=== PATIENT | female | born 1955 | race Caucasian/White ===

== ENCOUNTER 2021-02-10 14:37 | Outpatient (REF) | payer MEDICARE, MEDICAID, SELFPAY ==
[2021-02-10 16:04] LABS: MANUAL DIFF FLAG NO
[2021-02-10 16:07] LABS: Appearance Urine CLEAR; Color Urine YELLOW; Glucose Urine UA NEG (NEG); Leukocyte Esterase Urine TRACE (NEG); Nitrite Urine NEG (NEG); PH 5.5 (5.0-8.0); Urine Blood 1+ (NEG); Urine Ketones NEG (NEG); Urine Protein NEG (NEG-TRACE)
[2021-02-10 16:08] LABS: Basophils Absolute Auto 0.1 X10*3/uL (0.0-0.2); Basophils Percent Auto 1.1 % (0-2); Eosinophils Absolute Auto 0.2 X10*3/uL (0.0-0.4); Eosinophils Percent Auto 2.7 % (0-4); Hematocrit 32.1 % (37-47); Hemoglobin 10.7 g/dl (12.0-16.0); Imm Gran Abs Auto 0.02 X10*3/uL (0.00-0.03); Imm Gran Pct Auto 0.3 % (0.0-0.4); Lymphocytes Absolute Auto 2.9 X10*3/uL (1.2-4.9); Lymphocytes Percent Auto 40.9 % (20-40); Mean Corpuscular HGB Conc 33.3 g/dl (31.0-35.0); Mean Corpuscular Hemoglobin 32.4 pg (27.0-33.0); Mean Corpuscular Volume 97.3 fL (80-98); Mean Platelet Volume 9.2 fL (9.4-12.3); Monocytes Absolute Auto 0.6 X10*3/uL (0.1-1.2); Monocytes Percent Auto 8.7 % (2-11); Neutrophils Absolute Auto 3.3 X10*3/uL (2.0-8.3); Neutrophils Percent Auto 46.3 % (45-73); Platelet Count 270 X10*3/uL (160-400); Red Cell Distribution Width 12.4 % (11.0-16.0)
[2021-02-10 16:16] LABS: Bacteria Urine 1+ /LPF; RBC Urine 0-2 /HPF (0); Squamous Epithelial Cell Urine 1+ /LPF; WBC Urine 0-2 /HPF (0-4)
[2021-02-10 16:29] LABS: Alanine Aminotransferase 22 U/L (0-31); Albumin Level 4.4 g/dL (3.5-5.0); Alkaline Phosphatase 62 U/L (39-117); Anion Gap 16 (12-20); Aspartate Amino Transferase 24 U/L (5-31); Bilirubin Total 0.4 mg/dL (0.0-1.0); Blood Urea Nitrogen 39 mg/dL (9-16); C Reactive Protein 0.34 mg/dL (< or = 0.50); Calcium 9.6 mg/dL (8.4-10.2); Carbon Dioxide 21 mmol/L (22-29); Chloride 102 mmol/L (96-108); Estimated Glomerular Filt Rate 48; Glucose Random 93 mg/dL (60-115); Potassium 4.4 mmol/L (3.3-5.1); Sodium 135 mmol/L (135-145); Total Protein 7.5 g/dL (6.5-8.0)
[2021-02-10 16:54] LABS: Erythrocyte Sedimentation Rate 26 MM/HR (0-20)
[2021-02-11 11:27] LABS: Complement C3 97 mg/dL (83-193)
[2021-02-12 11:07] LABS: Anti Nuclear Antibody Pattern Nuclear, Homogeneous; Anti Nuclear Antibody Screen POSITIVE (NEGATIVE)
[2021-02-13 14:01] LABS: Anti DNA DS Antibody <1 IU/mL; SM/Ribonucleoprotein Ab <1.0 NEG AI (<1.0 NEG); Smith Protein <1.0 NEG AI (<1.0 NEG)
== END 2021-02-10 14:38 | disposition home or self-care (01) ==
LOC: HO.LAB 14:37
PROVIDERS: PCP Family Medicine; Referring Provider Family Medicine; Visit Provider Student in an Organized Health Care Education/Training Program
DX: L93.0 Discoid lupus erythematosus (principal); Z79.899 Other long term (current) drug therapy; Z87.891 Personal history of nicotine dependence
CPT/HCPCS: 36415; 80053; 81001; 85025; 85652; 86038; 86039; 86140; 86160; 86225; 86235; 99212

== ENCOUNTER 2021-05-10 15:37 | Outpatient (REF) | payer MEDICARE, MEDICAID, SELFPAY ==
--- NOTE | ~2021-05-10 | XR_ITS ---
EXAMINATION: BILATERAL HIP X-RAY CLINICAL INFORMATION: Pain COMPARISON: Left hip x-ray October [address] of the abdomen and pelvis #2017 TECHNIQUE: 2 views of each hip FINDINGS: Right: Bone alignment is normal. No fracture or dislocation is seen. The joint space is normal. Soft tissues are normal. Left: Bone alignment is normal. There is arthritis at the left hip joint with joint space narrowing and osteophyte formation. Soft tissues are unremarkable. There are degenerative changes of the visualized lower lumbar spine. XR/XR hip LT min 2V IMPRESSION: Left hip arthritis. Normal right hip.
--- NOTE | ~2021-05-10 | XR_ITS ---
EXAMINATION: BILATERAL HIP X-RAY CLINICAL INFORMATION: Pain COMPARISON: Left hip x-ray October [address] of the abdomen and pelvis #2017 TECHNIQUE: 2 views of each hip FINDINGS: Right: Bone alignment is normal. No fracture or dislocation is seen. The joint space is normal. Soft tissues are normal. Left: Bone alignment is normal. There is arthritis at the left hip joint with joint space narrowing and osteophyte formation. Soft tissues are unremarkable. There are degenerative changes of the visualized lower lumbar spine. XR/XR hip RT min 2V IMPRESSION: Left hip arthritis. Normal right hip.
== END 2021-05-10 15:38 | disposition home or self-care (01) ==
LOC: HO.XRAY 15:37
PROVIDERS: PCP Family Medicine; Visit Provider Family Medicine
DX: M25.551 Pain in right hip (principal); M25.552 Pain in left hip
CPT/HCPCS: 73502

== ENCOUNTER → 2021-05-11 11:06 | Outpatient (BNVA) | payer MEDICARE, MEDICAID, SELFPAY | PROVIDERS: Visit Provider Orthopaedic Surgery | DX: M70.61 Trochanteric bursitis, right hip (principal) | CPT/HCPCS: 99202 ==

== ENCOUNTER 2021-08-04 14:00 | Outpatient (RCR) | payer MEDICARE, MEDICAID, SELFPAY ==
--- NOTE | 2021-05-20 10:37 | MHC.PT.EP ---
[facility] [place] Office [place] Office [place] Office [address] [place] Bloom [address] [phone] F: [phone] F: [phone] F: [phone] F: [phone] Physical Therapy Plan of Care Date of Evaluation: Date of Surgery: Diagnosis: Trochanteric bursitis, R hip Sciatica, L side Assessment: Pt is a 66yo F who presents to PT with bilateral hip pain, L>R, with R mostly resolved at this time. She presents with current impairments in pain, ROM, strength, soft tissue restrictions, endurance, balance, and proper body mechanics. She is limited functionally by prolonged sitting, standing, walking, stairs, squatting, and externally rotating her L leg. Her signs and symptoms may be consistent with L sciatica and R hip bursitis. She is an excellent candidate for skilled PT services to address current impairments and facilitate return to PLOF. Frequency and Duration: The patient will be seen 2x/week for 4 weeks Short Term Goals: -Pt will be I with HEP to promote self management of symptoms. -Pt will improve L hip ER ROM by at least 5 degrees. Usp Goals: -Pt will demonstrate full, pain-free ROM throughout bilateral hips -Pt will tolerate ambulation >30 min with pain < 2/10. -Pt will demonstrate improvements in functional mobility as evidenced by statistically significant improvement in LEFI. Treatment Plan: Modalities to reduce pain, spasms and effusion. Manual therapy to restore motion and function. Therapeutic exercise to improve strength and flexibility. Neuromuscular re-education for posture and balance. Therapeutic activities to return to functional activities of daily living. Electronically signed by: Marlen Hawk PT, DPT Please sign and return to therapist. Thank you for your referral.
--- NOTE | 2021-08-04 15:39 | MHC.PT.DC ---
[facility] [place] Office [place] Office [place] Office [address] [place] Bloom [address] [phone] F: [phone] F: [phone] F: [phone] F: [phone] Physical Therapy Discharge Report Diagnosis: Trochanteric bursitis, R hip Sciatica, L side Date of Surgery: Date of Evaluation: 05/19/21 Date of Discharge: 08/04/21 Treatments to Date: 13 Cancellations to Date: 3 No Shows to Date: Discharge Status: Achieved Goals Improved Function Independent with HEP Discharge Summary: Pt has made fair-good progress overall since SOC. She has improved LEFI outcome measure from 30/80 on initial PT evaluation to 45/80 today. She is extremely motivated when at PT however she has had fluctuations in her pain and has not been completely compliant with HEP or coming consistently 2x/week to PT. She has had a decrease in radiating symptoms into LE's but continues to occasional have pain in her hips, L>R. At this time it is recommended pt be D/C to HEP as she has reached functional plateau with skilled PT services. It is recommended if pt continues to have pain despite performing HEP consistently that she follows up her Doctor, pt verbalized understanding. Provided pt with printed, updated copy of HEP. Pt reports no further questions or concerns for PT at this time. Electronically signed by: Marlen Hawk, PT, DPT Please sign and return to therapist. Thank you for your referral.
== END 2021-08-04 15:39 | disposition home or self-care (01) ==
LOC: HO.PT 14:00
PROVIDERS: Visit Provider Orthopaedic Surgery
DX: M70.61 Trochanteric bursitis, right hip (principal)
CPT/HCPCS: 97110; 97150; 97161; 97530

== ENCOUNTER 2021-09-21 11:55 | Outpatient (REF) | payer MEDICARE, MEDICAID, SELFPAY ==
--- NOTE | ~2021-09-21 | MM_ITS ---
EXAMINATION: MM SCREENING DIGITAL BREAST TOMOSYNTHESIS, BILATERAL CLINICAL INFORMATION: Screening. Asymptomatic. The lifetime risk of breast cancer based on the Tyrer-Cuzick Model is 10.8%. COMPARISON: Mammography: March 06, 2018 and studies dating back to March 18, 2010 TECHNIQUE: Digital breast tomosynthesis is performed in both the craniocaudal and mediolateral oblique views along with computer-aided detection (CAD). Synthesized 2D images are generated from the tomosynthesis. FINDINGS: There are scattered areas of fibroglandular density (ACR BI-RADS breast composition Category b). There are no significant masses, abnormal calcifications, or other abnormalities. MM/MM tomosynthesis screening BI IMPRESSION: There are no significant changes from prior study. ASSESSMENT: BI-RADS 1: Negative RECOMMENDATION: Routine annual mammography screening. This patient's information was entered into a reminder system with a target due date for their next mammogram.
[2021-09-21 14:29] LABS: Alanine Aminotransferase 17 U/L (0-31); Albumin Level 4.2 g/dL (3.5-5.0); Alkaline Phosphatase 62 U/L (39-117); Anion Gap 13 (12-20); Aspartate Amino Transferase 19 U/L (5-31); Bilirubin Total 0.7 mg/dL (0.0-1.0); Blood Urea Nitrogen 21 mg/dL (9-16); Calcium 9.7 mg/dL (8.4-10.2); Carbon Dioxide 23 mmol/L (22-29); Chloride 107 mmol/L (96-108); Estimated Glomerular Filt Rate > 60; Glucose Random 105 mg/dL (60-115); Potassium 4.8 mmol/L (3.3-5.1); Sodium 138 mmol/L (135-145); Total Protein 7.5 g/dL (6.5-8.0)
[2021-09-21 14:52] LABS: Thyroid Stimulating Hormone 0.62 uIU/mL (0.32-4.0)
[2021-09-21 15:07] LABS: Appearance Urine CLEAR; Color Urine YELLOW; Glucose Urine UA NEG (NEG); Leukocyte Esterase Urine NEG (NEG); Nitrite Urine NEG (NEG); Specific Gravity - Urine 1.025 (1.005-1.025); Urine Blood 1+ (NEG); Urine Ketones NEG (NEG); Urine Protein NEG (NEG-TRACE)
[2021-09-21 15:19] LABS: Creatinine Urine 81.44 mg/dL; Protein/Creatinine Ratio, Ur 0.15 (<0.2); Total Protein Urine Random 12 mg/dL (<12)
[2021-09-21 15:22] LABS: Bacteria Urine TRACE /LPF; RBC Urine 0-2 /HPF (0); Squamous Epithelial Cell Urine TRACE /LPF; WBC Urine 0-2 /HPF (0-4)
[2021-09-21 15:53] LABS: Osmolality Urine 695 mosm/kg (373-1093)
[2021-09-22 11:20] LABS: Complement C3 88 mg/dL (83-193)
[2021-09-24 10:42] LABS: Anti Nuclear Antibody Screen NEGATIVE (NEGATIVE)
== END 2021-09-21 11:56 | disposition home or self-care (01) ==
LOC: HO.MAMMO 11:55
PROVIDERS: Absent Provider Internal Medicine Hypertension Specialist; PCP Family Medicine; Visit Provider Family Medicine
DX: Z12.31 Encounter for screening mammogram for malignant neoplasm of breast (principal); N18.31 Chronic kidney disease, stage 3a
CPT/HCPCS: 36415; 77063; 77067; 80053; 81001; 81003; 83935; 84156; 84300; 84443; 86038; 86039; 86160

== ENCOUNTER 2022-04-08 12:58 | Outpatient (REF) | payer MEDICARE, MEDICAID, SELFPAY ==
[2022-04-08 13:22] LABS: MANUAL DIFF FLAG NO
[2022-04-08 13:33] LABS: Basophils Absolute Auto 0.1 X10*3/uL (0.0-0.2); Basophils Percent Auto 0.8 % (0-2); Eosinophils Absolute Auto 0.1 X10*3/uL (0.0-0.4); Eosinophils Percent Auto 1.2 % (0-4); Hematocrit 37.3 % (37.0-47.0); Hemoglobin 12.3 g/dl (12.0-16.0); Imm Gran Abs Auto 0.01 X10*3/uL (0.00-0.03); Imm Gran Pct Auto 0.1 % (0.0-0.4); Lymphocytes Absolute Auto 3.4 X10*3/uL (1.2-4.9); Lymphocytes Percent Auto 40.3 % (20-40); Mean Corpuscular Hemoglobin 33.8 pg (27.0-33.0); Mean Corpuscular Volume 102.5 fL (80.0-98.0); Mean Platelet Volume 9.1 fL (9.4-12.3); Monocytes Absolute Auto 0.6 X10*3/uL (0.1-1.2); Monocytes Percent Auto 7.5 % (2-11); Neutrophils Absolute Auto 4.2 x10*3/uL (2.0-8.3); Neutrophils Percent Auto 50.1 % (45-73); Platelet Count 264 X10*3/uL (160-400); Red Blood Count 3.64 X10*6/uL (4.20-5.50); Red Cell Distribution Width 13.5 % (11.0-16.0); White Blood Count 8.4 X10*3/uL (4.8-10.8)
[2022-04-08 13:53] LABS: Anion Gap 14 (12-20); Blood Urea Nitrogen 17 mg/dL (9-16); Calcium 10.4 mg/dL (8.4-10.2); Carbon Dioxide 25 mmol/L (22-29); Chloride 102 mmol/L (96-108); Estimated Glomerular Filt Rate > 60; Glucose Random 99 mg/dL (60-115); Potassium 5.1 mmol/L (3.3-5.1); Sodium 136 mmol/L (135-145)
== END 2022-04-08 12:59 | disposition home or self-care (01) ==
LOC: HO.LAB 12:58
PROVIDERS: PCP Family Medicine; Visit Provider Internal Medicine Hypertension Specialist
DX: I10 Essential (primary) hypertension (principal)
CPT/HCPCS: 36415; 80048; 85025

== ENCOUNTER 2022-06-08 13:37 | Outpatient (REF) | payer MEDICARE, MEDICAID, SELFPAY ==
--- NOTE | ~2022-06-08 | XR_ITS ---
EXAMINATION: XR BILATERAL HIPS WITH AP PELVIS CLINICAL INFORMATION: Left greater than right hip pain and stiffness. COMPARISON: None TECHNIQUE: AP view of the pelvis and AP and frog lateral views of each hip were obtained. FINDINGS: There is mild bony demineralization. The right acetabular joint space is well-maintained. The right femoral head appears smooth. The left acetabular joint space shows moderately severe superior narrowing. There is subchondral sclerosis, subchondral cyst formation and a small peripheral osteophyte of the left acetabular roof. No fracture or dislocation is seen. The left femoral head appears smooth. There are pelvic phleboliths. No foreign body is seen. XR/XR hips KATHI min 3V IMPRESSION: 1. There is moderate osteoarthritic change of the left hip. 2. No unusual degenerative change is seen of the right hip. 3. There is no fracture or dislocation.
== END 2022-06-08 13:38 | disposition home or self-care (01) ==
LOC: HO.XRAY 13:37
PROVIDERS: PCP Family Medicine; Visit Provider Internal Medicine Rheumatology
DX: M15.9 Polyosteoarthritis, unspecified (principal)
CPT/HCPCS: 73522

== ENCOUNTER 2023-01-10 13:10 | Outpatient (REF) | payer MEDICARE, MEDICAID, SELFPAY ==
[2023-01-10 15:31] LABS: Anion Gap 14 (12-20); Blood Urea Nitrogen 15 mg/dL (9-16); Calcium 9.6 mg/dL (8.4-10.2); Carbon Dioxide 25 mmol/L (22-29); Chloride 102 mmol/L (96-108); Estimated Glomerular Filt Rate 58; Potassium 4.9 mmol/L (3.3-5.1); Sodium 136 mmol/L (135-145)
== END 2023-01-10 13:11 | disposition home or self-care (01) ==
LOC: HO.LAB 13:10
PROVIDERS: PCP Family Medicine; Visit Provider Internal Medicine Hypertension Specialist
DX: I12.9 Hypertensive chronic kidney disease with stage 1 through stage 4 chronic kidney disease, or unspecified chronic kidney disease (principal); N18.9 Chronic kidney disease, unspecified
CPT/HCPCS: 36415; 80051; 82310; 82565; 84520

== ENCOUNTER 2023-05-11 11:13 | Outpatient (REF) | payer MEDICARE, MEDICAID, SELFPAY ==
[2023-05-11 13:34] LABS: MANUAL DIFF FLAG NO
[2023-05-11 13:53] LABS: Basophils Absolute Auto 0.1 X10*3/uL (0.0-0.2); Basophils Percent Auto 1.1 % (0-2); Eosinophils Absolute Auto 0.1 X10*3/uL (0.0-0.4); Eosinophils Percent Auto 1.9 % (0-4); Hematocrit 38.8 % (37.0-47.0); Hemoglobin 12.9 g/dl (12.0-16.0); Imm Gran Abs Auto 0.06 X10*3/uL (0.00-0.03); Imm Gran Pct Auto 0.9 % (0.0-0.4); Lymphocytes Absolute Auto 2.3 X10*3/uL (1.2-4.9); Lymphocytes Percent Auto 36.4 % (20-40); Mean Corpuscular HGB Conc 33.2 g/dl (31.0-35.0); Mean Corpuscular Hemoglobin 33.5 pg (27.0-33.0); Mean Corpuscular Volume 100.8 fL (80.0-98.0); Mean Platelet Volume 9.5 fL (9.4-12.3); Monocytes Absolute Auto 0.6 X10*3/uL (0.1-1.2); Neutrophils Absolute Auto 3.3 x10*3/uL (2.0-8.3); Neutrophils Percent Auto 50.7 % (45-73); Platelet Count 278 X10*3/uL (160-400); Red Blood Count 3.85 X10*6/uL (4.20-5.50); Red Cell Distribution Width 12.7 % (11.0-16.0); White Blood Count 6.4 X10*3/uL (4.8-10.8)
[2023-05-11 14:03] LABS: Cholesterol 242 mg/dL; HDL Cholesterol 109 mg/dL; LDL Cholesterol Calculated 120 mg/dl; Triglycerides 66 mg/dL
[2023-05-11 14:18] LABS: Estimated Average Glucose 97 mg/dL
[2023-05-11 14:19] LABS: Iron 107 mcg/dL (30-160); Percent Iron Saturation 40 % (15-50); Reflex LDLD? No; Total Iron Binding Capacity 266 mcg/dL (228-428); Unsaturated Iron Binding 159 ug/dL
[2023-05-11 14:24] LABS: Ferritin 179 ng/mL (10-250); TSH reflex Free T4 1.11 uIU/mL (0.32-4.0)
== END 2023-05-11 11:14 | disposition home or self-care (01) ==
LOC: HO.HHCL 11:13
PROVIDERS: Visit Provider Family Medicine
DX: E78.5 Hyperlipidemia, unspecified (principal); I12.9 Hypertensive chronic kidney disease with stage 1 through stage 4 chronic kidney disease, or unspecified chronic kidney disease; N18.32 Chronic kidney disease, stage 3b; E83.19 Other disorders of iron metabolism; L93.0 Discoid lupus erythematosus; D64.9 Anemia, unspecified
CPT/HCPCS: 36415; 80061; 82728; 83036; 83540; 84443; 85025

== ENCOUNTER 2023-06-14 10:41 | Outpatient (REF) | payer MEDICARE, MEDICAID, SELFPAY ==
--- NOTE | ~2023-06-14 | MM_ITS ---
EXAMINATION: BONE DENSITOMETRY CLINICAL INDICATION: Other specified disorders of bone density and structure. COMPARISON: Previous BD dated 03/16/2012 and baseline BD dated 03/12/2010. TECHNIQUE: Using a [employer] DXA System (software version: 13.1) manufactured by [employer], dual-energy x-ray absorptiometry was performed of the lumbar spine and left hip. The images are of good technical quality. Summary results are attached. FINDINGS: LEFT FEMUR, NECK: Current: BMD 0.911 g/cm2, Z-score 0.7, T-score -0.9, normal. Prior: BMD 0.919 g/cm2. Baseline: BMD 0.853 g/cm2. LEFT FEMUR, TOTAL: Current: BMD 0.903 g/cm2, Z-score 0.5, T-score -0.8, normal, 3.6% decrease from previous, 1.1% decrease from baseline (<5% change is not significant). Prior: BMD 0.937 g/cm2. Baseline: BMD 0.913 g/cm2. AP SPINE L1-L4: Current: BMD 1.042 g/cm2, Z-score 0.3, T-score -1.2, osteopenia, 5.5% increase from previous, 3.6% increase from baseline (<5% change is not significant). Prior: BMD 0.988 g/cm2. Baseline: BMD 1.006 g/cm2. IDENTIFIED RISK FACTORS: Menopause, history of fracture (adult), renal, anticonvulsant, alcohol 3 or more units per day, history of fracture (adult). HISTORY OF FRACTURE: Other. MEDICATIONS: Calcium supplements or multivitamin, vitamin D. MM/XR DEXA axial skeleton IMPRESSION: 1. DIAGNOSIS: Osteopenia based on the lowest T-score value of -1.2 in the lumbar spine applying World Health Organization criteria. 2. 10-YEAR FRACTURE RISK PREDICTION, FRAX: Major osteoporotic fracture (clinical spine, forearm, hip or shoulder) 16.3%. Hip fracture 2.0%. 3. Treatment Recommendations: NOF guidelines recommend consideration for treatment in postmenopausal women and men age 50 and older presenting with the following: -A hip or vertebral (clinical or morphometric) fracture. -T-score less than or equal to -2.5 at the femoral neck or spine after appropriate evaluation to exclude secondary causes. -Low bone mass at the hip or spine and a 10-year fracture probability by FRAX of greater than or equal to 3% for hip fracture or greater than or equal to 20% for major osteoporotic fracture based on the [place] adapted WHO algorithm. 4. Other Recommendations: All treatment decisions require clinical judgment and consideration of individual patient factors, including patient preferences, comorbidities, previous drug use, risk factors not captured in the FRAX model (e.g. frailty, falls, vitamin D deficiency, increased bone turnover, interval significant decline in bone density) and possible under or overestimation of fracture risk by FRAX. Additional medical evaluation for secondary cause of low bone mineral density may be appropriate. FUTURE SCAN RECOMMENDATION: People with diagnosed cases of osteoporosis or at high risk for fracture should have regular bone mineral density tests. For patients eligible for Medicare, routine testing is allowed once every 2 years. The testing frequency can be increased to one year for patients who have rapidly progressing disease, those who are receiving or discontinuing medical therapy to restore bone mass, or have additional risk factors.
== END 2023-06-14 10:42 | disposition home or self-care (01) ==
LOC: HO.MAMMO 10:41
PROVIDERS: PCP Family Medicine; Visit Provider Family Medicine
DX: Z12.31 Encounter for screening mammogram for malignant neoplasm of breast (principal); Z13.820 Encounter for screening for osteoporosis; M85.89 Other specified disorders of bone density and structure, multiple sites; Z78.0 Asymptomatic menopausal state
CPT/HCPCS: 77063; 77067; 77080

== ENCOUNTER → 2023-06-14 11:00 | Outpatient (BNV) | payer MEDICARE, MEDICAID, SELFPAY | PROVIDERS: PCP Family Medicine; Visit Provider Radiology Diagnostic Radiology | DX: Z12.31 Encounter for screening mammogram for malignant neoplasm of breast (principal) | CPT/HCPCS: 77063; 77067; 77080 ==

== ENCOUNTER 2023-07-05 12:19 | Outpatient (REF) | payer MEDICARE, MEDICAID, SELFPAY ==
[2023-07-05 14:05] LABS: Anion Gap 14 (12-20); Blood Urea Nitrogen 13 mg/dL (9-16); Calcium 9.8 mg/dL (8.4-10.2); Carbon Dioxide 21 mmol/L (22-29); Chloride 106 mmol/L (96-108); Estimated Glomerular Filt Rate > 60; Glucose Random 126 mg/dL (60-115); Potassium 4.2 mmol/L (3.3-5.1); Sodium 137 mmol/L (135-145)
== END 2023-07-05 12:20 | disposition home or self-care (01) ==
LOC: HO.LAB 12:19
PROVIDERS: PCP Family Medicine; Visit Provider Internal Medicine Hypertension Specialist
DX: I10 Essential (primary) hypertension (principal)
CPT/HCPCS: 36415; 80048

== ENCOUNTER 2023-11-24 14:06 | Outpatient (REF) | payer MEDICARE, MEDICAID, SELFPAY ==
[2023-11-24 16:11] LABS: MANUAL DIFF FLAG NO
[2023-11-24 16:15] LABS: Basophils Absolute Auto 0.1 X10*3/uL (0.0-0.2); Basophils Percent Auto 0.8 % (0-2); Eosinophils Absolute Auto 0.1 X10*3/uL (0.0-0.4); Eosinophils Percent Auto 1.4 % (0-4); Hemoglobin 12.8 g/dl (12.0-16.0); Imm Gran Abs Auto 0.02 X10*3/uL (0.00-0.03); Imm Gran Pct Auto 0.3 % (0.0-0.4); Lymphocytes Absolute Auto 2.5 X10*3/uL (1.2-4.9); Lymphocytes Percent Auto 34.3 % (20-40); Mean Corpuscular HGB Conc 33.7 g/dl (31.0-35.0); Mean Corpuscular Hemoglobin 33.3 pg (27.0-33.0); Mean Platelet Volume 9.5 fL (9.4-12.3); Monocytes Absolute Auto 0.7 X10*3/uL (0.1-1.2); Monocytes Percent Auto 9.1 % (2-11); Neutrophils Absolute Auto 3.9 x10*3/uL (2.0-8.3); Neutrophils Percent Auto 54.1 % (45-73); Platelet Count 289 X10*3/uL (160-400); Red Blood Count 3.84 X10*6/uL (4.20-5.50); Red Cell Distribution Width 13.1 % (11.0-16.0); White Blood Count 7.2 X10*3/uL (4.8-10.8)
[2023-11-24 17:03] LABS: Folate 9.9 ng/mL (> or = 4.0); Vitamin B12 1746 pg/mL (200-900)
== END 2023-11-24 14:07 | disposition home or self-care (01) ==
LOC: HO.HHCL 14:06
PROVIDERS: Visit Provider Family Medicine
DX: D64.9 Anemia, unspecified (principal)
CPT/HCPCS: 36415; 82607; 82746; 85025

== ENCOUNTER 2024-01-05 12:54 | Outpatient (REF) | payer MEDICARE, MEDICAID, SELFPAY ==
[2024-01-05 16:31] LABS: Anion Gap 15 (12-20); Blood Urea Nitrogen 13 mg/dL (9-16); Carbon Dioxide 21 mmol/L (22-29); Chloride 104 mmol/L (96-108); Estimated Glomerular Filt Rate > 60; Glucose Random 93 mg/dL (60-115); Potassium 4.5 mmol/L (3.3-5.1); Sodium 135 mmol/L (135-145)
== END 2024-01-05 12:55 | disposition home or self-care (01) ==
LOC: HO.HHCL 12:54
PROVIDERS: Visit Provider Family Medicine
DX: I10 Essential (primary) hypertension (principal)
CPT/HCPCS: 36415; 80048

== ENCOUNTER 2024-06-19 10:27 | Emergency (ER) | payer MEDICARE, MEDICAID, SELFPAY ==
[2024-06-19 10:34] VITALS: BP 198/118; PULSE 104; O2SAT 97
[2024-06-19 10:43] VITALS: BP 170/77; PULSE 95; RESP 18; TEMP 37.1; O2SAT 95; BMI 34.9
[2024-06-19] MEDS: Oxymetazoline HCl 0.05 % Nasal 15 ML SPRAY 2 SPRAY NOSTRIL-B (11:02)
--- NOTE | 2024-06-19 11:03 | ED.GENADULT ---
HPI - General Adult General Chief complaint: General Medical Stated complaint: NOSEBLEED,DIZZY,STOPPED PER EMS Time Seen by Provider: 06/19/24 10:33 Source: patient and EMS Mode of arrival: EMS Limitations: no limitations History of Present Illness ED Provider: Dayday RON HPI narrative: This is a 69-year-old female history of discoid lupus, trochanteric bursitis presenting to the emergency department with nosebleed since 09:00, patient reports typically before she brushes her teeth she blows her nose today, when she blew her nose she started having a nosebleed. It has not been controlled since 09:00 despite intermittent pressure. She is on aspirin however no blood thinners. Denies trauma to the area. Denies chest pain, shortness of breath, nausea, vomiting, abdominal pain, headache, vision changes, dizziness or weakness. Related Data Home Medications ?Medication ?Instructions ?Recorded ?Confirmed aspirin 81 mg tablet,delayed 81 mg PO DAILY 02/10/21 02/10/21 release (Adult Aspirin Regimen) atorvastatin 20 mg tablet 20 mg PO DAILY 02/10/21 02/10/21 calcium carbonate 600 mg-vitamin 1 tab PO BID 02/10/21 02/10/21 D3 5 mcg (200 unit) tablet (Calcium 600 + D(3)) gabapentin 300 mg capsule 300 mg PO DAILY 02/10/21 02/10/21 naproxen sodium 220 mg tablet 220 mg PO BID PRN 02/10/21 02/10/21 (Aleve) omega-3 fatty acids 1,000 mg 1,000 mg PO DAILY 02/10/21 02/10/21 capsule (Fish Oil Concentrate) zinc acetate 50 mg (zinc) capsule 50 mg PO DAILY 02/10/21 02/10/21 (Galzin) Previous Rx's ?Medication ?Instructions ?Recorded hydroxychloroquine 200 mg tablet 200 mg PO DAILY #30 tabs 02/10/21 amoxicillin 875 mg-potassium 1 tab PO BID 7 days #14 tabs 06/19/24 clavulanate 125 mg tablet Allergies Allergy/AdvReac Type Severity Reaction Status Date / Time ANDRADE Inhibitors Allergy Unknown Unknown Verified 06/19/24 10:46 diltiazem Allergy Unknown Unknown Verified 06/19/24 10:46 hydralazine Allergy Unknown Unknown Verified 06/19/24 10:46 Review of Systems Review of Systems: Yes all other systems are reviewed and are negative [facility], [facility] Past Medical History Attestation statement: The following information was validated with the patient. Source: old records reviewed and nursing notes reviewed Medical History Discoid lupus erythematosus Social History Social History Alcohol intake: current Alcohol type: wine Advance Directives: No Do you have a plan to hurt others: No Plan 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: rt handed/[employer] Physical Exam ED Vital Signs: Vital Signs - 24 hr 06/19/24 10:43 06/19/24 11:54 Temperature 98.8 F Pulse Rate 95 82 Respiratory Rate 18 16 Blood Pressure 170/77 H 159/80 H Pulse Oximetry 95 98 Oxygen Delivery Method Room Air Room Air BMI result Body Mass Index 34.9 VSS Appearance: Alert.? Oriented X3.? No acute distress.? Head: Normocephalic, atraumatic, no step-offs or deformities Eyes: Pupils equal, round and reactive to light.? Neck: Normal inspection.? Neck supple.? CVS: Normal heart rate and rhythm.? Pulses normal.? Respiratory: No respiratory distress.? Breath sounds normal.? Abdomen: Soft and nontender.? Skin: Skin warm and dry.? Normal skin color.? Normal skin turgor.? Extremities: No lower extremity edema.? No calf ttp. 5/5 strength to bilateral upper and lower extremities Neuro: Oriented X 3.? No motor deficit.? No sensory deficit. CN 2-12 intact Course Reevaluation(s) Reevaluation #1: patients nose still bleeding --> rhino rocket placed 7.5 to right nares w/ TXA. Patient tollerated procedure well. Time: 12:11 Reevaluation #2: Repeat CBC stable. No longer having bleeding from the right nares. Patient feeling better. No dripping around Rhino Rocket. Patient to be discharged to o'clock will watch for an hour to ensure no further bleeding, ifno bleeding patient to be discharged. Educated patient on diagnosis and treatment plan, answered all question, patient verbalizes understanding. At this time patient will be discharged home, advised to return with new or worsening symptoms. Educated on worrisome signs and symptoms and when to return. At this time I feel comfortable discharge home. Time: 12:51 Medications Administered Discontinued Medications Generic Name Dose Route Start Last Admin Trade Name Sourav PRN Reason Stop Dose Admin Oxymetazoline HCl 2 spray 06/19/24 10:36 06/19/24 11:02 Oxymetazoline Hcl 0.05 % Nasal 15 Ml [place] NOSTRIL-B 06/19/24 10:37 2 spray ONCE ONE Administration Tranexamic Acid 500 mg 06/19/24 12:01 06/19/24 12:14 Tranexamic Acid 1,000 Mg/10 Ml Vial INTRANASAL 06/19/24 12:02 500 mg ONCE ONE Administration Medical Decision Making Medical Decision Making [facility] Narrative: 1105 69-year-old female presents with nosebleed that started at 09:00. Physical exam- R sided nose bleed unable to identify site History and physical exam concerning for anterior nosebleed likely Kiesselbach's plexus could be from mechanical trauma such as nose picking or blowing nose. No signs of acute trauma to nose. Will rule out acute blood loss anemia although unlikely as patient appears hemodynamically stable. Plan labs, will give Afrin and put on nasal clamp. Differential Diagnosis Differential Diagnoses: The differential diagnosis associated with the presentation includes History and physical exam concerning for anterior nosebleed likely Kiesselbach's plexus could be from mechanical trauma such as nose picking or blowing nose. No signs of acute trauma to nose. Will rule out acute blood loss anemia although unlikely as patient appears hemodynamically stable. Admission/Observation Consideration of admission/observation: Escalation of care including admission/observation considered Possible Lab Data [facility] Lab Attestation statement: I reviewed the patient's lab results. 06/19/24 11:58 06/19/24 11:13 Labs: Lab Results 06/19/24 06/19/24 Range/Units 11:13 11:58 WBC 8.4 9.5 (4.8-10.8) X10*3/uL RBC 3.64 L 3.56 L (4.20-5.50) X10*6/uL Hgb 12.4 12.4 (12.0-16.0) g/dl Hct 36.2 L 35.7 L (37.0-47.0) % MCV 99.5 H 100.3 H (80.0-98.0) fL MCH 34.1 H 34.8 H (27.0-33.0) pg MCHC 34.3 34.7 (31.0-35.0) g/dl RDW 12.9 13.0 (11.0-16.0) % Plt Count 230 227 (160-400) X10*3/uL MPV 9.3 L 9.3 L (9.4-12.3) fL Immature Gran % (Auto) 0.4 0.3 (0.0-0.4) % Neut % (Auto) 71.7 76.1 H (45-73) % Lymph % (Auto) 18.2 L 14.0 L (20-40) % Tripp % (Auto) 8.0 8.9 (2-11) % Eos % (Auto) 1.1 0.3 (0-4) % Baso % (Auto) 0.6 0.4 (0-2) % Lymph # (Auto) 1.5 1.3 (1.2-4.9) X10*3/uL Tripp # (Auto) 0.7 0.9 (0.1-1.2) X10*3/uL Eos # (Auto) 0.1 0.0 (0.0-0.4) X10*3/uL Baso # (Auto) 0.1 0.0 (0.0-0.2) X10*3/uL Abs Immat Gran (auto) 0.03 0.03 (0.00-0.03) X10*3/uL Absolute Neuts (auto) 6.0 7.2 (2.0-8.3) x10*3/uL Absolute Nucleated RBC 0.000 0.000 (0.0-0.012) X10*3/uL Nucleated RBC % (auto) 0.0 0.0 (0.0-0.2) /100WBC PT 10.5 L (11.1-13.3) SEC INR 0.9 (0.9-1.1) Sodium 137 (135-145) mmol/L Potassium 4.3 (3.3-5.1) mmol/L Chloride 106 (96-108) mmol/L Carbon Dioxide 19 L (22-29) mmol/L Anion Gap 16 (12-20) BUN 16 (9-16) mg/dL Creatinine 0.84 (0.5-1.4) mg/dL Estim Creat Clear Calc 67.6 Estimated GFR > 60 Random Glucose 117 H (60-115) mg/dL Calcium 10.2 (8.4-10.2) mg/dL Total Bilirubin 0.4 (0.0-1.0) mg/dL AST 29 (5-31) U/L ALT 18 (0-31) U/L Alkaline Phosphatase 56 (39-117) U/L Total Protein 7.4 (6.5-8.0) g/dL Albumin 3.9 (3.5-5.0) g/dL External Record Review External record reviewed: Outpatient record Chronic Conditions Patient?s care impacted by: Other (Lupus ) Critical Care Time Critical Care Time Critical Care Time: Yes Total Critical Care Time: 35 Attestation: I attest to this time spent taking care of the patient, obtaining history, physical, reviewing labs, imaging, treatment of patients condition +/- specialist/hospitalist consult Discharge Plan Discharge Clinical Impression: Bleeding nose Patient Disposition: Home, Self-Care Instructions: Nosebleed (ED) Additional Instructions: Take your medications as prescribed. If you were prescribed antibiotics today, it is important that you take your medication to their entirety, do not skip any doses, do not finish them early. Follow-up with your primary care provider this week. Return to the emergency department with new or worsening symptoms. Such as fevers, chills, chest pain, shortness of breath, nausea, vomiting, dizziness, headache, vision changes, lethargy In case of emergency call 911 Come back in 3 days for removal or packing. Prescriptions: New amoxicillin-pot clavulanate 875-125 mg tablet 1 tab PO BID 7 Days Qty: 14 0RF No Action gabapentin 300 mg capsule 300 mg PO DAILY atorvastatin 20 mg tablet 20 mg PO DAILY Galzin 50 mg (zinc) capsule 50 mg PO DAILY aspirin [Adult Aspirin Regimen] 81 mg tablet,delayed release (DR/EC) 81 mg PO DAILY calcium carbonate-vitamin D3 [Calcium 600 + D(3)] 600 mg(1,500mg) -200 unit tablet 1 tab PO BID naproxen sodium [Aleve] 220 mg tablet 220 mg PO BID PRN omega-3 fatty acids [Fish Oil Concentrate] 1,000 mg capsule 1,000 mg PO DAILY hydroxychloroquine 200 mg tablet 200 mg PO DAILY Qty: 30 5RF Referrals: Jose L Friend [Physician] - 2 days Patsy Patel MD [Primary Care Provider] - 2 days Print Language: Greenlandic
[2024-06-19 11:18] LABS: MANUAL DIFF FLAG NO
--- OUTSIDE RECORDS SUMMARY | 2024-06-19 11:19 | XMS_ITS | Continuity of Care Document ---
Author Organization [facility] ion Address [address] [place] [id number]- Care Team Providers Care Extermination Supervisor Name Role Phone Amanda ANTONIO, Patsy Primary Care Physician Encounter [facility] [place] Date(s): 06/21/23 - 07/21/[address] [address]- Attending Physician: Barbie Drew Admitting Physician: AdmtrBarbie Referring Physician: Admtr, Ar8 Allergies, Adverse Reactions, Alerts Substance Reaction Severity Status NSAIDs Active ANDRADE inhibitors Active DilTIAZem Hydrochloride Acti ve Medications amLODIPine 5 mg oral tablet 0 Refills, Maintenance, 01/17/23 15:26:00 EDT, Partial fill upon patient request if the prescription is for a schedule II opioid drug. Start Date: 01/17/23 Status: Ordered atorvastatin 20 mg oral tablet 0 Refills, Maintenance, 01/17/23 15:26:00 EDT, Partial fill upon patient request if the prescription is for a schedule II opioid drug. Start Date: 01/17/23 Status: Ordered baclofen 5 mg oral tablet 1 tablet = 5 mg, By Mouth, 3 times a day, take for postoperative back muscle spasm, # 42 tablet, 0 Refills, Maintenance, 02/22/23 14:43:00 EDT, [facility], Partial fill upon patient request if the prescription is for a schedule II... Start Date: 02/22/23 Stop Date: 03/08/23 Status: Ordered calcium (as carbonate) 500 mg oral tablet, chewable 1 tablet = 500 mg, Daily, 0 Refills, Maintenance, 01/17/23 15:28:00 EDT, Partial fill upon patient request if the prescription is for a schedule II opioid drug. Start Date: 01/17/23 Status: Ordered famotidine 20 mg oral tablet 20 mg, 1, tablet, By Mouth, Once, # 14 tablet, Refills 0, Tot. Refills 0, Soft Stop, 02/22/23 14:00:00 EDT, Route to Pharmacy Electronically, [facility], Partial fill upon patientrequest if the prescription is for a schedule II op... Start Date: 02/22/23 Status: Ordered hydroxychloroquine 200 mg oral tablet Refills 0, Maintenance, 01/17/23 15:26:00 EDT, Partial fill upon patient request if the prescription is for a schedule II opioid drug. Start Date: 01/17/23 Status: Ordered losartan 100 mg oral tablet 0 Refills, Maintenance, 01/17/23 15:27:00 EDT, Partial fill upon patient request if the prescription is for a schedule II opioid drug. Start Date: 01/17/23 Status: Ordered magnesium aspartate = 1,230 mg, By Mouth, 2 times a day, 0 Refills, Maintenance, 01/17/23 15:28:00 EDT, Partial fill upon patient request if the prescription is for a schedule II opioid drug. Start Date: 01/17/23 Status: Ordered Metoprolol Succinate ER 50 mg oral tablet, extended release 0 Refills, Maintenance, 01/17/23 15:26:00 EDT, Partial fill upon patient request if the prescription is for a schedule II opioid drug. Start Date: 01/17/23 Status: Ordered oxyCODONE 5 mg oral tablet 5 mg, 1, tablet, By Mouth, Every 4 hours, PRN, # 42 tablet, Refills 0, Tot. Refills 0, Maintenance,as needed for pain, 02/22/23 13:55:00 EDT, Route to Pharmacy Electronically, [facility], Partial fill upon patient request if the p... Start Date: 02/22/23 Status: Ordered Vitamin B-12 500 mcg oral tablet 0 Refills, Maintenance, 01/17/23 15:26:00 EDT, Partial fill upon patient request if the prescription is for a schedule II opioid drug. Start Date: 01/17/23 Status: Ordered zinc (as gluconate) 10 mg oral lozenge = 50 mg, Daily, 0 Refills, Maintenance, 01/17/23 15:29:00 EDT, Partial fill upon patient request ifthe prescription is for a schedule II opioid drug. Start Date: 01/17/23 Status: Ordered Problem List Condition Confirmation Course Effective Dates Status H ealth Status Informant Chronic kidney disease stage 3 Confirmed 10/25/22 Active Degenerative joint disease involving multiple joints Confirmed 02/23/22 Active Discoid lupus erythematosus Confirmed 08/27/12 Active Dyslipidemia Confirmed 08/27/12 Active Essential hypertension Confirmed 07/21/15 Active Lumbar radiculopathy Confirmed 01/19/23 Active Obese class I Confirmed Active Social History Social History Type Response Tobacco Other: Former smoker . Sex Patient Care team information Care Team Personnel Name: Patsy Patel MD Position: [facility] Outreach Member Role: PCP Address: Address: [address] [place] [id number]- Care Team Related Persons Name: JERRY SOUSA Address: home [address] [place] [id number]
--- OUTSIDE RECORDS SUMMARY | 2024-06-19 11:19 | XMS_ITS | Continuity of Care Document ---
Author Organization [facility] Address [address] [place] [address] [address], [address] [place] [address]- Care Team Providers Care Concrete Fence Builder Name Role Phone Amanda ANTONIO, Patsy Primary Care Physician Encounter [facility] Date(s): 02/10/23 - 03/12/23 [facility] [address] [place] [address] Drive, [address] [place] [address]- Allergies, Adverse Reactions, Alerts Substance Reaction Severity [...] tablet, 0 Refills, Maintenance, 02/22/23 14:43:00 EDT, [facility], Partial fill upon patient request [...] 02/22/23 14:00:00 EDT, Route to Pharmacy Electronically, [facility], Partial fill upon patientrequest if [...] 02/22/23 13:55:00 EDT, Route to Pharmacy Electronically, [facility], Partial fill upon patient request [...] 07/21/15 Active Lumbar radiculopathy Confirmed 01/19/23 Active Social History Social History Type Response Tobacco Other: Former smoker . Sex Patient Care team information Care Team Personnel Name: Patsy Patel MD Position: [facility] Outreach Member Role: PCP Address: Address: [address] [place] [address]- Care Team Related Persons Name: JERRY SOUSA Address: home [address] [place] [id number]
--- OUTSIDE RECORDS SUMMARY | 2024-06-19 11:19 | XMS_ITS | Continuity of Care Document ---
Author Organization [facility] Address [address] [place] [address], [address] [place] [address]- Care Team Providers Care Ball Shagger Name Role Phone Not on Staff, PCP Primary Care Physician Unavail able Encounter [facility] Date(s): 11/23/22 - 12/23/22 [facility] [address] [place] [address] Drive, [address] [place] [address]- Patient Care team information Care Team Personnel Name: Not on Staff, PCP Position: [facility] Physician (General Medicine) Member Role: PCP
--- OUTSIDE RECORDS SUMMARY | 2024-06-19 11:19 | XMS_ITS ---
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
--- OUTSIDE RECORDS SUMMARY | 2024-06-19 11:19 | XMS_ITS | Continuity of Care Document ---
Author Organization [facility] ion Address [address] [place] [address]- Care Team Providers Care Legal File Clerk Name Role Phone Amanda NATONIO, Patsy Primary Care Physician [phone] Encounter [facility] Date(s): 04/03/23 - 06/23/[address] [address]- Encounter Diagnosis Weakness(Final) - Discharge Disposition: A-D/C Home Attending Physician: David Robert MD Admitting Physician: David Robert MD Referring Physician: David Robert MD Allergies, Adverse Reactions, Alerts Substance Reaction Severity Status NSAIDs Active DilTIAZem Hydrochloride Acti ve ANDRADE inhibitors Active Medications amLODIPine 5 mg oral tablet 0 [...] tablet, 0 Refills, Maintenance, 02/22/23 14:43:00 EDT, [facility], Partial fill upon patient request [...] 02/22/23 14:00:00 EDT, Route to Pharmacy Electronically, [facility], Partial fill upon patientrequest if [...] 02/22/23 13:55:00 EDT, Route to Pharmacy Electronically, [facility], Partial fill upon patient request [...] Care team information Care Team Personnel Name: Amanda ANTONIO , Patsy Position: [facility] Outreach Member Role: PCP Address: Address: [address] [place] [address]- Care Team Related Persons Name: MERRY JERRY Address: [address] [address]
--- OUTSIDE RECORDS SUMMARY | 2024-06-19 11:19 | XMS_ITS ---
Author Organization [facility] Address [address] [place] [address] Care Team Providers Care Supervising Nurse Name Role Phone Patsy Patel Primary Care Provider Rekha Busch Unavailable [phone] Encounters Encounter Location Date Provider Diagnosis [facility] [address] [place] [address] 05/10/2023 Rekha Pool PLAN OF TREATMENT No Information
--- OUTSIDE RECORDS SUMMARY | 2024-06-19 11:19 | XMS_ITS | Continuity of Care Document ---
Author Organization [facility] ter Address [address] [place] [address]- Care Team Providers Care Cd Mixer Helper Name Role Phone Amanda ANTONIO, Patsy Primary Care Physician [phone] Encounter [place] Date(s): 02/22/23 - 02/22/[address] [address]- Discharge Disposition: A-D/C Home Attending Physician: David [...] tablet, 0 Refills, Maintenance, 02/22/23 14:43:00 EDT, [facility], Partial fill upon patient request if [...] 02/22/23 14:00:00 EDT, Route to Pharmacy Electronically, [facility], Partial fill upon patientrequest if the prescription is for a schedule II op... Start Date: 02/22/23 Status: Ordered Fentanyl Inj (PACU ONLY) 25 mcg, Injection, IV Push Slowly, Every 5 minutes for 8 doses/times, in PACU ONLY, PRN for Pain , Moderate, Routine, 02/22/23 12:42:00 EDT, Stop date Limited # of times Start Date: 02/22/23 Stop Date: 02/23/23 Status: Discontinued hydroxychloroquine 200 mg oral tablet Refills 0, [...] 02/22/23 13:55:00 EDT, Route to Pharmacy Electronically, [facility], Partial fill upon patient request if [...] 07/21/15 Active Lumbar radiculopathy Confirmed 01/19/23 Active Results Radiology Reports * Exam Date Time Procedure Performing Provider Status 02/22/23 2:18 PM C-Arm < 1 Hour Rosa Hurt; Auth (Verified) Notes: (C-Arm < 1 Hour) Reason For Exam: lumbar metrix RESULT: C-Arm < 1 Hour Study: Spine Single View, C-Arm < 1 Hour History: Reason: lumbar metrix; Special Instructions: ft; 3.3s tt; 10 min. Comparison: None available. FINDINGS: Fluoroscopy support was provided. There was no radiologist in attendance. 2 fluoroscopic images were submitted. Technologist time: 10 min. Fluoroscopy time: 3.3 sec. Cumulative reference air kerma: 2.94 mGy. IMPRESSION: Fluoroscopy support was provided. Please refer to the surgical/procedural notes for details. WSN: [id number] Ordering Physician: David Robert Dictated By: Florencia Smith MD Dictated Date/Time: 02/22/23 2:37 pm Reviewed By: Florencia Smith MD Signed By: Florencia Smith MD Signed Date/Time: 02/22/23 2:37 pm Transcribed By: YARED Transcribed Date/Time: 02/22/23 2:36 pm * Exam Date Time Procedure Performing Provider Status 02/22/23 2:18 PM Spine Single View Jose Alfredo Hurt [facility] (Verified) Notes: (Spine Single View) Reason For Exam: lumbar metrix RESULT: Spine Single View Study: Spine Single View, C-Arm < 1 Hour History: Reason: lumbar metrix; Special Instructions: ft; 3.3s tt; 10 min. Comparison: None available. FINDINGS: Fluoroscopy support was provided. There was no radiologist in attendance. 2 fluoroscopic images were submitted. Technologist time: 10 min. Fluoroscopy time: 3.3 sec. Cumulative reference air kerma: 2.94 mGy. IMPRESSION: Fluoroscopy support was provided. Please refer to the surgical/procedural notes for details. WSN: [id number] Ordering Physician: David Robert Dictated By: Florencia Smith MD Dictated Date/Time: 02/22/23 2:37 pm Reviewed By: Florencia Smith MD Signed By: Florencia Smith MD Signed Date/Time: 02/22/23 2:37 pm Transcribed By: YARED Transcribed Date/Time: 02/22/23 2:36 pm Vital Signs Most recent to oldest [Reference Range]: 1 2 3 Height 163 cm (02/22/23 9:55 AM) 163 cm (02/17/23 10:02 AM) Weight 71.5 kg (02/22/23 9:55 AM) 71.5 kg (02/17/23 10:02 AM) Oxygen Saturation [94-100 %] 95 % (02/22/23 2:00 PM) 97 % (02/22/23 1:45 PM) 97 % (02/22/23 1:30 PM) Pulse Rate [55-90 bpm] 72 bpm (02/22/23 9:55 AM) Body Mass Index [18.5-24.99 kg/m2] 26.91 kg/m2 *H* (02/22/23 9:55 AM) 26.91 kg/m2 *H* (02/17/23 10:02 AM) Blood Pressure [90-138/55-84 mm Hg] 134/70mm Hg (02/22/23 2:45 PM) 137/70mm Hg (02/22/23 2:00 PM) 139/79mm Hg *H* (02/22/23 1:45 PM) Respiratory Rate [16-30 br/min] 17 br/min (02/22/23 1:30 PM) 15 br/min *L* (02/22/23 1:29 PM) 20 br/min (02/22/23 1:15 PM) Temperature [96.8-100.4 DegF] 98.4 DegF (02/22/23 12:45 PM) 98.1 DegF (02/22/23 9:55 AM) Liters per Minute 6 L/min (02/22/23 12:45 PM) Mode of Delivery (Oxygen) Room air (02/22/23 1:15 PM) Room air (02/22/23 1:00 PM) Simple face mask (02/22/23 12:45 PM) Blood pressure sites Arm, right (02/22/23 12:45 PM) Arm, right (02/22/23 9:55 AM) Temperature Route Temporal (02/22/23 12:45 PM) Temporal (02/22/23 9:55 AM) Dry Weight 82.8 kg (02/22/23 9:55 AM) 71.5 kg (02/17/23 10:02 AM) Dry Weight Obtained Via Standing scale (02/22/23 9:55 AM) Patient/family stated (02/17/23 10:02 AM) Social History Social History Type Response Tobacco Other: Former smoker . Sex Note * Kathy Scott RN: PERFORM Event Display: Discharge/Transfer Note Hospital Authored Date: [id number] Nursing Discharge Note Entered On: 02/22/2023 17:56 EDT Performed On: 02/22/2023 17:55 EDT by Kathy Scott RN Nursing Discharge Note 2 Discharge Time : 02/22/2023 15:26 EDT Discharge Level of Care at Discharge : Home/[facility] Film Writer Utilized : No AMA Form Signed : No Patient Left Unit Via : Wheelchair Patient Accompanied Off Unit with : Responsible adult DC Instructions Provided & Signed by Pt : Yes Patient Understands D/C Instructions : Yes Verbalized Understanding of D/C Plan By : Family, Patient Patient Instructions Discharge Signed : Yes Did Pt have Specialty Bed or Wound Vac : No Kathy Scott RN - 02/22/2023 17:55 EDT * Coretta Stacy: MODIFY, PERFORM, MODIFY, SIGN, VERIFY, MODIFY Coretta Stacy: MODIFY, SIGN Coretta Stacy: SIGN, SIGN Coretta Stacy: SIGN, MODIFY Coretta Stacy: MODIFY Delmy Hernandez: David Jiménez MD: SIGN Event Display: Discharge/Transfer Note Hospital Authored Date: [id number] Patient: SARIAH PENA Age: 67 years Sex: Female : 1955 Associated Diagnoses: None Author: Coretta Stacy Discharge Information Admission: Date: 02/22/2023 Preoperative diagnosis: L3 radiculopathy, left Discharge: Date: 02/22/2023 Postoperative diagnosis: Same Operation: Left L2-3 decompression Surgeon: David Robert M.D. Hospital Course Sariah is a 67-year-old female who presented outpatient for evaluation of severe pain across the left buttock around her groin and into the medial left thigh. On exam, she had no focal motor deficitsand had numbness in the left anterior medial thigh. MRI of the lumbar spine showed severe stenosis of the left lateral recess at L2-3 due to ligamentous hypertrophy as well as a herniated disc. She tried conservative measures without any significant relief and elected to proceed with surgical intervention. Surgery was tolerated well, without complication. Postoperatively, she reported improvementin preoperative left buttock and left lower extremity pain, only reporting postoperative back pain, which has been well controlled with PO medication. She denied new radicular pain, paresthesias, numbness, or weakness. She denied chest pain, dyspnea, or calf tenderness. She is ambulatory, tolerating p.o., and voiding freely. She will be discharged home with oxycodone, tizanidine, and Pepcid (per patient's request to avoid stomach irritation from pain medication). Discussed postoperative expectations as well as pain management. She expressed good understanding, all questions answered. Neurosurgery postoperative instructions provided upon discharge. Vitals: Temperature 98.4 (13:17) Systolic Blood Pressure 139 (13:48) Diastolic Blood Pressure 79 (13:48) Pulse 76 (13:50) SpO2 97 (13:48) Respiratory Rate 17 (13:39) Physical Exam: Alert and oriented x 3 No acute cardio respiratory distress Surgical dressing C/D/I. Speech is clear, fluent and appropriate Lower extremities: hip flexion 5/5 bilaterally, knee extension 5/5 bilaterally, dorsiflexion 5/5 bilaterally, plantar flexion 5/5 bilaterally, EHL 5/5 bilaterally Sensation intact throughout upper and lower extremities No calf tenderness to palpation. Discharge Plan Diet/Activity/Patient Education/Follow Up Follow Up with: Patsy Patel MD; David Robert 03/23/2023 1:30 PM. Discharge Disposition Discharge: home. MEDICATION LIST (Selected) Prescriptions Prescribed baclofen 5 mg oral tablet: 1 tablet = 5 mg, By Mouth, 3 times a day, take for postoperative back muscle spasm, # 42 tablet, 0 Refills, Maintenance, 02/22/23 14:43:00 EDT, [facility], Partial fill upon patient request if the prescription is for a schedule II... famotidine 20 mg oral tablet: 20 mg, 1, tablet, By Mouth, Once, # 14 tablet, Refills 0, Tot. Refills 0, Soft Stop, 02/22/23 14:00:00 EDT, Route to Pharmacy Electronically, [facility], Partial fill upon patient request if the prescription is for a schedule II op... oxyCODONE 5 mg oral tablet: 5 mg, 1, tablet, By Mouth, Every 4 hours, PRN, # 42 tablet, Refills 0, Tot. Refills 0, Maintenance, as needed for pain, 02/22/23 13:55:00 EDT, Route to Pharmacy Electronically, [facility], Partial fill upon patient request if the p... Documented Medications Documented Metoprolol Succinate ER 50 mg oral tablet, extended release: 0 Refills, Maintenance, 01/17/23 15:26:00 EDT, Partial fill upon patient request if the prescription is for a schedule II opioid drug. Vitamin B-12 500 mcg oral tablet: 0 Refills, Maintenance, 01/17/23 15:26:00 EDT, Partial fill upon patient request if the prescription is for a schedule II opioid drug. amLODIPine 5 mg oral tablet: 0 Refills, Maintenance, 01/17/23 15:26:00 EDT, Partial fill upon patient request if the prescription is for a schedule II opioid drug. atorvastatin 20 mg oral tablet: 0 Refills, Maintenance, 01/17/23 15:26:00 EDT, Partial fill upon patient request if the prescription is for a schedule II opioid drug. calcium (as carbonate) 500 mg oral tablet, chewable: 1 tablet = 500 mg, Daily, 0 Refills, Maintenance, 01/17/23 15:28:00 EDT, Partial fill upon patient request if the prescription is for a schedule II opioid drug. hydroxychloroquine 200 mg oral tablet: Refills 0, Maintenance, 01/17/23 15:26:00 EDT, Partial fill upon patient request if the prescription is for a schedule II opioid drug. losartan 100 mg oral tablet: 0 Refills, Maintenance, 01/17/23 15:27:00 EDT, Partial fill upon patient request if the prescription is for a schedule II opioid drug. magnesium aspartate: = 1,230 mg, By Mouth, 2 times a day, 0 Refills, Maintenance, 01/17/23 15:28:00EDT, Partial fill upon patient request if the prescription is for a schedule II opioid drug. zinc (as gluconate) 10 mg oral lozenge: = 50 mg, Daily, 0 Refills, Maintenance, 01/17/23 15:29:00 EDT, Partial fill upon patient request if the prescription is for a schedule II opioid drug. Report sent to all consultants: Amanda ANTONIO , Patsy. * Coretta Stacy: PERFORM Event Display: Discharge/Transfer Note Hospital Authored Date: [id number] Prescription for tizanidine was originally sent but not approved/covered by insurance. Baclofen rx was sent for muscle spasm- 5mg TID. * Kathy Scott RN: PERFORM Event Display: Patient Education/Instruction Authored Date: [id number] Surgery [place] [address] Name: SARIAH PENA : 1955?? Visit: 02/22/2023 09:30?? Current Date: 02/22/2023 14:58 ?? Account: [id number]?? Surgery Discharge Instructions We would like to thank you for allowing us to assist you with your healthcare needs. The following includes patient education materials and information regarding your injury/illness. Our entire staffstrives to provide an excellent experience for our patients and their families. PLEASE ENSURE YOU FOLLOW-UP PER THE INSTRUCTIONS BELOW! ?? YOUR OPINION IS IMPORTANT TO US! Please complete the survey you may receive by mail or email. Your feedback will be used to make improvements to the healthcare experiences of our patients and their families. Surveys are administered by [employer] ?? If further treatment with your primary care physician or another doctor is recommended, it is important for you to keep the appointment. Call your primary care physician or return to the Emergency Department immediately if your condition worsens, fails to improve, or new symptoms develop. If you need to find a doctor, you can call [facility] [employer] for a referral at [phone] or toll free at [phone] ([phone]) or log in to [email or web address] ?? You can view and manage your care through the patient portal or by using a health care leny of your choosing. [employer] is a website that allows you to securely view your medical information including your hospital discharge summary, office visit summaries, medications and follow-up visits. You can also request appointments, renew medications, and request access to your medical information using a health care leny of your choosing, or just ask a question. You are entitled to know the individuals who participated in your treatment. This information is available within your medical record and will be provided upon your request. You can enroll at [email or web address] or register d uring your next office visit. You have been discharged from [facility], Patient Care Unit: PANU??. If you have any questions regarding these instructions after you leave, please call us and we will be happy to assist you. [facility] Your Care Team Attending Physician David Robert MD?? Consulting Providers Glory ANTONIO, Darrion Giron?? Discharging Providers Coretta Stacy Reason for Admission L2 L3 STENOSIS LAMINOTOMYDISC EXC METRX DST [facility] IP Primary Care Provider Amanda ANTONIO , Patsy? Advance Directive Health Care Proxy on File No What to do next Instructions From Your Doctor ?? Orders? 02/22/23 14:45:00 EDT?? Prescriptions??, ??02/22/23 14:45:00 EDT?? Scheduled Follow-Up Appointments 2022 1:30 PM EDT ?? With: Jakob ANTONIO, David Brunner Where: [address] [place] [address]- You Need to Schedule the Following Appointments Follow Up with??aDvid Robert When??03/23/2023 01:30 PM EDT Where: [address] [place] [address] [address], [address] [place] [address]- Business (1) Follow Up with??Patsy Patel MD When??In 0 days Where: [address] [place] [address]- Business (1) Discharge Medications SARIAH PENA :1955 Visit Date:02/22/2023 Medications: Please continue your medications until treatment is completed or stopped by your provider. You may resume your daily prescription medications. Discuss any questions related to medications with your provider. What How Much When Instructions Next Dose New Baclofen (baclofen 5 mg oral tablet) 1 tab(s) Oral 3 times a day Duration: 14 Days take for postoperative back muscle spasm ?? Pickup at [facility] today 10 pm New Famotidine (famotidine 20 mg oral tablet) 1 tab(s) Oral Once Pickup at [facility] tonight New Oxycodone (oxyCODONE 5 mg oral tablet) 1 tab(s) Oral Every 4 hours as needed for as needed for pain Pickup at [facility] as early as needed for pain Unchanged Amlodipine (amLODIPine 5 mg oral tablet) as scheduled Unchanged Calcium Carbonate (calcium (as carbonate) 500 mg oral tablet, chewable) 1 tab(s) Daily as scheduled Unchanged Cyanocobalamin (Vitamin B-12 500 mcg oral tablet) as scheduled Unchanged Hydroxychloroquine (hydroxychloroquine 200 mg oral tablet) as scheduled Unchanged Losartan (losartan 100 mg oral tablet) as scheduled Unchanged magnesium aspartate 1,230 Milligram Oral Twice a day as scheduled Unchanged Metoprolol (Metoprolol Succinate ER 50 mg oral tablet, extended release) as scheduled Unchanged Zinc Gluconate (zinc (as gluconate) 10 mg oral lozenge) 50 Milligram Daily as scheduled Pharmacy Information [facility]: [address] [place], [place] [id number] [phone] ?? What How Much When Comments Stop Taking Aspirin (aspirin 81 mg oral capsule) 1 capsule Oral Every 4 hours Stop Taking Roxton-3 Polyunsaturated Fatty Acids (Fish Oil) Oral Allergies (NKA means No Known Allergies) ANDRADE inhibitors DilTIAZem Hydrochloride NSAIDs Education Materials Below is the list of Educational Leaflet Providered with your Discharge Instructions. Surgery Medical Daystay Surgical Overnight Discharge Instructions?? Neurosurgery-Lumbar Discharge Instructions?? Neurosurgery-Lumbar Discharge Instructions?? Neurosurgery-Microdiscectomy Post-Op?? Valuables and Belongings I fully understand and agree that [facility] accepts no responsibility for all my personal property including clothing, toilet articles, radios, jewelry, dentures, hearing aids, rings, money, or any other property that is in my possession or is brought to me after admission. I understand certain valuables may be placed in a hospital safe for a short period of time. I understand that the hospital is not liable for loss or damage due to accident, fire, or other natural occurrence while said property is in the safe. I accept full responsibility for any personal property that I keep with me, and will not hold the hospital responsible in case of loss or disappearance. I acknowledge that i have been encouraged to send valuables and belongings home. ?? Review of Valuable and Belonging List: With patient Disposition of Belongings: Valuables Locked Possessions released to: to PACU Date for Pt to Sign Valuables/Belongings: 02/22/23 10:29:00 ?? Valuables & Belongings ?? Clothes Electronic devices Jewelry Monetary Items Personal devices Miscellaneous Medications (Valuables) Valuables at Bedside Pants, Shirt, Shoes, Undergarments Cell phone ?? Purse Cane ? Valuables Sent Home ? Valuables Sent to Security ? Other Discharge Information ? Pulmonary Rehab Status?? Pulmonary Rehab Discharge Status?? Respiratory Rate: 17 br/min ? Common Emergency Awareness Tips IS IT A STROKE? Act FAST and Check for these signs: FACE Does the face look uneven? ARM Does one arm drift down? SPEECH Does their speech sound strange? TIME Call at any sign of stroke ?? Heart Attack Signs Chest discomfort: Most heart attacks involve discomfort in the center of the chest and lasts more than a few minutes, or goes away and comes back. It can feel like uncomfortable pressure, squeezing, fullness or pain. Discomfort in upper body: Symptoms can include pain or discomfort in one or both arms, back, neck, jaw or stomach. Shortness of breath: With or without discomfort. Other signs: Breaking out in a cold sweat, nausea, or lightheaded. Remember, MINUTES DO MATTER. If you experience any of these heart attack warning signs, call to get immediate medical attention! ?? Smoking can increase your chances of developing chronic health problems and can cause harmful effects to other family members in your house. If you smoke, you are strongly encouraged to quit. Please call [facility] [employer] at [phone] or [phone]) or log in to [email or web address] for referrals to smoking cessation programs. ?? 989 Suicide & Crisis Lifeline is available 08/05 if you or someone you know needs to find a reason to keep living. By calling 326 you'll be connected to a skilled, trained counselor at a crisis center in your area. SURGERY DISCHARGE INSTRUCTIONS SIGNATURE MARGI PASTRANASARIAH TOBIN Location:[facility] Registration Date and Time:02/22/2023 09:30 EDT Primary Care Physician: Amanda ANTONIO , Patsy, I SARIAH PENA, have received the above patient education materials/instructions and have verbalized understanding. If ambulance or transport services are being used I further acknowledge being given a choice of service. ?? If you need to contact me, please call me at this number: . 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 295 Medical Daystay/Surgical Overnight Discharge Instructions ? Since your coordination and judgment may be altered by medication and/or anesthesia, a responsible adult must drive you home from the hospital. ? If you have received medication for pain or sedation while under our care, you should not drive, operate machinery, drink alcohol, or sign any legal documents for 24 hours.?? You should have someone with you at home tonight. ? Remain at home the day of discharge.?? You may be up and about unless otherwise instructed by your physician. ? You may resume your daily prescription medication schedule.?? Any depressant medication should be avoided for 24 hours unless otherwise instructed by your surgeon or anesthesiologist. ? Call your physician for a follow-up appointment.? If you experience unusual or severe pain not relied by your pain medication, excessive bleedingor drainage, persistent nausea and vomiting, excessive swelling or redness, foul odor from incisionsite or fever over 100.6F, you need to call your physician. ? A follow-up phone call by a nurse will be made the day after your procedure.?? If you have stayed with us over night, you will not be receiving a follow-up phone call. ? Nausea and vomiting are a common side effect of prescription pain medication.?? We recommend that pills are not taken on an empty stomach.?? While taking any prescription pain medication you should not drive or drink alcohol. ? * Coretta Stacy: PERFORM Event Display: Patient Education Leaflets Authored Date: [id number] Neurosurgery-Lumbar Discharge Instructions ?? 205 ?? Lumbar Decompression Surgery Discharge Instructions ? What can I expect post operatively? Please remember that it takes time for your muscles and nerves to heal. You may have complete relief of your pain immediately after your surgery, but that is not normal. Back is common post operatively and may persist for several weeks. Narcotics and muscle relaxers help to control this pain but it is not always possible to achieve 0/10 pain in postoperative period. Bruising after surgery below or around the surgical site is expected. Localized swelling or bumps are common at the surgical site and will subside over time. Call the office if they are getting worse. It is common to experience temporary relapse or flare of preoperative symptoms. However, if it doesnot subside or if it worsens you should call the office. Physical therapy may be suggested at your follow up appointment. You may go home with a walker or cane to be used until you feel steady on your feet. Constipation is common while taking narcotics; you may want to start on a bowel regimen to prevent this. You can use over the counter medications. ? Which Activities should I avoid? Do not bend or twist your back repeatedly. Do not lift more than 10 pounds (about the weight of a gallon of milk). If you go to pick something up and it causes strain to the back muscles, do not lift it. When bending to lift an object off the floor, bend at the knees and NOT at the waist Hold on to back of chair when bending down Remember to keep things close to your body if you do lift or carry anything, and use your knees if you bend instead of your back. Do not drive if you are taking prescription pain medications or a muscle relaxer. These medications can cause you to be drowsy. Once you are able to drive, make sure that you can safely look over your shoulders without causing any pain. You are able to sit in a car. If for prolonged periods of time, take frequent breaks to stretch andwalk. Do not do any running/jogging, vacuuming, weight lifting, sweeping/mopping, laundry, shoveling/raking, riding a medical office coordinator or anything that might irritate your back until you have completely healed from your surgery. You may have sexual activity when you are comfortable with it. Follow these activity limitations until your follow up appointment in 4 weeks. ? Medications: You will get prescription pain medications (oxycodone) when discharged from the hospital. Narcotic medications are tightly controlled, any new scripts you need to corn picker in person. If you live far away this may be able to be arranged through your primary care provider. You will get muscle relaxers (baclofen- tizanidine was originally sent but your insurance does not cover this medication) to take in addition to pain medications. This helps prevent muscles from getting tight and sore, which will make mobility difficult. Do not take muscle relaxants the same the narcotic pain medication at the same time; space the two medications out from each other by 1-2 hours to avoid excess light-headedness or drowsiness. You may take Tylenol for pain; be mindful that some medications also contain Tylenol (acetaminophen), and do not exceed the daily recommended amount. You may restart your home aspirin 81mg on postoperative day #3 (02/25/2023). ? How can I take care of myself at home? Please remember that it takes time for your muscles and nerves to heal. You may have complete relief of your pain immediately after your surgery, but that is not normal Walk around your house at least every 1??-2 hours while you are awake, to stay as active as possible, keep the back muscles strong, and to help prevent blood clots in your legs. You may do stairs as tolerated. Once you are comfortable with walking, you can gradually increase the amount or length of time thatyou do walk. Do not push yourself to do too much too soon. Increasing your pain may actually delay your recovery. Change your positions often. Avoid lying down, standing or sitting for long periods during the day. If you do any activity that increases your pain, you should stop it immediately. You may sleep how you are most comfortable, with the exception of stomach sleeping. ? Ice: You may ice the area to help with pain. Place a towel over the surgical site to protect your skin, and then use an ice pack for 30 minutes,usually about 4 times per day. Do not leave the pack on longer than 30 minutes since it may actually increase your pain. ? Washing/wound care: Your surgical dressing will remain in place for 3 days postoperatively. You may remove it on day 3 after surgery (02/25/2023) and shower normally after removing it. It is important that you wash your surgical wounds at least once per day with soap and water, and pat it dry afterwards. Do not be afraid of hurting the wound because of the soap and water. You should take showers, but not baths. Do not submerge the incision in water (i.e. bath, pool, Jacuzzi, ocean) for at least four weeks after surgery. Steri-strips are commonly placed over the incision; these will fall off on their own. ? When should I call my doctor? Contact our office at the appropriate number listed below if you have any of the following signs and symptoms: New numbness or tingling or weakness in your feet or legs Increasing redness or swelling around your incision with or without any soreness The edges of your incision start coming apart. Drainage from your incision, especially if yellow/green and/or bad smelling. Fever over 101 F. Increasing pain that you cannot control. ? [facility] [address] [place] [address] , [address], [place], [place] Neurosurgery Office: [phone] This information has been modified by your health care provider with permission from the publisher. ?? * Coretta Stacy: PERFORM Event Display: Patient Education Leaflets Authored Date: [id number] Neurosurgery-Lumbar Discharge Instructions ?? 205 ?? Lumbar Decompression Surgery Discharge Instructions ? What can I expect post operatively? Please remember that it takes time for your muscles and nerves to heal. You may have complete relief of your pain immediately after your surgery, but that is not normal. Back is common post operatively and may persist for several weeks. Narcotics and muscle relaxers help to control this pain but it is not always possible to achieve 0/10 pain in postoperative period. Bruising after surgery below or around the surgical site is expected. Localized swelling or bumps are common at the surgical site and will subside over time. Call the office if they are getting worse. It is common to experience temporary relapse or flare of preoperative symptoms. However, if it doesnot subside or if it worsens you should call the office. Physical therapy may be suggested at your follow up appointment. You may go home with a walker or cane to be used until you feel steady on your feet. Constipation is common while taking narcotics; you may want to start on a bowel regimen to prevent this. You can use over the counter medications. ? Which Activities should I avoid? Do not bend or twist your back repeatedly. Do not lift more than 10 pounds (about the weight of a gallon of milk). If you go to pick something up and it causes strain to the back muscles, do not lift it. When bending to lift an object off the floor, bend at the knees and NOT at the waist Hold on to back of chair when bending down Remember to keep things close to your body if you do lift or carry anything, and use your knees if you bend instead of your back. Do not drive if you are taking prescription pain medications or a muscle relaxer. These medications can cause you to be drowsy. Once you are able to drive, make sure that you can safely look over your shoulders without causing any pain. You are able to sit in a car. If for prolonged periods of time, take frequent breaks to stretch andwalk. Do not do any running/jogging, vacuuming, weight lifting, sweeping/mopping, laundry, shoveling/raking, riding a medical office coordinator or anything that might irritate your back until you have completely healed from your surgery. You may have sexual activity when you are comfortable with it. Follow these activity limitations until your follow up appointment in 4 weeks. ? Medications: You will get prescription pain medications (oxycodone) when discharged from the hospital. Narcotic medications are tightly controlled, any new scripts you need to corn picker in person. If you live far away this may be able to be arranged through your primary care provider. You will get muscle relaxers (tizanidine) to take in addition to pain medications. This helps prevent muscles from getting tight and sore, which will make mobility difficult. Do not take muscle relaxants the same the narcotic pain medication at the same time; space the two medications out from each other by 1-2 hours to avoid excess light-headedness or drowsiness. You may take Tylenol for pain; be mindful that some medications also contain Tylenol (acetaminophen), and do not exceed the daily recommended amount. You may restart your home aspirin 81mg on postoperative day #3 (02/25/2023). ? How can I take care of myself at home? Please remember that it takes time for your muscles and nerves to heal. You may have complete relief of your pain immediately after your surgery, but that is not normal Walk around your house at least every 1??-2 hours while you are awake, to stay as active as possible, keep the back muscles strong, and to help prevent blood clots in your legs. You may do stairs as tolerated. Once you are comfortable with walking, you can gradually increase the amount or length of time thatyou do walk. Do not push yourself to do too much too soon. Increasing your pain may actually delay your recovery. Change your positions often. Avoid lying down, standing or sitting for long periods during the day. If you do any activity that increases your pain, you should stop it immediately. You may sleep how you are most comfortable, with the exception of stomach sleeping. ? Ice: You may ice the area to help with pain. Place a towel over the surgical site to protect your skin, and then use an ice pack for 30 minutes,usually about 4 times per day. Do not leave the pack on longer than 30 minutes since it may actually increase your pain. ? Washing/wound care: Your surgical dressing will remain in place for 3 days postoperatively. You may remove it on day 3 after surgery (02/25/2023) and shower normally after removing it. It is important that you wash your surgical wounds at least once per day with soap and water, and pat it dry afterwards. Do not be afraid of hurting the wound because of the soap and water. You should take showers, but not baths. Do not submerge the incision in water (i.e. bath, pool, Jacuzzi, ocean) for at least four weeks after surgery. Steri-strips are commonly placed over the incision; these will fall off on their own. ? When should I call my doctor? Contact our office at the appropriate number listed below if you have any of the following signs and symptoms: New numbness or tingling or weakness in your feet or legs Increasing redness or swelling around your incision with or without any soreness The edges of your incision start coming apart. Drainage from your incision, especially if yellow/green and/or bad smelling. Fever over 101 F. Increasing pain that you cannot control. ? [facility] [address] [place] [address] , [address], [place], [place] Neurosurgery Office: [phone] This information has been modified by your health care provider with permission from the publisher. ?? Radiology * BHSPowerscriramu , CIS S: TRANSCRIRAMU Smith MD, Devrim: VERIFY Event Display: Result: Authored Date: Study: Spine Single View, C-Arm < 1 Hour History: Reason: lumbar metrix; Special Instructions: ft; 3.3s tt; 10 min. Comparison: None available. FINDINGS: Fluoroscopy support was provided. There was no radiologist in attendance. 2 fluoroscopic images were submitted. Technologist time: 10 min. Fluoroscopy time: 3.3 sec. Cumulative reference air kerma: 2.94 mGy. IMPRESSION: Fluoroscopy support was provided. Please refer to the surgical/procedural notes for details. WSN: [id number] Ordering Physician: David Robert Dictated By: Florencia Smith MD Dictated Date/Time: 02/22/23 2:37 pm Reviewed By: Florencia Smith MD Signed By: Florencia Smith MD Signed Date/Time: 02/22/23 2:37 pm Transcribed By: YARED Transcribed Date/Time: 02/22/23 2:36 pm XR Spine Single view * BHSPowerscribe , CIS S: TRANSCRIBE Florencia Smith MD: VERIFY Event Display: Result: Authored Date: [id number] Study: Spine Single View, C-Arm < 1 Hour History: Reason: lumbar metrix; Special Instructions: ft; 3.3s tt; 10 min. Comparison: None available. FINDINGS: Fluoroscopy support was provided. There was no radiologist in attendance. 2 fluoroscopic images were submitted. Technologist time: 10 min. Fluoroscopy time: 3.3 sec. Cumulative reference air kerma: 2.94 mGy. IMPRESSION: Fluoroscopy support was provided. Please refer to the surgical/procedural notes for details. WSN: [id number] Ordering Physician: David Robert Dictated By: Florencia Smith MD Dictated Date/Time: 02/22/23 2:37 pm Reviewed By: Florencia Smith MD Signed By: Florencia Smith MD Signed Date/Time: 02/22/23 2:37 pm Transcribed By: YARED Transcribed Date/Time: 02/22/23 2:36 pm Patient Care team information Care Team Personnel Name: Patsy Patel MD Position: S Outreach Member Role: PCP Address: Address: [address] [place] [address]- Care Team Related Persons Name: MERRY, JERRY Address: home [address] [facility] [place] [address]
--- OUTSIDE RECORDS SUMMARY | 2024-06-19 11:19 | XMS_ITS | Continuity of Care Document ---
Author Organization [facility] Address [address] [place] [address] [address], [address] [place] [address]- Care Team Providers Care Chief Nuclear Medicine Technologist Name Role Phone Amanda ANTONIO, Patsy Primary Care Physician [phone] Encounter [facility] [place] Date(s): 01/20/23 - 02/19/23 [facility] [address] [place] [address], [address] [place] [address]- Allergies, Adverse Reactions, Alerts Substance Reaction Severity Status NSAIDs Active ANDRADE inhibitors Active DilTIAZem Hydrochloride Acti ve Medications amLODIPine 5 mg oral tablet 0 Refills, Maintenance, 01/17/23 15:26:00 EDT, Partial fill upon patient request if the prescription is for a schedule II opioid drug. Start Date: 01/17/23 Status: Ordered aspirin 81 mg oral capsule 1 capsule = 81 mg, By Mouth, Every 4 hours, 0 Refills, Maintenance, 01/17/23 15:28:00 EDT, Partial fill upon patient request if the prescription is for a schedule II opioid drug. Start Date: 01/17/23 Status: Ordered atorvastatin 20 mg oral tablet 0 Refills, Maintenance, 01/17/23 15:26:00 EDT, Partial fill upon patient request if the prescription is for a schedule II opioid drug. Start Date: 01/17/23 Status: Ordered calcium (as carbonate) 500 mg oral tablet, chewable 1 tablet = 500 mg, Daily, 0 Refills, Maintenance, 01/17/23 15:28:00 EDT, Partial fill upon patient request if the prescription is for a schedule II opioid drug. Start Date: 01/17/23 Status: Ordered Fish Oil By Mouth, 0 Refills, Maintenance, 01/17/23 15:28:00 EDT, Partial fill upon patient request if the prescription is for a schedule II opioid drug. Start Date: 01/17/23 Status: Ordered hydroxychloroquine 200 mg oral tablet [...] opioid drug. Start Date: 01/17/23 Status: Ordered Vitamin B-12 500 mcg oral [...] S Outreach Member Role: PCP Address: Address: [address] [place] [address]- Care Team Related Persons Name: JERRY SOUSA Address: home [address] [place] [address]
--- OUTSIDE RECORDS SUMMARY | 2024-06-19 11:19 | XMS_ITS | Patient Health Record ---
Author Organization [facility] Address [address] [place] [address] Care Team Providers Care Distribution Lead Name Role Phone Patsy Patel Primary Care Provider Rekha Busch Unavailable [phone] REASON FOR REFERRAL No Information PLAN OF TREATMENT No Information Insurance Providers Payer Name Payer Address Payer Phone Subscriber Number Group Number Insured Name Patient Relationship to Insured Coverage Start Date Coverage End Date Medicare National [employer] [address] [place] [address] [id number] Sariah Fleming Self - patient is the insured
--- OUTSIDE RECORDS SUMMARY | 2024-06-19 11:19 | XMS_ITS | Continuity of Care Document ---
Author Organization [facility] Address [address] [place] [address] [facility] [address] [place] [address]- Care Team Providers Care Tape Calender Name Role Phone Amanda ANTONIO, Patsy Primary Care Physician [phone] [place] [facility] [place]23 - 03/30/23 [facility] [address] [place] [address], [address] [place] [address]- Attending Physician: David Robert MD Referring Physician: Ash Robert MD Allergies, Adverse Reactions, Alerts Substance [...] tablet, 0 Refills, Maintenance, 02/22/23 14:43:00 EDT, [facility], Partial fill upon patient request if [...] 02/22/23 14:00:00 EDT, Route to Pharmacy Electronically, [facility], Partial fill upon patientrequest if the [...] 02/22/23 13:55:00 EDT, Route to Pharmacy Electronically, [facility], Partial fill upon patient request if [...] 01/19/23 Active Obese class I Confirmed Active Vital Signs Most recent to oldest [Reference Range]: 1 Height 163 cm (03/23/23 1:16 PM) Weight 80.0 kg (03/23/23 1:16 PM) Body Mass Index [18.5-24.99 kg/m2] 30.11 kg/m2 *>HHI* (03/23/23 1:16 PM) Social History Social History Type Response Tobacco Other: Former smoker . Sex Patient Care team information Care Team Personnel Name: Amanda ANTONIO , Patsy Position: [facility] Outreach Member Role: PCP Address: Address: [address] [place] [address]- Care Team Related Persons Name: JERRY SOUSA Address: home [address] [place] [address]
--- OUTSIDE RECORDS SUMMARY | 2024-06-19 11:19 | XMS_ITS | Continuity of Care Document ---
Author Organization [facility] Address [address] [place] [address] [address], [address] [place] [address]- Care Team Providers Care Sustainable Communities Designer Name Role Phone Amanda ANTONIO, Patsy Primary Care Physician [place] [facility] [place]23 [facility] [address] [place] [address] Drive, [address] [place] [address]- Attending Physician: David Robert MD Referring Physician: Barbara Schwartz Allergies, Adverse Reactions, Alerts No Known Allergies Medications amLODIPine 5 mg oral tablet 0 [...] zinc (as gluconate) 10 mg oral lozenge 0 Refills, Maintenance, 01/17/23 15:29:00 EDT, Partial fill upon patient request if the prescription is for a schedule II opioid drug. Start Date: 01/17/23 Status: Ordered Vital Signs Most recent to oldest [Reference Range]: 1 Height 162.56 cm (01/17/23 3:24 PM) Weight 71.0 kg (01/17/23 3:24 PM) Body Mass Index [18.5-24.99 kg/m2] 26.87 kg/m2 *H* (01/17/23 3:24 PM) Patient Care team information Care Team Personnel Name: Patsy Patel MD Position: S Outreach Member Role: PCP Address: Address: [address] [place] [address]- [place] Care Team Related Persons Name: JERRY SOUSA
--- OUTSIDE RECORDS SUMMARY | 2024-06-19 11:19 | XMS_ITS | Continuity of Care Document ---
Author Organization [facility] Address [address] [place] [address] [address], [address] [place] [address]- Care Team Providers Care Data Examination Clerk Name Role Phone Amanda ANTONIO, Patsy Primary Care Physician Encounter [facility] [place] Date(s): 03/23/23 - 04/22/23 [facility] [address] [place] [address] Drive, [address] [place] [address]- Attending Physician: Barbie Drew Admitting Physician: AdmBarbie covington Referring Physician: AdmtrBarbie Allergies, Adverse Reactions, Alerts Substance Reaction Severity [...] tablet, 0 Refills, Maintenance, 02/22/23 14:43:00 EDT, [facility], Partial fill upon patient request [...] 02/22/23 14:00:00 EDT, Route to Pharmacy Electronically, [facility], Partial fill upon patientrequest if [...] 02/22/23 13:55:00 EDT, Route to Pharmacy Electronically, [facility], Partial fill upon patient request [...] Team Personnel Name: Patsy Patel MD Position: [facility] Outreach Member Role: PCP Address: Address: [address] [place] [address]- Care Team Related Persons Name: MERRY JERRY Address: home [address] [place] [address]
--- OUTSIDE RECORDS SUMMARY | 2024-06-19 11:19 | XMS_ITS | Continuity of Care Document ---
Author Organization [facility] Address [address] [place] [address]- Care Team Providers Care Utilization Review Specialist Name Role Phone Amanda ANTONIO, Patsy Primary Care Physician Encounter [facility] [place] Date(s): 02/10/23 - 03/12/23 [facility] [address] [place] [address]- Attending Physician: Barbie Drew Admitting Physician: AdmtrBarbie [...] tablet, 0 Refills, Maintenance, 02/22/23 14:43:00 EDT, [facility], Partial fill upon patient request [...] 02/22/23 14:00:00 EDT, Route to Pharmacy Electronically, [facility], Partial fill upon patientrequest if [...] 02/22/23 13:55:00 EDT, Route to Pharmacy Electronically, [facility], Partial fill upon patient request [...] Amanda ANTONIO , Patsy Position: [facility] Outreach Member Role: PCP Address: Address: [address] [place] [address]- Care Team Related Persons Name: JERRY SOUSA Address: home [address] [place] [address]
[2024-06-19 11:21] LABS: Basophils Absolute Auto 0.1 X10*3/uL (0.0-0.2); Basophils Percent Auto 0.6 % (0-2); Eosinophils Absolute Auto 0.1 X10*3/uL (0.0-0.4); Eosinophils Percent Auto 1.1 % (0-4); Hematocrit 36.2 % (37.0-47.0); Hemoglobin 12.4 g/dl (12.0-16.0); Imm Gran Abs Auto 0.03 X10*3/uL (0.00-0.03); Imm Gran Pct Auto 0.4 % (0.0-0.4); Lymphocytes Absolute Auto 1.5 X10*3/uL (1.2-4.9); Lymphocytes Percent Auto 18.2 % (20-40); Mean Corpuscular HGB Conc 34.3 g/dl (31.0-35.0); Mean Corpuscular Hemoglobin 34.1 pg (27.0-33.0); Mean Corpuscular Volume 99.5 fL (80.0-98.0); Mean Platelet Volume 9.3 fL (9.4-12.3); Monocytes Absolute Auto 0.7 X10*3/uL (0.1-1.2); Neutrophils Percent Auto 71.7 % (45-73); Platelet Count 230 X10*3/uL (160-400); Red Blood Count 3.64 X10*6/uL (4.20-5.50); Red Cell Distribution Width 12.9 % (11.0-16.0); White Blood Count 8.4 X10*3/uL (4.8-10.8)
[2024-06-19 11:30] LABS: INTERNATIONAL NORM RATIO 0.9 (0.9-1.1); Prothrombin Time 10.5 SEC (11.1-13.3)
[2024-06-19 11:35] LABS: Alanine Aminotransferase 18 U/L (0-31); Albumin Level 3.9 g/dL (3.5-5.0); Alkaline Phosphatase 56 U/L (39-117); Anion Gap 16 (12-20); Aspartate Amino Transferase 29 U/L (5-31); Bilirubin Total 0.4 mg/dL (0.0-1.0); Blood Urea Nitrogen 16 mg/dL (9-16); Calcium 10.2 mg/dL (8.4-10.2); Carbon Dioxide 19 mmol/L (22-29); Chloride 106 mmol/L (96-108); Creatinine Clr Calc Pharmacy 67.6; Estimated Glomerular Filt Rate > 60; Glucose Random 117 mg/dL (60-115); Potassium 4.3 mmol/L (3.3-5.1); Sodium 137 mmol/L (135-145); Total Protein 7.4 g/dL (6.5-8.0)
--- NOTE | 2024-06-19 11:44 | PC.NURSE ---
patient presents from home via EMS, per patient she went to blow her nose this morning and got a nose bleed, patient states it went on for about 25 minutes before she called the ambulance due to feeling lightheaded and dizzy. patient denies any blood thinners however does take a baby asa every night. initially upon arrival bleeding was controlled, but started again shortly after arriving. patient still endorsing some lightheadedness, nasal cap applied by provider, patient resting comfortably on stretcher at this time
[2024-06-19 11:54] VITALS: BP 159/80; PULSE 82; RESP 16; O2SAT 98
[2024-06-19 12:03] LABS: MANUAL DIFF FLAG NO
[2024-06-19 12:06] LABS: Basophils Percent Auto 0.4 % (0-2); Eosinophils Percent Auto 0.3 % (0-4); Hematocrit 35.7 % (37.0-47.0); Hemoglobin 12.4 g/dl (12.0-16.0); Imm Gran Abs Auto 0.03 X10*3/uL (0.00-0.03); Imm Gran Pct Auto 0.3 % (0.0-0.4); Lymphocytes Absolute Auto 1.3 X10*3/uL (1.2-4.9); Mean Corpuscular HGB Conc 34.7 g/dl (31.0-35.0); Mean Corpuscular Hemoglobin 34.8 pg (27.0-33.0); Mean Corpuscular Volume 100.3 fL (80.0-98.0); Mean Platelet Volume 9.3 fL (9.4-12.3); Monocytes Absolute Auto 0.9 X10*3/uL (0.1-1.2); Monocytes Percent Auto 8.9 % (2-11); Neutrophils Absolute Auto 7.2 x10*3/uL (2.0-8.3); Neutrophils Percent Auto 76.1 % (45-73); Platelet Count 227 X10*3/uL (160-400); Red Blood Count 3.56 X10*6/uL (4.20-5.50); White Blood Count 9.5 X10*3/uL (4.8-10.8)
[2024-06-19] MEDS: Tranexamic Acid 1,000 MG/10 ML VIAL 500 MG INTRANASAL (12:14)
--- NOTE | 2024-06-19 12:29 | PC.NURSE ---
1mL added to balloon per provider
[2024-06-19 14:11] VITALS: BP 161/74; PULSE 98; RESP 16; TEMP 36.6; O2SAT 95
--- NOTE | 2024-06-19 14:18 | PC.NURSE ---
discharge instructions reviewed with patient, patient educated per instructions to come back in 3 days, patient states she has a doctors appointment tomorrow at her primary, encouraged by this rn to go to appointment. patient provided with wheelchair to be discharged, no PIV in place, all safety maintained for discharge
== END 2024-06-19 14:19 | disposition home or self-care (01) ==
PROVIDERS: Physician Assistant; Emergency Provider Emergency Medicine; PCP Family Medicine
DX: R04.0 Epistaxis (principal); L93.0 Discoid lupus erythematosus
CPT/HCPCS: 36415; 80053; 85025; 85610; 99282; 99283

== ENCOUNTER 2024-06-21 12:30 | Emergency (ER) | payer MEDICARE, MEDICAID, SELFPAY ==
[2024-06-21 12:37] VITALS: BP 152/85; PULSE 83; RESP 18; TEMP 36.9; O2SAT 96; BMI 28.3
--- NOTE | 2024-06-21 12:38 | ED_ITS ---
HPI - General Adult General Chief complaint: General Medical Stated complaint: Removal of Bubble Time Seen by Provider: 06/21/24 12:40 Source: patient Mode of arrival: ambulatory Limitations: no limitations History of Present Illness ED Provider: Kelsi Nunes PA-C HPI narrative: Patient is a 69 year old assigned female at with a history of discoid lupus presenting to the emergency department today for nasal packing removal. Patient states that 3 days ago she had a nose bleed that had to be packed here. Patient denies any dizziness, lightheadedness, abdominal pain, nausea, vomiting, fever, chills, blurry vision, double vision, loss of vision, chest pain, difficulty breathing, shortness of breath, back pain, night sweats, pain with urination, increased urinary frequency, increased urinary urgency, blood in her urine or stool, syncope or a near syncopal episode, recent trauma or falls, bowel incontinence, bladder incontinence, or any other complaints at this time. Related Data Home Medications ?Medication ?Instructions ?Recorded ?Confirmed aspirin 81 mg tablet,delayed 81 mg PO DAILY 02/10/21 02/10/21 release (Adult Aspirin Regimen) atorvastatin 20 mg tablet 20 mg PO DAILY 02/10/21 02/10/21 calcium carbonate 600 mg-vitamin 1 tab PO BID 02/10/21 02/10/21 D3 5 mcg (200 unit) tablet (Calcium 600 + D(3)) gabapentin 300 mg capsule 300 mg PO DAILY 02/10/21 02/10/21 naproxen sodium 220 mg tablet 220 mg PO BID PRN 02/10/21 02/10/21 (Aleve) omega-3 fatty acids 1,000 mg 1,000 mg PO DAILY 02/10/21 02/10/21 capsule (Fish Oil Concentrate) zinc acetate 50 mg (zinc) capsule 50 mg PO DAILY 02/10/21 02/10/21 (Galzin) Previous Rx's ?Medication ?Instructions ?Recorded hydroxychloroquine 200 mg tablet 200 mg PO DAILY #30 tabs 02/10/21 amoxicillin 875 mg-potassium 1 tab PO BID 7 days #14 tabs 06/19/24 clavulanate 125 mg tablet Allergies Allergy/AdvReac Type Severity Reaction Status Date / Time ANDRADE Inhibitors Allergy Unknown Unknown Verified 06/21/24 12:41 diltiazem Allergy Unknown Unknown Verified 06/21/24 12:41 hydralazine Allergy Unknown Unknown Verified 06/21/24 12:41 Review of Systems Constitutional: Constitutional: Reports no additional constitutional complaints, Denies chills, Denies fever(s) and Denies night sweats Eyes: Eyes: Reports no additional eye complaints, Denies blurry vision, Denies change in vision, Denies diplopia, Denies eye discharge, Denies loss of vision and Denies eye pain ENT: Denies dizziness Comments: right nare packing Cardiovascular: Cardiovascular: Reports no additional cardiovascular complaints, Denies chest pain, Denies lightheadedness, Denies Loss of Consciousness and Denies dyspnea Respiratory: Respiratory: Reports no additional respiratory complaints and Denies dyspnea Gastrointestinal: Gastrointestinal: Reports no additional gastrointestinal complaints, Denies abdominal pain, Denies melena, Denies hematochezia, Denies change in bowel habits and Denies change in stool character Genitourinary: Genitourinary: Denies hematuria, Denies urinary frequency, Denies dysuria, Denies urinary incontinence, Denies urinary hesitancy and Denies urinary urgency Musculoskeletal: Musculoskeletal: Reports no additional musculoskeletal complaints, Denies numbness and Denies tingling Neurologic: Denies dizziness, Denies loss of vision, Denies numbness and Denies tingling Psychiatric: Psychiatric: Reports no additional psychiatric complaints Endocrine: Endocrine: Reports no additional endocrine complaints Hematologic/Lymphatic: Hematologic/Lymphatic: Reports no additional hematologic/lymphatic complaints Allergic/Immunologic: Allergic/Immunologic: Reports no additional allergic/immunologic complaints [facility] Past Medical History Attestation statement: The following information was validated with the patient. Source: old records reviewed and nursing notes reviewed Medical History Discoid lupus erythematosus Social History Social History Alcohol intake: current Alcohol type: wine Advance Directives: No Advance Directives Information Provided: Yes Do you have a plan to hurt others: No Plan 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: rt handed/[employer] Physical Exam ED Vital Signs: Vital Signs - 24 hr 06/21/24 12:37 06/21/24 13:49 Temperature 98.4 F 98.4 F Pulse Rate 83 83 Respiratory Rate 18 18 Blood Pressure 152/85 H 152/85 H Pulse Oximetry 96 96 Oxygen Delivery Method Room Air Room Air BMI result Body Mass Index 28.3 Const General: cooperative, no acute distress, alert and awake Nutritional Appearance: well nourished Orientation/consciousness: patient oriented x3 Limitations: no limitations HENMT Head: Yes normal to inspection and Yes atraumatic Ears: hearing grossly normal bilaterally and external ears normal General nose exam: no nasal discharge noted, no epistaxis and Other nasal findings present (packing in place in right nare) Face and sinus: Yes normal facial exam, No abrasion and No laceration Mouth: Normal oral and palatal mucosa present, no drooling and no muffled voice Eyes General: appearance normal, both eyes and all related structures Periorbital: periorbital findings normal Eyelids: Yes eyelids normal Conjunctivae: conjunctivae normal Pupils: Equal, round and reactive pupils present EOM: EOMs intact bilaterally Neck Neck: Yes normal visual inspection, Yes full ROM and Yes no lymphadenopathy Chest Chest palpation & inspection: normal inspection of the chest Resp Effort & Inspection: normal respiratory effort and able to speak in complete sentences GI Inspection: Yes normal to inspection Neuro General: patient oriented x3 and moves all extremities Cranial nerves: Yes Equal, round and reactive pupils present Cognition (Neuro): normal cognition Extrem General: Yes normal to inspection, Yes full ROM and Yes capillary refill normal Psych Appearance: grossly normal Mental Status: mental status grossly normal Affect: normal affect Attitude: cooperative Thought process: Normal thought process present Thought content: Normal thought content present Insight: Good insight present (Psych) Course Course Course Narrative: RME performed by Kelsi Posadas PA-C. Patient is a 69 year old assigned female at presenting to the emergency department requesting nasal packing removal. Patient states she had a nose bleed and it was packed here 3 days ago. Detailed physical exam and review of systems are deferred to the pest control service technician. Patient placed back in the waiting room pending room availability. Procedures Procedure Narrative Procedure Narrative: Nasal packing balloon deflated and nasal packing removed from right nare, without incident. Medical Decision Making Medical Decision Making MDM Narrative: Patient is a 69 year old assigned female at with a history of discoid lupus presenting to the emergency department today for nasal packing removal. Patient's physical exam was as noted in the physical exam portion of this note. I explained my physical exam findings to the patient. I answered all questions asked by the patient. Packing was removed from the right nare, without incident. Patient was monitored for 1 hour after packing removal with no recurrence of bleeding. I stressed the importance of the patient taking her medication as directed (either prescribed or as the over the counter packaging recommends). I stressed the importance of the patient following up with her primary care provider. I stressed the importance of the patient returning to the emergency department immediately if her symptoms were to worsen or if she were to develop any dizziness, shortness of breath, difficulty breathing, chest pain, blurry vision, loss of vision, nausea, vomiting, abdominal pain, fever, chills, back pain, or any other complaints. Patient verbalized agreement and understanding with this treatment plan and discharge. Differential Diagnosis Differential Diagnoses: The differential diagnosis associated with the presentation includes Nasal packing removal Admission/Observation Consideration of admission/observation: Escalation of care including admission/observation considered Patient would have been admitted to the hospital had her work up had any findings where hospital admission was appropriate and her clinical presentation warranted hospital admission. Discharge Plan Discharge Clinical Impression: Encounter for removal of nasal packing Patient Disposition: Home, Self-Care Additional Instructions: Please continue to practice caution when blowing your nose and sneezing. Consider obtaining a humidifier for your space, especially your sleeping space. Follow up with your primary care provider. Return to the emergency department immediately if you develop any nose bleeding that won't stop after 1 hour, dizziness, shortness of breath, difficulty breathing, chest pain, blurry vision, loss of vision, nausea, vomiting, abdominal pain, fever, chills, back pain, or any other complaints. Prescriptions: No Action amoxicillin-pot clavulanate 875-125 mg tablet 1 tab PO BID 7 Days Qty: 14 0RF gabapentin 300 mg capsule 300 mg PO DAILY atorvastatin 20 mg tablet 20 mg PO DAILY Galzin 50 mg (zinc) capsule 50 mg PO DAILY aspirin [Adult Aspirin Regimen] 81 mg tablet,delayed release (DR/EC) 81 mg PO DAILY calcium carbonate-vitamin D3 [Calcium 600 + D(3)] 600 mg(1,500mg) -200 unit tablet 1 tab PO BID naproxen sodium [Aleve] 220 mg tablet 220 mg PO BID PRN omega-3 fatty acids [Fish Oil Concentrate] 1,000 mg capsule 1,000 mg PO DAILY hydroxychloroquine 200 mg tablet 200 mg PO DAILY Qty: 30 5RF Referrals: Sakurai,Patsy, MD [Primary Care Provider] - Interventions: ED Discharge Assessment Last Done: 06/21/24 13:49 Discharge Date/Time: 06/21/24 13:49 Print Language: Ukrainian
--- OUTSIDE RECORDS SUMMARY | 2024-06-21 12:53 | XMS_ITS ---
Author Organization [facility] Address [address] [place] [address] Care Team Providers Care Gas Pump Attendant Name Role Phone Patsy Patel Primary Care Provider Rekha Busch Unavailable [phone] Encounters Encounter Location Date Provider Diagnosis [facility] [address] [place] [address] 05/10/2023 Rekha Pool PLAN OF TREATMENT No Information
--- OUTSIDE RECORDS SUMMARY | 2024-06-21 12:53 | XMS_ITS | Patient Health Record ---
Author Organization [facility] Address [address] [place] [address] Care Team Providers Care Flow Trader Name Role Phone Patsy Patel Primary Care Provider Rekha Busch Unavailable [phone] REASON FOR REFERRAL No Information PLAN OF TREATMENT No Information Insurance Providers Payer Name Payer Address Payer Phone Subscriber Number Group Number Insured Name Patient Relationship to Insured Coverage Start Date Coverage End Date Medicare National [employer] [address] [place] [address] [phone] [id number] Sariah Fleming Self - patient is the insured
--- OUTSIDE RECORDS SUMMARY | 2024-06-21 12:53 | XMS_ITS ---
Author Organization [facility] Address [address] [place] [address] Care Team Providers Care Fibre Technologist Name Role Phone Patsy Patel Primary Care Provider Rekha Busch Unavailable [phone] REASON FOR VISIT cx GUIDANCE SECRETARY 05/10 Encounters Encounter Location Date Provider Diagnosis [facility] [address] [place] [address] 05/02/2023 Rekha Pool PLAN OF TREATMENT No Information
[2024-06-21 13:49] VITALS: BP 152/85; PULSE 83; RESP 18; TEMP 36.9; O2SAT 96
== END 2024-06-21 13:49 | disposition home or self-care (01) ==
PROVIDERS: Emergency Provider Emergency Medicine Emergency Medical Services; PCP Family Medicine
DX: Z48.01 Encounter for change or removal of surgical wound dressing (principal); R04.0 Epistaxis
CPT/HCPCS: 99282

== ENCOUNTER 2024-06-25 14:07 | Outpatient (REF) | payer MEDICARE, MEDICAID, SELFPAY ==
[2024-06-25 16:09] LABS: MANUAL DIFF FLAG NO
[2024-06-25 16:18] LABS: Immature Retic Fraction 12.7 % (3.0-15.9); Retic HGB Equivalent 37.2 pg (30.0-35.0); Reticulocyte Percent 2.3 % (0.5-1.8); Reticulocytes Absolute 0.083 X10*6/uL (0.026-0.095)
[2024-06-25 16:19] LABS: Basophils Absolute Auto 0.1 X10*3/uL (0.0-0.2); Basophils Percent Auto 1.1 % (0-2); Eosinophils Absolute Auto 0.1 X10*3/uL (0.0-0.4); Eosinophils Percent Auto 1.4 % (0-4); Hematocrit 37.6 % (37.0-47.0); Hemoglobin 12.6 g/dl (12.0-16.0); Imm Gran Abs Auto 0.06 X10*3/uL (0.00-0.03); Imm Gran Pct Auto 0.9 % (0.0-0.4); Lymphocytes Absolute Auto 2.1 X10*3/uL (1.2-4.9); Mean Corpuscular HGB Conc 33.5 g/dl (31.0-35.0); Mean Corpuscular Hemoglobin 34.1 pg (27.0-33.0); Mean Corpuscular Volume 101.9 fL (80.0-98.0); Mean Platelet Volume 10.1 fL (9.4-12.3); Monocytes Absolute Auto 0.6 X10*3/uL (0.1-1.2); Monocytes Percent Auto 9.4 % (2-11); Neutrophils Absolute Auto 3.5 x10*3/uL (2.0-8.3); Neutrophils Percent Auto 54.2 % (45-73); Platelet Count 311 X10*3/uL (160-400); Red Blood Count 3.69 X10*6/uL (4.20-5.50); Red Cell Distribution Width 12.8 % (11.0-16.0); White Blood Count 6.5 X10*3/uL (4.8-10.8)
[2024-06-25 16:58] LABS: Anion Gap 13 (12-20); Blood Urea Nitrogen 20 mg/dL (9-16); Calcium 9.7 mg/dL (8.4-10.2); Carbon Dioxide 23 mmol/L (22-29); Chloride 108 mmol/L (96-108); Estimated Glomerular Filt Rate > 60; Glucose Random 113 mg/dL (60-115); Iron 100 mcg/dL (30-160); Percent Iron Saturation 42 % (15-50); Potassium 4.5 mmol/L (3.3-5.1); Sodium 139 mmol/L (135-145); Total Iron Binding Capacity 237 mcg/dL (228-428); Unsaturated Iron Binding 137 ug/dL
[2024-06-25 17:06] LABS: Estimated Average Glucose 105 mg/dL; Hemoglobin A1c % 5.3 % (<6.0)
[2024-06-25 17:15] LABS: Cholesterol 212 mg/dL (<200); HDL Cholesterol 90 mg/dL (>40); LDL Cholesterol Calculated 106 mg/dL (<100); Triglycerides 81 mg/dL (<150)
[2024-06-25 17:22] LABS: Ferritin 203 ng/mL (10-250)
[2024-06-25 17:24] LABS: Reflex LDLD? No
[2024-06-25 20:15] LABS: Folate 7.1 ng/mL (> or = 4.0); Vitamin B12 1229 pg/mL (200-900)
== END 2024-06-25 14:08 | disposition home or self-care (01) ==
LOC: HO.HHCL 14:07
PROVIDERS: Referring Provider Internal Medicine Hypertension Specialist; Visit Provider Family Medicine
DX: N18.30 Chronic kidney disease, stage 3 unspecified (principal); L93.0 Discoid lupus erythematosus; D64.9 Anemia, unspecified; E66.3 Overweight; Z13.1 Encounter for screening for diabetes mellitus; E78.5 Hyperlipidemia, unspecified
CPT/HCPCS: 36415; 80048; 80061; 82607; 82728; 82746; 83036; 83540; 85025; 85045

== ENCOUNTER 2024-07-01 13:29 | Outpatient (AMB) | payer MEDICARE, MEDICAID, SELFPAY ==
[2024-07-01 13:30] VITALS: BP 148/72; PULSE 85; O2SAT 97
--- NOTE | 2024-07-01 13:30 | HO.NEPHOV ---
Vital Signs 07/01/24 13:30 Height 5 ft 4 in BP 148/72 H Blood Pressure Location Rt brachial Position Sitting Pulse 85 Pulse Source Pulse Oximeter Pulse Oximetry (%) 97 Oxygen Delivery Method Room Air Intake Visit Reasons: CKD/ Conf Cyber Intel Planner Required: No Accompanied by: Self / Same As Patient Allergies ANDRADE Inhibitors Allergy (Unknown, Verified 07/01/24 13:32) Unknown diltiazem Allergy (Unknown, Verified 07/01/24 13:32) Unknown hydralazine Allergy (Unknown, Verified 07/01/24 13:32) Unknown Medication List - Last Reconciled 07/01/24 by Farhat Monique MD aspirin (Adult Aspirin Regimen) 81 mg PO DAILY atorvastatin 20 mg PO DAILY calcium carbonate-vitamin D3 600 mg-5 mcg (200 unit) (Calcium 600 + D(3)) 1 tab PO BID hydroxychloroquine 200 mg PO DAILY omega-3 fatty acids (Fish Oil Concentrate) 1,000 mg PO DAILY telmisartan 40 mg PO DAILY HPI Comments Details: Sariah is a pleasant 69-year-old woman with a history of discoid lupus. She had history of hypertension and she was referred for evaluation of hypertension and hyponatremia. Discoid lupus was treated several years ago she is on Plaquenil. In 02/03/2020 serum creatinine 0.92. Serum complements C3-C4 were normal no significant proteinuria she did have microscopic hematuria but did not undergo any workup at the time. She was started on losartan hydrochlorothiazide and subsequently developed a bump in serum creatinine hyponatremia. She was also on NSAIDs at the time it was discontinued. Losartan hydrochlorothiazide was discontinued and she was referred for further evaluation. She is here for follow-up regarding hypertension and alkali abnormalities. [facility] Medical History (Updated 07/01/24 @ 13:47 by Farhat Monique MD) Tubular adenoma of colon Tobacco use Seborrheic keratosis Osteopenia Essential hypertension Dyslipidemia 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 Cyst of kidney, acquired Arthropathy of left hip Anemia Discoid lupus erythematosus Social History Alcohol intake: current Alcohol type: wine 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: rt handed/[employer] Physical Exam Vital Signs: Last Vital Signs Pulse 85 09/16/24 13:30 BP 148/72 H 07/01/24 13:30 Pulse Ox 97 07/01/24 13:30 Oxygen Delivery Method Room Air 07/01/24 13:30 Results Reviewed Nephrology Results: Hgb 12.6 g/dl (12.0-16.0) 06/25/24 WBC 6.5 X10*3/uL (4.8-10.8) 06/25/24 Plt Count 311 X10*3/uL (160-400) 06/25/24 Sodium 139 mmol/L (135-145) 06/25/24 Potassium 4.5 mmol/L (3.3-5.1) 06/25/24 Chloride 108 mmol/L (96-108) 06/25/24 Carbon Dioxide 23 mmol/L (22-29) 06/25/24 BUN 20 mg/dL (9-16) H 06/25/24 Creatinine 0.79 mg/dL (0.5-1.4) 06/25/24 Calcium 9.7 mg/dL (8.4-10.2) 06/25/24 Assessment & Plan Assessment & Plan (1) Discoid lupus erythematosus: Code(s): L93.0 - Discoid lupus erythematosus Category: Medical Plan: Stable On PLaquenil (2) HTN (hypertension): Code(s): I10 - Essential (primary) hypertension Category: Medical Plan: Keep Telmisartan (3) Hyponatremia: Code(s): E87.1 - Hypo-osmolality and hyponatremia Category: Medical Plan: Resolved Avoid HCTZ Orders: Orders Basic Metabolic Panel 1 Year 3.0 - Discoid lupus erythematosus UA and rflx microscopic 1 Year L93.0 - Discoid lupus erythematosus Total Protein Urine Random 1 Year 3.0 - Discoid lupus erythematosus Creatinine Urine 1 Year L93.0 - Discoid lupus erythematosus Coding Level of Care Code Est Pt Level 4 (49648) Diagnoses Discoid lupus erythematosus L93.0 HTN (hypertension) I10 Hyponatremia E87.1
== END 2024-07-01 14:24 | disposition home or self-care (01) ==
PROVIDERS: PCP Family Medicine; Visit Provider Internal Medicine Hypertension Specialist
DX: L93.0 Discoid lupus erythematosus (principal); I10 Essential (primary) hypertension; E87.1 Hypo-osmolality and hyponatremia
CPT/HCPCS: 99214

== ENCOUNTER → 2024-07-01 13:29 | Outpatient (BNVA) | payer MEDICARE, MEDICAID, SELFPAY | PROVIDERS: PCP Family Medicine; Visit Provider Internal Medicine Hypertension Specialist | DX: I10 Essential (primary) hypertension (principal); L93.0 Discoid lupus erythematosus; E87.1 Hypo-osmolality and hyponatremia | CPT/HCPCS: 99212 ==

== ENCOUNTER 2025-01-17 15:01 | Outpatient (REF) | payer MEDICARE, MEDICAID, SELFPAY ==
--- OUTSIDE RECORDS SUMMARY | 2025-01-17 16:25 | XMS_ITS | Encounter Summary ---
Author Organization [employer] Address [address] [place] [address] [address] [place] [address] Care Team Providers Care Equipment Operator/Laborer Name Role Phone Patsy Patel MD Primary Care Provider [phone] Tre Goodrich PharmD Unavailable [phone] John Mcclain OD Unavailable Reason for Referral * Consultation (Urgent) - Closed Specialty Diagnoses / Procedures Referred By Jorge A kunz Referred To Contact Orthopaedic Surgery Diagnoses Ankle mass, left Patsy Patel MD [address] [place] [address] Phone: tel: fax: [facility] [address] [place] [address] [place] [address] Phone: tel: fax: Referral ID Status Reason Start Date Expiration Date V isits Requested Visits Authorized [id number] Closed Specialty Services Required 01/01/2024 12/31/2024 1 1 Scheduling Instructions Insulator Helper recommends [facility]. Encounter Details Date Type Department Care Team (Late st Contact Info) Description 01/01/2024 Orders Only [facility] [address] [place], [place] [id number] Patsy Patel MD [address] [place], [place] [phone] Ankle mass, left (Primary Dx) Social History Tobacco Use Types Packs/Day Years Used Date Smoking Tobacco: Former Cigarettes 0.5 20 Passive Smoke Exposure: Past Smokeless Tobacco: Never Comments:Smoked 1/2 PPD on a nd off throughout life. Spent about 20 years as active smoker. Quit 12 years ago. Alcohol Use Standard Drinks/Week Comments Yes 7 (1 standard drink = 0.6 oz pur e alcohol) 1-2 glasses of wine daily Depression Answer Date Recorded Patient Health Questionnaire-9 Score 10 10/25/2022 Housing Stability Answer Date Recorded What is your housing situation today? I have lisa bennett 08/07/[address] you li ve. Do you have problems with any of the following? None of the above 08/07/2023 Food Insecurity Answer Date Recorded Within the past 12 months, y ou worried that your food would run out before you got money to buy more: Never True 08/07/2023 Within the past 12 months,th e food you bought just didn't last and you didn't have enough money to get more: Never True Transportation Answer Date Recorded In the past 12 months, has l ack of transportation kept you from medical appts, meetings, work or from getting things needed for daily living? No 08/07/2023 Utilities Answer Date Recorded In the past 12 months, has t he electric, gas, oil or water company threatened to shut off services in your home? No 08/07/2023 Depression Answer Date Recorded Patient Health Questionnaire-2 Score 4 10/25/2022 Comments Unknown Sex and Gender Information Value Date Recorded Sex Assigned at Female 08/15/2022 10:19 AM EDT Legal Sex Female 10:19 AM EDT Gender Identity Female 08/15/2022 10:19 AM EDT Sexual Orientation Straight 08/15/2022 10 :19 AM EDT documented as of this encounter Plan of Treatment Scheduled Referrals Name Type Priority Associated Diagnoses Order Schedule Referral to Orthopaedic Surgery Outpatient Referral Urgent Ankle mass, left Expected: 01/01/2024 (Approximate), Expires: 12/31/2024 documented as of this encounter Goals Goal Patient Goal Type Associated Problems Recent Progress Patient-Stated? Author Blood Pressure < 140/90 Blood Pressure 150/86( 025 3:05 PM EDT) No Tre Goodrich, PharmD documented as of this encounter Visit Diagnoses Diagnosis Ankle mass, left- Primary documented in this encounter Additional Health Concerns Assessment Noted Time PHQ-9 Depression Total Score: 10 023 1:33 PM EST documented as of this encounter Care Teams Equipment Operator/Laborer Relationship Specialty Start Date End Date Patsy Patel MD [address] [place] [address] PCP - General Family Medicine 10/16/18 Tre Goodrich, MaudeD [address] [place] [address] Pharmacist Internal Medicine 12/25/23 John Mcclain OD [facility] [address] [place] [address] Optometry 11/14/24 documented as of this encounter
--- OUTSIDE RECORDS SUMMARY | 2025-01-17 16:25 | XMS_ITS | Encounter Summary ---
Author Organization [employer] Address [address] [place] [address] [address] [place] [address] Care Team Providers Care Audiology Director Name Role Phone Patsy Patel MD Primary Care Provider [phone] Tre Goodrich PharmD Unavailable [phone] John Mcclain OD Unavailable Reason for Visit * Reason Comments Med Refill Encounter Details Date Type Department Care Team (Late st Contact Info) Description 07/19/2023 Refill [facility] [address] [place] [address] Patsy Patel MD [address] [place] [address] Social History Tobacco Use Types Packs/Day Years Used Date Smoking Tobacco: Never Passive Smoke Exposure: Never Smokeless Tobacco: Never Alcohol Use Standard Drinks/Week Comments Never 0 (1 standard drink = 0.6 oz pur e alcohol) Depression Answer Date Recorded Patient Health Questionnaire-9 Score 10 10/25/2022 Depression Answer Date Recorded Patient Health Questionnaire-2 Score 4 10/25/2022 Comments Unknown Sex and Gender Information Value Date Recorded Sex Assigned at Female 08/15/2022 10:19 AM EDT Legal Sex Female 10:19 AM EDT Gender Identity Female 08/15/2022 10:19 AM EDT Sexual Orientation Straight 08/15/2022 10 :19 AM EDT documented as of this encounter Plan of Treatment Not on file documented as of this encounter Visit Diagnoses Not on filedocumented in this encounter Additional Health Concerns Assessment Noted Time PHQ-9 Depression Total Score: 10 023 1:33 PM EST documented as of this encounter Care Teams Audiology Director Relationship Specialty Start Date End Date Patsy Patel MD [address] [place] [address] PCP - General Family Medicine 10/16/18 Tre Goodrich, MaudeD [address] [place] [address] Pharmacist Internal Medicine 12/25/23 John Mcclain OD [facility] [address] [place] [address] Optometry 11/14/24 documented as of this encounter
--- OUTSIDE RECORDS SUMMARY | 2025-01-17 16:25 | XMS_ITS | Encounter Summary ---
Author Organization [employer] Address [address] [facility] [address] [place] [address] Care Team Providers Care Rotary Engine Assembler Name Role Phone Patsy Patel MD Primary Care Provider [phone] Tre Goodrich PharmD Unavailable [phone] John Mcclain OD Unavailable Encounter Details Date Type Department Care Team (Latest Contact Info) Description 01/17/2025 Travel Social History Tobacco Use Types Packs/Day Years [...] Answer Date Recorded Patient Health Questionnaire-9 Score 2 01/07/2025 Patient Health Questionnaire-9 Score 2 01/07/2025 Last PHQ-9: Questionnaire Data Not on file 0 01/07/2025 Housing Stability Answer Date Recorded What is your housing situation today? I have lisamaeve bennett 10/22/[address] you li ve. Do you have problems with any of the following? Water leaks 10/22/2024 Food Insecurity Answer Date Recorded Within the past 12 months, y ou worried that your food would run out before you got money to buy more: Never True 10/22/2024 Within the past 12 months,th e food you bought just didn't last and you didn't have enough money to get more: Never True 04/2025 Transportation Answer Date Recorded In the past 12 months, has l ack of transportation kept you from medical appts, meetings, work or from getting things needed for daily living? No 10/22/2024 Utilities Answer Date Recorded In the past 12 months, has t he electric, gas, oil or water company threatened to shut off services in your home? No 10/22/2024 Depression Answer Date Recorded Patient Health Questionnaire-2 Score 2 01/07/2025 Internet Access Answer Date Recorded Internet Access Q1 Yes 10/22/2024 Internet Access Q2 Not on file 10/22/2024 Comments No Sex and Gender Information Value Date Recorded Sex Assigned at Female 08/15/2022 10:19 AM EDT Legal Sex Female 10:19 AM EDT Gender Identity Female 08/15/2022 10:19 AM EDT Sexual Orientation Straight 08/15/2022 10 :19 AM EDT documented as of this encounter Plan of Treatment Not on file documented as of this encounter Goals Goal Patient Goal Type Associated Problems Recent Progress Patient-Stated? Author Blood Pressure < 140/90 Blood Pressure 150/86( 025 3:05 PM EDT) No Tre Goodrich, PharmD documented as of this encounter Visit Diagnoses Not on filedocumented in this encounter Additional Health Concerns Assessment Noted Time PHQ-9 Depression Total Score: 2 01/08/20 25 3:33 PM EDT documented as of this encounter Care Teams Rotary Engine Assembler Relationship Specialty Start Date End Date Patsy Patel MD [address] [place] [address] PCP - General Family Medicine 10/16/18 Tre Goodrich, PharmD [address] [place] [address] Pharmacist Internal Medicine 12/25/23 John Mcclain OD [facility] [address] [place] [address] Optometry 11/14/24 documented as of this encounter
--- OUTSIDE RECORDS SUMMARY | 2025-01-17 16:25 | XMS_ITS | Encounter Summary ---
Author Organization [employer] Address [address] [facility] 7t [place] [address] Care Team Providers Care Upper Doubler Name Role Phone Patsy Patel MD Primary Care Provider [phone] Tre Goodrich PharmD Unavailable [phone] John Mcclain OD Unavailable Reason for Visit * Reason Comments Med Refill Encounter Details Date Type Department Care Team (Late st Contact Info) Description 09/17/2024 Refill [facility] MED[facility] [address] [place] [address] Tre Goodrich, PharmD [address] [place], [place] [phone] Primary hypertension Social History Tobacco Use Types Packs/Day Years [...] as of this encounter Visit Diagnoses Diagnosis Primary hypertension Unspecified essential hypertension documented in this encounter Additional Health Concerns Assessment Noted Time PHQ-9 Depression Total Score: 10 023 1:33 PM EST documented as of this encounter Care Teams Upper Doubler Relationship Specialty Start Date End Date Patsy Patel MD [address] [place] [address] PCP - General Family Medicine 10/16/18 Tre Goodrich, PharmD [address] [place] [address] Pharmacist Internal Medicine 12/25/23 John Mcclain OD [facility] [address] [place] [address] Optometry 11/14/24 documented as of this encounter
--- OUTSIDE RECORDS SUMMARY | 2025-01-17 16:25 | XMS_ITS | Encounter Summary ---
Author Organization [employer] Address 75 [facility] 7t [place] [address] Care Team Providers Care Dealership General Manager Name Role Phone Patsy Patel MD Primary Care Provider [phone] Tre Goodrich PharmD Unavailable [phone] John Mcclain OD Unavailable Encounter Details Date Type Department Care Team (Late st Contact Info) Description 01/17/2025 2:15 PM EDT Immunization [facility] MEDICINE [address] [place] [address] Blank Benavides LPN Encounter for immunization (Primary Dx) Social History Tobacco Use Types [...] your housing situation today? I have lisa donald 10/22/[address] you li [...] AM EDT documented as of this encounter Progress Notes * Blank Benavides LPN - 01/17/2025 2:15 PM EDT Subjective Patient ID: Sariah Fleming is a 69 y.o. female who presents here to receive Fluarix Trivalent, Preservative-Free, [id number] seasonal Influenza vaccine. Pt's Influenza Intake form, and guardian reporting, indicated no contraindication to vaccination. Pt educated as to potential side effects of vaccine including fever, muscle aches & headache. Pt tolerated injection well and monitored for 15 minutes post injection. documented in this encounter Plan of Treatment Not on file documented as of this encounter Goals Goal Patient Goal Type Associated Problems Recent Progress Patient-Stated? Author Blood Pressure < 140/90 Blood Pressure 150/86( 025 3:05 PM EDT) No Tre Goodrich, PharmD documented as of this encounter Visit Diagnoses Diagnosis Encounter for immunization- Primary documented in this encounter Additional Health Concerns Assessment Noted Time PHQ-9 Depression Total Score: 2 01/08/20 3:33 PM EDT documented as of this encounter Care Teams Dealership General Manager Relationship Specialty Start Date End Date Patsy Patel MD [address] [place] [address] PCP - General Family Medicine 10/16/18 Tre Goodrich, MaudeD [address] [place] [address] Pharmacist Internal Medicine 12/25/23 John Mcclain OD [facility] [address] [place] [address] Optometry 11/14/24 documented as of this encounter
--- OUTSIDE RECORDS SUMMARY | 2025-01-17 16:25 | XMS_ITS | Clinical Summary ---
Author Organization [facility] Address [address] [place] [address] [place] [address] Phone Care Team Providers Care Natural Developer Name Role Phone Patsy Patel MD Primary Care Provider [phone] Allergies Active Allergy Reactions Criticality Noted Date Comments Isaiah Inhibitors 12/08/2021 Diltiazem 12/08/2021 Hydralazine 07/19/2021 Medications aspirin EC 81 MG EC tablet Take 81 mg by mouth 1 (one) time each day Active Calcium Carb-Cholecalci ferol (CALCIUM 500+D3 PO) Take by mouth Activ e zinc gluconate 50 MG tablet Take by mouth 1 (one) time each day Active [place]-3 Fatty Acids (Fish Oil) 1000 MG capsule delayed-release Take by mouth Active hydroxychloroqu ine (PLAQUENIL) 200 MG tablet Take by mouth 1 (one) time each day Active atorvastatin (LIPITOR) 20 MG tablet Take 20 mg by mouth 1 (one) time each day Active terbinafine (LamISIL) 1 % cream Apply topically 2 (two) times a day Active cyanocobalamin (VITAMIN B-12) 100 MCG tablet Take 100 mcg by mouth 1 (one) time each day 2 Active losartan (COZAAR) 100 MG tablet Take 100 mg by mouth 1 (one) time each day 2 Active Magnesium 250 MG tablet Take by mouth Active amLODIPine (NORVASC) 5 MG tablet Take 1 tablet (5 mg total) by mouth 1 (one) time each day 30 tablet 3 3 Active Additional Information Patient taking differently: 2.5 mgOral Daily, Reported on 07/13/2023 Taurine 500 MG capsule Take by mouth Active Biotin 5000 MCG capsule Take by mouth Active metoprolol succinate XL (TOPROL XL) 50 MG 24 hr tablet Take 1 tablet (50 mg total) by mouth 1 (one) time each day Do not crush or chew. 30 tablet 1 3 Active Active Problems Problem Noted Date Diagnosed Date Chronic low back pain 10/26/2022 07/13/2023 Overview (07/13/2023): Last Assessment & Plan: -She was evaluated by orthopedist for hip, and received steroid injection for trochanteric bursitis -Pain has become more constant and debilitating -She has tried > 2 months of physical therapy -Analgesic option is limited due to CKD. She has tried APAP, NSAIDs, HUNT-2, gabapentin, tramadol, and topical medications. NSAIDs and HUNT-2 were somewhat effective, but she is unable to take due to CKD and HTN. -Agreed to order MRI and refer to financial services specialist. -Continue PT. Hematuria 10/25/2022 07/13/2023 Overview (07/13/2023): Last Assessment & Plan: -microscopic, evaluated by urologist Stage 3 chronic kidney disease 10/25/2022 0 07/13/2023 Overview (07/13/2023): Last Assessment & Plan: -Followed by manager life sciences -Optimize BP control -Avoid nephrotoxic drugs -Periodic lab to monitor renal function Patient encounter status 02/24/2022 023 Overview (07/13/2023): Last Assessment & Plan: Take the lowest dose, with least frequency, for shortest time. Remember to take it always with food. Favor topical over oral preparations. senior care current use of aspirin 02/23/2022 07/13/2023 Overview (07/13/2023): Last Assessment & Plan: Avoid falls, injuries and cuts. Monitor for excessive bruising and bleeding. Drug therapy finding 02/23/2022 07/13/2023 Overview (07/13/2023): Last Assessment & Plan: Monitor for muscle tenderness, swelling and weakness Last Assessment & Plan: Take daily as prescribed. Use daily sun protection all year round, particularly during spring and summer months. See bioinformatics scientist as scheduled every 6 months. 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 Gentle, regular exercise routine. Avoid falls, injuries, overuse. Keep body weight in ideal range for her height. She may benefit from topical cream such as Arnica, Biofreeze, Aspercreme versus medicated patches such as salonpas, icy hot patch 2-3 times daily and if necessary at bedtime x 3 weeks. Last Assessment & Plan: Joint protection, energy conservation. Gentle, regular exercise routine. Avoid falls, injuries, overuse. Keep body weight in ideal range for her height. She may benefit from topical cream such as Arnica, Biofreeze, Aspercreme versus medicated patches such as salonpas, icy hot patch 2-3 times daily and if necessary at bedtime x 3 weeks. Senile hyperkeratosis 03/09/2018 07/13/2023 Primary hypertension 07/21/2015 07/13/2023 Overview (07/13/2023): Last Assessment & Plan: Encouraged to continue antihypertensive medications exactly as prescribed and monitorBP preferably at the same time of the day, after 30 minutes rest, on the same arm, by the same equipment. Seek help if readings remain above 120/80 Last Assessment & Plan: -Goal BP <140/90 per JNC-8, and < 130/80 per ACC/AHA guideline -BP not at goal, pt does not want to adjust medication at this time. -Co-managed with manager life sciences - EKG 12/24/19 - NSR, no acute ischemic ST-T changes - continue working on lifestyle modifications -Continue losartan 100 mg daily -Continue metoprolol succinate 50 mg daily - Treatment Hx: She has been hesitant to add another medication as she had allergy / intolerance / JANICE with many medications in the past. She was unable to tolerate lisinopril, valsartan, hydralazine, and diltiazem. She is tolerating losartan. -previously on Olmesartan-hctz 40-25 mg daily, Brand Benicar-hctz was more effective than the generic, per pt. Metoprolol was increased from 25 mg to 50 mg daily by manager life sciences. -Benicar-HCTZ PA was denied. -She does not want to adjust any medication at this time. --Follow- up in 3 months. Disorder of hip joint 07/21/2015 07/13/2023 Overview (07/13/2023): Last Assessment & Plan: -seen by [facility] orthopedist -PT with iontophoresis for trochanteric bursitis -Tried tramadol, dosage was ineffective -discouraged use of NSAIDs and HUNT-2 inhibitor due to CKD -Tried gabapentin to 300 mg tid, patient weaned herself off. -Tried lidocaine topical; first cream then patch if cream not effective Chronic anemia 07/21/2015 07/13/2023 Simple renal cyst 08/15/2013 07/13/2023 Osteopenia 08/27/2012 07/13/2023 Overview (07/13/2023): Last Assessment & Plan: -Last DEXA March 2012 -Pt has been postponing DEXA -Fall precaution -Continue weight-bearing exercise Dyslipidemia 08/27/2012 07/13/2023 Overview (07/13/2023): Last Assessment & Plan: Last lipid profile: 07/05/22 TC 233; TG 74; HDL 122; LDL 95 Current medication: atorvastatin 20 mg at bedtime Continue current treatment plan, recommended high-intensity statin therapy. Currently on moderate-intensity statin therapy due to her joint problem Continue working on lifestyle modifications Discoid lupus erythematosus 08/27/201206/17 Overview (07/13/2023): Last Assessment & Plan: Well-controlled with 200 mg Plaquenil daily without side effects. On 200 mg daily since 2015 after initially 200 mg twice daily beginning from June 2009. She reports recent eye exam by Dr. Mcclain in [place] within 2 weeks- next scheduled for 6 months. Encouraged to continue carefully Plaquenil with daily sun protection particularly during summer and spring months. In the past labs from November 2019 reassuring-new set requested today. Last Assessment & Plan: Well-controlled with 200 mg Plaquenil daily without side effects. On 200 mg daily since 2015 after initially 200 mg twice daily beginning from June 2009. She reports recent eye exam by Dr. Mcclain in [place] within 2 weeks- next scheduled for 6 months. Encouraged to continue carefully Plaquenil with daily sun protection particularly during summer and spring months. In the past labs from November 2019 reassuring-new set requested today. Last Assessment & Plan: -Current Equipment Technician Dr. Martin last note on May 2022 -Current medication: Hydroxychloroquine 200 mg daily -Continue current treatment plan per her current c.o.d. clerk. -Needs eye exam for long-term use of Plaquenil, last eye exam in 09/2020 per pt's report Tubular adenoma of colon 08/27/2012 023 Overview (07/13/2023): Last Assessment & Plan: -Last colonoscopy on 01/19/2009 tubular adenoma -Pt was referred to GI for colonoscopy and is aware that she is overdue for repeat colonoscopy. -Pt would like to improve her back pain before colonoscopy Family History Medical History Relation Comments Cancer Father Cancer Mother Relation Status Comments Father Alive Mother Social History Tobacco Use Types Packs/Day Years Used Date Smoking Tobacco: Former Smokeless Tobacco: Current Alcohol Use Standard Drinks/Week Comments Yes 0 (1 standard drink = 0.6 oz pur e alcohol) social drinker Comments Unknown Sex and Gender Information Value Date Recorded Sex Assigned at Not on file Legal Sex Female 11:17 AM EDT Gender Identity Not on file Sexual Orientation Not on file Last Filed Vital Signs Vital Sign Reading Time Taken Comments Blood Pressure 159/65 07/13/2023 3:14 PM EDT Pulse 76 07/13/2023 3:14 PM EDT Temperature - - Respiratory Rate - - Oxygen Saturation 97% 07/13/2023 3:14 PM EDT Inhaled Oxygen Concentration - - Weight 74.8 kg (165 lb) 04/11/2022 2:02 PM EDT Height - - Body Mass Index - - Plan of Treatment Health Maintenance Due Date Last Done Comments Breast Cancer Screening 1955 Colorectal Cancer Screening: Annual FOBT 2002 Colorectal Cancer Screening: Colonoscopy 2002 Colorectal Cancer Screening: Sigmoidoscopy 2002 Influenza Vaccine (#1) 2024 3, 08/27/2012 Pneumococcal Vaccine: 65+ Years Completed 12/28/2021, 10/21/2019, 04/14/2010 Hepatitis B Vaccine Aged Out No longe r eligible based on patient's age to complete this topic Insurance [place]ICARE [place]ID [place] Care Teams Natural Developer Relationship Specialty Start Date End Date Patsy Patel MD PCP - General Family Medicine 07/08/21
--- OUTSIDE RECORDS SUMMARY | 2025-01-17 16:25 | XMS_ITS | Encounter Summary ---
Author Organization [employer] Address [address] [facility] 7t [place] [address] Care Team Providers Care Staffing Director Name Role Phone Patsy Patel MD Primary Care Provider [phone] Tre Goodrich PharmD Unavailable [phone] John Mcclain OD Unavailable Reason for Visit * Reason Onset Date Comments Appointment Request 12/12/2024 Encounter Details Date Type Department Care Team ([facility] st Contact Info) Description 12/12/2024 Telephone [facility] MEDICINE [address] [place], [place] [phone] Patsy Patel MD [address] [place], [place] [phone] Appointment Request Social History Tobacco Use Types Packs/Day Years [...] housing situation today? I have lisa bennett 10/22/[address] you [...] Recorded Patient Health Questionnaire-2 Score 4 10/25/2022 Internet Access Answer Date Recorded Internet Access Q1 Yes 10/22/2024 Internet Access Q2 Not on file 10/22/2024 Comments Unknown Sex and Gender Information Value Date Recorded Sex Assigned at Female 08/15/2022 10:19 AM EDT Legal Sex Female 10:19 AM EDT Gender Identity Female 08/15/2022 10:19 AM EDT Sexual Orientation Straight 08/15/2022 10 :19 AM EDT documented as of this encounter Miscellaneous Notes * Telephone Encounter - La Miranda - 12/12/2024 1:54 PM EST Tc from pt requesting r/s 12/13 (CDTM HTN TV Amanda) appt with Tre Goodrich. documented in this encounter Plan of Treatment [...] documented as of this encounter Care Teams Staffing Director Relationship Specialty Start Date End Date Patsy Patel MD [address] [place] [address] PCP - General Family Medicine 10/16/18 Tre Goodrich, MaudeD [address] [facility] [place] [address] Pharmacist Internal Medicine 12/25/23 John Mcclain OD [facility] [address] [place] [address] Optometry 11/14/24 documented as of this encounter
--- OUTSIDE RECORDS SUMMARY | 2025-01-17 16:25 | XMS_ITS | Encounter Summary ---
Author Organization [employer] Address [address] [place] [address] 7t [place] [address] Care Team Providers Care Car Installations Supervisor Name Role Phone Patsy Patel MD Primary Care Provider [phone] Tre Goodrich PharmD Unavailable [phone] John Mcclain OD Unavailable Reason for Referral * Consultation (Routine) - Authorized Specialty Diagnoses / Procedures Referred By Jorge A kunz Referred To Contact Pharmacy Diagnoses Primary hypertension Patsy Patel MD [address] [place] [address] Phone: tel: fax: Referral ID Status Reason Start Date Expiration Date Visits Requested Visits Authorized [id number] Authorized Consult and Treat 08/27/2024 08/27/2025 6 6 Encounter Details Date Type Department Care Team (Late st Contact Info) Description 08/27/2024 Orders Only [facility] [address] [place] [address] [phone] Patsy Patel MD [address] [place], [place] [phone] Primary hypertension (Primary Dx) Social History Tobacco Use Types [...] Scheduled Referrals Name Type Priority Associated Diagnoses Orde r Schedule Referral to Pharmacy CDTM Outpatient Referral Routine Primary hypertension Ordered: 08/27/2024 documented as of this encounter Goals Goal Patient Goal Type Associated Problems Recent Progress Patient-Stated? Author Blood Pressure < 140/90 Blood Pressure 150/86( 025 3:05 PM EDT) No Tre Goodrich, Evelina documented as of this encounter Visit Diagnoses Diagnosis Primary hypertension- Primary Unspecified essential hypertension documented in this encounter Additional Health Concerns Assessment Noted Time PHQ-9 Depression Total Score: 10 023 1:33 PM EST documented as of this encounter Care Teams Car Installations Supervisor Relationship Specialty Start Date End Date Patsy Patel MD [address] [place] [address] PCP - General Family Medicine 10/16/18 Tre Goodrich, MaudeD [address] [place] [address] Pharmacist Internal Medicine 12/25/23 John Mcclain OD [facility] [address] [place] [address] [place] [address] Optometry 11/14/24 documented as of this encounter
--- OUTSIDE RECORDS SUMMARY | 2025-01-17 16:25 | XMS_ITS | Encounter Summary ---
Author Organization [employer] Address [address] [facility] 7t [place] [address] Care Team Providers Care Senior Engineering Technician Name Role Phone Patsy Patel MD Primary Care Provider [phone] Tre Goodrich PharmD Unavailable [phone] John Mcclain OD Unavailable Reason for Visit * Reason Onset Date Comments Referral 12/29/2023 Encounter Details Date Type Department Care Team ([facility] st Contact Info) Description 12/29/2023 Telephone [facility] MEDICINE [address] [place], [place] [phone] Patsy Patel MD [address] [place], [place] [phone] Referral Social History Tobacco Use Types Packs/Day Years [...] encounter Miscellaneous Notes * Telephone Encounter - Nelida Swan RN - 01/19/2024 3:41 PM EDT Pt repeatedly walking into green team lobby requesting status on referral to orthopaedic surgery that was placed 12/31. [facility] was told they need derm's note and that she brought it in and gave to medical records a while ago. [facility] medical records told her they would give it to referrals so her referral can be processed but hasn't heard anything. Derm note scanned in under media. * Telephone Encounter - Kimberlee Figueredo RN - 12/29/2023 3:48 PM EDT TC placed to pt in regards to a very small lump located on the left ankle. According to the pt thishas been around for the past few years. Denies any pain, swelling or discharge. Saw a surgeon at [facility] who states the pt needs to see a sustainability specialist. Scheduled for an ultrasound at [facility] on Monday. Advised I would notify Dr. Patel to see if an appt will be necessary.Pt stated understanding. * Telephone Encounter - Ana Lilia Del Rio - 12/29/2023 3:27 PM EDT Tc from pt requesting a referral for orthopedics surgeons to treat a lump on left ankle. [facility] on [place] documented in this encounter Plan of Treatment [...] documented as of this encounter Care Teams Senior Engineering Technician Relationship Specialty Start Date End Date Patsy Patel MD [address] [place] [address] PCP - General Family Medicine 10/16/18 Tre Goodrich, PharmD [address] [place] [address] Pharmacist Internal Medicine 12/25/23 John Mcclain OD [facility] [address] [place] [address] Optometry 11/14/24 documented as of this encounter
--- OUTSIDE RECORDS SUMMARY | 2025-01-17 16:26 | XMS_ITS | Encounter Summary ---
Author Organization [employer] Address [address] [facility] 7t [place] [address] Care Team Providers Care Principal System Software Engineer Name Role Phone Patsy Patel MD Primary Care Provider [phone] Tre Goodrich PharmD Unavailable [phone] John Mcclain OD Unavailable Encounter Details Date Type Department Care Team (Late st Contact Info) Description 06/27/2024 Orders Only [facility] MEDICINE [address] [place] [address] Patsy Patel MD [address] [place] [address] Social History Tobacco Use Types Packs/Day Years [...] documented as of this encounter Care Teams Principal System Software Engineer Relationship Specialty Start Date End Date Patsy Patel MD [address] [place] [address] PCP - General Family Medicine 10/16/18 Tre Goodrich, PharmD [address] [place] [address] Pharmacist Internal Medicine 12/25/23 John Mcclain OD [facility] [address] [place] [address] Optometry 11/14/24 documented as of this encounter
--- OUTSIDE RECORDS SUMMARY | 2025-01-17 16:26 | XMS_ITS | Clinical Summary ---
Author Organization [employer] Address [address] [place] [address] [address] [place] [address] Care Team Providers Care Appraiser [employer] Name Role Phone Patsy Patel MD Primary Care Provider [phone] Tre Goodrich PharmD Unavailable [phone] John Mcclain OD Unavailable Allergies Active Allergy Reactions Criticality Noted Date Comments Isaiah Inhibitors 01/02/2020 Diltiazem 01/02/2020 Hydralazine 07/19/2021 Nsaids 03/25/2023 Medications hydroxychloroquin e (Plaquenil) 200 MG tablet Take 1 tablet by mouth in the morning. 2 Active aspirin 81 MG EC tablet Take 81 mg by mouth in the morning. Active Calcium Carb-Cholecalcife rol (CALCIUM 600 + D PO) Take 1 tablet by mouth in the morning. Active magnesium 250 MG tablet Take 1 tablet by mouth in the morning. Active Backus-3 Fatty Acids (Fish Oil) 1000 MG capsule delayed-release Take 1 capsule by mouth 3 (three) times a week. Purchases OTC Active zinc 50 MG tablet Take 1 tablet by mouth Once per day. Only takes on Monday and Monday (Purchases OTC) Active biotin 5 MG tablet Take 1 tablet by mouth 1 (one) time per week. Active Taurine 500 MG capsule Take 1 capsule by mouth in the morning. Active amLODIPine (Norvasc) 2.5 MG tablet TAKE 1 TABLET BY MOUTH EVERY MORNING 90 tablet 3 4 Active ciclopirox (Penlac) 8 % solution Apply topically at bedtime. 6 mL 1 4 Active Saline [place] 0.65 % solution Use to moisten your nose, especially before blowing nose, and as needed for dryness 50 mL 4 Active telmisartan (Micardis) 40 MG tabletIndications :Primary hypertension Take 1 tablet (40 mg) by mouth Once per day. 30 tablet 5 4 Active metoprolol succinate XL (Toprol XL) 50 MG 24 hr tabletIndications :Primary hypertension Take 1 and 1/2 tablets by mouth once daily 45 tablet 5 4 Active atorvastatin (Lipitor) 20 MG tablet TAKE 1 TABLET BY MOUTH EVERY DAY AT BEDTIME 90 tablet 1 4 Active Active Problems Problem Noted Date Diagnosed Date Overweight 06/20/2024 Onychomycosis 06/20/2024 Assessment & Plan (06/20/2024 11:03 AM EDT): - continue ciclopirox Severe dental caries 02/16/2024 Non-restorable tooth 02/16/2024 Generalized gingival recession 01/23/2024 Missing teeth, acquired 01/23/2024 Class 1 obesity 12/25/2023 Long-term use of hydroxychloroquine 10/22/2023 Assessment & Plan (01/07/2025 9:58 AM EDT): - periodic eye exam - last eye exam in Jun 2023, no retionpathy Assessment & Plan (10/22/2023 11:19 AM EST): - periodic eye exam - last eye exam in Jun 2023, no retionpathy Vitamin B12 deficiency 05/13/2023 Assessment & Plan (06/20/2024 11:00 AM EDT): -check vitamin B12 level since patient has been taking a different medication / naturopathic medication Assessment & Plan (10/22/2023 11:16 AM EST): -check vitamin B12 level since patient has been taking a different medication / naturopathic medication Assessment & Plan (05/13/2023 6:27 AM EDT): - increase vitamin B12 from 500 mcg to 1000 mcg daily Spinal stenosis of lumbar re gion with neurogenic claudication 05/13/2023 Assessment & Plan (01/11/2025 6:44 AM EDT): - s/p left L2-3 decompression surgery on 02/22/[address] Robert - continue current treatment plan - refer back to PT, ATI per patient's request - evaluate with MRI and refer to methods specialist engineer at [facility] Assessment & Plan (10/22/2023 11:13 AM EST): - s/p left L2-3 decompression surgery on 02/22/[address] Robert - continue current treatment plan - she is motivated to try non-pharmacological pain management Assessment & Plan (05/13/2023 6:23 AM EDT): - s/p left L2-3 decompression surgery on 02/22/[address] Robert - slowly recovering - continue current treatment plan - she is motivated to try non-pharmacological pain management Lumbar radiculopathy 01/19/2023 Overview (03/25/2023): Last Assessment & Plan: Seen by a neurosurgeon on 01/17/2023 and getting ready for surgical release of impinged nerve roots in the nearest future with expected recovery over 2-3 weeks per her report. Assessment & Plan (01/11/2025 6:38 AM EDT): - s/p left L2-3 decompression surgery on 02/22/[address] Robert - continue current treatment plan - she is motivated to try non-pharmacological pain management Aspirin long-term use 01/19/2023 Overview (03/25/2023): Last Assessment & Plan: Avoid falls, injuries and cuts. Monitor for excessive bruising and bleeding. Chronic left-sided low back pain 10/26/2022 Assessment & Plan (01/11/2025 6:47 AM EDT): -She was evaluated by orthopedist for hip, [...] -Agreed to order MRI and refer to methods specialist engineer. -Continue PT. Assessment & Plan (10/26/2022 4:41 PM EST): -She was evaluated by orthopedist for hip, [...] -Agreed to order MRI and refer to methods specialist engineer. -Continue PT. Stage 3 chronic kidney disease 10/25/2022 Assessment & Plan (01/11/2025 6:44 AM EDT): -Followed by java flex developer, last seen in Jun 2024 -Optimize BP control -Avoid nephrotoxic drugs -Periodic lab to monitor renal function Assessment & Plan (10/22/2023 11:13 AM EST): -Followed by java flex developer, last seen in Jun 2023 -Optimize BP control -Avoid nephrotoxic drugs -Periodic lab to monitor renal function Assessment & Plan (05/13/2023 6:27 AM EDT): -Followed by java flex developer -Optimize BP control -Avoid nephrotoxic drugs -Periodic lab to monitor renal function Assessment & Plan (10/25/2022 5:59 AM EST): -Followed by java flex developer -Optimize BP control -Avoid nephrotoxic drugs -Periodic lab to monitor renal function Hematuria 10/25/2022 Assessment & Plan (10/25/2022 6:10 AM EST): -microscopic, evaluated by urologist Primary osteoarthritis involving multiple joints 02/23/2022 Overview (10/25/2022): Last Assessment & Plan: Joint protection, energy conservation. Gentle, regular exercise routine. Avoid falls, injuries, overuse. Keep body weight in ideal range for her height. She may benefit from topical cream such as Arnica, Biofreeze, Aspercreme versus medicated patches such as salonpas, icy hot patch 2-3 times daily and if necessary at bedtime x 3 weeks. Assessment & Plan (01/11/2025 6:45 AM EDT): - continue current treatment plan Senile hyperkeratosis 03/09/2018 Disorder of hip joint 07/21/2015 Assessment & Plan (01/11/2025 6:46 AM EDT): -seen by [facility] orthopedist -PT with iontophoresis for trochanteric bursitis -Tried tramadol, dosage was ineffective -discouraged use of NSAIDs and HUNT-2 inhibitor due to CKD -Tried gabapentin to 300 mg tid, patient weaned herself off. -Tried lidocaine topical; first cream then patch if cream not effective Assessment & Plan (10/25/2022 6:06 AM EST): -seen by [facility] orthopedist -PT with iontophoresis for trochanteric bursitis -Tried tramadol, dosage was ineffective -discouraged use of NSAIDs and HUNT-2 inhibitor due to CKD -Tried gabapentin to 300 mg tid, patient weaned herself off. -Tried lidocaine topical; first cream then patch if cream not effective Chronic anemia 07/21/2015 Assessment & Plan (06/20/2024 10:27 AM EDT): - both iron and B12 deficiency - iron deficiency has resolved - continue B12 supplementation Assessment & Plan (10/22/2023 11:16 AM EST): - both iron and B12 deficiency - iron deficiency has resolved - continue B12 supplementation Assessment & Plan (05/13/2023 6:28 AM EDT): - both iron and B12 deficiency - iron deficiency has resolved - continue B12 supplementation Primary hypertension 07/21/2015 Assessment & Plan (01/11/2025 6:43 AM EDT): -Goal BP <140/90 per JNC-8, and < 130/80 per ACC/AHA guideline -BP not at goal, questionable medication adherence -Co-managed with java flex developer and pharmacist - EKG 12/24/19 - NSR, no acute ischemic ST-T changes - continue working on lifestyle modifications -Continue telmesartan 40 mg daily -Continue metoprolol succinate 50 mg daily -Continue amlodipine to 2.5 mg daily -Try to reduce pill-burden; we may need to start before we attain her goal BP to improve adherence - Treatment Hx: She has been hesitant to add another medication as she had allergy / intolerance / JANICE with many medications in the past. - Previously tried and failed medications: - intolerance to lisinopril, valsartan, hydralazine, and diltiazem. - Amlodipine was increased to 5 mg by java flex developer, but pt self- discontinued due to ankle swelling. Restarted at low dose and kept at current dose -previously on Olmesartan-hctz 40-25 mg daily, Brand Benicar-hctz was more effective than the generic, per pt. -Benicar-HCTZ PA was denied. - Metoprolol was increased from 25 mg to 50 mg daily by java flex developer. -Losartan was changed to telmesartan in December 2023 since it is longer-acting. -Follow- up in 3 months. - Ordered labs on 01/07/25 Assessment & Plan (06/21/2024 11:24 AM EDT): -Goal BP <140/90 per JNC-8, and < 130/80 per ACC/AHA guideline -BP not at goal, questionable medication adherence -Co-managed with java flex developer and pharmacist - EKG 12/24/19 - NSR, no acute ischemic ST-T changes - continue working on lifestyle modifications -Continue telmesartan 40 mg daily -Continue metoprolol succinate 50 mg daily -Continue amlodipine to 2.5 mg daily - Treatment Hx: She has been hesitant to add another medication as she had allergy / intolerance / JANICE with many medications in the past. She was unable to tolerate lisinopril, valsartan, hydralazine, and diltiazem. She is tolerating losartan. Amlodipine was increased to 5 mg by java flex developer, but pt self- discontinued due to ankle swelling. -previously on Olmesartan-hctz 40-25 mg daily, Brand Benicar-hctz was more effective than the generic, per pt. Metoprolol was increased from 25 mg to 50 mg daily by java flex developer. -Benicar-HCTZ PA was denied. -Losartan was changed to telmesartan in December 2023 since it is longer-acting. -Follow- up in 3 months. Assessment & Plan (10/22/2023 11:09 AM EST): -Goal BP <140/90 per JNC-8, and < 130/80 per ACC/AHA guideline -BP not at goal, questionable medication adherence -Co-managed with java flex developer - EKG 12/24/19 - NSR, no acute ischemic ST-T changes - continue working on lifestyle modifications -Continue losartan 100 mg daily -Continue metoprolol succinate 50 mg daily -Continue amlodipine to 2.5 mg daily - Treatment Hx: She has been hesitant to add another medication as she had allergy / intolerance / JANICE with many medications in the past. She was unable to tolerate lisinopril, valsartan, hydralazine, and diltiazem. She is tolerating losartan. Amlodipine was increased to 5 mg by java flex developer, but pt self- discontinued due to ankle swelling. -previously on Olmesartan-hctz 40-25 mg daily, Brand Benicar-hctz was more effective than the generic, per pt. Metoprolol was increased from 25 mg to 50 mg daily by java flex developer. -Benicar-HCTZ PA was denied. We will check if we can try to decrease pill-burden again. -Follow- up in 3 months. Assessment & Plan (05/13/2023 6:26 AM EDT): -Goal BP <140/90 per JNC-8, and < 130/80 per ACC/AHA guideline -BP not at goal, questionable medication adherence -Co-managed with java flex developer - EKG 12/24/19 - NSR, no acute ischemic ST-T changes - continue working on lifestyle modifications -Continue losartan 100 mg daily -Continue metoprolol succinate 50 mg daily -Decrease amlodipine to 2.5 mg daily - Treatment Hx: She has been hesitant to add another medication as she had allergy / intolerance / JANICE with many medications in the past. She was unable to tolerate lisinopril, valsartan, hydralazine, and diltiazem. She is tolerating losartan. Amlodipine was increased to 5 mg by java flex developer, but pt self- discontinued due to ankle swelling. -previously on Olmesartan-hctz 40-25 mg daily, Brand Benicar-hctz was more effective than the generic, per pt. Metoprolol was increased from 25 mg to 50 mg daily by java flex developer. -Benicar-HCTZ PA was denied. We will check if we can try to decrease pill-burden again. -Follow- up in 3 months. Assessment & Plan (10/26/2022 4:43 PM EST): -Goal BP <140/90 per JNC-8, and < 130/80 per ACC/AHA guideline -BP not at goal, pt does not want to adjust medication at this time. -Co-managed with java flex developer - EKG 12/24/19 - NSR, no acute [...] 25 mg to 50 mg daily by java flex developer. -Benicar-HCTZ PA was denied. -She does not want to adjust any medication at this time. --Follow- up in 3 months. Simple renal cyst 08/15/2013 Discoid lupus 08/27/2012 Overview (10/25/2022): Last Assessment & Plan: Well-controlled with 200 mg Plaquenil daily without side effects. On 200 mg daily since 2015 after initially 200 mg twice daily beginning from June 2009. She reports recent eye exam by Dr. Mcclain in [place] within 2 weeks- next scheduled for 6 months. Encouraged to continue carefully Plaquenil with daily sun protection particularly during summer and spring months. In the past labs from November 2019 reassuring-new set requested today. Assessment & Plan (01/07/2025 9:58 AM EDT): -Current [facility] Dr. Martin last visit on 03/21/24 -Current medication: Hydroxychloroquine 200 mg daily -Continue current treatment plan per her current die tester. -Needs eye exam for long-term use of Plaquenil, last eye exam in Jun 2023 Assessment & Plan (06/20/2024 10:26 AM EDT): -Current [facility] Dr. Martin last visit on 03/21/24 -Current medication: Hydroxychloroquine 200 mg daily -Continue current treatment plan per her current die tester. -Needs eye exam for long-term use of Plaquenil, last eye exam in Jun 2023 Assessment & Plan (10/22/2023 11:18 AM EST): -Current [facility] Dr. Martin last visit on 10/04/23 -Current medication: Hydroxychloroquine 200 mg daily -Continue current treatment plan per her current die tester. -Needs eye exam for long-term use of Plaquenil, last eye exam in Jun 2023 Assessment & Plan (05/13/2023 6:30 AM EDT): -Current [facility] Dr. Martin last visit in January 2023 -Current medication: Hydroxychloroquine 200 mg daily -Continue current treatment plan per her current die tester. -Needs eye exam for long-term use of Plaquenil, last eye exam within last 1 year per pt's report Assessment & Plan (10/25/2022 6:02 AM EST): -Current [facility] Dr. Martin last note on May 2022 -Current medication: Hydroxychloroquine 200 mg daily -Continue current treatment plan per her current die tester. -Needs eye exam for long-term use of Plaquenil, last eye exam in 09/2020 per pt's report Dyslipidemia 08/27/2012 Assessment & Plan (01/11/2025 6:47 AM EDT): Last lipid profile: Jun 2024 Current medication: atorvastatin 20 mg at bedtime Continue current treatment plan, recommended high-intensity statin therapy. Currently on moderate-intensity statin therapy due to her joint problem Continue working on lifestyle modifications - Ordered Lipid Panel with Reflex to Direct LDL 01/07/25 Assessment & Plan (06/20/2024 10:27 AM EDT): Last lipid profile: 05/11/23 total cholesterol 242; triglyceride 66; LDL 120; HDL 109 Current medication: atorvastatin 20 mg at bedtime Continue current treatment plan, recommended high-intensity statin therapy. Currently on moderate-intensity statin therapy due to her joint problem Continue working on lifestyle modifications Assessment & Plan (10/22/2023 11:17 AM EST): Last lipid profile: 05/11/23 total cholesterol 242; triglyceride 66; LDL 120; HDL 109 Current medication: atorvastatin 20 mg at bedtime Continue current treatment plan, recommended high-intensity statin therapy. Currently on moderate-intensity statin therapy due to her joint problem Continue working on lifestyle modifications Assessment & Plan (05/13/2023 6:28 AM EDT): Last lipid profile: 07/05/22 TC 233; TG 74; HDL 122; LDL 95 Current medication: atorvastatin 20 mg at bedtime Continue current treatment plan, recommended high-intensity statin therapy. Currently on moderate-intensity statin therapy due to her joint problem Continue working on lifestyle modifications Assessment & Plan (10/25/2022 6:04 AM EST): Last lipid profile: 07/05/22 TC 233; TG 74; HDL 122; LDL 95 Current medication: atorvastatin 20 mg at bedtime Continue current treatment plan, recommended high-intensity statin therapy. Currently on moderate-intensity statin therapy due to her joint problem Continue working on lifestyle modifications Osteopenia 08/27/2012 Assessment & Plan (01/11/2025 6:46 AM EDT): -Last DEXA in May 2023, The lowest T-score - 1.2 in lumbar spine -Continue adequate calcium and vitamin D intake -Fall precaution -Continue weight-bearing exercise Assessment & Plan (10/22/2023 11:15 AM EST): -Last DEXA in May 2023, The lowest T-score - 1.2 in lumbar spine -Continue adequate calcium and vitamin D intake -Fall precaution -Continue weight-bearing exercise Assessment & Plan (10/26/2022 4:53 PM EST): -Last DEXA March 2012 -Pt has been postponing DEXA -Fall precaution -Continue weight-bearing exercise Tubular adenoma of colon 08/27/2012 Assessment & Plan (01/07/2025 9:57 AM EDT): -Last colonoscopy on 01/19/2009 tubular adenoma -Pt was referred to GI for colonoscopy and is aware that she is overdue for repeat colonoscopy. -Pt would like to improve her back pain before colonoscopy Assessment & Plan (10/22/2023 11:11 AM EST): -Last colonoscopy on 01/19/2009 tubular adenoma -Pt was referred to GI for colonoscopy and is aware that she is overdue for repeat colonoscopy. -Pt would like to improve her back pain before colonoscopy Assessment & Plan (05/13/2023 6:31 AM EDT): -Last colonoscopy on 01/19/2009 tubular adenoma -Pt was referred to GI for colonoscopy and is aware that she is overdue for repeat colonoscopy. -Pt would like to improve her back pain before colonoscopy Assessment & Plan (10/26/2022 4:47 PM EST): -Last colonoscopy on 01/19/2009 tubular adenoma -Pt was referred to GI for colonoscopy and is aware that she is overdue for repeat colonoscopy. -Pt would like to improve her back pain before colonoscopy Resolved Problems Problem Noted Date Diagnosed Date Resolved Date Bleeding from the nose 06/20/202401/11 Assessment & Plan (06/20/2024 11:02 AM EDT): - seen in ED 06/19/24 - aspirin and fish oil are on hold currently - follow-up with ENT as recommended, patient will schedule appointment Encounters Date Type Department Care Team Description 01/17/2025 2:15 PM EDT Immunization [address] [id number] Blank Benavides LPN Encounter for immunization (Primary Dx) 01/17/2025 Travel 01/07/2025 2:30 PM EDT Office Visit [address] [address] Patsy Patel MD Primary hypertension (Primary Dx); Stage 3a chronic kidney disease (CMS/HCC); Tubular adenoma of colon; Discoid lupus; Dyslipidemia; Long-term use of hydroxychloroquine; Spinal stenosis of lumbar region with neurogenic claudication; Primary osteoarthritis involving multiple joints; Lumbar radiculopathy; Osteopenia, unspecified location; Disorder of hip joint; Chronic left-sided low back pain with left-sided sciatica 01/07/2025 Travel 01/03/[address] [address] Patsy Patel MD chart prep 12/27/2024 Population Health Risk Score [facility] [address] [place] [phone] Provider, Population Health Generic 12/17/2024 2:00 PM EST Telemedicine [address] [address] Tre Goodrich, PharmD Primary hypertension (Primary Dx) 12/12/[address] [address] Patsy Patel MD Appointment Request 12/06/2024 Travel 11/18/[address] [address] Patsy Patel MD Appointment Request 11/08/2024 Patient Outreach [facility] [address] [place] [address] Patsy Patel MD Care Coordination (W outreach for SDOH housing search-referral completed ) 10/22/2024 Patient Outreach [facility] [address] [place], [place] [phone] Patsy Patel MD Care Coordination (CHW outreach for SDOH water leak+ LVM ) 10/22/2024 Patient Outreach [facility] [address] [place] [address] Patsy Patel MD annual wellness visit (Annual wellness visit scheduled) from Last 3 Months Immunizations Name Administration Dates Next Due Influenza High-dose Quadriva lent Preservative Free 07/07/2022,08/10/2021,08/12/2020 Influenza injectable quadriv alent preservative free 10/18/2023 Influenza, IIV3, injectable 07/28/2010 Influenza, Split (incl. arleth fied surface antigen) 08/15/2013,08/27/2012 Influenza, seasonal, injecta ble, preservative free 01/17/2025 Pfizer Covid-19 Vaccine 12+ 01/07/2025, Pfizer Covid-19 Vaccine 12+ madelaine-sucrose ([place] Cap) 01/21/2022 Pneumococcal Conjugate PCV 13 10/21/2019 Pneumococcal Polysaccharide PPSV23 12/28/2021, RSV Bivalent 01/15/2024 TD (adult), 2 Lf tetanus tox oid, preservative free, adsorbed 02/04/2009 Tdap 12/28/2021,01/19/2011 Zoster, Recombinant 05/15/2020,12/24/2019 Social History Tobacco Use Types Packs/Day Years Used Date Smoking Tobacco: Former Cigarettes 0.5 20 Passive Smoke Exposure: Past Smokeless Tobacco: Never Tobacco Cessation:Counseling Given: Not Answered Comments:Smoked 1/2 PPD on and off throughout life. Spent about 20 years [...] Orientation Straight 08/15/2022 10 :19 AM EDT Last Filed Vital Signs Vital Sign Reading Time Taken Comments Blood Pressure 150/86 01/07/2025 3:05 PM EDT Pulse 83 01/07/2025 2:37 PM EDT Temperature 36.2 ??C (97.1 ??F) 01/07/2025 2:37 PM ED T Respiratory Rate 20 01/07/2025 2:37 PM EDT Oxygen Saturation 98% 06/20/2024 10:23 AM EDT Inhaled Oxygen Concentration - - Weight - - Height 162.6 cm (5' 4 ) 04/26/2021 12:07 AM EDT Body Mass Index - - Plan of Treatment Health Maintenance Due Date Last Done Comments CT Colonography 1955 Colonoscopy 1953 Colorectal Cancer Screening 1955 FIT DNA/Cologuard 1955 FIT 1953 FOBT 1955 Sigmoidoscopy 1955 Dental Oral Exam 02/14/2024 08/14/2023, 09/2017, 01/04/2017, Additional history exists Dental Prophylaxis 07/25/2024 01/23/2024, 1 , 01/16/2018, Additional history exists Dental X-Ray: Bitewings 08/15/2024 08/14/20 23, 11/06/2018, 01/04/2017, Additional history exists Mammogram 06/14/2025 06/14/2023, 05/18, 09/21/2021, Additional history exists SDOH Screening 10/22/2025 10/22/2024 Alcohol/Substance Use Screening 01/07/2026 01/07/2025 Depression Screening 01/07/2026 01/07/2025, 01/08/20 Tobacco Screening 01/11/2026 01/11/2025 Dental X-Ray: Full Mouth 08/15/2026 023, 01/04/2017, 07/17/2014 Lipid Panel 06/25/2029 06/25/2024, 0704/2023, 07/05/2022, Additional history exists DTaP/Tdap/Td Vaccines (3 - Td or Tdap) 12/29/2031 12/28/2021, 01/19/2011, 02/04/2009 Hepatitis C Screening Completed 12/10/2019 Zoster Vaccines Completed 05/15/2020, 12/24/2019 Pneumococcal Vaccine: 50+ Years Completed 12/28/2021, 10/21/2019, 04/14/2010 RSV Patients and Patients Aged 60 years or older Completed 01/15/2024 COVID-19 Vaccine Completed 01/07/2025, 12/2023, 08/22/2022, Additional history exists Influenza Vaccine Completed 01/17/2025, , 07/07/2022, Additional history exists HIB Vaccines Aged Out No longer eligi ble based on patient's age to complete this topic HPV Vaccines Aged Out No longer eligi ble based on patient's age to complete this topic Hepatitis A Vaccines Aged Out No long er eligible based on patient's age to complete this topic Hepatitis B Vaccines Aged Out No long er eligible based on patient's age to complete this topic IPV Vaccines Aged Out No longer eligi ble based on patient's age to complete this topic Meningococcal Vaccine Aged Out No shahida damon eligible based on patient's age to complete this topic RSV under 20 months Aged Out No longe r eligible based on patient's age to complete this topic Rotavirus Vaccines Aged Out No longer eligible based on patient's age to complete this topic Goals Goal Patient Goal Type Associated Problems Recent Progress Patient-Stated? Author Blood Pressure < 140/90 Blood Pressure 150/86( 025 3:05 PM EDT) No Tre Goodrich, Evelina Procedures Procedure Name Priority Date/Time Associated Diagnosis Comments LIPID PANEL WITH REFLEX TO DIRECT LDL Routine 06/25/2024 2:15 PM EDT Dyslipidemia PROPHYLAXIS - ADULT Routine 01/23/2024 1 0:00 AM EDT Generalized gingival recession Missing teeth, acquired PERIODIC ORAL EVALUATION - ESTABLISHED PATIENT Routine 08/14/2023 10:30 AM EDT BI MAMMOGRAM SCREENING TOMOSYNTHESIS BILATERAL Routine 06/14/2023 11:10 AM EDT ZZZ HISTORICAL HEPATITIS C ANTIBODY RFLX Routine 12/10/2019 9:10 AM EST BITEWING - SINGLE RADIOGRAPHIC IMAGE Routine 11/06/2018 12:00 AM EST INTRAORAL - COMPLETE SERIES OF RADIOGRAPHIC IMAGES Routine 01/04/2017 12:00 AM EDT from Last 3 Months or Most Recently Relevant to Health Maintenance Results * (ABNORMAL) Lipid Panel with Reflex to Direct LDL (06/25/2024 2:15 PM EDT) Triglycerides 81 <150 mg/dL [facility] Comment:Desirable Triglyceri de: less than 150 mg/dLBorderline High Triglyceride 150-199 mg/dLHigh Triglyceride: 200-499 mg/dLVery High Triglyceride: greater than or equal to 5OO mg/dL Cholesterol 212(H) <200 mg/dL [facility] Comment:Desirable Cholestero l: less than 200 mg/dLBorderline High Cholesterol: 200-239 mg/dLHigh Cholesterol: greater than 239 mg/dL LDL Cholesterol Calculated 106(H) <100 mg/dL [facility] Comment:Desirable LDL: less than 100 mg/dLNear Optimal/Above Optimal LDL: 110- 129 mg/dLBorderline High LDL: 130-159 mg/dLHigh LDL: 160-189 mg/dLVery High LDL: greater than or equal to 190 mg/dL HDL Cholesterol 90 >40 mg/dL [facility] Comment:Desirable HDL: great er than 40 mg/dL Note: This HDL assay may give artificially low results in patients with liver disease. Blood 06/25/2024 2:15 PM EDT 06/25/2024 4:01 PM EDT us Patsy Patel MD LAB BLOOD ORDERABLES Final Resul t [facility] [address] [place] [address] [phone] * BI Mammogram Screening Tomosynthesis Bilateral (06/14/2023 11:10 AM EDT) Anatomical Region Laterality Modality Breast Bilateral Mammography 06/14/2023 11:1 0 AM EDT Narrative 06/28/2023 8:16 AM EDT ? [facility] ? [address] ?[place] [address] ? Mammography Report ? Signed ? Patient: Grayson,Sariah ?MR#: [id number] ?? 09 ? : 1955 ?Acct:[id number] ? Age/Sex: 68 / F ?ADM Date: 08/30/23 ? Loc: HO.MAMMO ? Attending Dr: Patsy Patel MD ? Ordering Physician: Patsy Patel MD ?Results: 1Negative ? Date of Service: 06/14/23 ?Follow Up: 1 Year From Orig ?? inal Mammogram ? Procedure(s): MM tomosynthesis screening BI ?? Accession Number(s): [id number] ? cc: Patsy Patel MD ? EXAMINATION: ?? MM SCREENING DIGITAL BREAST TOMOSYNTHESIS, BILATERAL ? CLINICAL INFORMATION: ? Screening. Asymptomatic. ? COMPARISON: ?? Mammography: This study is compared with prior exams dating back to ?? 2016. ? TECHNIQUE: ?? Digital breast tomosynthesis is performed in both the craniocaudal and ?? mediolateral oblique views along with computer-aided detection (CAD). ?? Synthesized 2D images are generated from the tomosynthesis. ? FINDINGS: ?? There are scattered areas of fibroglandular density (ACR BI-RADS breast ?? composition Category b). ? There are no significant masses, abnormal calcifications, or other ?? abnormalities. ? MM/MM tomosynthesis screening BI ?? IMPRESSION: ?? No mammographic evidence of malignancy. ? ASSESSMENT: ? BI-RADS BI-RADS 1 - Negative ? RECOMMENDATION: ?? Routine annual mammography screening. ? 1 year F/U ? This examination should not preclude the clinical evaluation of a ?? suspicious palpable abnormality. ? This patient's information was entered into a reminder system with a ?? target due date for their next mammogram. ? Dictated By: ?Yudith Cuadra MD ? Signed By: ?<Electronically signed by Yudith Cuadra MD in OV> ? 06/28/23 0812 ? DD/ 1110 ? TD/TT: ? Inside Sales Advertising Executive: ? Procedure Note Donotuseinterpreter, Image - 06/29/2023 [facility] [address] [place] [address] Mammography Report Signed Patient: Sariah FlemingMR#: [id number] 09 : 3Acct:[id number] Age/Sex: 68 / FADM Date: 06/14/23 Loc: HO.MAMMO Attending Dr: Patsy Patel MD Ordering Physician: Patsy Patelesults: 1Negative Date of Service: 06/14/23Follow Up: 1 Year From Orig inal Mammogram Procedure(s): MM tomosynthesis screening BI Accession Number(s): [id number] cc: Patsy Patel MD EXAMINATION: MM SCREENING DIGITAL BREAST TOMOSYNTHESIS, BILATERAL CLINICAL INFORMATION: Screening. Asymptomatic. COMPARISON: Mammography: This study is compared with prior exams dating back to 2017. TECHNIQUE: Digital breast tomosynthesis is performed in both the craniocaudal and mediolateral oblique views along with computer-aided detection (CAD). Synthesized 2D images are generated from the tomosynthesis. FINDINGS: There are scattered areas of fibroglandular density (ACR BI-RADS breast composition Category b). There are no significant masses, abnormal calcifications, or other abnormalities. MM/MM tomosynthesis screening BI IMPRESSION: No mammographic evidence of malignancy. ASSESSMENT: BI-RADS BI-RADS 1 - Negative RECOMMENDATION: Routine annual mammography screening. 1 year F/U This examination should not preclude the clinical evaluation of a suspicious palpable abnormality. This patient's information was entered into a reminder system with a target due date for their next mammogram. Dictated By: Yudith Cuadra MD Signed By: <Electronically signed by Yudith Cuadra MD in OV> 06/28/23 0812 DD/ 1110 TD/TT: Inside Sales Advertising Executive: Patsy Patel MD [facility] PROCEDURES Edited Result - Final * HEPATITIS C ANTIBODY RFLX (12/10/2019 9:10 AM EST) HEPATITIS C ANTIBODY NONREACTIVE NONREACTIVE [facility] Comment: Antibodies to HCV not detected; does not exclude early acute HCV infection. 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
[2025-01-17 16:43] LABS: Alanine Aminotransferase 24 U/L (0-31); Albumin Level 4.3 g/dL (3.5-5.0); Alkaline Phosphatase 54 U/L (39-117); Anion Gap 14 (12-20); Aspartate Amino Transferase 33 U/L (5-31); Bilirubin Direct 0.2 mg/dL (0.0-0.5); Bilirubin Total 0.5 mg/dL (0.0-1.0); Blood Urea Nitrogen 18 mg/dL (9-16); Calcium 9.8 mg/dL (8.4-10.2); Carbon Dioxide 21 mmol/L (22-29); Chloride 104 mmol/L (96-108); Cholesterol 225 mg/dL (<200); Estimated Glomerular Filt Rate > 60; Glucose Random 103 mg/dL (60-115); HDL Cholesterol 101 mg/dL (>40); LDL Cholesterol Calculated 105 mg/dL (<100); Potassium 4.4 mmol/L (3.3-5.1); Sodium 135 mmol/L (135-145); Total Protein 7.7 g/dL (6.5-8.0); Triglycerides 96 mg/dL (<150)
[2025-01-17 16:49] LABS: Reflex LDLD? No
[2025-01-17 17:00] LABS: TSH reflex Free T4 0.92 uIU/mL (0.32-4.0)
== END 2025-01-17 15:02 | disposition home or self-care (01) ==
LOC: HO.HHCL 15:01
PROVIDERS: Visit Provider Family Medicine
DX: I10 Essential (primary) hypertension (principal); E78.5 Hyperlipidemia, unspecified
CPT/HCPCS: 36415; 80053; 80061; 82248; 84443

== ENCOUNTER 2025-02-13 10:50 | Outpatient (AMB) | payer MEDICARE, MEDICAID, SELFPAY ==
--- NOTE | 2025-02-13 10:53 | HO.SPINEOV ---
Vital Signs 02/13/25 11:01 Height 5 ft 4 in Weight 173 lb BMI 29.7 Intake Visit Reasons: LBP Intake Note: Mrs. Fleming is here today c/o Left sided Low back pain that radiates down to the Left leg. Coding Tech Required: No Allergies ibuprofen Allergy (Severe, Verified 02/27/25 14:37) Affects the Kidneys ANDRADE Inhibitors Allergy (Unknown, Verified 02/27/25 14:37) Unknown diltiazem Allergy (Unknown, Verified 02/27/25 14:37) Unknown hydralazine Allergy (Unknown, Verified 02/27/25 14:37) Unknown Physical Exam Vital Signs: BMI result Body Mass Index 29.7 Assessment & Plan Assessment & Plan (1) Lumbar radiculopathy: Code(s): M54.16 - Radiculopathy, lumbar region Category: Medical Plan Dear Dr. Patel, Thank you for referring Sariah to our office today. She is a pleasant 69 year old female who comes in with a chief complaint of primarily left leg pain and numbness. She reports this began about 4 years ago without any known inciting incident. When describing the radiation of the pain down her left leg she runs her hand down her posterior left buttocks over the left lateral hip, down the anterior thigh over the anterior knee & anterior tibialis and states the pain travels across the top of her foot terminating in her left great toe. She reports that she has very little low back pain and that her primary concern is her left leg pain. In addition to this she reports her left leg is ?completely numb. ? She did attempt to have this exact pain treated in the past at [facility], and had a left L2-[address] completed by Dr[address] Robert in 2022. She reports no meaningful relief of her pain after surgery. She did go back to see Dr. Robert for a follow-up recently who informed her that no subsequent surgery is warranted. She reports that positional changes cause her the most pain, specifically rising from a seated position. She states that resting and sitting helps to alleviate her pain. She has no significant increase in her pain with ambulation. She is able to sleep at night, and does not wake up in pain. Given this, the pain that she is experiencing and the numbness in her left leg is causing her a great deal of distress, and limiting her activities of daily living significantly. She has tried taking mlno-myl-evmdnyr medications including Tylenol, and ibuprofen in the past (cannot take any longer due to TERESSA from Ibuprofen), and has attempted prescribed gabapentin however she did not like this medication as it made her tired. She has been to physical therapy, which he completed without any resolution of symptoms. She has also attempted acupuncture in effort to help mitigate her pain. PMH: Hypertension, discoid lupus erythematous, hyperlipidemia. Osteopenia based on most recent DEXA scan. Social hx: The patient does not smoke, reports no substance use. Medications: See [facility] list. The patient is on aspirin. Allergies: ANDRADE inhibitors, diltiazem, hydralazine. Physical exam: Sariah has 5/5 strength in her upper and lower extremities. She ambulates slowly and favors her right side. She rises from a seated position with the assistance of a cane. She is able to make it up onto the examination table with the assistance. She reports diffuse hypoesthesia to light touch over her left lower extremity. The rest of her sensation is grossly intact. (-) bilateral straight leg raise, (-) Field's. (-) clonus. Imaging review: MRI of the lumbar spine completed in January of 2025 at [facility] shows severe central canal and bilateral foraminal stenosis at L2-3, worse on the left. There is moderate central canal and severe bilateral foraminal stenosis at L3-4. There is moderate central canal and severe bilateral foraminal stenosis at L4-5. And there is mild left-sided, and moderate right-sided foraminal stenosis at L5-S1. There are Modic endplate changes noted at L2, 3, 4, and 5. Left-sided laminotomy defect noted at L2-3. Impression: Sariah is a pleasant 69-year-old female who comes in today with a chief complaint of left leg pain and numbness. This has been ongoing for the past 4 years without any known inciting incident. She attempted to have this treated at [facility] via a L2-3 left-sided lumbar decompression. Unfortunately despite this attempted intervention she continued to have severe left leg pain and numbness. She is now to the point where she is in fairly severe pain throughout the day, is limping when she walks, and is ambulating with a cane. She has significant increase in leg pain with positional changes, but has little to no low back pain. She does not have any significant pain with ambulation, and states the pain is the same regardless of whether or not she is walking. I believe this patient is most likely suffering from a left-sided lumbar radiculopathy stemming from the left-sided foraminal stenosis seen at L4 and L5. The L4 and L5 dermatomal distribution on the left best matches her disclosed radiation of pain as described above. Sariah has not as of yet attempted cortisone injections to address her pain. I believe at this time they could be of good utility for her. She continues to have severe central canal and left-sided stenosis at L2-3 despite a notable surgical defect there. Although this is the 'worst compression I can see in her lumbar spine, I do not believe it is responsible for her pain. In order to discern whether her pain is actually coming from the L2-3 space worse coming from lower down where the dermatomal distribution matches, I would like to send her for a series of cortisone injections with our colleagues in pain management. Specifically, I recommend full therapeutic dose left-sided L4 and L5 transforaminal epidural steroid injections. She may follow up with us after injections to discuss pain relief, or subsequent surgery. Thank you for allowing us to care for your patient. The total time spent with this visit with this patient was 45 minutes reviewing history, physical exam, ,MRI imaging review, and implementation of treatment plan or further diagnostic testing Simon Shine MD,PhD [facility] Orders: Orders XR lumbar spine 4V min 02/13/25 M54.16 - Radiculopathy, lumbar region Referrals Pain Management Referral M54.16 - Radiculopathy, lumbar region Coding Level of Care Code New Pt Level 4 (45931) Diagnoses Lumbar radiculopathy M54.16
[2025-02-13 11:01] VITALS: BMI 29.7
--- OUTSIDE RECORDS SUMMARY | 2025-02-13 12:28 | XMS_ITS | Clinical Summary ---
Author Organization [employer] Address [address] [place] [address] 7t [place] [address] Care Team Providers Care Schedule Announcer Name Role Phone Patsy Patel MD Primary Care Provider [phone] Tre Goodrich PharmD Unavailable [phone] John Mcclain OD Unavailable Allergies Active Allergy [...] tablet by mouth in the morning. Active [place]-3 Fatty Acids (Fish Oil) 1000 MG capsule [...] bedtime. 6 mL 1 4 Active Saline [place] 0.65 % solution Use to moisten your [...] - evaluate with MRI and refer to accounting support specialist at [facility] Assessment & Plan (10/22/2023 11:13 AM EST): [...] -Agreed to order MRI and refer to accounting support specialist. -Continue PT. Assessment & Plan (10/26/2022 4:41 [...] -Agreed to order MRI and refer to accounting support specialist. -Continue PT. Stage 3 chronic kidney disease 10/25/2022 Assessment & Plan (01/11/2025 6:44 AM EDT): -Followed by glue mounter operator, last seen in Jun 2024 -Optimize BP control -Avoid nephrotoxic drugs -Periodic lab to monitor renal function Assessment & Plan (10/22/2023 11:13 AM EST): -Followed by glue mounter operator, last seen in Jun 2023 -Optimize BP control -Avoid nephrotoxic drugs -Periodic lab to monitor renal function Assessment & Plan (05/13/2023 6:27 AM EDT): -Followed by glue mounter operator -Optimize BP control -Avoid nephrotoxic drugs -Periodic lab to monitor renal function Assessment & Plan (10/25/2022 5:59 AM EST): -Followed by glue mounter operator -Optimize BP control -Avoid nephrotoxic drugs -Periodic [...] Plan (01/11/2025 6:46 AM EDT): -seen by [facility] orthopedist -PT with iontophoresis for trochanteric bursitis -Tried tramadol, dosage was ineffective -discouraged use of NSAIDs and HUNT-2 inhibitor due to CKD -Tried gabapentin to 300 mg tid, patient weaned herself off. -Tried lidocaine topical; first cream then patch if cream not effective Assessment & Plan (10/25/2022 6:06 AM EST): -seen by [facility] orthopedist -PT with iontophoresis for trochanteric bursitis [...] at goal, questionable medication adherence -Co-managed with glue mounter operator and pharmacist - EKG 12/24/19 - NSR, [...] Amlodipine was increased to 5 mg by glue mounter operator, but pt self- discontinued due to ankle swelling. Restarted at low dose and kept at current dose -previously on Olmesartan-hctz 40-25 mg daily, Brand Benicar-hctz was more effective than the generic, per pt. -Benicar-HCTZ PA was denied. - Metoprolol was increased from 25 mg to 50 mg daily by glue mounter operator. -Losartan was changed to telmesartan in December 2023 since it is longer-acting. -Follow- up in 3 months. - Ordered labs on 01/07/25 Assessment & Plan (06/21/2024 11:24 AM EDT): -Goal BP <140/90 per JNC-8, and < 130/80 per ACC/AHA guideline -BP not at goal, questionable medication adherence -Co-managed with glue mounter operator and pharmacist - EKG 12/24/19 - NSR, [...] Amlodipine was increased to 5 mg by glue mounter operator, but pt self- discontinued due to ankle swelling. -previously on Olmesartan-hctz 40-25 mg daily, Brand Benicar-hctz was more effective than the generic, per pt. Metoprolol was increased from 25 mg to 50 mg daily by glue mounter operator. -Benicar-HCTZ PA was denied. -Losartan was changed to telmesartan in December 2023 since it is longer-acting. -Follow- up in 3 months. Assessment & Plan (10/22/2023 11:09 AM EST): -Goal BP <140/90 per JNC-8, and < 130/80 per ACC/AHA guideline -BP not at goal, questionable medication adherence -Co-managed with glue mounter operator - EKG 12/24/19 - NSR, no acute [...] Amlodipine was increased to 5 mg by glue mounter operator, but pt self- discontinued due to ankle swelling. -previously on Olmesartan-hctz 40-25 mg daily, Brand Benicar-hctz was more effective than the generic, per pt. Metoprolol was increased from 25 mg to 50 mg daily by glue mounter operator. -Benicar-HCTZ PA was denied. We will check if we can try to decrease pill-burden again. -Follow- up in 3 months. Assessment & Plan (05/13/2023 6:26 AM EDT): -Goal BP <140/90 per JNC-8, and < 130/80 per ACC/AHA guideline -BP not at goal, questionable medication adherence -Co-managed with glue mounter operator - EKG 12/24/19 - NSR, no acute [...] Amlodipine was increased to 5 mg by glue mounter operator, but pt self- discontinued due to ankle swelling. -previously on Olmesartan-hctz 40-25 mg daily, Brand Benicar-hctz was more effective than the generic, per pt. Metoprolol was increased from 25 mg to 50 mg daily by glue mounter operator. -Benicar-HCTZ PA was denied. We will check if we can try to decrease pill-burden again. -Follow- up in 3 months. Assessment & Plan (10/26/2022 4:43 PM EST): -Goal BP <140/90 per JNC-8, and < 130/80 per ACC/AHA guideline -BP not at goal, pt does not want to adjust medication at this time. -Co-managed with glue mounter operator - EKG 12/24/19 - NSR, no acute [...] 25 mg to 50 mg daily by glue mounter operator. -Benicar-HCTZ PA was denied. -She does not [...] recent eye exam by Dr. Mcclain in [place] within 2 weeks- next scheduled for 6 months. Encouraged to continue carefully Plaquenil with daily sun protection particularly during summer and spring months. In the past labs from November 2019 reassuring-new set requested today. Assessment & Plan (01/07/2025 9:58 AM EDT): -Current Elevator Worker Dr. Martin last visit on 03/21/24 -Current medication: Hydroxychloroquine 200 mg daily -Continue current treatment plan per her current network support technician. -Needs eye exam for long-term use of Plaquenil, last eye exam in Jun 2023 Assessment & Plan (06/20/2024 10:26 AM EDT): -Current Elevator Worker Dr. Martin last visit on 03/21/24 -Current medication: Hydroxychloroquine 200 mg daily -Continue current treatment plan per her current network support technician. -Needs eye exam for long-term use of Plaquenil, last eye exam in Jun 2023 Assessment & Plan (10/22/2023 11:18 AM EST): -Current Elevator Worker Dr. Martin last visit on 10/04/23 -Current medication: Hydroxychloroquine 200 mg daily -Continue current treatment plan per her current network support technician. -Needs eye exam for long-term use of Plaquenil, last eye exam in Jun 2023 Assessment & Plan (05/13/2023 6:30 AM EDT): -Current Elevator Worker Dr. Martin last visit in January 2023 -Current medication: Hydroxychloroquine 200 mg daily -Continue current treatment plan per her current network support technician. -Needs eye exam for long-term use of Plaquenil, last eye exam within last 1 year per pt's report Assessment & Plan (10/25/2022 6:02 AM EST): -Current Elevator Worker Dr. Martin last note on May 2022 -Current medication: Hydroxychloroquine 200 mg daily -Continue current treatment plan per her current network support technician. -Needs eye exam for long-term use of [...] Encounters Date Type Department Care Team Description 01/27/2025 Telephone [facility] [place] [address] Patsy Patel MD Referral 01/17/2025 2:15 PM EDT Immunization [facility] [place] [address] Blank Benavides LPN Encounter for immunization (Primary Dx) 01/17/2025 Orders Only [facility] [place] [address] Patsy Patel MD 01/17/2025 Travel 01/07/2025 2:30 PM EDT Office Visit [facility] [place] [address] Patsy Patel MD Primary hypertension (Primary Dx); Stage 3a chronic kidney disease (CMS/HCC); Tubular adenoma of colon; Discoid lupus; Dyslipidemia; Long-term use of hydroxychloroquine; Spinal stenosis of lumbar region with neurogenic claudication; Primary osteoarthritis involving multiple joints; Lumbar radiculopathy; Osteopenia, unspecified location; Disorder of hip joint; Chronic left-sided low back pain with left-sided sciatica 01/07/2025 Travel 01/03/2025 Telephone [facility] [place] [address] Patsy Patel MD chart prep 12/27/2024 Population Health Risk Score [facility] Department [address] [place] [address] [phone] Provider, Population Health Generic 12/17/2024 2:00 PM EST Telemedicine [facility] [place] [address] Tre Goodrich, PharmD Primary hypertension (Primary Dx) 12/12/2024 Telephone [facility] [address] [place] [address] Patsy Patel MD Appointment Request 12/06/2024 Travel 11/18/2024 Telephone [facility] [address] [place] [address] Patsy Patel MD Appointment Request from Last 3 Months Immunizations Name Administration [...] Mass Index - - Plan of Treatment Upcoming Encounters Date Type Department Care Team (Late st Contact Info) Description 04/15/2025 11:15 AM EDT Office Visit [facility] [address] [place] [address] Patsy Patel MD [address] [place] [address] Health Maintenance Due Date Last Done Comments CT Colonography 1955 Colonoscopy 1955 Colorectal Cancer Screening 1955 FIT DNA/Cologuard 1955 FIT 1955 FOBT 1955 Sigmoidoscopy 1955 Dental Oral Exam 02/14/2024 08/14/2023, 09/2017, 01/04/2017, Additional history exists Dental Prophylaxis 07/25/2024 01/23/2024, 1 , 01/16/2018, Additional history exists Dental X-Ray: Bitewings 08/15/2024 08/14/20 23, 11/06/2018, 01/04/2017, Additional history exists Mammogram 06/14/2025 06/14/2023, 08, 09/21/2021, Additional history exists SDOH Screening 10/22/2025 10/22/2024 Alcohol/Substance Use Screening 01/07/2026 01/07/2025 Depression Screening 01/07/2026 01/07/2025, 01/08/20 Tobacco Screening 01/11/2026 01/11/2025 Dental X-Ray: Full Mouth 08/15/2026 023, 01/04/2017, 07/17/2014 Lipid Panel 01/17/2030 01/17/2025, 06/16, 05/11/2023, Additional history exists DTaP/Tdap/Td Vaccines (3 - [...] Procedure Name Priority Date/Time Associated Diagnosis Comments MR LUMBAR SPINE WO CONTRAST Routine 01/27/2025 Spinal stenosis of lumbar region with neurogenic claudication Lumbar radiculopathy HEPATIC FUNCTION PANEL Routine 01/17/2025 3:05 PM EDT LIPID PANEL WITH REFLEX TO DIRECT LDL Routine 01/17/2025 3:05 PM EDT Dyslipidemia COMPREHENSIVE METABOLIC PANEL Routine 01/17/2025 3:05 PM EDT Primary hypertension TSH W/REFLEX TO FT4 Routine 01/17/2025 3 :05 PM EDT Primary hypertension PROPHYLAXIS - ADULT Routine 01/23/2024 1 0:00 [...] Recently Relevant to Health Maintenance Results * MR Lumbar Spine w/o Contrast (01/27/2025) Anatomical Region Laterality Modality Spine, L-spine Magnetic Resonan ce Patsy Patel MD IMG MRI PROCEDURES Final Result * TSH with Reflex to Free T4 (01/17/2025 3:05 PM EDT) TSH reflex Free T4 0.92 0.32 - 4.0 uIU/mL [facility] Blood 01/17/2025 3:05 PM EDT 01/17/2025 4:14 PM EDT Patsy Patel MD LAB BLOOD ORDERABLES Final Resul t [facility] [address] [place] [phone] * (ABNORMAL) Lipid Panel with Reflex to Direct LDL (01/17/2025 3:05 PM EDT) Triglycerides 96 <150 mg/dL [facility] Comment:Desirable Triglyceri de: less than 150 mg/dLBorderline High Triglyceride 150-199 mg/dLHigh Triglyceride: 200-499 mg/dLVery High Triglyceride: greater than or equal to 5OO mg/dL Cholesterol 225(H) <200 mg/dL [facility] Comment:Desirable Cholestero l: less than 200 mg/dLBorderline High Cholesterol: 200-239 mg/dLHigh Cholesterol: greater than 239 mg/dL LDL Cholesterol Calculated 105(H) <100 mg/dL [facility] Comment:Desirable LDL: less than 100 mg/dLNear Optimal/Above Optimal LDL: 110- 129 mg/dLBorderline High LDL: 130-159 mg/dLHigh LDL: 160-189 mg/dLVery High LDL: greater than or equal to 190 mg/dL HDL Cholesterol 101 >40 mg/dL [facility] Comment:Desirable HDL: great er than 40 mg/dL Note: This HDL assay may give artificially low results in patients with liver disease. Blood 01/17/2025 3:05 PM EDT 01/17/2025 4:14 PM EDT Patsy Patel MD LAB BLOOD ORDERABLES Final Resul t Performing Organization Address [facility] de Phone Number [facility] [address] [place] [phone] * Hepatic Function Panel (01/17/2025 3:05 PM EDT) Bilirubin, Direct 0.2 0.0 - 0.5 mg/dL [facility] 01/17/2025 3:05 PM EDT 01/17/2025 4:14 PM EDT Patsy Patel MD LAB BLOOD ORDERABLES Final Resul t Performing Organization Address [facility] de Phone Number [facility] [address] [place] [phone] * (ABNORMAL) Comprehensive Metabolic Panel (01/17/2025 3:05 PM EDT) Sodium 135 135 - 145 mmol/L [facility] Potassium 4.4 3.3 - 5.1 mmol/L [facility] Chloride 104 96 - 108 mmol/L [facility] Carbon Dioxide 21(L) 22 - 29 mmol/L [facility] Anion Gap 14 12 - 20 [facility] Urea Nitrogen (BUN) 18(H) 9 - 16 mg/dL [facility] Creatinine, Serum 0.82 0.5 - 1.4 mg/dL [facility] Estimated Glomerular Filt Rate >60 [facility] Comment:Chronic Kidney Disea se: Estimated GFR < 60 mL/min/1.66b8Idqslg Kidney Disease: Estimated GFR < 15 mL/min/1.73m2 Glucose 103 60 - 115 mg/dL [facility] Calcium 9.8 8.4 - 10.2 mg/dL [facility] Bilirubin, Total 0.5 0.0 - 1.0 mg/dL [facility] Aspartate Amino Transferase 33(H) 5 - 31 U/L [facility] Alanine Aminotransferase 24 0 - 31 U/L [facility] Total Protein 7.7 6.5 - 8.0 g/dL [facility] Albumin Level 4.3 3.5 - 5.0 g/dL [facility] Alkaline Phosphatase 54 39 - 117 U/L [facility] Blood Venous blood specimen / Unknown 01/17/2025 3:05 PM EDT 01/17/2025 4:14 PM EDT us Patsy Patel MD LAB BLOOD ORDERABLES Final Resul t [facility] [address] [place] [phone] * BI Mammogram Screening Tomosynthesis Bilateral (06/14/2023 11:10 AM EDT) Anatomical Region Laterality Modality Breast Bilateral Mammography 06/14/2023 11:1 0 AM EDT Narrative 06/28/2023 8:16 AM EDT ? [facility] [place] ? [address] ?[place] [phone] ? Mammography Report ? Signed ? Patient: Lonnie,Sariah ?MR#: [id number] ?? 09 ? : 1955 ?Acct:[id number] ? Age/Sex: 68 / F ?ADM Date: 08/30/23 ? Loc: HO.MAMMO ? Attending Dr: Patsy Patel MD ? Ordering Physician: Patsy Patel MD ?Results: 1Negative ? Date of Service: 06/14/23 ?Follow Up: 1 Year From Orig ?? inal Mammogram ? Procedure(s): MM tomosynthesis screening BI ?? Accession Number(s): [id number] ? cc: Patsy Patel MD ? EXAMINATION: ?? MM SCREENING DIGITAL BREAST TOMOSYNTHESIS, BILATERAL ? CLINICAL INFORMATION: ? Screening. Asymptomatic. ? COMPARISON: ?? Mammography: This study is compared with prior exams dating back to ?? 2017. ? TECHNIQUE: ?? Digital breast tomosynthesis is [...] by Yudith Cuadra MD in OV> ? 06/28/23811 ? DD/DT: 06/14/ 1110 ? TD/TT: ? Gold Assayer: ? Procedure Note Donotuseinterpreter, Image - 06/29/2023 [place] [facility] [address] [place], [place] [address] Mammography Report Signed Patient: Hui Fleming#: [id number] 09 : 3Acct:[id number] Age/Sex: 68 / FADM Date: 06/14/23 Loc: HO.MAMMO Attending Dr: Patsy Patel MD Ordering Physician: Patsy Patel MDResults: 1Negative Date of Service: 06/14/23Follow Up: 1 Year From Orig inal Mammogram Procedure(s): MM tomosynthesis screening BI Accession Number(s): [id number] cc: Patsy Patel MD EXAMINATION: MM SCREENING [...] in OV> 06/28/23 0812 DD/ 1110 TD/TT: Gold Assayer: Patsy Patel MD IM BI PROCEDURES Edited Result - Final * HEPATITIS C ANTIBODY RFLX (12/10/2019 9:10 AM EST) HEPATITIS C ANTIBODY NONREACTIVE NONREACTIVE [facility] Comment: Antibodies to HCV not detected; does not exclude early acute HCV infection. 12/10/2019 9:10 AM EST us Patsy Patel MD HISTORICAL/NON ORDERABLE LABS Fi nal Result [facility] [address] from Last 3 Months or Most Recently Relevant to Health Maintenance Insurance MEDICARE [facility] STAND AD[place] Care Teams Schedule Announcer Relationship Specialty Start Date End Date Patsy Patel MD [address] [place] [phone] PCP - General Family Medicine 10/16/18 Tre Goodrich, MaudeD [address] [place] [phone] Pharmacist Internal Medicine 12/25/23 John Mcclain OD [facility] [address] [place] [address] Optometry 11/14/24
--- OUTSIDE RECORDS SUMMARY | 2025-02-13 12:28 | XMS_ITS | Encounter Summary ---
Author Organization [employer] Address [address] [place] [address] 7t [place] [address] Care Team Providers Care Fixed Wing Pilot Name Role Phone Patsy Patel MD Primary Care Provider [phone] Tre Goodrich PharmD Unavailable [phone] John Mcclain OD Unavailable Reason for Visit * Reason Comments Med Refill Encounter Details Date Type Department Care Team (Late st Contact Info) Description 07/19/2023 Refill [facility] [address] [place] [address] Patsy Patel MD [address] [place], [place] [phone] Social History Tobacco Use Types Packs/Day Years [...] as of this encounter Plan of Treatment Upcoming Encounters Date Type Department Care Team (Late st Contact Info) Description 04/15/2025 11:15 AM EDT Office Visit [facility] [address] [place] [address] Patsy Patel MD [address] [place] [phone] documented as of this encounter Visit Diagnoses Not on filedocumented in this encounter Additional Health Concerns Assessment Noted Time PHQ-9 Depression Total Score: 10 023 1:33 PM EST documented as of this encounter Care Teams Fixed Wing Pilot Relationship Specialty Start Date End Date Patsy Patel MD [address] [place] [phone] PCP - General Family Medicine 10/16/18 Tre Goodrich, MaudeD [address] [place] [phone] Pharmacist Internal Medicine 12/25/23 John Mcclain OD [facility] [address] [place] [address] Optometry 11/14/24 documented as of this encounter
--- OUTSIDE RECORDS SUMMARY | 2025-02-13 12:28 | XMS_ITS | Encounter Summary ---
Author Organization [employer] Address [address] [place] [address] 7t [place] [address] Care Team Providers Care Office Technologist Name Role Phone Patsy Patel MD Primary Care Provider [phone] Tre Goodrich PharmD Unavailable [phone] John Mcclain OD Unavailable Reason for Referral * Consultation (Routine) - Authorized Specialty Diagnoses / Procedures Referred By Jorge A kunz Referred To Contact Pharmacy Diagnoses Primary hypertension Patsy Patel MD [address] [place] [address] Phone: tel: fax: Referral ID Status Reason Start Date Expiration Date Visits Requested Visits Authorized [id number] Authorized Consult and Treat 08/27/2024 08/27/2025 6 6 Encounter Details Date Type Department Care Team (Late st Contact Info) Description 08/27/2024 Orders Only [facility] [address] [place] [address] [phone] Patsy Patel MD [address] [place], [place] [phone] Primary hypertension (Primary Dx) Social History Tobacco [...] Description 04/15/2025 11:15 AM EDT Office Visit [facility] [address] [place] [address] Patsy Patel MD [address] [place] [address] Scheduled Referrals Name Type Priority Associated Diagnoses [...] documented as of this encounter Care Teams Office Technologist Relationship Specialty Start Date End Date Patsy Patel MD [address] [place] [address] PCP - General Family Medicine 10/16/18 Tre Goodrich, MaudeD [address] [place] [address] Pharmacist Internal Medicine 12/25/23 John Mcclain OD [facility] [address] [place] [address] Optometry 11/14/24 documented as of this encounter
--- OUTSIDE RECORDS SUMMARY | 2025-02-13 12:28 | XMS_ITS | Encounter Summary ---
Author Organization [employer] Address [address] [place] [address] 7t [place] [address] Care Team Providers Care Custom Frame Assembler Name Role Phone Patsy Patel MD Primary Care Provider [phone] Tre Goodrich PharmD Unavailable [phone] John Mcclain OD Unavailable Reason for Referral * Consultation (Urgent) - Closed Specialty Diagnoses / Procedures Referred By Jorge A kunz Referred To Contact Orthopaedic Surgery Diagnoses Ankle mass, left Patsy Patel MD [address] [place] [address] Phone: tel: fax: [facility] [address] [place] [address] [place] [address] Phone: tel: fax: Referral ID Status Reason Start Date Expiration Date V isits Requested Visits Authorized [id number] Closed Specialty Services Required 01/01/2024 12/31/2024 1 1 Scheduling Instructions Director Telecommunications recommends [facility]. Encounter Details Date Type Department Care Team (Late st Contact Info) Description 01/01/2024 Orders Only [facility] [address] [place], [place] [phone] Patsy Patel MD [address] [place], [place] [phone] Ankle mass, left (Primary Dx) Social History [...] Description 04/15/2025 11:15 AM EDT Office Visit [facility] [address] [place], [place] [phone] Patsy Patel MD [address] [place] [address] Scheduled Referrals Name Type Priority Associated Diagnoses [...] documented as of this encounter Care Teams Custom Frame Assembler Relationship Specialty Start Date End Date Patsy Patel MD [address] [place] [address] PCP - General Family Medicine 10/16/18 Tre Goodrich, PharmD [address] [place] [address] Pharmacist Internal Medicine 12/25/23 John Mcclain OD [facility] [address] [place] [address] Optometry 11/14/24 documented as of this encounter
--- OUTSIDE RECORDS SUMMARY | 2025-02-13 12:28 | XMS_ITS | Encounter Summary ---
Author Organization [employer] Address [address] [facility] 7t [place] [address] Care Team Providers Care Freelance Interpreter/Translator Name Role Phone Patsy Patel MD Primary Care Provider [phone] Tre Goodrich PharmD Unavailable [phone] John Mcclain OD Unavailable Reason for Visit * Reason Onset Date Comments Appointment Request 12/12/2024 Encounter Details Date Type Department Care Team ([facility] st Contact Info) Description 12/12/2024 Telephone [facility] [address] [place], [place] [phone] Patsy Patel MD [address] [place], [place] [phone] Appointment Request Social History Tobacco Use Types [...] documented in this encounter Plan of Treatment Upcoming Encounters Date Type Department Care Team (Late st Contact Info) Description 04/15/2025 11:15 AM EDT Office Visit [facility] [address] [place] [address] Patsy Patel MD [address] [place] [address] documented as of this encounter Goals Goal Patient Goal Type Associated Problems Recent Progress Patient-Stated? Author Blood Pressure < 140/90 Blood Pressure 150/86( 025 3:05 PM EDT) Tre Bryant, PharmD documented as of this encounter Visit Diagnoses Not on filedocumented in this encounter Additional Health Concerns Assessment Noted Time PHQ-9 Depression Total Score: 10 023 1:33 PM EST documented as of this encounter Care Teams Freelance Interpreter/Translator Relationship Specialty Start Date End Date Patsy Patel MD [address] [place] [address] PCP - General Family Medicine 10/16/18 Tre Goodrich, Evelina [address] [place] [address] Pharmacist Internal Medicine 12/25/23 John Mcclain OD [facility] [address] [place] [address] Optometry 11/14/24 documented as of this encounter
--- OUTSIDE RECORDS SUMMARY | 2025-02-13 12:28 | XMS_ITS | Clinical Summary ---
Author Organization [facility] Address [address] [place] [address] [place] [address] Phone Care Team Providers Care Inspector Watch Train Name Role Phone Patsy Patel MD Primary Care Provider [phone] Allergies Active Allergy Reactions Criticality Noted Date Comments Isaiah Inhibitors 12/08/2021 Diltiazem 12/08/2021 Hydralazine 07/19/2021 Medications aspirin EC 81 MG EC tablet Take 81 mg by mouth 1 (one) time each day Active Calcium Carb-Cholecalci ferol (CALCIUM 500+D3 PO) Take by mouth Activ e zinc gluconate 50 MG tablet Take by mouth 1 (one) time each day Active [place] Port-3 Fatty Acids (Fish Oil) 1000 MG capsule [...] -Agreed to order MRI and refer to certification and selection specialist. -Continue PT. Hematuria 10/25/2022 07/13/2023 Overview (07/13/2023): Last Assessment & Plan: -microscopic, evaluated by urologist Stage 3 chronic kidney disease 10/25/2022 0 07/13/2023 Overview (07/13/2023): Last Assessment & Plan: -Followed by russet repairer -Optimize BP control -Avoid nephrotoxic drugs -Periodic lab to monitor renal function Patient encounter status 02/24/2022 023 Overview (07/13/2023): Last Assessment & Plan: Take the lowest dose, with least frequency, for shortest time. Remember to take it always with food. Favor topical over oral preparations. [facility] current use of aspirin 02/23/2022 07/13/2023 Overview (07/13/2023): Last Assessment & Plan: Avoid falls, injuries and cuts. Monitor for excessive bruising and bleeding. Drug therapy finding 02/23/2022 07/13/2023 Overview (07/13/2023): Last Assessment & Plan: Monitor for muscle tenderness, swelling and weakness Last Assessment & Plan: Take daily as prescribed. Use daily sun protection all year round, particularly during spring and summer months. See burlap spreader as scheduled every 6 months. Avoid concomitant [...] adjust medication at this time. -Co-managed with russet repairer - EKG 12/24/19 - NSR, no acute [...] 25 mg to 50 mg daily by russet repairer. -Benicar-HCTZ PA was denied. -She does not want to adjust any medication at this time. --Follow- up in 3 months. Disorder of hip joint 07/21/2015 07/13/2023 Overview (07/13/2023): Last Assessment & Plan: -seen by [facility] orthopedist -PT with iontophoresis for trochanteric bursitis [...] recent eye exam by Dr. Mcclain in [place] within 2 weeks- next scheduled for 6 [...] recent eye exam by Dr. Mcclain in [place] within 2 weeks- next scheduled for 6 months. Encouraged to continue carefully Plaquenil with daily sun protection particularly during summer and spring months. In the past labs from November 2019 reassuring-new set requested today. Last Assessment & Plan: -Current Blood Bank Supervisor Dr. Martin last note on May 2022 -Current medication: Hydroxychloroquine 200 mg daily -Continue current treatment plan per her current behavioral modification assistant. -Needs eye exam for long-term use of [...] Colonoscopy 2002 Colorectal Cancer Screening: Sigmoidoscopy 2002 Pneumococcal Vaccine: 50+ Years Completed 12/28/2021, 10/21/2019, 04/14/2010 Influenza Vaccine Completed 01/17/2025, , 08/15/2013, Additional history exists Hepatitis B Vaccine Aged Out No longe r eligible based on patient's age to complete this topic Insurance Medicare Medicaid [place] Medicare Medicaid [place] Care Teams Inspector Watch Train Relationship Specialty Start Date End Date Patsy Patel MD PCP - General Family Medicine 07/08/21
--- OUTSIDE RECORDS SUMMARY | 2025-02-13 12:28 | XMS_ITS | Encounter Summary ---
Author Organization [employer] Address [address] [facility] 7t [place] [address] Care Team Providers Care Leaf Sorter Name Role Phone Patsy Patel MD Primary Care Provider [phone] Tre Goodrich PharmD Unavailable [phone] John Mcclain OD Unavailable Reason for Visit * Reason Onset Date Comments Referral 12/29/2023 Encounter Details Date Type Department Care Team ([facility] st Contact Info) Description 12/29/2023 Telephone [facility] [address] [place], [place] [phone] Patsy Patel MD [address] [place], [place] [phone] Referral Social History Tobacco Use Types Packs/Day [...] to orthopaedic surgery that was placed 12/31. [facility] was told they need derm's note and that she brought it in and gave to medical records a while ago. [facility] medical records told her they would give [...] swelling or discharge. Saw a surgeon at [facility] who states the pt needs to see a practice specialist. Scheduled for an ultrasound at [facility] on Monday. Advised I would notify Dr. Patel to see if an appt will be necessary.Pt stated understanding. * Telephone Encounter - Ana Lilia Del Rio - 12/29/2023 3:27 PM EDT Tc from pt requesting a referral for orthopedics surgeons to treat a lump on left ankle. [facility] on [place] documented in this encounter Plan of Treatment Upcoming Encounters Date Type Department Care Team (Late st Contact Info) Description 04/15/2025 11:15 AM EDT Office Visit [facility] [address] [place] [address] Patsy Patel MD [address] [place] [address] documented as of this encounter Goals Goal [...] documented as of this encounter Care Teams Leaf Sorter Relationship Specialty Start Date End Date Patsy Patel MD [address] [place] [phone] PCP - General Family Medicine 10/16/18 Tre Goodrich, PharmD [address] [place] [phone] Pharmacist Internal Medicine 12/25/23 John Mcclain OD [facility] [address] [place] [address] Optometry 11/14/24 documented as of this encounter
--- OUTSIDE RECORDS SUMMARY | 2025-02-13 12:28 | XMS_ITS | Encounter Summary ---
Author Organization [employer] Address [address] [facility] 7t [place] [address] Care Team Providers Care Concession Worker Name Role Phone Patsy Patel MD Primary Care Provider [phone] Tre Goodrich PharmD Unavailable [phone] John Mcclain OD Unavailable Encounter Details Date Type Department Care Team (Late st Contact Info) Description 06/27/2024 Orders Only [facility] [address] [place] [address] Patsy Patel MD [address] [place] [address] Social History Tobacco Use Types Packs/Day Years [...] Description 04/15/2025 11:15 AM EDT Office Visit [facility] [address] [place] [address] Patsy Patel MD [address] [place] [address] documented as of this encounter Goals Goal [...] documented as of this encounter Care Teams Concession Worker Relationship Specialty Start Date End Date Patsy Patel MD [address] [place], [place] [phone] PCP - General Family Medicine 10/16/18 Tre Goodrich, MaudeD [address] [place] [phone] Pharmacist Internal Medicine 12/25/23 John Mcclain OD [facility] [address] [place] [address] Optometry 11/14/24 documented as of this encounter
--- OUTSIDE RECORDS SUMMARY | 2025-02-13 12:28 | XMS_ITS | Encounter Summary ---
Author Organization [employer] Address [address] [facility] 7t [place] [address] Care Team Providers Care Administrative Specialist Name Role Phone Patsy Patel MD Primary Care Provider [phone] Tre Goodrich PharmD Unavailable [phone] John Mcclain OD Unavailable Reason for Visit * Reason Comments Med Refill Encounter Details Date Type Department Care Team ([facility] st Contact Info) Description 09/17/2024 Refill [facility] [address] [place] [address] Tre Goodrich, PharmD [address] [place], [place] [phone] Primary hypertension Social History Tobacco Use Types [...] Description 04/15/2025 11:15 AM EDT Office Visit [facility] [address] [place] [phone] Patsy Patel MD [address] [place] [phone] documented as of this encounter Goals Goal [...] documented as of this encounter Care Teams Administrative Specialist Relationship Specialty Start Date End Date Patsy Patel MD [address] [place] [phone] PCP - General Family Medicine 10/16/18 Tre Goodrich, MaudeD [address] [place] [address] [phone] Pharmacist Internal Medicine 12/25/23 John Mcclain OD [facility] [address] [place] [address] [place] [address] Optometry 11/14/24 documented as of this encounter
--- OUTSIDE RECORDS SUMMARY | 2025-02-13 12:28 | XMS_ITS | Encounter Summary ---
Author Organization [employer] Address [address] [facility] 7t [place] [address] Care Team Providers Care Prosthetic Assistant Name Role Phone Patsy Patel MD Primary Care Provider [phone] Tre Goodrich PharmD Unavailable John Mcclain OD Unavailable Reason for Visit * Reason Onset Date Comments Referral 01/27/2025 Encounter Details Date Type Department Care Team ([facility] st Contact Info) Description 01/27/2025 Telephone [facility] [address] [place], [place] [phone] Patsy Patel MD [address] [place], [place] [phone] Referral Social History Tobacco Use Types Packs/Day [...] the past 12 months, has t he [employer], gas, oil or water [email or web address] threatened to shut off services in your [...] encounter Miscellaneous Notes * Telephone Encounter - Berny Queen - 01/27/2025 12:09 PM EDT Tc from pt requesting a referral to [facility] Int[facility] for [facility]. Contact pt at [phone] documented in this encounter Plan of Treatment Upcoming Encounters Date Type Department Care Team (Late st Contact Info) Description 04/15/2025 11:15 AM EDT Office Visit [facility] [address] [place] [address] Patsy Patel MD [address] [place] [address] documented as of this encounter Goals Goal [...] documented as of this encounter Care Teams Prosthetic Assistant Relationship Specialty Start Date End Date Patsy Patel MD [address] [place] [address] PCP - General Family Medicine 10/16/18 Tre Goodrich, MaudeD [address] [place] [address] Pharmacist Internal Medicine 12/25/23 John Mcclain OD [facility] [address] [place] [address] Optometry 11/14/24 documented as of this encounter
== END 2025-02-13 12:40 | disposition home or self-care (01) ==
LOC: HO.HNS 10:50
PROVIDERS: PCP Family Medicine; Referring Provider Family Medicine; Visit Provider Physician Assistant
DX: M54.16 Radiculopathy, lumbar region (principal)
CPT/HCPCS: 99204

== ENCOUNTER 2025-02-13 10:50 | Outpatient (REF) | payer MEDICARE, MEDICAID, SELFPAY | END 2025-02-13 10:51 | disposition home or self-care (01) | LOC: HO.HOSX 10:50 | PROVIDERS: PCP Family Medicine; Referring Provider Family Medicine; Visit Provider Physician Assistant | DX: M54.16 Radiculopathy, lumbar region (principal) | CPT/HCPCS: 99202 ==

== ENCOUNTER 2025-02-27 14:20 | Outpatient (AMB) | payer MEDICARE, MEDICAID, SELFPAY ==
[2025-02-27 14:34] VITALS: BP 193/88; PULSE 79; O2SAT 98
--- NOTE | 2025-02-27 14:34 | MHC.OFFVIS ---
Vital Signs 02/27/25 14:34 Height 5 ft 4 in Weight 175 lb BMI 30.0 BP 193/88 H Blood Pressure Location Rt brachial Position Sitting Pulse 79 Pulse Source Pulse Oximeter Pulse Oximetry (%) 98 Oxygen Delivery Method Room Air Intake Visit Reasons: Radiculopathy, lumbar region Intake Note: Pain today 06/25 Materials Scientist Required: No Accompanied by: Spouse Allergies ibuprofen Allergy (Severe, Verified 02/27/25 14:37) Affects the Kidneys ANDRADE Inhibitors Allergy (Unknown, Verified 02/27/25 14:37) Unknown diltiazem Allergy (Unknown, Verified 02/27/25 14:37) Unknown hydralazine Allergy (Unknown, Verified 02/27/25 14:37) Unknown HPI Comments Details: The patient is a 69-year-old female with history of chronic low back pain, lumbar degenerative disc disease and spinals stenosis, s/p left L2-L3 lumbar decompression in 2022 at [facility] by Dr. Robert, presenting today with left-sided low back pain radiating to the left leg with pain and numbness. Symptoms began 4 years ago with no specific inciting incident involving trauma or falls. At that time, she reports her back pain was exacerbated after she leaned backwards while sitting for some time on futon and felt severe pain in her back and down left leg. Most recent lumbar MRI is noted below. Despite left L2-L3 lumbar decompression in 2022, she continues to have severe central canal stenosis at L2-L3 and L4-L5 with significant left leg pain and numbness. The patient currently experiences severe discomfort when standing and can only walk short distances (approximately 10 minutes) before having to rest. Additionally, there have been reports of daily urinary urgency and incontinence, which are new since the onset of these pain symptoms. Conservative treatments such as physical therapy and acupuncture resulted in only temporary relief, and gabapentin and tramadol, was ineffective, leading to its discontinuation. She refrains from ibuprofen due to renal effects, and finds Tylenol unhelpful. She utilizes marijuana and daily wine for pain control. The patient has been referred for an L4-L5 transforaminal injection, as advised by [facility]. - Onset: Approximately 4 years ago - Quality/Character: Radiating pain with numbness, shooting, stabbing, tingling, hurting, aching, sore, tiring, exhausting, sickening, fearful, terrifying, killing, piercing - Primary Location: Left low back - Radiation: To the left leg - Aggravating Factors: Sitting, walking (10 min), standing, changes from sitting to standing, bending, climbing stairs - Relieving Factors: Occasional stretches with limited success, marijuana, wine - Impact: Unable to stand for long periods; walking limited to approximately 10 minutes before needing rest - Affect: Pain impacts daily functionality and limits physical activity; patient reads to distract from pain. - Analgesia: Previous ineffective treatment with gabapentin and NSAIDs; patient not currently using any effective analgesic. - Adverse Effects: Concern over kidney impact from ibuprofen. - Activities of Daily Living: Severe limitation in ambulation and standing ability. - Aberrant Drug Related Behaviors: Reports use of alcohol (1-3 drinks) and marijuana for pain management; no misuse of prescription medications noted. 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 Cyst of kidney, acquired Arthropathy of left hip Anemia Discoid lupus erythematosus Surgical History (Updated 02/27/25 @ 15:34 by KALI Li) H/O bilateral cataract extraction (~2018) Hx of decompressive lumbar laminectomy (~02/2023) Social History Alcohol intake: current Alcohol intake frequency: 3 or more drinks per day Alcohol type: wine Patient Tobacco Use Status: Former Tobacco user Tobacco use type: Cigarette Substance Use Type: Marijuana 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: rt [employer] Review of Systems Const Details: - Musculoskeletal: Reports severe left sided low back and left leg pain with numbness - Neurological: Reports numbness and tingling in left leg - Genitourinary: Reports daily urinary incontinence, denies bowel dysfunction or saddle anesthesia All systems reviewed & are unremarkable except as noted in HPI and below Physical Exam Vital Signs: Last Vital Signs Pulse 79 02/27/25 14:34 BP 193/88 H 02/27/25 14:34 Pulse Ox 98 02/27/25 14:34 Oxygen Delivery Method Room Air 02/27/25 14:34 BMI result Body Mass Index 30.0 General: Appears afebrile. Alert and oriented. Mood and affect appropriate. Follows and participates in conversation appropriately. Respiratory effort is unlabored. No cough. Able to transition from sit to stand with the use of cane for transfers and ambulation. Ambulates with normal heel strike and toe off on right, increased back pain with standing/walking on left heel. General: Yes no CVA tenderness Back/Spine/Pelvis Other: Limited lumbar ROM due to pain. Antalgic, slow gait with limping, uses cane with ambulation. Demonstrates 5/5 right and 4/5 left strength of quadriceps bilaterally as well as flexion/dorsiflexion of bilateral feet against resistance. 2+ pedal pulses bilaterally. Straight leg rise with dorsiflexion positive on the left. Diminished patellar and achilles reflexes bilaterally. Facet loading test positive bilaterally. Hemanth sign, Jaxon?s, Gaenslen, Pelvic compression and Stinchfield tests are positive on the left. No groin pain with I/E hip rotations. Valsalva maneuver is positive. Back: no CVA tenderness Cervical Spine: cervical ROM normal, No cervical muscular tenderness and No Cervical spine tenderness Thoracic/Lumbar Spine: thoracic and lumbar spine normal to inspection, Thoracic/lumbar spine scar(s), Lasegue's sign positive on the left and localized, pain with thoraco-lumbar ROM, paraspinal muscle tenderness, thoraco-lumbar ROM limited, No thoracic spinal tenderness and lumbar spinal tenderness (L4-S1) Pelvis: buttock tenderness on the left Sacroiliac joints: on the right nontender and on the left tender to palpation Extrem General: Yes capillary refill normal, Yes no clubbing, cyanosis or edema and Yes no calf tenderness Results Reviewed Results Reviewed: MRI LUMBAR SPINE WITHOUT CONTRAST 01/23/25 at [facility] CLINICAL INFORMATION: Spinal stenosis with neurogenic claudication. Lumbar radiculopathy. Degenerative disc disease. TECHNICAL INFORMATION: 1. Sagittal and axial T1. 2. Sagittal and axial T2. 3. Sagittal STIR. SEDATION: None. COMPARISON: Lumbar spine MRI 10/29/2022 INTERPRETATION: Hypolordotic curvature with thoracolumbar levoconvexity. Chronic, mild anterior wedging of L1 vertebra, similar to prior and consistent with healed injury. No interval compression fractures. Multilevel endplate Schmorl's nodes again seen with type I discogenic marrow edema more pronounced to the right at L5-S1, L2-3, lesser changes posteriorly at T12-L1 and T11-12. No concern for marrow replacing processes. Minor degenerative retrolisthesis at L2-3, L3-4. L5-S1: Chronic moderate disc degeneration with broad posterior bulge, annular fissuring and 2-3 mm right foraminal discosteophyte. Moderate right/mild left biforaminal narrowing with exiting right L5 nerve abutted. No significant spinal canal stenosis or transiting sacral nerve root compression. L4-5: Chronic severe disc degeneration with broad bulge narrowing subarticular recesses. Transiting L5 nerve encroached upon. Mild-moderate biforaminal stenoses greater left where exiting L4 nerve is abutted. L3-4: Moderate disc degeneration with posterior bulge/endplate osteophyte ridging and subarticular recesses. Overall mild spinal canal and mild biforaminal stenoses greater left. No high-grade neural compression. L2-3: Chronic moderate disc degeneration with left laminotomy. Significantly improved central canal patency now noted. Residual left paracentral 3-4 mm disc contour abnormality noted consistent with either residual/recurrent disc protrusion or scar. Transiting left L3 nerve encroached upon. Overall mild distortion of the of the thecal sac without other high-grade neural compression. Neural foramina show mild stenoses greater right. No exiting nerve compression. L1-2: Chronic severe disc degeneration with broad posterior discosteophyte, ligamentous hypertrophy, mild spinal canal and biforaminal narrowing. No neural compression. T12-L1 and T11-12: Stable mild-moderate disc degeneration with T12-1 bulge indenting thecal sac and mildly narrowed right neural foramen. At no level high-grade central canal or foraminal stenosis. No neural compression. Mild atrophic changes throughout the dorsal musculature without masses or collections. Likely incidental bilateral renal cysts. Included pelvis intact and marrow signal normal. Superior portions of sacroiliac joints show no effusions, subarticular edema or sclerosis. CONCLUSION: Advanced but largely stable spondylosis with surgical intervention, pertinent features as follows: 1. L2-3, left laminectomy with improved canal patency and residual 3-4 mm left posterolateral disc contour abnormality consistent with residual/recurrent disc material versus scar. Transiting left L3 nerve encroached upon. 2. Moderate severe L1-2 and L3-4 through L5-S1 disc degeneration featuring multilevel disc bulges and endplate osteophytes. Transiting L5 and L4 nerves encroached upon at L4-5, L3-4 levels, respectively. No remaining high-grade central canal stenosis. 3. Multilevel degenerative neural foraminal narrowing moderate right at L5-S1, left at L4-5 with respective exiting L5 and L4 nerves abutted. Please correlate with any specific radiculitis. Assessment & Plan Assessment & Plan (1) Lumbar radiculopathy: Code(s): M54.16 - Radiculopathy, lumbar region Category: Medical (2) Hx of decompressive lumbar laminectomy: Onset Date: ~02/2023 Comment: Left L2-L3 lumbar decompression by Dr. Robert, [facility] Code(s): Z98.890 - Other specified postprocedural states Category: Surgical (3) Lumbar degenerative disc disease: Code(s): M51.369 - Other intervertebral disc degeneration, lumbar region without mention of lumbar back pain or lower extremity pain Category: Medical (4) Vertebrogenic low back pain: Code(s): M54.51 - Vertebrogenic low back pain Category: Medical (5) Spinal stenosis, lumbar region with neurogenic claudication: Code(s): M48.062 - Spinal stenosis, lumbar region with neurogenic claudication Category: Medical (6) Lumbosacral spondylosis: Code(s): M47.817 - Spondylosis without myelopathy or radiculopathy, lumbosacral region Category: Medical (7) Sacroiliac joint pain: Code(s): M53.3 - Sacrococcygeal disorders, not elsewhere classified Category: Medical Plan The patient will proceed with an L4-L5 transforaminal injection with local and fluoroscopy to address severe left sided back and leg pain and numbness. Expectations, risks and benefits were reviewed. Patient is aware she will be contacted to schedule this procedure. Patient is aware to discontinue Aspirin and any supplements known to increase bleeding risk one week before the injection procedure. Should the injection fail to offer relief, a Neurosurgical follow up will be coordinated to explore surgical interventions. Coordination with the neuro spine team will guide ongoing treatment planning. Continued efforts in physical therapy are advised to sustain functional ability. Ongoing symptoms of urinary dysfunction will warrant monitoring, with further evaluation as needed. Contact our office or [facility] should symptoms significantly worsen or new issues arise. All questions and concerns have been answered and patient agreed with the plan. Follow up after injection and sooner as needed. Patient was informed and verbally consented to the use of an ambient scribe for clinic note documentation during this visit. Coding Level of Care Code New Pt Level 4 (94231) Diagnoses Lumbar radiculopathy M54.16 Hx of decompressive lumbar laminectomy Z98.890 Lumbar degenerative disc disease M51.369 Vertebrogenic low back pain M54.51 Spinal stenosis, lumbar region with neurogenic claudication M48.062 Lumbosacral spondylosis M47.817 Sacroiliac joint pain M53.3
--- OUTSIDE RECORDS SUMMARY | 2025-02-27 14:57 | XMS_ITS | Encounter Summary ---
Author Organization [employer] Address [address] [facility] 7t [place] [address] Care Team Providers Care Title Abstractor Name Role Phone Patsy Patel MD Primary Care Provider [phone] Tre Goodrich PharmD Unavailable [phone] John Mcclain OD Unavailable Reason for Referral * Consultation (Routine) - Authorized Specialty Diagnoses / Procedures Referred By Contac t Referred To Contact Pharmacy Diagnoses Primary hypertension Patsy Patel MD [address] [place] [address] Phone: tel: fax: Referral ID Status Reason Start Date Expiration Date Visits Requested Visits Authorized [id number] Authorized Consult and Treat 08/27/2024 08/27/2025 6 6 Encounter Details Date Type Department Care Team (Late st Contact Info) Description 08/27/2024 Orders Only [facility] [address] [place], [place] [phone] Patsy Patel MD [address] [place], [place] [phone] Primary hypertension (Primary Dx) Social History Tobacco [...] Description 04/15/2025 11:15 AM EDT Office Visit [facility] [address] [place] [address] Patsy Patel MD [address] [place] [address] Scheduled Referrals Name Type Priority Associated Diagnoses [...] documented as of this encounter Care Teams Title Abstractor Relationship Specialty Start Date End Date Patsy Patel MD [address] [place] [address] PCP - General Family Medicine 10/16/18 Tre Goodrich, Evelina [address] [place] [address] Pharmacist Internal Medicine 12/25/23 John Mcclain OD [facility] [address] [place] [address] Optometry 11/14/24 documented as of this encounter
--- OUTSIDE RECORDS SUMMARY | 2025-02-27 14:58 | XMS_ITS | Clinical Summary ---
Author Organization [facility] Address [address] [place] [address] [place] [phone] Phone Care Team Providers Care Bench Carpenter Name Role Phone Patsy Patel MD Primary Care Provider [phone] Allergies Active Allergy Reactions Criticality Noted Date Comments Isaiah Inhibitors 12/08/2021 Diltiazem 12/08/2021 Hydralazine 07/19/2021 Medications aspirin EC 81 MG EC tablet Take 81 mg by mouth 1 (one) time each day Active Calcium Carb-Cholecalci ferol (CALCIUM 500+D3 PO) Take by mouth Activ e zinc gluconate 50 MG tablet Take by mouth 1 (one) time each day Active [place]-3 Fatty Acids (Fish Oil) 1000 MG capsule [...] -Agreed to order MRI and refer to nuisance wildlife specialist. -Continue PT. Hematuria 10/25/2022 07/13/2023 Overview (07/13/2023): Last Assessment & Plan: -microscopic, evaluated by urologist Stage 3 chronic kidney disease 10/25/2022 0 07/13/2023 Overview (07/13/2023): Last Assessment & Plan: -Followed by time motion analyst -Optimize BP control -Avoid nephrotoxic drugs -Periodic lab to monitor renal function Patient encounter status 02/24/2022 023 Overview (07/13/2023): Last Assessment & Plan: Take the lowest dose, with least frequency, for shortest time. Remember to take it always with food. Favor topical over oral preparations. longterm current use of aspirin 02/23/2022 07/13/2023 Overview (07/13/2023): Last Assessment & Plan: Avoid falls, injuries and cuts. Monitor for excessive bruising and bleeding. Drug therapy finding 02/23/2022 07/13/2023 Overview (07/13/2023): Last Assessment & Plan: Monitor for muscle tenderness, swelling and weakness Last Assessment & Plan: Take daily as prescribed. Use daily sun protection all year round, particularly during spring and summer months. See peripheral edp equipment operator as scheduled every 6 months. Avoid concomitant [...] adjust medication at this time. -Co-managed with time motion analyst - EKG 12/24/19 - NSR, no acute [...] 25 mg to 50 mg daily by time motion analyst. -Benicar-HCTZ PA was denied. -She does not want to adjust any medication at this time. --Follow- up in 3 months. Disorder of hip joint 07/21/2015 07/13/2023 Overview (07/13/2023): Last Assessment & Plan: -[place] by [facility] [place] -PT with iontophoresis for trochanteric bursitis [...] recent eye exam by Dr. Mcclain in [place] within 2 weeks- next scheduled for 6 [...] recent eye exam by Dr. Mcclain in [place] within 2 weeks- next scheduled for 6 months. Encouraged to continue carefully Plaquenil with daily sun protection particularly during summer and spring months. In the past labs from November 2019 reassuring-new set requested today. Last Assessment & Plan: -Current Garment Examiner Dr. Martin last note on May 2022 -Current medication: Hydroxychloroquine 200 mg daily -Continue current treatment plan per her current instructor technical training. -Needs eye exam for long-term use of [...] Medicaid [place] Care Teams Bench Carpenter Relationship Specialty Start Date End Date Patsy Patel MD PCP - General Family Medicine 07/08/21
--- OUTSIDE RECORDS SUMMARY | 2025-02-27 14:58 | XMS_ITS | Encounter Summary ---
Author Organization [employer] Address [address] [facility] 7t [place] [address] Care Team Providers Care Microstrategy Bi Developer Name Role Phone Patsy Patel MD Primary Care Provider [phone] Tre Goodrich PharmD Unavailable [phone] John Mcclain OD Unavailable Reason for Visit * Reason Onset Date Comments Appointment Request 12/12/2024 Encounter Details Date Type Department Care Team ([facility] st Contact Info) Description 12/12/2024 Telephone [facility] [address] [place], [place] [phone] Patsy Patel MD [address] [place], [place] [phone] Appointment Request Social History Tobacco Use Types [...] Description 04/15/2025 11:15 AM EDT Office Visit [facility] [address] [place] [address] Patsy Patel MD [address] [place] [address] documented as of this encounter Goals Goal [...] documented as of this encounter Care Teams Microstrategy Bi Developer Relationship Specialty Start Date End Date Patsy Patel MD [address] [place] [address] PCP - General Family Medicine 10/16/18 Tre Goodrich, Evelina [address] [place] [address] Pharmacist Internal Medicine 12/25/23 John Mcclain OD [facility] [address] [place] [address] Optometry 11/14/24 documented as of this encounter
--- OUTSIDE RECORDS SUMMARY | 2025-02-27 14:58 | XMS_ITS | Clinical Summary ---
Author Organization [employer] Address [address] [facility] 7t [place] [address] Care Team Providers Care Falafel Cart Cook Name Role Phone Patsy Patel MD Primary Care Provider [phone] Tre Goodrich PharmD Unavailable [phone] John Mcclain OD Unavailable Allergies Active Allergy [...] tablet by mouth in the morning. Active [place]-3 Fatty Acids (Fish Oil) 1000 MG capsule [...] bedtime. 6 mL 1 4 Active Saline [place] 0.65 % solution Use to moisten your [...] - evaluate with MRI and refer to unattended ground sensor specialist at [facility] Assessment & Plan (10/22/2023 11:13 AM EST): [...] -Agreed to order MRI and refer to unattended ground sensor specialist. -Continue PT. Assessment & Plan (10/26/2022 [...] -Agreed to order MRI and refer to unattended ground sensor specialist. -Continue PT. Stage 3 chronic kidney disease 10/25/2022 Assessment & Plan (01/11/2025 6:44 AM EDT): -Followed by personnel and payroll technician, last seen in Jun 2024 -Optimize BP control -Avoid nephrotoxic drugs -Periodic lab to monitor renal function Assessment & Plan (10/22/2023 11:13 AM EST): -Followed by personnel and payroll technician, last seen in Jun 2023 -Optimize BP control -Avoid nephrotoxic drugs -Periodic lab to monitor renal function Assessment & Plan (05/13/2023 6:27 AM EDT): -Followed by personnel and payroll technician -Optimize BP control -Avoid nephrotoxic drugs -Periodic lab to monitor renal function Assessment & Plan (10/25/2022 5:59 AM EST): -Followed by personnel and payroll technician -Optimize BP control -Avoid nephrotoxic drugs -Periodic [...] Plan (01/11/2025 6:46 AM EDT): -seen by [facility] orthopedist -PT with iontophoresis for trochanteric bursitis -Tried tramadol, dosage was ineffective -discouraged use of NSAIDs and HUNT-2 inhibitor due to CKD -Tried gabapentin to 300 mg tid, patient weaned herself off. -Tried lidocaine topical; first cream then patch if cream not effective Assessment & Plan (10/25/2022 6:06 AM EST): -seen by [facility] orthopedist -PT with iontophoresis for trochanteric bursitis [...] at goal, questionable medication adherence -Co-managed with personnel and payroll technician and pharmacist - EKG 12/24/19 - NSR, [...] Amlodipine was increased to 5 mg by personnel and payroll technician, but pt self- discontinued due to ankle swelling. Restarted at low dose and kept at current dose -previously on Olmesartan-hctz 40-25 mg daily, Brand Benicar-hctz was more effective than the generic, per pt. -Benicar-HCTZ PA was denied. - Metoprolol was increased from 25 mg to 50 mg daily by personnel and payroll technician. -Losartan was changed to telmesartan in December 2023 since it is longer-acting. -Follow- up in 3 months. - Ordered labs on 01/07/25 Assessment & Plan (06/21/2024 11:24 AM EDT): -Goal BP <140/90 per JNC-8, and < 130/80 per ACC/AHA guideline -BP not at goal, questionable medication adherence -Co-managed with personnel and payroll technician and pharmacist - EKG 12/24/19 - NSR, [...] Amlodipine was increased to 5 mg by personnel and payroll technician, but pt self- discontinued due to ankle swelling. -previously on Olmesartan-hctz 40-25 mg daily, Brand Benicar-hctz was more effective than the generic, per pt. Metoprolol was increased from 25 mg to 50 mg daily by personnel and payroll technician. -Benicar-HCTZ PA was denied. -Losartan was changed to telmesartan in December 2023 since it is longer-acting. -Follow- up in 3 months. Assessment & Plan (10/22/2023 11:09 AM EST): -Goal BP <140/90 per JNC-8, and < 130/80 per ACC/AHA guideline -BP not at goal, questionable medication adherence -Co-managed with personnel and payroll technician - EKG 12/24/19 - NSR, no acute [...] Amlodipine was increased to 5 mg by personnel and payroll technician, but pt self- discontinued due to ankle swelling. -previously on Olmesartan-hctz 40-25 mg daily, Brand Benicar-hctz was more effective than the generic, per pt. Metoprolol was increased from 25 mg to 50 mg daily by personnel and payroll technician. -Benicar-HCTZ PA was denied. We will check if we can try to decrease pill-burden again. -Follow- up in 3 months. Assessment & Plan (05/13/2023 6:26 AM EDT): -Goal BP <140/90 per JNC-8, and < 130/80 per ACC/AHA guideline -BP not at goal, questionable medication adherence -Co-managed with personnel and payroll technician - EKG 12/24/19 - NSR, no acute [...] Amlodipine was increased to 5 mg by personnel and payroll technician, but pt self- discontinued due to ankle swelling. -previously on Olmesartan-hctz 40-25 mg daily, Brand Benicar-hctz was more effective than the generic, per pt. Metoprolol was increased from 25 mg to 50 mg daily by personnel and payroll technician. -Benicar-HCTZ PA was denied. We will check if we can try to decrease pill-burden again. -Follow- up in 3 months. Assessment & Plan (10/26/2022 4:43 PM EST): -Goal BP <140/90 per JNC-8, and < 130/80 per ACC/AHA guideline -BP not at goal, pt does not want to adjust medication at this time. -Co-managed with personnel and payroll technician - EKG 12/24/19 - NSR, no acute [...] 25 mg to 50 mg daily by personnel and payroll technician. -Benicar-HCTZ PA was denied. -She does not [...] recent eye exam by Dr. Mcclain in [place] within 2 weeks- next scheduled for 6 months. Encouraged to continue carefully Plaquenil with daily sun protection particularly during summer and spring months. In the past labs from November 2019 reassuring-new set requested today. Assessment & Plan (01/07/2025 9:58 AM EDT): -Current Manager Social Work Dr. Martin last visit on 03/21/24 -Current medication: Hydroxychloroquine 200 mg daily -Continue current treatment plan per her current order caller. -Needs eye exam for long-term use of Plaquenil, last eye exam in Jun 2023 Assessment & Plan (06/20/2024 10:26 AM EDT): -Current Manager Social Work Dr. Martin last visit on 03/21/24 -Current medication: Hydroxychloroquine 200 mg daily -Continue current treatment plan per her current order caller. -Needs eye exam for long-term use of Plaquenil, last eye exam in Jun 2023 Assessment & Plan (10/22/2023 11:18 AM EST): -Current Manager Social Work Dr. Martin last visit on 10/04/23 -Current medication: Hydroxychloroquine 200 mg daily -Continue current treatment plan per her current order caller. -Needs eye exam for long-term use of Plaquenil, last eye exam in Jun 2023 Assessment & Plan (05/13/2023 6:30 AM EDT): -Current Manager Social Work Dr. Martin last visit in January 2023 -Current medication: Hydroxychloroquine 200 mg daily -Continue current treatment plan per her current order caller. -Needs eye exam for long-term use of Plaquenil, last eye exam within last 1 year per pt's report Assessment & Plan (10/25/2022 6:02 AM EST): -Current Manager Social Work Dr. Martin last note on May 2022 -Current medication: Hydroxychloroquine 200 mg daily -Continue current treatment plan per her current order caller. -Needs eye exam for long-term use of [...] Type Department Care Team Description 01/27/2025 Telephone [facility] [place] [address] Patsy Patel MD Referral 01/17/2025 2:15 PM EDT Immunization [facility] [address] Blank Benavides LPN Encounter for immunization (Primary Dx) 01/17/2025 Orders Only [facility] [place] [address] Patsy Patel MD 01/17/2025 Travel 01/07/2025 2:30 PM EDT Office Visit [facility] [address] Patsy Patel MD Primary hypertension (Primary Dx); Stage 3a chronic kidney disease (CMS/HCC); Tubular adenoma of colon; Discoid lupus; Dyslipidemia; Long-term use of hydroxychloroquine; Spinal stenosis of lumbar region with neurogenic claudication; Primary osteoarthritis involving multiple joints; Lumbar radiculopathy; Osteopenia, unspecified location; Disorder of hip joint; Chronic left-sided low back pain with left-sided sciatica 01/07/2025 Travel 01/03/2025 Telephone [facility] [address] Patsy Patel MD chart prep 12/27/2024 Population Health Risk Score [facility] ([facility] Department [address] [place] [phone] Provider, Population Health Generic 12/17/2024 2:00 PM EST Telemedicine [facility] [place] [address] Tre Goodrich, PharmD Primary hypertension (Primary Dx) 12/12/2024 Telephone [facility] [address] [place] [address] Patsy Patel MD Appointment Request 12/06/2024 Travel from Last 3 Months Immunizations Immunization Administration Dates Next Due Influenza High-dose Quadriva [...] the past 12 months, has t he Ev[employer], gas, oil or water company threatened to [...] Description 04/15/2025 11:15 AM EDT Office Visit [facility] [address] [place] [address] Patsy Patel MD [address] [place], [place] [phone] Health Maintenance Due Date Last Done Comments [...] 06/14/2025 06/14/2023, 05/18, 09/21/2021, Additional history exists COVID-19 Vaccine ( season) 2025 01/07/2025, 10/18/2023, 08/22/2022, Additional history exists SDOH Screening 10/22/2025 10/22/2024 [...] Aged 60 years or older Completed 01/15/2024 Influenza Vaccine Completed 01/17/2025, , 07/07/2022, Additional [...] patient's age to complete this topic Meningococcal B Vaccine Aged Out No l onger eligible based on patient's age to complete [...] Free T4 0.92 0.32 - 4.0 uIU/mL [facility] Blood 01/17/2025 3:05 PM EDT 01/17/2025 4:14 PM EDT Patsy Patel MD LAB BLOOD ORDERABLES Final Resul t [facility] [address] [place] [phone] * (ABNORMAL) Lipid Panel with Reflex to Direct LDL (01/17/2025 3:05 PM EDT) Triglycerides 96 <150 mg/dL [facility] Comment:Desirable Triglyceri de: less than 150 mg/dLBorderline High Triglyceride 150-199 mg/dLHigh Triglyceride: 200-499 mg/dLVery High Triglyceride: greater than or equal to 5OO mg/dL Cholesterol 225(H) <200 mg/dL [facility] Comment:Desirable Cholestero l: less than 200 mg/dLBorderline High Cholesterol: 200-239 mg/dLHigh Cholesterol: greater than 239 mg/dL LDL Cholesterol Calculated 105(H) <100 mg/dL [facility] Comment:Desirable LDL: less than 100 mg/dLNear Optimal/Above Optimal LDL: 110- 129 mg/dLBorderline High LDL: 130-159 mg/dLHigh LDL: 160-189 mg/dLVery High LDL: greater than or equal to 190 mg/dL HDL Cholesterol 101 >40 mg/dL [facility] Comment:Desirable HDL: great er than 40 mg/dL Note: This HDL assay may give artificially low results in patients with liver disease. Blood 01/17/2025 3:05 PM EDT 01/17/2025 4:14 PM EDT Patsy Patel MD LAB BLOOD ORDERABLES Final Resul t Performing Organization Address [facility] Co de Phone Number [facility] [address] [place] [phone] * Hepatic Function Panel (01/17/2025 3:05 PM EDT) Bilirubin, Direct 0.2 0.0 - 0.5 mg/dL [facility] 01/17/2025 3:05 PM EDT 01/17/2025 4:14 PM EDT Ptasy Patel MD LAB BLOOD ORDERABLES Final Resul t Performing Organization Address [facility] de Phone Number [facility] [address] [place] [phone] * (ABNORMAL) Comprehensive Metabolic Panel (01/17/2025 3:05 PM EDT) Sodium 135 135 - 145 mmol/L [facility] Potassium 4.4 3.3 - 5.1 mmol/L [facility] Chloride 104 96 - 108 mmol/L [facility] Carbon Dioxide 21(L) 22 - 29 mmol/L [facility] Anion Gap 14 12 - 20 [facility] Urea Nitrogen (BUN) 18(H) 9 - 16 mg/dL [facility] Creatinine, Serum 0.82 0.5 - 1.4 mg/dL [facility] Estimated Glomerular Filt Rate >60 [facility] Comment:Chronic Kidney Disea se: Estimated GFR < 60 mL/min/[id number] Kidney Disease: Estimated GFR < 15 mL/min/1.73m2 Glucose 103 60 - 115 mg/dL [facility] Calcium 9.8 8.4 - 10.2 mg/dL [facility] Bilirubin, Total 0.5 0.0 - 1.0 mg/dL [facility] Aspartate Amino Transferase 33(H) 5 - 31 U/L [facility] Alanine Aminotransferase 24 0 - 31 U/L [facility] Total Protein 7.7 6.5 - 8.0 g/dL [facility] Albumin Level 4.3 3.5 - 5.0 g/dL [facility] Alkaline Phosphatase 54 39 - 117 U/L [facility] Blood Venous blood specimen / Unknown 01/17/2025 3:05 PM EDT 01/17/2025 4:14 PM EDT us Patsy Patel MD LAB BLOOD ORDERABLES Final Resul t [facility] [address] [place] [phone] * BI Mammogram Screening Tomosynthesis Bilateral (06/14/2023 11:10 AM EDT) Anatomical Region Laterality Modality Breast Bilateral Mammography 06/14/2023 11:1 0 AM EDT Narrative 06/28/2023 8:16 AM EDT ? [facility] ? [address] ?[place] [phone] ? Mammography Report ? Signed ? Patient: Lonnie,Sariah ?MR#: [id number] ?? 09 ? : 1955 ?Acct:[id number] ? Age/Sex: 68 / F ?ADM Date: 08/30/23 ? Loc: HO.MAMMO ? Attending Dr: Patsy Patel MD ? Ordering Physician: Patsy Patel MD ?Results: 1Negative ? Date of Service: 06/14/23 ?Follow Up: 1 Year From Orig ?? inal Mammogram ? Procedure(s): MM tomosynthesis screening BI ?? Accession Number(s): [id number] ? cc: Patsy Patel MD ? EXAMINATION: [...] Cuadra MD in OV> ? 06/28/[address]11 ? DD/ 1110 ? TD/TT: ? Guest Service Host: ? Procedure Note Abby, Image - 06/29/2023 [facility] [address] [place] [address] Mammography Report Signed Patient: Sariah FlemingMR#: [id number] 09 : 3Acct:[id number] Age/Sex: 68 / FADM Date: 06/14/23 Loc: HO.MAMMO Attending Dr: Patsy Patel MD Ordering Physician: Patsy Patel MDResults: 1Negative Date of Service: 06/14/23Follow Up: 1 Year From Orig inal Mammogram Procedure(s): MM tomosynthesis screening BI Accession Number(s): [id number] cc: Patsy Patel MD EXAMINATION: MM SCREENING [...] in OV> 06/28/23 0812 DD/ 1110 TD/TT: Guest Service Host: Patsy Patel MD [facility] BI PROCEDURES Edited Result - Final * HEPATITIS C ANTIBODY RFLX (12/10/2019 9:10 AM EST) HEPATITIS C ANTIBODY NONREACTIVE NONREACTIVE [facility] Comment: Antibodies to HCV not detected; does not exclude early acute HCV infection. 12/10/2019 9:10 AM EST us Patsy Patel MD HISTORICAL/NON ORDERABLE LABS Fi nal Result [facility] [address] [place] [address], from Last 3 Months or Most Recently Relevant to Health Maintenance Insurance MEDICARE [facility] STANDARD [facility] STAND ADULT Care Teams Falafel Cart Cook Relationship Specialty Start Date End Date Patsy Patel MD [address] [place] [address] PCP - General Family Medicine 10/16/18 Tre Goodrich, MaudeD [address] [place] [address] Pharmacist Internal Medicine 12/25/23 John Mcclain OD [facility] [address] [place] [address] [place] [address] Optometry 11/14/24
--- OUTSIDE RECORDS SUMMARY | 2025-02-27 14:58 | XMS_ITS | Encounter Summary ---
Author Organization [employer] Address [address] [facility] 7t [place] [address] Care Team Providers Care Weather Strip Installer Name Role Phone Patsy Patel MD Primary Care Provider [phone] Tre Goodrich PharmD Unavailable [phone] John Mcclain OD Unavailable Reason for Visit * Reason Comments Med Refill Encounter Details Date Type Department Care Team ([facility] st Contact Info) Description 09/17/2024 Refill [facility] [address] [place] [address] Tre Goodrich, PharmD [address] [place], [place] [phone] Primary hypertension Social History Tobacco Use Types [...] Description 04/15/2025 11:15 AM EDT Office Visit [facility] [address] [place] [address] Patsy Patel MD [address] [place] [address] documented as of this encounter Goals Goal [...] documented as of this encounter Care Teams Weather Strip Installer Relationship Specialty Start Date End Date Patsy Patel MD [address] [place] [address] [phone] PCP - General Family Medicine 10/16/18 Tre Goodrich, MaudeD [address] [place] [address] [phone] Pharmacist Internal Medicine 12/25/23 John Mcclain OD [facility] [address] [place] [address] Optometry 11/14/24 documented as of this encounter
--- OUTSIDE RECORDS SUMMARY | 2025-02-27 14:58 | XMS_ITS | Encounter Summary ---
Author Organization [employer] Address 75 [facility] 7t [place] [address] Care Team Providers Care Manipulator Operator Name Role Phone Patsy Patel MD Primary Care Provider [phone] Tre Goodrich PharmD Unavailable [phone] John Mcclain OD Unavailable Encounter Details Date Type Department Care Team (Late st Contact Info) Description 06/27/2024 Orders Only [facility] MEDICINE 230 [place], [place] [phone] Patsy Patel MD 230 [place], [place] [phone] Social History Tobacco Use Types Packs/Day Years [...] housing situation today? I have lisamaeve bennett 08/07/[address] you [...] 04/15/2025 11:15 AM EDT Office Visit [facility] MEDICINE 230 [place] [address] Patsy Patel MD [address] [place] [address] documented as of this encounter Goals Goal [...] documented as of this encounter Care Teams Manipulator Operator Relationship Specialty Start Date End Date Patsy Patel MD [address] [place] [address] PCP - General Family Medicine 10/16/18 Tre Goodrich, PharmD [address] [place] [address] Pharmacist Internal Medicine 12/25/23 John Mcclain OD [facility] [address] [place] [address] Optometry 11/14/24 documented as of this encounter
--- OUTSIDE RECORDS SUMMARY | 2025-02-27 14:58 | XMS_ITS | Encounter Summary ---
Author Organization [employer] Address [address] [place] [address] 7t [place] [address] Care Team Providers Care Trans Router Name Role Phone Patsy Patel MD Primary Care Provider [phone] Tre Goodrich PharmD Unavailable [phone] John Mcclain OD Unavailable Reason for Visit * Reason Comments Med Refill Encounter Details Date Type Department Care Team (Late st Contact Info) Description 07/19/2023 Refill [facility] MEDICINE 230 [place] [address] Patsy Patel MD 230 [place], [place] [phone] Social History Tobacco Use Types Packs/Day Years [...] Visit [facility] MED[facility]INE 230 [place], [place] [phone] Patsy Patel MD [address] [place] [address] documented as of this encounter Visit Diagnoses Not on filedocumented in this encounter Additional Health Concerns Assessment Noted Time PHQ-9 Depression Total Score: 10 023 1:33 PM EST documented as of this encounter Care Teams Trans Router Relationship Specialty Start Date End Date Patsy Patel MD [address] [place] [address] PCP - General Family Medicine 10/16/18 Tre Goodrich, MaudeD [address] [place] [address] Pharmacist Internal Medicine 12/25/23 John Mcclain OD [facility] [address] [place] [address] Optometry 11/14/24 documented as of this encounter
--- OUTSIDE RECORDS SUMMARY | 2025-02-27 14:58 | XMS_ITS | Encounter Summary ---
Author Organization [employer] Address 75 [facility] 7t [place] [address] Care Team Providers Care Project Drilling Engineer Name Role Phone Patsy Patel MD Primary Care Provider [phone] Tre Goodrich PharmD Unavailable [phone] John Mcclain OD Unavailable Reason for Visit * Reason Onset Date Comments Referral 01/27/2025 Encounter Details Date Type Department Care Team (Late st Contact Info) Description 01/27/2025 Telephone [facility] MEDICINE 230 [place] [address] Patsy Patel MD 230 [place], [place] [phone] Referral Social History Tobacco Use Types Packs/Day [...] Tc from pt requesting a referral to [facility] for [facility]. Contact pt at [phone] documented in this encounter Plan of Treatment Upcoming Encounters Date Type Department Care Team (Late st Contact Info) Description 04/15/2025 11:15 AM EDT Office Visit [facility] MEDICINE 230 [place] [address] Patsy Patel MD 230 [place] [address] documented as of this encounter Goals Goal [...] documented as of this encounter Care Teams Project Drilling Engineer Relationship Specialty Start Date End Date Patsy Patel MD 230 [place] [address] PCP - General Family Medicine 10/16/18 Tre Goodrich, Evelina 230 [place] [address] Pharmacist Internal Medicine 12/25/23 John Mcclain OD [facility] [address] [place] [id number] Optometry 11/14/24 documented as of this encounter
--- OUTSIDE RECORDS SUMMARY | 2025-02-27 14:58 | XMS_ITS | Encounter Summary ---
Author Organization [employer] Address 75 [facility] 7t [place] [address] Care Team Providers Care Distribution Center Administrator Name Role Phone Patsy Patel MD Primary Care Provider Tre Goodrich PharmD Unavailable [phone] John Mcclain OD Unavailable Reason for Visit * Reason Onset Date Comments Referral 12/29/2023 Encounter Details Date Type Department Care Team ([facility] st Contact Info) Description 12/29/2023 Telephone [facility] MED[facility]INE 230 [place], [place] [phone] Patsy Patel MD 230 [place], [place] [phone] Referral Social History Tobacco Use Types Packs/Day [...] to orthopaedic surgery that was placed 12/31. [facility] was told they need derm's note and that she brought it in and gave to medical records a while ago. [facility] medical records told her they would [...] swelling or discharge. Saw a surgeon at [facility] who states the pt needs to see a credit collection specialist. Scheduled for an ultrasound at [facility] on Monday. Advised I would notify Dr. Patel to see if an appt will be necessary.Pt stated understanding. * Telephone Encounter - Ana Lilia Del Rio - 12/29/2023 3:27 PM EDT Tc from pt requesting a referral for orthopedics surgeons to treat a lump on left ankle. [facility] on [place] documented in this encounter Plan of Treatment Upcoming Encounters Date Type Department Care Team (Late st Contact Info) Description 04/15/2025 11:15 AM EDT Office Visit [facility] MED[facility]INE 230 [place] [address] Patsy Patel MD 230 [place] [address] documented as of this encounter Goals Goal [...] documented as of this encounter Care Teams Distribution Center Administrator Relationship Specialty Start Date End Date Patsy Patel MD 230 [place] [address] PCP - General Family Medicine 10/16/18 Tre Goodrich, PharmD [address] [place] [address] Pharmacist Internal Medicine 12/25/23 John Mcclain OD [facility] [address] [place] [address] Optometry 11/14/24 documented as of this encounter
--- OUTSIDE RECORDS SUMMARY | 2025-02-27 14:58 | XMS_ITS | Encounter Summary ---
Author Organization [employer] Address 75 [facility] 7t [place] [address] Care Team Providers Care Splunk Dashboard Developer Name Role Phone Patsy Patel MD Primary Care Provider Tre Goodrich PharmD Unavailable [phone] John Mcclain OD Unavailable Reason for Referral * Consultation (Urgent) - Closed Specialty Diagnoses / Procedures Referred By Contac t Referred To Contact Orthopaedic Surgery Diagnoses Ankle mass, left Patsy Patel MD 230 [place] [address] Phone: tel: fax: [facility] [address] [place] [address] [place] [address] Phone: tel: fax: Referral ID Status Reason Start Date Expiration Date V isits Requested Visits Authorized [id number] Closed Specialty Services Required 01/01/2024 12/31/2024 1 1 Scheduling Instructions Model Set Artist recommends [facility]. Encounter Details Date Type Department Care Team (Late st Contact Info) Description 01/01/2024 Orders Only [facility] MEDICINE 230 [place], [place] [phone] Patsy Patel MD 230 [place], [place] [phone] Ankle mass, left (Primary Dx) Social History [...] 04/15/2025 11:15 AM EDT Office Visit [facility] MEDICINE 230 [place] [address] Patsy Patel MD 230 [place] [address] Scheduled Referrals Name Type Priority Associated Diagnoses [...] documented as of this encounter Care Teams Splunk Dashboard Developer Relationship Specialty Start Date End Date Patsy Patel MD 230 [place] [address] PCP - General Family Medicine 10/16/18 Tre Goodrich, PharmD [address] [place] [address] Pharmacist Internal Medicine 12/25/23 John Mcclain OD [facility] [address] [place] [address] Optometry 11/14/24 documented as of this encounter
== END 2025-02-27 15:03 | disposition home or self-care (01) ==
LOC: HO.PMC 14:20
PROVIDERS: PCP Family Medicine; Referring Provider Physician Assistant; Visit Provider Nurse Practitioner Family
DX: M54.16 Radiculopathy, lumbar region (principal); Z98.890 Other specified postprocedural states; M51.369 Other intervertebral disc degeneration, lumbar region without mention of lumbar back pain or lower extremity pain; M54.51 Vertebrogenic low back pain; M48.062 Spinal stenosis, lumbar region with neurogenic claudication; M47.817 Spondylosis without myelopathy or radiculopathy, lumbosacral region; M53.3 Sacrococcygeal disorders, not elsewhere classified
CPT/HCPCS: 99204

== ENCOUNTER → 2025-02-27 14:20 | Outpatient (BNVA) | payer MEDICARE, MEDICAID, SELFPAY | PROVIDERS: PCP Family Medicine; Referring Provider Physician Assistant; Visit Provider Nurse Practitioner Family | DX: M54.16 Radiculopathy, lumbar region (principal); M51.369 Other intervertebral disc degeneration, lumbar region without mention of lumbar back pain or lower extremity pain; M54.51 Vertebrogenic low back pain; M48.062 Spinal stenosis, lumbar region with neurogenic claudication; M47.817 Spondylosis without myelopathy or radiculopathy, lumbosacral region; M53.3 Sacrococcygeal disorders, not elsewhere classified; Z98.890 Other specified postprocedural states | CPT/HCPCS: 99202 ==

== ENCOUNTER 2025-03-06 06:07 | Outpatient (REF) | payer MEDICARE, MEDICAID, SELFPAY ==
--- NOTE | ~2025-03-06 | FL_ITS ---
EXAMINATION: FL GUIDANCE ONLY HISTORY: Z98.890 - Other specified postprocedural states COMPARISON: None available. TECHNIQUE: Fluoroscopy time: 0.3 minutes. Cumulative Dose: 11.9 mGy. DAP: 0.0983 mGym2 Images: 5. FINDINGS: Images demonstrate a needle and contrast material in the region of the left L4-5 facet joint. FL/FL guidance in treatment room IMPRESSION: Fluoroscopy during procedure. Please see procedure report for additional information. Electronically signed by: Finesse Quinonez MD 03/06/2025 12:59 PM EDT
--- OUTSIDE RECORDS SUMMARY | 2025-03-06 06:11 | XMS_ITS | Encounter Summary ---
Author Organization [employer] Address [address] [place] [address] 7t [place] [address] Care Team Providers Care Gluing Machine Operator Automatic Name Role Phone Patsy Patel MD Primary Care Provider [phone] Tre Goodrich PharmD Unavailable [phone] John Mcclain OD Unavailable Reason for Referral * Consultation (Routine) - Authorized Specialty Diagnoses / Procedures Referred By Contac t Referred To Contact Pharmacy Diagnoses Primary hypertension Patsy Patel MD 230 [place] [address] Phone: tel: fax: Referral ID Status Reason Start Date Expiration Date Visits Requested Visits Authorized [id number] Authorized Consult and Treat 08/27/2024 08/27/2025 6 6 Encounter Details Date Type Department Care Team (Late st Contact Info) Description 08/27/2024 Orders Only [facility] MEDICINE 230 [place], [place] [phone] Patsy Patel MD 230 [place], [place] [phone] Primary hypertension (Primary Dx) Social History Tobacco [...] Description 04/15/2025 11:15 AM EDT Office Visit [facility] MEDICINE 230 [place] [address] Patsy Patel MD 230 [place] [address] Scheduled Referrals Name Type Priority Associated Diagnoses [...] documented as of this encounter Care Teams Gluing Machine Operator Automatic Relationship Specialty Start Date End Date Patsy Patel MD 230 [place] [address] PCP - General Family Medicine 10/16/18 Tre Goodrich, Eveilna 230 [place] [address] Pharmacist Internal Medicine 12/25/23 John Mcclain OD [facility] [address] [place] [address] Optometry 11/14/24 documented as of this encounter
--- OUTSIDE RECORDS SUMMARY | 2025-03-06 06:11 | XMS_ITS | Encounter Summary ---
Author Organization [employer] Address 75 [facility] 7t [place] [address] Care Team Providers Care Supervisor Name Role Phone Patsy Patel MD Primary Care Provider [phone] Tre Goodrich PharmD Unavailable [phone] John Mcclain OD Unavailable Encounter Details Date Type Department Care Team (Late st Contact Info) Description 06/27/2024 Orders Only [facility] MEDICINE 230 [place], [place] [phone] Patsy Patel MD 230 [place], [place] [phone] Social History Tobacco Use Types Packs/Day Years [...] Description 04/15/2025 11:15 AM EDT Office Visit [facility]INE 230 [place] [address] Patsy Patel MD [address] [place] [address] documented as of this encounter Goals Goal [...] documented as of this encounter Care Teams Supervisor Relationship Specialty Start Date End Date Patsy Patel MD [address] [place] [address] PCP - General Family Medicine 10/16/18 Tre Goodrich, PharmD [address] [place] [address] Pharmacist Internal Medicine 12/25/23 John Mcclain OD [facility] [address] [place] [address] Optometry 11/14/24 documented as of this encounter
--- OUTSIDE RECORDS SUMMARY | 2025-03-06 06:11 | XMS_ITS | Encounter Summary ---
Author Organization [employer] Address 75 [facility] 7t [place] [address] Care Team Providers Care Administrative Medical Director Name Role Phone Patsy Patel MD Primary Care Provider [phone] Tre Goodrich PharmD Unavailable [phone] John Mcclain OD Unavailable Reason for Referral * Consultation (Urgent) - Closed Specialty Diagnoses / Procedures Referred By Contac t Referred To Contact Orthopaedic Surgery Diagnoses Ankle mass, left Patsy Patel MD 230 [place] [address] Phone: tel: fax: [facility] [address] [place] [address] [place] [address] Phone: tel: fax: Referral ID Status Reason Start Date Expiration Date V isits Requested Visits Authorized [id number] Closed Specialty Services Required 01/01/2024 12/31/2024 1 1 Scheduling Instructions Physician Compensation Analyst recommends [facility]. Encounter Details Date Type Department Care Team (Late st Contact Info) Description 01/01/2024 Orders Only [facility] MEDICINE 230 [place], [place] [phone] Patsy Patel MD 230 [place], [place] [phone] Ankle mass, left (Primary Dx) Social History [...] Description 04/15/2025 11:15 AM EDT Office Visit [facility] MEDICINE 230 [place] [address] Patsy Patel MD 230 [place] [address] Scheduled Referrals Name Type Priority Associated Diagnoses [...] as of this encounter Care Teams Administrative Medical Director Relationship Specialty Start Date End Date Patsy Patel MD 230 [place] [address] PCP - General Family Medicine 10/16/18 Tre Goodrich, PharmD [address] [place] [address] Pharmacist Internal Medicine 12/25/23 John Mcclain OD [facility] [address] [place] [address] Optometry 11/14/24 documented as of this encounter
--- OUTSIDE RECORDS SUMMARY | 2025-03-06 06:11 | XMS_ITS | Encounter Summary ---
Author Organization [employer] Address 75 [facility] 7t h Floor [place] [phone] Care Team Providers Care Group Worker Name Role Phone Patsy Patel MD Primary Care Provider [phone] Tre Goodrich PharmD Unavailable [phone] John Mcclain OD Unavailable Reason for Visit * Reason Onset Date Comments Referral 12/29/2023 Encounter Details Date Type Department Care Team ([facility] st Contact Info) Description 12/29/2023 Telephone [facility] MEDICINE 230 [place], [place] [phone] Patsy Patel MD 230 [place], [place] [phone] Referral Social History Tobacco Use Types Packs/Day [...] to orthopaedic surgery that was placed 12/31. [facility] was told they need derm's note and that she brought it in and gave to medical records a while ago. [facility] medical records told her they would [...] swelling or discharge. 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 Scheduled for an ultrasound at [facility] on Monday. Advised I would notify Dr. Patel to see if an appt will be necessary.Pt stated understanding. * Telephone Encounter - Ana Lilia Del Rio - 12/29/2023 3:27 PM EDT Tc from pt requesting a referral for orthopedics surgeons to treat a lump on left ankle. [facility] on [place] documented in this encounter Plan of Treatment Upcoming Encounters Date Type Department Care Team (Late st Contact Info) Description 04/15/2025 11:15 AM EDT Office Visit [facility] MEDICINE 230 [place] [address] Patsy Patel MD 230 [place] [address] documented as of this encounter Goals Goal [...] documented as of this encounter Care Teams Group Worker Relationship Specialty Start Date End Date Patsy Patel MD 230 [place] [address] PCP - General Family Medicine 10/16/18 Tre Goodrich, PharmD [address] [place] [address] Pharmacist Internal Medicine 12/25/23 John Mcclain OD [facility] [address] [place] [address] Optometry 11/14/24 documented as of this encounter
--- OUTSIDE RECORDS SUMMARY | 2025-03-06 06:11 | XMS_ITS | Encounter Summary ---
Author Organization [employer] Address 75 [facility] 7t [place] [address] Care Team Providers Care Data Reduction Technician Name Role Phone Patsy Patel MD Primary Care Provider [phone] Tre Goodrich PharmD Unavailable [phone] John Mcclain OD Unavailable Reason for Visit * Reason Onset Date Comments Referral 01/27/2025 Encounter Details Date Type Department Care Team (Late st Contact Info) Description 01/27/2025 Telephone [facility] MEDICINE 230 [place] [address] Patsy Patel MD 230 [place], [place] [phone] Referral Social History Tobacco Use Types Packs/Day [...] Tc from pt requesting a referral [facility]. Contact pt at [phone] documented in this encounter Plan of Treatment Upcoming Encounters Date Type Department Care Team (Late st Contact Info) Description 04/15/2025 11:15 AM EDT Office Visit [facility] MEDICINE 230 [place] [address] Patsy Patel MD [address] [place] [address] documented as of this encounter Goals Goal [...] documented as of this encounter Care Teams Data Reduction Technician Relationship Specialty Start Date End Date Patsy Patel MD 230 [place] [address] PCP - General Family Medicine 10/16/18 Tre Goodrich, Evelina 230 [place] [address] Pharmacist Internal Medicine 12/25/23 John Mcclain OD [facility] [address] [place] [address] Optometry 11/14/24 documented as of this encounter
--- OUTSIDE RECORDS SUMMARY | 2025-03-06 06:11 | XMS_ITS | Encounter Summary ---
Author Organization [employer] Address 75 [facility] 7t [place] [address] Care Team Providers Care Turning Machine Operator Helper Name Role Phone Patsy Patel MD Primary Care Provider [phone] Tre Goodrich PharmD Unavailable [phone] John Mcclain OD Unavailable Reason for Visit * Reason Comments Med Refill Encounter Details Date Type Department Care Team ([facility] st Contact Info) Description 09/17/2024 Refill [facility] MEDICINE 230 [place] [address] Tre Goodrich, PharmD 230 [place], [place] [phone] Primary hypertension Social History Tobacco Use Types [...] Description 04/15/2025 11:15 AM EDT Office Visit [facility] MEDICINE 230 [place] [address] Patsy Patel MD 230 [place] [address] documented as of this encounter Goals Goal [...] documented as of this encounter Care Teams Turning Machine Operator Helper Relationship Specialty Start Date End Date Patsy Patel MD [address] [place] [address] [phone] PCP - General Family Medicine 10/16/18 Tre Goodrich, MaudeD [address] [place] [address] [phone] Pharmacist Internal Medicine 12/25/23 John Mcclain OD [facility] [address] [place] [address] Optometry 11/14/24 documented as of this encounter
--- OUTSIDE RECORDS SUMMARY | 2025-03-06 06:11 | XMS_ITS | Clinical Summary ---
Author Organization [employer] Address [address] [facility] 7t [place] [address] Care Team Providers Care Cleaning Team Member Name Role Phone Patsy Patel MD Primary Care Provider [phone] Tre Goodrich PharmD Unavailable [phone] John Mcclain OD Unavailable Allergies Active Allergy [...] tablet by mouth in the morning. Active Shawnee-3 Fatty Acids (Fish Oil) 1000 MG capsule [...] bedtime. 6 mL 1 4 Active Saline [place] 0.65 % solution Use to moisten your [...] - evaluate with MRI and refer to outside event sales specialist at [facility] Assessment & Plan (10/22/2023 11:13 AM EST): [...] -Agreed to order MRI and refer to outside event sales specialist. -Continue PT. Assessment & Plan (10/26/2022 [...] -Agreed to order MRI and refer to outside event sales specialist. -Continue PT. Stage 3 chronic kidney disease 10/25/2022 Assessment & Plan (01/11/2025 6:44 AM EDT): -Followed by director of graduate admissions, last seen in Jun 2024 -Optimize BP control -Avoid nephrotoxic drugs -Periodic lab to monitor renal function Assessment & Plan (10/22/2023 11:13 AM EST): -Followed by director of graduate admissions, last seen in Jun 2023 -Optimize BP control -Avoid nephrotoxic drugs -Periodic lab to monitor renal function Assessment & Plan (05/13/2023 6:27 AM EDT): -Followed by director of graduate admissions -Optimize BP control -Avoid nephrotoxic drugs -Periodic lab to monitor renal function Assessment & Plan (10/25/2022 5:59 AM EST): -Followed by director of graduate admissions -Optimize BP control -Avoid nephrotoxic drugs -Periodic [...] Plan (01/11/2025 6:46 AM EDT): -seen by [facility] orthopedist -PT with iontophoresis for trochanteric bursitis -Tried tramadol, dosage was ineffective -discouraged use of NSAIDs and HUNT-2 inhibitor due to CKD -Tried gabapentin to 300 mg tid, patient weaned herself off. -Tried lidocaine topical; first cream then patch if cream not effective Assessment & Plan (10/25/2022 6:06 AM EST): -seen by [facility] orthopedist -PT with iontophoresis for trochanteric bursitis [...] at goal, questionable medication adherence -Co-managed with director of graduate admissions and pharmacist - EKG 12/24/19 - NSR, [...] Amlodipine was increased to 5 mg by director of graduate admissions, but pt self- discontinued due to ankle swelling. Restarted at low dose and kept at current dose -previously on Olmesartan-hctz 40-25 mg daily, Brand Benicar-hctz was more effective than the generic, per pt. -Benicar-HCTZ PA was denied. - Metoprolol was increased from 25 mg to 50 mg daily by director of graduate admissions. -Losartan was changed to telmesartan in December 2023 since it is longer-acting. -Follow- up in 3 months. - Ordered labs on 01/07/25 Assessment & Plan (06/21/2024 11:24 AM EDT): -Goal BP <140/90 per JNC-8, and < 130/80 per ACC/AHA guideline -BP not at goal, questionable medication adherence -Co-managed with director of graduate admissions and pharmacist - EKG 12/24/19 - NSR, [...] Amlodipine was increased to 5 mg by director of graduate admissions, but pt self- discontinued due to ankle swelling. -previously on Olmesartan-hctz 40-25 mg daily, Brand Benicar-hctz was more effective than the generic, per pt. Metoprolol was increased from 25 mg to 50 mg daily by director of graduate admissions. -Benicar-HCTZ PA was denied. -Losartan was changed to telmesartan in December 2023 since it is longer-acting. -Follow- up in 3 months. Assessment & Plan (10/22/2023 11:09 AM EST): -Goal BP <140/90 per JNC-8, and < 130/80 per ACC/AHA guideline -BP not at goal, questionable medication adherence -Co-managed with director of graduate admissions - EKG 12/24/19 - NSR, no acute [...] Amlodipine was increased to 5 mg by director of graduate admissions, but pt self- discontinued due to ankle swelling. -previously on Olmesartan-hctz 40-25 mg daily, Brand Benicar-hctz was more effective than the generic, per pt. Metoprolol was increased from 25 mg to 50 mg daily by director of graduate admissions. -Benicar-HCTZ PA was denied. We will check if we can try to decrease pill-burden again. -Follow- up in 3 months. Assessment & Plan (05/13/2023 6:26 AM EDT): -Goal BP <140/90 per JNC-8, and < 130/80 per ACC/AHA guideline -BP not at goal, questionable medication adherence -Co-managed with director of graduate admissions - EKG 12/24/19 - NSR, no acute [...] Amlodipine was increased to 5 mg by director of graduate admissions, but pt self- discontinued due to ankle swelling. -previously on Olmesartan-hctz 40-25 mg daily, Brand Benicar-hctz was more effective than the generic, per pt. Metoprolol was increased from 25 mg to 50 mg daily by director of graduate admissions. -Benicar-HCTZ PA was denied. We will check if we can try to decrease pill-burden again. -Follow- up in 3 months. Assessment & Plan (10/26/2022 4:43 PM EST): -Goal BP <140/90 per JNC-8, and < 130/80 per ACC/AHA guideline -BP not at goal, pt does not want to adjust medication at this time. -Co-managed with director of graduate admissions - EKG 12/24/19 - NSR, no acute [...] 25 mg to 50 mg daily by director of graduate admissions. -Benicar-HCTZ PA was denied. -She does not [...] recent eye exam by Dr. Mcclain in [place] within 2 weeks- next scheduled for 6 months. Encouraged to continue carefully Plaquenil with daily sun protection particularly during summer and spring months. In the past labs from November 2019 reassuring-new set requested today. Assessment & Plan (01/07/2025 9:58 AM EDT): -Current Seasonal Package Handler Dr. Martin last visit on 03/21/24 -Current medication: Hydroxychloroquine 200 mg daily -Continue current treatment plan per her current rodent exterminator. -Needs eye exam for long-term use of Plaquenil, last eye exam in Jun 2023 Assessment & Plan (06/20/2024 10:26 AM EDT): -Current Seasonal Package Handler Dr. Martin last visit on 03/21/24 -Current medication: Hydroxychloroquine 200 mg daily -Continue current treatment plan per her current rodent exterminator. -Needs eye exam for long-term use of Plaquenil, last eye exam in Jun 2023 Assessment & Plan (10/22/2023 11:18 AM EST): -Current Seasonal Package Handler Dr. Martin last visit on 10/04/23 -Current medication: Hydroxychloroquine 200 mg daily -Continue current treatment plan per her current rodent exterminator. -Needs eye exam for long-term use of Plaquenil, last eye exam in Jun 2023 Assessment & Plan (05/13/2023 6:30 AM EDT): -Current Seasonal Package Handler Dr. Martin last visit in January 2023 -Current medication: Hydroxychloroquine 200 mg daily -Continue current treatment plan per her current rodent exterminator. -Needs eye exam for long-term use of Plaquenil, last eye exam within last 1 year per pt's report Assessment & Plan (10/25/2022 6:02 AM EST): -Current Seasonal Package Handler Dr. Martin last note on May 2022 -Current medication: Hydroxychloroquine 200 mg daily -Continue current treatment plan per her current rodent exterminator. -Needs eye exam for long-term use of [...] Type Department Care Team Description 01/27/2025 Telephone [facility] [place] [address] Patsy Patel MD Referral 01/17/2025 2:15 PM EDT Immunization [facility] [place] [address] Blank Benavides LPN Encounter for immunization (Primary Dx) 01/17/2025 Orders Only [facility] [address] Patsy Patel MD 01/17/2025 Travel 01/07/2025 2:30 PM EDT Office Visit [facility] [place] [address] Patsy Patel MD Primary hypertension (Primary Dx); Stage 3a chronic kidney disease (CMS/HCC); Tubular adenoma of colon; Discoid lupus; Dyslipidemia; Long-term use of hydroxychloroquine; Spinal stenosis of lumbar region with neurogenic claudication; Primary osteoarthritis involving multiple joints; Lumbar radiculopathy; Osteopenia, unspecified location; Disorder of hip joint; Chronic left-sided low back pain with left-sided sciatica 01/07/2025 Travel 01/03/2025 Telephone [facility] [address] Patsy Patel MD chart prep 12/27/2024 Population Health Risk Score [facility] ([facility]) Department [address] [place] [address] [phone] Provider, Population Health Generic 12/17/2024 2:00 PM EST Telemedicine [facility] [place] [address] Tre Goodrich, PharmD Primary hypertension (Primary Dx) 12/12/2024 Telephone [facility] [address] [place] [phone] Patsy Patel MD Appointment Request from Last 3 Months Immunizations Immunization Administration [...] Visit [facility] [address] [place] [address] Patsy Patel MD [address] [place] [address] Health Maintenance Due Date Last Done Comments [...] Free T4 0.92 0.32 - 4.0 uIU/mL [facility] Blood 01/17/2025 3:05 PM EDT 01/17/2025 4:14 PM EDT Patsy Patel MD LAB BLOOD ORDERABLES Final Resul t [facility] [address] [place] [phone] * (ABNORMAL) Lipid Panel with Reflex to Direct LDL (01/17/2025 3:05 PM EDT) Triglycerides 96 <150 mg/dL [facility] Comment:Desirable Triglyceri de: less than 150 mg/dLBorderline High Triglyceride 150-199 mg/dLHigh Triglyceride: 200-499 mg/dLVery High Triglyceride: greater than or equal to 5OO mg/dL Cholesterol 225(H) <200 mg/dL [facility] Comment:Desirable Cholestero l: less than 200 mg/dLBorderline High Cholesterol: 200-239 mg/dLHigh Cholesterol: greater than 239 mg/dL LDL Cholesterol Calculated 105(H) <100 mg/dL [facility] Comment:Desirable LDL: less than 100 mg/dLNear Optimal/Above Optimal LDL: 110- 129 mg/dLBorderline High LDL: 130-159 mg/dLHigh LDL: 160-189 mg/dLVery High LDL: greater than or equal to 190 mg/dL HDL Cholesterol 101 >40 mg/dL [facility] Comment:Desirable HDL: great er than 40 mg/dL Note: This HDL assay may give artificially low results in patients with liver disease. Blood 01/17/2025 3:05 PM EDT 01/17/2025 4:14 PM EDT Patsy Patel MD LAB BLOOD ORDERABLES Final Resul t Performing Organization Address City/[facility] Co de Phone Number [facility] [address] [place] [phone] * Hepatic Function Panel (01/17/2025 3:05 PM EDT) Bilirubin, Direct 0.2 0.0 - 0.5 mg/dL [facility] 01/17/2025 3:05 PM EDT 01/17/2025 4:14 PM EDT Patsy Patel MD LAB BLOOD ORDERABLES Final Resul t Performing Organization Address [facility] de Phone Number [facility] [address] [place] [phone] * (ABNORMAL) Comprehensive Metabolic Panel (01/17/2025 3:05 PM EDT) Sodium 135 135 - 145 mmol/L [facility] Potassium 4.4 3.3 - 5.1 mmol/L [facility] Chloride 104 96 - 108 mmol/L [facility] Carbon Dioxide 21(L) 22 - 29 mmol/L [facility] Anion Gap 14 12 - 20 [facility] Urea Nitrogen (BUN) 18(H) 9 - 16 mg/dL [facility] Creatinine, Serum 0.82 0.5 - 1.4 mg/dL [facility] Estimated Glomerular Filt Rate >60 [facility] Comment:Chronic Kidney Disea se: Estimated GFR < 60 mL/min/[id number] Kidney Disease: Estimated GFR < 15 mL/min/1.73m2 Glucose 103 60 - 115 mg/dL [facility] Calcium 9.8 8.4 - 10.2 mg/dL [facility] Bilirubin, Total 0.5 0.0 - 1.0 mg/dL [facility] Aspartate Amino Transferase 33(H) 5 - 31 U/L [facility] Alanine Aminotransferase 24 0 - 31 U/L [facility] Total Protein 7.7 6.5 - 8.0 g/dL [facility] Albumin Level 4.3 3.5 - 5.0 g/dL [facility] Alkaline Phosphatase 54 39 - 117 U/L [facility] Blood Venous blood specimen / Unknown 01/17/2025 3:05 PM EDT 01/17/2025 4:14 PM EDT us Patsy Patel MD LAB BLOOD ORDERABLES Final Resul t [facility] [address] [facility] [place] [phone] * BI Mammogram Screening Tomosynthesis Bilateral (06/14/2023 11:10 AM EDT) Anatomical Region Laterality Modality Breast Bilateral Mammography 06/14/2023 11:1 0 AM EDT Narrative 06/28/2023 8:16 AM EDT ? [facility] [place] ? [address] ?[place] [phone] ? Mammography Report ? Signed ? Patient: Fremont,Sariah ?MR#: [id number] ?? 09 ? : 1955 ?Acct:[id number] ? Age/Sex: 68 / F ?ADM Date: 08/30/23 ? Loc: HO.MAMMO ? Attending Dr: Patsy Patel MD ? Ordering Physician: Patsy Patel MD ?Results: 1Negative ? Date of Service: 06/14/23 ?Follow Up: 1 Year From Orig ?? inal Mammogram ? Procedure(s): MM tomosynthesis screening BI ?? Accession Number(s): [id number] ? cc: Patsy Patel MD ? EXAMINATION: [...] 06/28/23811 ? DD/ 1110 ? TD/TT: ? Leveler Helper: ? Procedure Note Abby, Image - 06/29/2023 [facility] [address] [place] [address] [place] [address] Mammography Report Signed Patient: Sariah FlemingMR#: [id number] 09 : 3Acct:[id number] Age/Sex: 68 / FADM Date: 06/14/23 Loc: HO.MAMMO Attending Dr: Patsy Patel MD Ordering Physician: Patsy Patel MDResults: 1Negative Date of Service: 06/14/23Follow Up: 1 Year From Orig inal Mammogram Procedure(s): MM tomosynthesis screening BI Accession Number(s): [id number] cc: Patsy Patel MD EXAMINATION: MM SCREENING [...] in OV> 06/28/23 0812 DD/ 1110 TD/TT: Leveler Helper: Patsy Patel MD IMG BI PROCEDURES Edited Result - Final * HEPATITIS C ANTIBODY RFLX (12/10/2019 9:10 AM EST) HEPATITIS C ANTIBODY NONREACTIVE NONREACTIVE [facility] Comment: Antibodies to HCV not detected; does not exclude early acute HCV infection. 12/10/2019 9:10 AM EST us Patsy Patel MD HISTORICAL/NON ORDERABLE LABS Fi nal Result [facility] [address] Last 3 Months or Most Recently Relevant to Health Maintenance Insurance MEDICARE [facility]AND[facility] STAND AD[place] Care Teams Cleaning Team Member Relationship Specialty Start Date End Date Patsy Patel MD [address] [place] [phone] PCP - General Family Medicine 10/16/18 Tre Goodrich, PharmD [address] [place] [phone] Pharmacist Internal Medicine 12/25/23 Jonh Mcclain OD [facility] [address] [place] [address] [place] [address] Optometry 11/14/24
--- OUTSIDE RECORDS SUMMARY | 2025-03-06 06:11 | XMS_ITS | Encounter Summary ---
Author Organization [employer] Address [address] [facility] 7t [place] [address] Care Team Providers Care Proofer Prepress Name Role Phone Patsy Patel MD Primary Care Provider [phone] Tre Goodrich PharmD Unavailable [phone] John Mcclain OD Unavailable Reason for Visit * Reason Onset Date Comments Appointment Request 12/12/2024 Encounter Details Date Type Department Care Team ([facility] st Contact Info) Description 12/12/2024 Telephone [facility] [address] [place], [place] [phone] Patsy Patel MD [address] [place], [place] [phone] Appointment Request Social History Tobacco Use Types [...] 04/15/2025 11:15 AM EDT Office Visit [facility] [address] [place] [address] Patsy Patel MD [address] [place] [address] documented as of this encounter Goals Goal [...] documented as of this encounter Care Teams Proofer Prepress Relationship Specialty Start Date End Date Patsy Patel MD [address] [place] [address] PCP - General Family Medicine 10/16/18 Tre Goodrich, Evelina [address] [place] [address] Pharmacist Internal Medicine 12/25/23 John Mcclain OD [facility] [address] [place] [address] Optometry 11/14/24 documented as of this encounter
--- OUTSIDE RECORDS SUMMARY | 2025-03-06 06:11 | XMS_ITS | Clinical Summary ---
Author Organization [facility] Address [address] [facility] [place] [address] [place] [phone] Phone Care Team Providers Care Business Services Analyst Name Role Phone Patsy Patel MD Primary Care Provider [phone] Allergies Active Allergy Reactions Criticality Noted Date Comments Isaiah Inhibitors 12/08/2021 Diltiazem 12/08/2021 Hydralazine 07/19/2021 Medications aspirin EC 81 MG EC tablet Take 81 mg by mouth 1 (one) time each day Active Calcium Carb-Cholecalci ferol (CALCIUM 500+D3 PO) Take by mouth Activ e zinc gluconate 50 MG tablet Take by mouth 1 (one) time each day Active Carson-3 Fatty Acids (Fish Oil) 1000 MG capsule [...] -Agreed to order MRI and refer to sight effects specialist. -Continue PT. Hematuria 10/25/2022 07/13/2023 Overview (07/13/2023): Last Assessment & Plan: -microscopic, evaluated by urologist Stage 3 chronic kidney disease 10/25/2022 0 07/13/2023 Overview (07/13/2023): Last Assessment & Plan: -Followed by ham clerk -Optimize BP control -Avoid nephrotoxic drugs -Periodic lab to monitor renal function Patient encounter status 02/24/2022 023 Overview (07/13/2023): Last Assessment & Plan: Take the lowest dose, with least frequency, for shortest time. Remember to take it always with food. Favor topical over oral preparations. detention current use of aspirin 02/23/2022 07/13/2023 Overview (07/13/2023): Last Assessment & Plan: Avoid falls, injuries and cuts. Monitor for excessive bruising and bleeding. Drug therapy finding 02/23/2022 07/13/2023 Overview (07/13/2023): Last Assessment & Plan: Monitor for muscle tenderness, swelling and weakness Last Assessment & Plan: Take daily as prescribed. Use daily sun protection all year round, particularly during spring and summer months. See field care coordinator as scheduled every 6 months. Avoid concomitant [...] adjust medication at this time. -Co-managed with ham clerk - EKG 12/24/19 - NSR, no acute [...] 25 mg to 50 mg daily by ham clerk. -Benicar-HCTZ PA was denied. -She does not want to adjust any medication at this time. --Follow- up in 3 months. Disorder of hip joint 07/21/2015 07/13/2023 Overview (07/13/2023): Last Assessment & Plan: -seen by [facility] orthopedist -PT with iontophoresis for trochanteric [...] recent eye exam by Dr. Mcclain in [place] within 2 weeks- next scheduled for 6 [...] recent eye exam by Dr. Mcclain in [place] within 2 weeks- next scheduled for 6 months. Encouraged to continue carefully Plaquenil with daily sun protection particularly during summer and spring months. In the past labs from November 2019 reassuring-new set requested today. Last Assessment & Plan: -Current Supervisor Drawing Dr. 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 -Needs eye exam for long-term use of [...] [place] Care Teams Business Services Analyst Relationship Specialty Start Date End Date Patsy Patel MD PCP - General Family Medicine 07/08/21
--- OUTSIDE RECORDS SUMMARY | 2025-03-06 06:11 | XMS_ITS | Encounter Summary ---
Author Organization [employer] Address [address] [place] [address] 7[address] [place] [address] Care Team Providers Care Strategic Debriefing Specialist Name Role Phone Patsy Patel MD Primary Care Provider [phone] Tre Goodrich PharmD Unavailable [phone] John Mcclain OD Unavailable Reason for Visit * Reason Comments Med Refill Encounter Details Date Type Department Care Team (Late st Contact Info) Description 07/19/[address] [facility] [address] [place] [address] Patsy Patel MD [address] [place], [place] [phone] Social History Tobacco Use Types Packs/Day Years [...] Description 04/15/2025 11:15 AM EDT Office Visit [facility] [address] [place] [address] [phone] Patsy Patel MD [address] [place] [phone] documented as of this encounter Visit Diagnoses Not on filedocumented in this encounter Additional Health Concerns Assessment Noted Time PHQ-9 Depression Total Score: 10 023 1:33 PM EST documented as of this encounter Care Teams Strategic Debriefing Specialist Relationship Specialty Start Date End Date Patsy Patel MD [address] [place] [phone] PCP - General Family Medicine 10/16/18 Tre Goodrich, MaudeD [address] [place] [phone] Pharmacist Internal Medicine 12/25/23 John Mcclain OD [facility] [address] [place] [address] Optometry 11/14/24 documented as of this encounter
== END 2025-03-06 06:08 | disposition home or self-care (01) ==
LOC: CF 06:07
PROVIDERS: Visit Provider Internal Medicine
DX: M54.16 Radiculopathy, lumbar region (principal); Z98.890 Other specified postprocedural states
CPT/HCPCS: 64483; J1100; J2003; Q9967

== ENCOUNTER 2025-03-06 10:21 | Outpatient (AMB) | payer MEDICARE, MEDICAID, SELFPAY ==
[2025-03-06 10:27] VITALS: BP 162/78; PULSE 76; RESP 16; O2SAT 98
--- NOTE | 2025-03-06 10:27 | MHC.OFFVIS ---
Vital Signs 03/06/25 10:27 03/06/25 10:53 BP 162/78 H 145/82 H Blood Pressure Location Lt brachial Lt brachial Position Sitting Sitting Respiration 16 Pulse 76 64 Pulse Source Pulse Oximeter Pulse Oximeter Pulse Oximetry (%) 98 97 Oxygen Delivery Method Room Air Room Air Intake Visit Reasons: Right L4-L5 TFESI/ ativan 0.5mg Wool Mixer Required: No Allergies ibuprofen Allergy (Severe, Verified 03/06/25 10:28) Affects the Kidneys ANDRADE Inhibitors Allergy (Unknown, Verified 03/06/25 10:28) Unknown diltiazem Allergy (Unknown, Verified 03/06/25 10:28) Unknown hydralazine Allergy (Unknown, Verified 03/06/25 10:28) Unknown Medication List - Last Reconciled 03/06/25 by Kelsi Hargrove LPN aspirin (Adult Aspirin Regimen) 81 mg PO DAILY atorvastatin 20 mg PO DAILY calcium carbonate-vitamin D3 600 mg-5 mcg (200 unit) (Calcium 600 + D(3)) 1 tab PO BID hydroxychloroquine 200 mg PO DAILY lorazepam 0.5 mg PO ONCE PRN omega-3 fatty acids (Fish Oil Concentrate) 1,000 mg PO DAILY telmisartan 40 mg PO DAILY HPI HPI Right L4-L5 TFESI/ ativan 0.5mg: Details: Patient presents for scheduled procedure. Denies any recent cough, cold, infection, fever or other significant changes in medical history since last office visit. 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 Cyst of kidney, acquired Arthropathy of left hip Anemia Discoid lupus erythematosus Surgical History (Updated 02/27/25 @ 15:34 by KALI Li) H/O bilateral cataract extraction (~2018) Hx of decompressive lumbar laminectomy (~02/2023) Social History (Updated 02/27/25 @ 15:04 by Gregoria Thrasher) Alcohol intake: current Alcohol intake frequency: 3 or more drinks per day Alcohol type: wine Patient Tobacco Use Status: Former Tobacco user Tobacco use type: Cigarette Substance Use Type: Marijuana 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: [email or web address] Physical Exam Vital Signs: Last Vital Signs Pulse 64 03/06/25 10:53 Resp 16 03/06/25 10:27 BP 145/82 H 03/06/25 10:53 Pulse Ox 97 03/06/25 10:53 Oxygen Delivery Method Room Air 03/06/25 10:53 Office Procedures Details: Transforaminal epidural steroid injection, right L4-5 After obtaining written consent, pre-procedure blood pressure and heart rate were stable and recorded in the nursing record. The patient was placed in the prone position on the fluoroscopy table. The lumbosacral area was prepped with chloraprep, allowed to dry and draped in sterile fashion. Using fluoroscopy, the skin overlying our target was anesthetized with 0.5% lidocaine. A 22 gauge 3.5 inch spinal needle was advanced to the safe triangle in the upper pole of the right L4 foramen. No paresthesias were elicited with needle placement and aspiration was negative for blood and CSF. Correct needle position was confirmed with approximately 1 ml contrast dye (Omnipaque 180 mg/ml) injected under real-time fluoroscopy. No evidence of vascular or intrathecal uptake was seen and there was both epidural and peripheral spread of the contrast agent. 10 mg dexamethasone plus 1 ml containing 0.5% lidocaine was slowly injected. The needle was flushed and removed. The skin was cleansed and a sterile bandages were applied. The patient tolerated the procedure well and no complications were encountered. Following the procedure the patient's vital signs were stable. The patient was discharged home in good condition with post-procedural instructions. Time Out: Immediately prior to the procedure, the following was verbally confirmed that there is a signed consent form and that the correct patient, planned procedure, site and side are consistent with documentation and that necessary equipment and/or blood products are available prior to the start of the case. Complications: none EBL: <5 cc 18277 - Lumbar/Sacral Procedure code (CPT) selection complete Assessment & Plan Assessment & Plan (1) Lumbar radiculopathy: Code(s): M54.16 - Radiculopathy, lumbar region Category: Medical Plan Patient is status post right L4-5 TFESI. Patient tolerated procedure well and was discharged home in stable condition with discharge instructions. All questions were answered. We will follow-up via telephone or in clinic to assess response to therapy. A follow-up appointment was made during today's visit. Orders: Orders FL guidance in treatment room Today Giovanny Alanis MD M54.16 - Radiculopathy, lumbar region, Z98.890 - Other specified postprocedural states AMB Transforaminal Epidural Steroid Injection Today Giovanny Alanis MD M54.16 - Radiculopathy, lumbar region Medications: New lorazepam Take 30 minutes prior to arrival for scheduled procedure 0.5 mg PO ONCE PRN 1 tab 0RF anxiety Agnieszka Regan, MANAGER [address]IGHW[address], SENIOR PROPERTY ACCOUNTANT Coding Level of Care Code Procedure Only Diagnoses Lumbar radiculopathy M54.16 CPT Codes Transforaminal Epidural Steroid Inj - TESI 3: 44751 - Lumbar/Sacral ([id number])
--- OUTSIDE RECORDS SUMMARY | 2025-03-06 10:49 | XMS_ITS | Encounter Summary ---
Author Organization [employer] Address [address] [facility] [address] [place] [address] Care Team Providers Care Crown Blocker Name Role Phone Patsy Patel MD Primary Care Provider [phone] Tre Goodrich PharmD Unavailable [phone] John Mcclain OD Unavailable Reason for Referral * Consultation (Urgent) - Closed Specialty Diagnoses / Procedures Referred By Contac t Referred To Contact Orthopaedic Surgery Diagnoses Ankle mass, left Patsy Patel MD [address] [place] [address] Phone: tel: fax: [facility] [address] [place] [address] [place] [address] Phone: tel: fax: Referral ID Status Reason Start Date Expiration Date V isits Requested Visits Authorized [id number] Closed Specialty Services Required 01/01/2024 12/31/2024 1 1 Scheduling Instructions Territory Manager recommends [facility]. Encounter Details Date Type Department Care Team (Late st Contact Info) Description 01/01/2024 Orders Only [facility] [address] [place], [place] [phone] Patsy Patel MD [address], [place] [phone] Ankle mass, left (Primary Dx) Social History [...] Description 04/15/2025 11:15 AM EDT Office Visit [facility] [address] [place] [address] Patsy Patel MD [address] [place] [address] Scheduled Referrals Name Type Priority Associated Diagnoses [...] documented as of this encounter Care Teams Crown Blocker Relationship Specialty Start Date End Date Patsy Patel MD [address] [place] [address] PCP - General Family Medicine 10/16/18 Tre Goodrich, PharmD [address] [place] [phone] Pharmacist Internal Medicine 12/25/23 John Mcclain OD [facility] [address] [place] [address] Optometry 11/14/24 documented as of this encounter
--- OUTSIDE RECORDS SUMMARY | 2025-03-06 10:49 | XMS_ITS | Clinical Summary ---
Author Organization [employer] Address [address] [facility] 7[address] [place] [address] Care Team Providers Care Underwear Cutter Name Role Phone Patsy Patel MD Primary Care Provider [phone] Tre Goodrich PharmD Unavailable [phone] John Mcclain OD Unavailable Allergies Active Allergy [...] tablet by mouth in the morning. Active Ribera-3 Fatty Acids (Fish Oil) 1000 MG capsule [...] bedtime. 6 mL 1 4 Active Saline [place] 0.65 % solution Use to moisten your [...] - evaluate with MRI and refer to naval architect specialist at [facility] [place] Assessment & Plan (10/22/2023 11:13 AM EST): [...] -Agreed to order MRI and refer to naval architect specialist. -Continue PT. Assessment & Plan (10/26/2022 [...] -Agreed to order MRI and refer to naval architect specialist. -Continue PT. Stage 3 chronic kidney disease 10/25/2022 Assessment & Plan (01/11/2025 6:44 AM EDT): -Followed by lift team technician, last seen in Jun 2024 -Optimize BP control -Avoid nephrotoxic drugs -Periodic lab to monitor renal function Assessment & Plan (10/22/2023 11:13 AM EST): -Followed by lift team technician, last seen in Jun 2023 -Optimize BP control -Avoid nephrotoxic drugs -Periodic lab to monitor renal function Assessment & Plan (05/13/2023 6:27 AM EDT): -Followed by lift team technician -Optimize BP control -Avoid nephrotoxic drugs -Periodic lab to monitor renal function Assessment & Plan (10/25/2022 5:59 AM EST): -Followed by lift team technician -Optimize BP control -Avoid nephrotoxic drugs [...] Plan (01/11/2025 6:46 AM EDT): -seen by [facility] orthopedist -PT with iontophoresis for trochanteric bursitis -Tried tramadol, dosage was ineffective -discouraged use of NSAIDs and HUNT-2 inhibitor due to CKD -Tried gabapentin to 300 mg tid, patient weaned herself off. -Tried lidocaine topical; first cream then patch if cream not effective Assessment & Plan (10/25/2022 6:06 AM EST): -seen by [facility] orthopedist -PT with iontophoresis [...] at goal, questionable medication adherence -Co-managed with lift team technician and pharmacist - EKG 12/24/19 - [...] Amlodipine was increased to 5 mg by lift team technician, but pt self- discontinued due to ankle swelling. Restarted at low dose and kept at current dose -previously on Olmesartan-hctz 40-25 mg daily, Brand Benicar-hctz was more effective than the generic, per pt. -Benicar-HCTZ PA was denied. - Metoprolol was increased from 25 mg to 50 mg daily by lift team technician. -Losartan was changed to telmesartan in December 2023 since it is longer-acting. -Follow- up in 3 months. - Ordered labs on 01/07/25 Assessment & Plan (06/21/2024 11:24 AM EDT): -Goal BP <140/90 per JNC-8, and < 130/80 per ACC/AHA guideline -BP not at goal, questionable medication adherence -Co-managed with lift team technician and pharmacist - EKG 12/24/19 - [...] Amlodipine was increased to 5 mg by lift team technician, but pt self- discontinued due to ankle swelling. -previously on Olmesartan-hctz 40-25 mg daily, Brand Benicar-hctz was more effective than the generic, per pt. Metoprolol was increased from 25 mg to 50 mg daily by lift team technician. -Benicar-HCTZ PA was denied. -Losartan was changed to telmesartan in December 2023 since it is longer-acting. -Follow- up in 3 months. Assessment & Plan (10/22/2023 11:09 AM EST): -Goal BP <140/90 per JNC-8, and < 130/80 per ACC/AHA guideline -BP not at goal, questionable medication adherence -Co-managed with lift team technician - EKG 12/24/19 - NSR, no [...] Amlodipine was increased to 5 mg by lift team technician, but pt self- discontinued due to ankle swelling. -previously on Olmesartan-hctz 40-25 mg daily, Brand Benicar-hctz was more effective than the generic, per pt. Metoprolol was increased from 25 mg to 50 mg daily by lift team technician. -Benicar-HCTZ PA was denied. We will check if we can try to decrease pill-burden again. -Follow- up in 3 months. Assessment & Plan (05/13/2023 6:26 AM EDT): -Goal BP <140/90 per JNC-8, and < 130/80 per ACC/AHA guideline -BP not at goal, questionable medication adherence -Co-managed with lift team technician - EKG 12/24/19 - NSR, no [...] Amlodipine was increased to 5 mg by lift team technician, but pt self- discontinued due to ankle swelling. -previously on Olmesartan-hctz 40-25 mg daily, Brand Benicar-hctz was more effective than the generic, per pt. Metoprolol was increased from 25 mg to 50 mg daily by lift team technician. -Benicar-HCTZ PA was denied. We will check if we can try to decrease pill-burden again. -Follow- up in 3 months. Assessment & Plan (10/26/2022 4:43 PM EST): -Goal BP <140/90 per JNC-8, and < 130/80 per ACC/AHA guideline -BP not at goal, pt does not want to adjust medication at this time. -Co-managed with lift team technician - EKG 12/24/19 - NSR, no [...] 25 mg to 50 mg daily by lift team technician. -Benicar-HCTZ PA was denied. -She does [...] recent eye exam by Dr. Mcclain in [place] within 2 weeks- next scheduled for 6 months. Encouraged to continue carefully Plaquenil with daily sun protection particularly during summer and spring months. In the past labs from November 2019 reassuring-new set requested today. Assessment & Plan (01/07/2025 9:58 AM EDT): -Current Hard Tile Setter Apprentice Dr. Martin last visit on 03/21/24 -Current medication: Hydroxychloroquine 200 mg daily -Continue current treatment plan per her current aerial applicator pilot. -Needs eye exam for long-term use of Plaquenil, last eye exam in Jun 2023 Assessment & Plan (06/20/2024 10:26 AM EDT): -Current Hard Tile Setter Apprentice Dr. Martin last visit on 03/21/24 -Current medication: Hydroxychloroquine 200 mg daily -Continue current treatment plan per her current aerial applicator pilot. -Needs eye exam for long-term use of Plaquenil, last eye exam in Jun 2023 Assessment & Plan (10/22/2023 11:18 AM EST): -Current Hard Tile Setter Apprentice Dr. Martin last visit on 10/04/23 -Current medication: Hydroxychloroquine 200 mg daily -Continue current treatment plan per her current aerial applicator pilot. -Needs eye exam for long-term use of Plaquenil, last eye exam in Jun 2023 Assessment & Plan (05/13/2023 6:30 AM EDT): -Current Hard Tile Setter Apprentice Dr. Martin last visit in January 2023 -Current medication: Hydroxychloroquine 200 mg daily -Continue current treatment plan per her current aerial applicator pilot. -Needs eye exam for long-term use of Plaquenil, last eye exam within last 1 year per pt's report Assessment & Plan (10/25/2022 6:02 AM EST): -Current Hard Tile Setter Apprentice Dr. Martin last note on May 2022 -Current medication: Hydroxychloroquine 200 mg daily -Continue current treatment plan per her current aerial applicator pilot. -Needs eye exam for long-term use of [...] Type Department Care Team Description 01/27/2025 Telephone [facility] [place] [address] Patsy Patel MD Referral 01/17/2025 2:15 PM EDT Immunization [facility] [place] [address] Blank Benavides LPN Encounter for immunization (Primary Dx) 01/17/2025 Orders Only [facility] [place] [address] Patsy Patel MD 01/17/2025 Travel 01/07/2025 2:30 PM EDT Office Visit [facility] [place] [address] Patsy Patel MD Primary hypertension (Primary Dx); Stage 3a chronic kidney disease (CMS/HCC); Tubular adenoma of colon; Discoid lupus; Dyslipidemia; Long-term use of hydroxychloroquine; Spinal stenosis of lumbar region with neurogenic claudication; Primary osteoarthritis involving multiple joints; Lumbar radiculopathy; Osteopenia, unspecified location; Disorder of hip joint; Chronic left-sided low back pain with left-sided sciatica 01/07/2025 Travel 01/03/2025 Telephone [facility] [place] [address] Patsy Patel MD chart prep 12/27/2024 Population Health Risk Score [facility] ([facility]) Department [address] [place] [address] [phone] Provider, Population Health Generic 12/17/2024 2:00 PM EST Telemedicine [facility] [place] [address] Tre Goodrich, PharmD Primary hypertension (Primary Dx) 12/12/2024 Telephone [facility] [address] [place] [phone] Patsy Patel MD Appointment Request from Last [...] 04/15/2025 11:15 AM EDT Office Visit [facility] [address] [place] [address] Patsy Patel MD [address] [place] [address] Health Maintenance Due Date Last Done Comments [...] Free T4 0.92 0.32 - 4.0 uIU/mL [facility] Blood 01/17/2025 3:05 PM EDT 01/17/2025 4:14 PM EDT Patsy Patel MD LAB BLOOD ORDERABLES Final Resul t [facility] [address] [place] [phone] * (ABNORMAL) Lipid Panel with Reflex to Direct LDL (01/17/2025 3:05 PM EDT) Triglycerides 96 <150 mg/dL [facility] Comment:Desirable Triglyceri de: less than 150 mg/dLBorderline High Triglyceride 150-199 mg/dLHigh Triglyceride: 200-499 mg/dLVery High Triglyceride: greater than or equal to 5OO mg/dL Cholesterol 225(H) <200 mg/dL [facility] Comment:Desirable Cholestero l: less than 200 mg/dLBorderline High Cholesterol: 200-239 mg/dLHigh Cholesterol: greater than 239 mg/dL LDL Cholesterol Calculated 105(H) <100 mg/dL [facility] Comment:Desirable LDL: less than 100 mg/dLNear Optimal/Above Optimal LDL: 110- 129 mg/dLBorderline High LDL: 130-159 mg/dLHigh LDL: 160-189 mg/dLVery High LDL: greater than or equal to 190 mg/dL HDL Cholesterol 101 >40 mg/dL [facility] Comment:Desirable HDL: great er than 40 mg/dL Note: This HDL assay may give artificially low results in patients with liver disease. Blood 01/17/2025 3:05 PM EDT 01/17/2025 4:14 PM EDT Patsy Patel MD LAB BLOOD ORDERABLES Final Resul t Performing Organization Address City/[facility] Co de Phone Number [facility] [address] [place] [phone] Hepatic Function Panel (01/17/2025 3:05 PM EDT) Bilirubin, Direct 0.2 0.0 - 0.5 mg/dL [facility] 01/17/2025 3:05 PM EDT 01/17/2025 4:14 PM EDT Patsy Patel MD LAB BLOOD ORDERABLES Final Resul t Performing Organization Address [facility] de Phone Number [facility] [address] [place] [phone] * (ABNORMAL) Comprehensive Metabolic Panel (01/17/2025 3:05 PM EDT) Sodium 135 135 - 145 mmol/L [facility] Potassium 4.4 3.3 - 5.1 mmol/L [facility] Chloride 104 96 - 108 mmol/L [facility] Carbon Dioxide 21(L) 22 - 29 mmol/L [facility] Anion Gap 14 12 - 20 [facility] Urea Nitrogen (BUN) 18(H) 9 - 16 mg/dL [facility] Creatinine, Serum 0.82 0.5 - 1.4 mg/dL [facility] Estimated Glomerular Filt Rate >60 [facility] Comment:Chronic Kidney Disea se: Estimated GFR < 60 mL/min/1.60s6Tzeipw Kidney Disease: Estimated GFR < 15 mL/min/1.73m2 Glucose 103 60 - 115 mg/dL [facility] Calcium 9.8 8.4 - 10.2 mg/dL [facility] Bilirubin, Total 0.5 0.0 - 1.0 mg/dL [facility] Aspartate Amino Transferase 33(H) 5 - 31 U/L [facility] Alanine Aminotransferase 24 0 - 31 U/L [facility] Total Protein 7.7 6.5 - 8.0 g/dL [facility] Albumin Level 4.3 3.5 - 5.0 g/dL [facility] Alkaline Phosphatase 54 39 - 117 U/L [facility] Blood Venous blood specimen / Unknown 01/17/2025 3:05 PM EDT 01/17/2025 4:14 PM EDT us Patsy Patel MD LAB BLOOD ORDERABLES Final Resul t [facility] [address] [place] [phone] * BI Mammogram Screening Tomosynthesis Bilateral (06/14/2023 11:10 AM EDT) Anatomical Region Laterality Modality Breast Bilateral Mammography 06/14/2023 11:1 0 AM EDT Narrative 06/28/2023 8:16 AM EDT ? [facility] ? [address] ?[place] [phone] ? Mammography Report ? Signed ? Patient: Hobart,Sariah ?MR#: [id number] ?? 09 ? : 1955 ?Acct:[id number] ? Age/Sex: 68 / F ?ADM Date: 08/30/23 ? Loc: HO.MAMMO ? Attending Dr: Patsy Patel MD ? Ordering Physician: Patsy Patel MD ?Results: 1Negative ? Date of Service: 06/14/23 ?Follow Up: 1 Year From Orig ?? inal Mammogram ? Procedure(s): MM tomosynthesis screening BI ?? Accession Number(s): [id number] ? cc: Patsy Patel MD ? EXAMINATION: [...] 06/28/23811 ? DD/ 1110 ? TD/TT: ? [place] Decorator: ? Procedure Note Abby, Image - 06/29/2023 [facility] [address] [place] [address] [place] [address] Mammography Report Signed Patient: Sariah FlemingMR#: [id number] 09 : 3Acct:[id number] Age/Sex: 68 / FADM Date: 06/14/23 Loc: HO.MAMMO Attending Dr: Patsy Patel MD Ordering Physician: Patsy Patel MDResults: 1Negative Date of Service: 06/14/23Follow Up: 1 Year From Orig inal Mammogram Procedure(s): MM tomosynthesis screening BI Accession Number(s): [id number] cc: Patsy Patel MD EXAMINATION: MM SCREENING [...] in OV> 06/28/23 0812 DD/ 1110 TD/TT: [place] Decorator: Patsy Patel MD IMG BI PROCEDURES Edited Result - Final * HEPATITIS C ANTIBODY RFLX (12/10/2019 9:10 AM EST) HEPATITIS C ANTIBODY NONREACTIVE NONREACTIVE [facility] Comment: Antibodies to HCV not detected; does not exclude early acute HCV infection. 12/10/2019 9:10 AM EST us Patsy Patel MD HISTORICAL/NON ORDERABLE LABS Fi nal Result [facility] [address] from Last 3 Months or Most Recently Relevant to Health Maintenance Insurance MEDICARE [facility] [place] STAND AD[place] Care Teams Underwear Cutter Relationship Specialty Start Date End Date Patsy Patel MD [address] [place] [phone] PCP - General Family Medicine 10/16/18 Tre Goodrich, PharmD [address] [place] [phone] Pharmacist Internal Medicine 12/25/23 John Mcclain OD [facility] [address] [place] [address] [place] [address] Optometry 11/14/24
--- OUTSIDE RECORDS SUMMARY | 2025-03-06 10:49 | XMS_ITS | Clinical Summary ---
Author Organization [facility] Address [address] [place] [address] [place] [address] Phone Care Team Providers Care Senior Software Quality Analyst Name Role Phone Patsy Patel MD Primary Care Provider [phone] Allergies Active Allergy Reactions Criticality Noted Date Comments Isaiah Inhibitors 12/08/2021 Diltiazem 12/08/2021 Hydralazine 07/19/2021 Medications aspirin EC 81 MG EC tablet Take 81 mg by mouth 1 (one) time each day Active Calcium Carb-Cholecalci ferol (CALCIUM 500+D3 PO) Take by mouth Activ e zinc gluconate 50 MG tablet Take by mouth 1 (one) time each day Active Sawyer-3 Fatty Acids (Fish Oil) 1000 MG capsule [...] to CKD. She has tried APAP, NSAIDs, HNUT-2, gabapentin, tramadol, and topical medications. NSAIDs and HUNT-2 were somewhat effective, but she is unable to take due to CKD and HTN. -Agreed to order MRI and refer to business support specialist. -Continue PT. Hematuria 10/25/2022 07/13/2023 Overview (07/13/2023): Last Assessment & Plan: -microscopic, evaluated by urologist Stage 3 chronic kidney disease 10/25/2022 0 07/13/2023 Overview (07/13/2023): Last Assessment & Plan: -Followed by jewel bearing facer -Optimize BP control -Avoid nephrotoxic drugs -Periodic lab to monitor renal function Patient encounter status 02/24/2022 023 Overview (07/13/2023): Last Assessment & Plan: Take the lowest dose, with least frequency, for shortest time. Remember to take it always with food. Favor topical over oral preparations. residential current use of aspirin 02/23/2022 07/13/2023 Overview (07/13/2023): Last Assessment & Plan: Avoid falls, injuries and cuts. Monitor for excessive bruising and bleeding. Drug therapy finding 02/23/2022 07/13/2023 Overview (07/13/2023): Last Assessment & Plan: Monitor for muscle tenderness, swelling and weakness Last Assessment & Plan: Take daily as prescribed. Use daily sun protection all year round, particularly during spring and summer months. See traffic ii manager as scheduled every 6 months. Avoid concomitant [...] adjust medication at this time. -Co-managed with jewel bearing facer - EKG 12/24/19 - NSR, no acute [...] 25 mg to 50 mg daily by jewel bearing facer. -Benicar-HCTZ PA was denied. -She does not want to adjust any medication at this time. --Follow- up in 3 months. Disorder of hip joint 07/21/2015 07/13/2023 Overview (07/13/2023): Last Assessment & Plan: -seen by [facility] orthopedist -PT with [...] recent eye exam by Dr. Mcclain in [place] within 2 weeks- next scheduled for 6 [...] recent eye exam by Dr. Mcclain in [place] within 2 weeks- next scheduled for 6 months. Encouraged to continue carefully Plaquenil with daily sun protection particularly during summer and spring months. In the past labs from November 2019 reassuring-new set requested today. Last Assessment & Plan: -Current Oliver Filter Operator Dr. Martin last note on May 2022 -Current medication: Hydroxychloroquine 200 mg daily -Continue current treatment plan per her current dust collector operator. -Needs eye exam for long-term use of [...] Medicaid [place] Care Teams Senior Software Quality Analyst Relationship Specialty Start Date End Date Patsy Patel MD PCP - General Family Medicine 07/08/21
--- OUTSIDE RECORDS SUMMARY | 2025-03-06 10:49 | XMS_ITS | Encounter Summary ---
Author Organization [employer] Address [address] [facility] 7t [place] [address] Care Team Providers Care Metal Fence Erector Name Role Phone Patsy Patel MD Primary Care Provider [phone] Tre Goodrich PharmD Unavailable [phone] John Mcclain OD Unavailable Reason for Visit * Reason Onset Date Comments Referral 01/27/2025 Encounter Details Date Type Department Care Team (Late st Contact Info) Description 01/27/2025 Telephone [facility]INE [address] [place] [address] Patsy Patel MD [address] [place], [place] [phone] Referral Social History Tobacco Use Types Packs/Day [...] Tc from pt requesting a referral [facility]. Contact pt at [phone] documented in this encounter Plan of Treatment Upcoming Encounters Date Type Department Care Team (Late st Contact Info) Description 04/15/2025 11:15 AM EDT Office Visit [facility] [address] [place] [address] Patsy Patel MD [address] [place] [address] documented as of this encounter Goals Goal [...] documented as of this encounter Care Teams Metal Fence Erector Relationship Specialty Start Date End Date Patsy Patel MD [address] [place] [address] PCP - General Family Medicine 10/16/18 Tre Goodrich, Evelina [address] [place] [address] Pharmacist Internal Medicine 12/25/23 John Mcclain OD [facility] [address] [place] [address] Optometry 11/14/24 documented as of this encounter
--- OUTSIDE RECORDS SUMMARY | 2025-03-06 10:49 | XMS_ITS | Encounter Summary ---
Author Organization [employer] Address [address] [facility] 7t [place] [address] Care Team Providers Care Harvest Worker Fruit Name Role Phone Patsy Patel MD Primary Care Provider [phone] Tre Goodrich PharmD Unavailable [phone] John Mcclain OD Unavailable Encounter Details Date Type Department Care Team (Late st Contact Info) Description 06/27/2024 Orders Only [facility] MED[facility]INE [address] [place], [place] [phone] Patsy Patel MD [address] [place], [place] [phone] Social History Tobacco Use Types Packs/Day Years [...] Description 04/15/2025 11:15 AM EDT Office Visit [facility] [address] [place] [address] Patsy Patel MD [address] [place] [address] documented as of this encounter Goals Goal [...] documented as of this encounter Care Teams Harvest Worker Fruit Relationship Specialty Start Date End Date Patsy Patel MD [address] [place] [address] PCP - General Family Medicine 10/16/18 Tre Goodrich, PharmD [address] [place] [address] Pharmacist Internal Medicine 12/25/23 John Mcclain OD [facility] [address] [place] [address] Optometry 11/14/24 documented as of this encounter
--- OUTSIDE RECORDS SUMMARY | 2025-03-06 10:49 | XMS_ITS | Encounter Summary ---
Author Organization [employer] Address [address] [facility] 7t [place] [address] Care Team Providers Care Biostatistics Teacher Name Role Phone Patsy Patel MD Primary Care Provider [phone] Tre Goodrich PharmD Unavailable John Mcclain OD Unavailable Reason for Visit * Reason Onset Date Comments Appointment Request 12/12/2024 Encounter Details Date Type Department Care Team ([facility] st Contact Info) Description 12/12/2024 Telephone [facility] [address] [place], [place] [phone] Patsy Patel MD [address] [place], [place] [phone] Appointment Request Social History Tobacco Use Types [...] Description 04/15/2025 11:15 AM EDT Office Visit [facility] [address] [place] [address] Patsy Patel MD [address] [place] [address] documented as of this encounter Goals Goal [...] documented as of this encounter Care Teams Biostatistics Teacher Relationship Specialty Start Date End Date Patsy Patel MD [address] [place] [address] PCP - General Family Medicine 10/16/18 Tre Goodrich, Evelina [address] [place] [address] Pharmacist Internal Medicine 12/25/23 John Mcclain OD [facility] [address] [place] [address] Optometry 11/14/24 documented as of this encounter
--- OUTSIDE RECORDS SUMMARY | 2025-03-06 10:49 | XMS_ITS | Encounter Summary ---
Author Organization [employer] Address [address] [facility] 7t h Floor [place] [phone] Care Team Providers Care Spd Tech Name Role Phone Patsy Patel MD Primary Care Provider [phone] Tre Goodrich PharmD Unavailable [phone] John Mcclain OD Unavailable Reason for Visit * Reason Onset Date Comments Referral 12/29/2023 Encounter Details Date Type Department Care Team ([facility] st Contact Info) Description 12/29/2023 Telephone [facility] MED[facility]INE [address] [place], [place] [phone] Patsy Patel MD [address] [place], [place] [phone] Referral Social History Tobacco Use Types Packs/Day [...] to orthopaedic surgery that was placed 12/31. [facility] was told they need derm's note and that she brought it in and gave to medical records a while ago. [facility] medical records told her they would [...] swelling or discharge. Saw a surgeon at [facility] who states the pt needs to see a supplier specialist. Scheduled for an ultrasound at [facility] on Monday. Advised I would notify Dr. Patel to see if an appt will be necessary.Pt stated understanding. * Telephone Encounter - [facility] Lilia [facility] - 12/29/2023 3:27 PM EDT Tc from pt requesting a referral for orthopedics surgeons to treat a lump on left ankle. [facility] [place] documented in this encounter Plan of Treatment Upcoming Encounters Date Type Department Care Team (Late st Contact Info) Description 04/15/2025 11:15 AM EDT Office Visit [facility] [address] [place] [address] Patsy Patel MD [address] [place] [address] documented as of this encounter Goals Goal [...] documented as of this encounter Care Teams Spd Tech Relationship Specialty Start Date End Date Patsy Patel MD [address] [place] [address] PCP - General Family Medicine 10/16/18 Tre Goodrich, PharmD [address] [place] [address] Pharmacist Internal Medicine 12/25/23 John Mcclain OD [facility] [address] [place] [address] Optometry 11/14/24 documented as of this encounter
--- OUTSIDE RECORDS SUMMARY | 2025-03-06 10:49 | XMS_ITS | Encounter Summary ---
Author Organization [employer] Address [address] [place] [address] 7t [place] [address] Care Team Providers Care Splunk Consultant Name Role Phone Patsy Patel MD Primary Care Provider [phone] Tre Goodrich PharmD Unavailable [phone] John Mcclain OD Unavailable Reason for Visit * Reason Comments Med Refill Encounter Details Date Type Department Care Team (Late st Contact Info) Description 07/19/2023 Refill [facility] MED[facility]INE [address] [place] [address] Patsy Patel MD [address] [place], [place] [phone] Social History Tobacco Use Types Packs/Day Years [...] Description 04/15/2025 11:15 AM EDT Office Visit [facility] [address] [place] [phone] Patsy Patel MD [address] [place] [address] documented as of this encounter Visit Diagnoses Not on filedocumented in this encounter Additional Health Concerns Assessment Noted Time PHQ-9 Depression Total Score: 10 023 1:33 PM EST documented as of this encounter Care Teams Splunk Consultant Relationship Specialty Start Date End Date Patsy Patel MD [address] [place] [address] PCP - General Family Medicine 10/16/18 Tre Goodrich, MaudeD [address] [place] [address] Pharmacist Internal Medicine 12/25/23 John Mcclain OD [facility] [address] [place] [address] Optometry 11/14/24 documented as of this encounter
--- OUTSIDE RECORDS SUMMARY | 2025-03-06 10:49 | XMS_ITS | Encounter Summary ---
Author Organization [employer] Address [address] [facility] 7t [place] [address] Care Team Providers Care Switch Technician Name Role Phone Patsy Patel MD Primary Care Provider Tre Goodrich PharmD Unavailable [phone] John Mcclain OD Unavailable Reason for Visit * Reason Comments Med Refill Encounter Details Date Type Department Care Team ([facility] st Contact Info) Description 09/17/2024 Refill [facility] MED[facility]INE [address] [place] [address] Tre Goodrich, PharmD 230 [place], [place] [phone] Primary hypertension Social History Tobacco Use Types [...] Description 04/15/2025 11:15 AM EDT Office Visit [facility] MEDICINE [address] [place] [address] Patsy Patel MD [address] [place] [address] documented as of this encounter Goals Goal [...] documented as of this encounter Care Teams Switch Technician Relationship Specialty Start Date End Date Patsy Patel MD [address] [place] [phone] PCP - General Family Medicine 10/16/18 Tre Goodrich, MaudeD [address] [place] [phone] Pharmacist Internal Medicine 12/25/23 John Mcclain OD [facility] [address] [place] [address] Optometry 11/14/24 documented as of this encounter
--- OUTSIDE RECORDS SUMMARY | 2025-03-06 10:49 | XMS_ITS | Encounter Summary ---
Author Organization [employer] Address [address] [place] [address] 7t [place] [address] Care Team Providers Care Lead Burner Name Role Phone Patsy Patel MD Primary Care Provider [phone] Tre Goodrich PharmD Unavailable [phone] John Mcclain OD Unavailable Reason for Referral * Consultation (Routine) - Authorized Specialty Diagnoses / Procedures Referred By Contac t Referred To Contact Pharmacy Diagnoses Primary hypertension Patsy Patel MD [address] [place] [address] Phone: tel: fax: Referral ID Status Reason Start Date Expiration Date Visits Requested Visits Authorized [id number] Authorized Consult and Treat 08/27/2024 08/27/2025 6 6 Encounter Details Date Type Department Care Team (Late st Contact Info) Description 08/27/2024 Orders Only [facility] MED[facility]INE [address] [place], [place] [phone] Patsy Patel MD [address] [place], [place] [phone] Primary hypertension (Primary Dx) Social History Tobacco [...] 04/15/2025 11:15 AM EDT Office Visit [facility] [address] [place] [address] Patsy Patel MD [address] [place] [address] Scheduled Referrals Name Type Priority Associated Diagnoses [...] documented as of this encounter Care Teams Lead Burner Relationship Specialty Start Date End Date Patsy Patel MD [address] [place] [address] PCP - General Family Medicine 10/16/18 Tre Goodrich, Evelina [address] [place] [address] Pharmacist Internal Medicine 12/25/23 John Mcclain OD [facility] [address] [place] [address] Optometry 11/14/24 documented as of this encounter
[2025-03-06 10:53] VITALS: BP 145/82; PULSE 64; O2SAT 97
== END 2025-03-06 10:53 | disposition home or self-care (01) ==
LOC: HO.PMCPRC 10:21
PROVIDERS: PCP Family Medicine; Visit Provider Internal Medicine
DX: M54.16 Radiculopathy, lumbar region (principal)
CPT/HCPCS: 64483

== ENCOUNTER 2025-03-19 11:24 | Outpatient (AMB) | payer MEDICARE, MEDICAID, SELFPAY ==
--- NOTE | 2025-03-19 11:25 | A.SPINEOV_ITS ---
Intake Visit Reasons: discuss sx Intake Note: Ms. Fleming is here today to discuss surgery. Field Coil Winder Required: No Allergies ibuprofen Allergy (Severe, Verified 03/06/25 10:28) Affects the Kidneys ANDRADE Inhibitors Allergy (Unknown, Verified 03/06/25 10:28) Unknown diltiazem Allergy (Unknown, Verified 03/06/25 10:28) Unknown hydralazine Allergy (Unknown, Verified 03/06/25 10:28) Unknown Assessment & Plan Assessment & Plan (1) Lumbar radiculopathy: Code(s): M54.16 - Radiculopathy, lumbar region Category: Medical Plan Sariah is a pleasant 70 year old female who comes in today for follow up after having Left side L4 & L5 TFESI completed by our colleagues in pain management. To recap, Sariah has been suffering with a left-sided lumbar radiculopathy for the past 4 years. It has been significantly worsening over the course of the last few months. She attempted to have this treated by Dr. Robert at [facility] via L2-3 Lumbar decompression. Unfortunately, she reports no relief of her pain after surgery. She continues to report pain that shoots down her posterior left buttocks over the left lateral hip, down the anterior thigh over the anterior knee & anterior tibialis down into the foot. She states the pain is now so severe that she has to use her cane to ambulate at all, and is furniture surfing around her home to keep weight off the leg. Unfortunately, she had little to no relief from the left-sided L4 and L5 transforaminal epidural steroid injections. She had one day of pain relief which she states was less than 50% total reduction in pain. Initially I had discussed the possibility of left sided lumbar decompression with the patient at L2-3, L3-4 as a potential treatment for her pain. However, given her poor response to injections, and Hx of previous surgery at L2-3 with no relief of her pain, Dr. Shine does not believe this patient would have any symptom relief from surgery. Therefore, he is not willing to offer the patient lumbar decompression at this time. I encouraged her to follow up with our colleagues in pain management to see if they can offer her anything that will help get her pain under control. Simon Shine MD,PhD [facility] Coding Level of Care Code Est Pt Level 2 (42376) Diagnoses Lumbar radiculopathy M54.16
--- OUTSIDE RECORDS SUMMARY | 2025-03-19 12:22 | XMS_ITS | Encounter Summary ---
Author Organization [facility] Address [address] [place] [address] 7t [place] [address] Care Team Providers Care Clinical Data Management Director Name Role Phone Patsy Patel MD Primary Care Provider [phone] Tre Goodrich PharmD Unavailable [phone] John Mcclain OD Unavailable Reason for Referral * Consultation (Routine) - Authorized Specialty Diagnoses / Procedures Referred By Contac t Referred To Contact Pharmacy Diagnoses Primary hypertension Patsy Patel MD [address] [place] [address] Phone: tel: fax: Referral ID Status Reason Start Date Expiration Date Visits Requested Visits Authorized [id number] Authorized Consult and Treat 08/27/2024 08/27/2025 6 6 Encounter Details Date Type Department Care Team (Late st Contact Info) Description 08/27/2024 Orders Only [facility] MED[facility]INE [address] [place], [place] [phone] Patsy Patel MD [address] [place], [place] [phone] Primary hypertension (Primary Dx) Social History Tobacco [...] Description 04/15/2025 11:15 AM EDT Office Visit [facility] [address] [place] [address] Patsy Patel MD [address] [place] [address] Scheduled Referrals Name Type Priority Associated Diagnoses [...] documented as of this encounter Care Teams Clinical Data Management Director Relationship Specialty Start Date End Date Patsy Patel MD [address] [place] [address] PCP - General Family Medicine 10/16/18 Tre Goodrich, Evelina [address] [place] [address] Pharmacist Internal Medicine 12/25/23 John Mcclain OD [facility] [address] [address] Optometry 11/14/24 documented as of this encounter
== END 2025-03-19 12:17 | disposition home or self-care (01) ==
LOC: HO.HNS 11:24
PROVIDERS: PCP Family Medicine; Visit Provider Physician Assistant
DX: M54.16 Radiculopathy, lumbar region (principal)
CPT/HCPCS: 99212

== ENCOUNTER → 2025-03-19 11:24 | Outpatient (BNVA) | payer MEDICARE, MEDICAID, SELFPAY | PROVIDERS: PCP Family Medicine; Visit Provider Physician Assistant | DX: M54.16 Radiculopathy, lumbar region (principal) | CPT/HCPCS: 99212 ==

== ENCOUNTER 2025-03-28 11:59 | Outpatient (AMB) | payer MEDICARE, MEDICAID, SELFPAY ==
--- NOTE | 2025-03-28 12:01 | A.OFFVIS_ITS ---
Vital Signs 03/28/25 12:02 Height 5 ft 4 in BMI Reason not done Patient refused/unable BP 191/86 H Blood Pressure Location Lt brachial Position Sitting Respiration 16 Pulse 82 Pulse Source Pulse Oximeter Pulse Oximetry (%) 96 Oxygen Delivery Method Room Air Intake Visit Reasons: Follow Up After Spine Appt. Felling Machine Operator Required: No Allergies ibuprofen Allergy (Severe, Verified 03/28/25 12:03) Affects the Kidneys ANDRADE Inhibitors Allergy (Unknown, Verified 03/28/25 12:03) Unknown diltiazem Allergy (Unknown, Verified 03/28/25 12:03) Unknown hydralazine Allergy (Unknown, Verified 03/28/25 12:03) Unknown Medication List - Last Reconciled 03/28/25 by Kelsi Hargrove LPN amlodipine 2.5 mg PO DAILY aspirin (Adult Aspirin Regimen) 81 mg PO DAILY atorvastatin 20 mg PO DAILY calcium carbonate-vitamin D3 600 mg-5 mcg (200 unit) (Calcium 600 + D(3)) 1 tab PO BID hydroxychloroquine 200 mg PO DAILY metoprolol succinate ER mg PO omega-3 fatty acids (Fish Oil Concentrate) 1,000 mg PO DAILY telmisartan 40 mg PO DAILY HPI HPI Follow Up After Spine Appt.: Details: History of Present Illness The patient is a 70-year-old female presenting for follow-up of lumbar radiculopathy and chronic pain. She has previously undergone lumbar decompression surgery at the L2-3 level, which has only provided limited relief from symptoms. Recently, she received lumbar steroid injections at the left L4-5 level, resulting in 50% relief for one day, highlighting the chronicity and resilience of her pain syndrome. The patient's pain is primarily located in her lower back, extends through her left leg, and reaches the foot, complicating her daily activities, notably her sleep regimen. Her blood pressure is affected by the ongoing pain, which starts as soon as she rises in the morning. Her history of SLE is managed effectively with Plaquenil, showing no systemic or inflammatory signs suggestive of exacerbation. Her arthritic conditions are age- appropriate and not indicative of a more aggressive disease process. Pain Description - Onset: Chronic, persisting daily - Quality: Radiating from back to neck and lower left leg, extending to foot - Location: Predominant in the lower back and left leg, extending to foot - Exacerbating Factors: Standing in the morning, overall daily activities - Relieving Factors: None effectively noted, minimal relief from prior steroid injections - Interference: Significant impact on sleep, and daily activities, affecting blood pressure control Physical Exam - Appears afebrile. - Alert and oriented. - Mood and affect appropriate. - Follows and participates in conversation appropriately. - Respiratory effort is unlabored. - Able to transition from sit to stand unassisted. - Ambulates with bilaterally normal heel strike and toe off. - Able to stand and walk on toes and heels. - SLR positive on left side Results Pain Management - Affect: Pain interferes significantly with sleep and daily life, impacting blood pressure control - Analgesia: Prior lumbar steroid injections at L4-5, providing 50% relief only for one day - Adverse Effects: None reported from current pain management regimen - Activities of Daily Living: Pain significantly disrupts sleep and daily functioning - Aberrant Drug Related Behaviors: None reported [facility] Medical History (Updated 02/27/25 @ 15:37 by KALI Li) Tubular adenoma of colon Tobacco use Seborrheic keratosis Osteopenia Essential hypertension Dyslipidemia 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 Cyst of kidney, acquired Arthropathy of left hip Anemia Discoid lupus erythematosus Surgical History (Updated 02/27/25 @ 15:34 by KALI Li) H/O bilateral cataract extraction (~2018) Hx of decompressive lumbar laminectomy (~02/2023) Social History (Updated 02/27/25 @ 15:04 by Gregoria Thrasher) Alcohol intake: current Alcohol intake frequency: 3 or more drinks per day Alcohol type: wine Patient Tobacco Use Status: Former Tobacco user Tobacco use type: Cigarette Substance Use Type: Marijuana 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: rt handed/[employer] Physical Exam Vital Signs: Last Vital Signs Pulse 82 03/28/25 12:02 Resp 16 03/28/25 12:02 BP 191/86 H 03/28/25 12:02 Pulse Ox 96 03/28/25 12:02 Oxygen Delivery Method Room Air 03/28/25 12:02 Assessment & Plan Assessment & Plan (1) Lumbar radiculopathy: Code(s): M54.16 - Radiculopathy, lumbar region Category: Medical Plan Plan - Plan for L2-3 and L3-4 lumbar transforaminal steroid injection on the left side to potentially enhance pain relief. - Obtain psychological clearance for a spinal cord stimulator trial as part of the pain management plan. - Detailed risks and introspection of spinal cord stimulation discussed, with a temporary trial phase outlined before potential permanent implant. - Exploration of non-surgical pain management given limited success from prior decompression surgery and injections. Patient was informed and verbally consented to the use of an ambient scribe for clinic note documentation during this visit. Discussion Notes I discussed with the patient her current pain management issues and explored non-surgical options, emphasizing the risks and benefits of spinal cord stimulator implantation, including infection and efficacy concerns. We also talked about the lack of significant compression to justify further decompression surgery. Psychological clearance is required before proceeding with spinal cord stimulator trials. The patient has consented to proceed with alternative interventional pain management strategies while awaiting device trial and discussed the next steps, ensuring she understands the staged approach towards possibly more invasive solutions. Patient Instructions - Plan for a lumbar transforaminal steroid injection at L2-3 and L3-4. - Access psychological clearance through [facility]. Expect contact from them for clearance related to spinal therapy. - Monitor pain levels and report any changes. - Avoid abrupt changes to current medication unless directed. - Follow up with pain clinic appointments as scheduled. Coding Level of Care Code Est Pt Level 3 (57309) Diagnoses Lumbar radiculopathy M54.16
[2025-03-28 12:02] VITALS: BP 191/86; PULSE 82; RESP 16; O2SAT 96
--- OUTSIDE RECORDS SUMMARY | 2025-03-28 12:50 | XMS_ITS | Encounter Summary ---
Author Organization [employer] Address [address] [place] [address] [address] [place] [address] Care Team Providers Care Molasses Preparer Name Role Phone Patsy Patel MD Primary Care Provider [phone] Tre Goodrich PharmD Unavailable [phone] John Mcclain OD Unavailable Reason for Referral * Consultation (Routine) - Authorized Specialty Diagnoses / Procedures Referred By Contac t Referred To Contact Pharmacy Diagnoses Primary hypertension Patsy Patel MD [address] [place] [address] Phone: tel: fax: Referral ID Status Reason Start Date Expiration Date Visits Requested Visits Authorized [id number] Authorized Consult and Treat 08/27/2024 08/27/2025 6 6 Encounter Details Date Type Department Care Team (Late st Contact Info) Description 08/27/2024 Orders Only [facility] [address] [place], [place] [phone] Patsy Patel MD [address], [place] [phone] Primary hypertension (Primary Dx) Social History Tobacco [...] 11:15 AM EDT Office Visit [facility] [address] [place] [address] Patsy Patel MD [address] [place] [address] Scheduled Referrals Name Type Priority Associated Diagnoses [...] documented as of this encounter Care Teams Molasses Preparer Relationship Specialty Start Date End Date Patsy Patel MD [address] [place] [address] PCP - General Family Medicine 10/16/18 Tre Goodrich, Evelina [address] [place] [address] Pharmacist Internal Medicine 12/25/23 John Mcclain OD [facility] [address] [place] [address] Optometry 11/14/24 documented as of this encounter
== END 2025-03-28 12:56 | disposition home or self-care (01) ==
LOC: HO.PMC 12:00
PROVIDERS: PCP Family Medicine; Visit Provider Internal Medicine
DX: M54.16 Radiculopathy, lumbar region (principal)
CPT/HCPCS: 99213

== ENCOUNTER → 2025-03-28 11:59 | Outpatient (BNVA) | payer MEDICARE, MEDICAID, SELFPAY | PROVIDERS: PCP Family Medicine; Visit Provider Internal Medicine | DX: M54.16 Radiculopathy, lumbar region (principal) | CPT/HCPCS: 99212 ==

== ENCOUNTER 2025-04-17 06:32 | Outpatient (REF) | payer MEDICARE, MEDICAID, SELFPAY ==
--- NOTE | ~2025-04-17 | FL_ITS ---
EXAMINATION: FL GUIDANCE ONLY HISTORY: M54.16 - Radiculopathy, lumbar region COMPARISON: None available. TECHNIQUE: Fluoroscopy time: 0.5 minutes. Cumulative Dose: 9.54 mGy. DAP: 0.0783 mGym2 Images: 3. FINDINGS: Fluoroscopic spot films of the lumbar spine demonstrate needles and contrast material in the regions of 2 left-sided facet joints. FL/FL guidance in treatment room IMPRESSION: Fluoroscopy during procedure. Please see procedure report for additional information. Electronically signed by: Finesse Quinonez MD 04/21/2025 08:15 AM EDT
--- OUTSIDE RECORDS SUMMARY | 2025-04-17 06:35 | XMS_ITS | Clinical Summary ---
Author Organization [facility] Address [address] [place] [address] [place] [address] Phone Care Team Providers Care Labels Molder Name Role Phone Patsy Patel MD Primary Care Provider [phone] Allergies Active Allergy Reactions Criticality Noted Date Comments Isaiah Inhibitors 12/08/2021 Diltiazem 12/08/2021 Hydralazine 07/19/2021 Medications aspirin EC 81 MG EC tablet Take 81 mg by mouth 1 (one) time each day Active Calcium Carb-Cholecalci ferol (CALCIUM 500+D3 PO) Take by mouth Activ e zinc gluconate 50 MG tablet Take by mouth 1 (one) time each day Active [place]-3 Fatty Acids (Fish Oil) 1000 MG capsule [...] -Agreed to order MRI and refer to land acquisition specialist. -Continue PT. Hematuria 10/25/2022 07/13/2023 Overview (07/13/2023): Last Assessment & Plan: -microscopic, evaluated by urologist Stage 3 chronic kidney disease 10/25/2022 0 07/13/2023 Overview (07/13/2023): Last Assessment & Plan: -Followed by brick off bearer -Optimize BP control -Avoid nephrotoxic drugs -Periodic lab to monitor renal function Patient encounter status 02/24/2022 023 Overview (07/13/2023): Last Assessment & Plan: Take the lowest dose, with least frequency, for shortest time. Remember to take it always with food. Favor topical over oral preparations. half-way current use of aspirin 02/23/2022 07/13/2023 Overview (07/13/2023): Last Assessment & Plan: Avoid falls, injuries and cuts. Monitor for excessive bruising and bleeding. Drug therapy finding 02/23/2022 07/13/2023 Overview (07/13/2023): Last Assessment & Plan: Monitor for muscle tenderness, swelling and weakness Last Assessment & Plan: Take daily as prescribed. Use daily sun protection all year round, particularly during spring and summer months. 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 Avoid [...] adjust medication at this time. -Co-managed with brick off bearer - EKG 12/24/19 - NSR, no acute [...] 25 mg to 50 mg daily by brick off bearer. -Benicar-HCTZ PA was denied. -She does not want to adjust any medication at this time. --Follow- up in 3 months. Disorder of hip joint 07/21/2015 07/13/2023 Overview (07/13/2023): Last Assessment & Plan: -seen by [facility] orthopedist -PT with iontophoresis for trochanteric bursitis [...] recent eye exam by Dr. Mcclain in [place] within 2 weeks- next scheduled for 6 [...] recent eye exam by Dr. Mcclain in [place] within 2 weeks- next scheduled for 6 months. Encouraged to continue carefully Plaquenil with daily sun protection particularly during summer and spring months. In the past labs from November 2019 reassuring-new set requested today. 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 -Needs eye exam for long-term use of [...] Medicaid [place] Care Teams Labels Molder Relationship Specialty Start Date End Date Patsy Patel MD PCP - General Family Medicine 07/08/21
--- OUTSIDE RECORDS SUMMARY | 2025-04-17 06:35 | XMS_ITS | Encounter Summary ---
Author Organization [employer] Address [address] [place] [address] Care Team Providers Care Inspector Metal Can Name Role Phone Patsy Patel MD Primary Care Provider [phone] Tre Goodrich PharmD Unavailable John Mcclain OD Unavailable Reason for Referral * Consultation (Routine) - Pending Review Specialty Diagnoses / Procedures Referred By Jorge A t Referred To Contact Pharmacy Diagnoses Primary hypertension Patsy Patel MD [address] [place] [address] Phone: tel: fax: Referral ID Status Reason Start Date Expiration Date Visits Requested Visits Authorized [id number] Pending Review Consult and Treat 4 08/27/2025 6 6 Encounter Details Date Type Department Care Team (Late st Contact Info) Description 08/27/2024 Orders Only [facility] [address], [place] [phone] Patsy Patel MD [address] [place], [place] [phone] Primary hypertension (Primary Dx) Social History Tobacco [...] Care Team (Late st Contact Info) Description 07/02/2025 2:30 PM EDT Telemedicine [facility] [address] [place] [address] Tre Goodrich, PharmD [address] [place] [address] Scheduled Referrals Name Type Priority Associated Diagnoses Orde r Schedule Referral to Pharmacy CDTM Outpatient Referral Routine Primary hypertension Ordered: 08/27/2024 documented as of this encounter Goals Goal Patient Goal Type Associated Problems Recent Progress Patient-Stated? Author Blood Pressure < 140/90 Blood Pressure 142/76( 025 11:44 AM EDT) No Tre Goodrich, PharmD documented as of this encounter Visit Diagnoses Diagnosis Primary hypertension- Primary Unspecified essential hypertension documented in this encounter Additional Health Concerns Assessment Noted Time PHQ-9 Depression Total Score: 10 023 1:33 PM EST documented as of this encounter Care Teams Inspector Metal Can Relationship Specialty Start Date End Date Patsy Patel MD [address] [place] [address] PCP - General Family Medicine 10/16/18 Tre Goodrich, MaudeD [address] [place] [address] Pharmacist Internal Medicine 12/25/23 John Mcclain OD [facility] [address] [place] [address] Optometry 11/14/24 documented as of this encounter
== END 2025-04-17 06:33 | disposition home or self-care (01) ==
LOC: CF 06:32
PROVIDERS: Visit Provider Internal Medicine
DX: M54.16 Radiculopathy, lumbar region (principal)
CPT/HCPCS: 64483; 64484; J1100; J2003; Q9967

== ENCOUNTER 2025-04-17 13:45 | Outpatient (AMB) | payer MEDICARE, MEDICAID, SELFPAY ==
[2025-04-17 13:46] VITALS: BP 136/75; PULSE 70; RESP 16; O2SAT 94
--- NOTE | 2025-04-17 13:46 | MHC.OFFVIS ---
Vital Signs 04/17/25 13:46 04/17/25 14:02 Height 5 ft 4 in 5 ft 4 in Weight 175 lb 175 lb BMI 30.0 30.0 BP 136/75 Blood Pressure Location Lt brachial Lt brachial Position Sitting Sitting Respiration 16 Pulse 70 Pulse Source Pulse Oximeter Pulse Oximeter Pulse Oximetry (%) 94 Oxygen Delivery Method Room Air Room Air Intake Visit Reasons: Left L2-L3, L3-L4 TFESI Allergies ibuprofen Allergy (Severe, Verified 03/28/25 12:03) Affects the Kidneys ANDRADE Inhibitors Allergy (Unknown, Verified 03/28/25 12:03) Unknown diltiazem Allergy (Unknown, Verified 03/28/25 12:03) Unknown hydralazine Allergy (Unknown, Verified 03/28/25 12:03) Unknown PFSH Medical History (Updated 02/27/25 @ 15:37 by KALI Li) Tubular adenoma of colon Tobacco use Seborrheic keratosis Osteopenia Essential hypertension Dyslipidemia 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 Cyst of kidney, acquired Arthropathy of left hip Anemia Discoid lupus erythematosus Surgical History (Updated 02/27/25 @ 15:34 by KALI Li) H/O bilateral cataract extraction (~2018) Hx of decompressive lumbar laminectomy (~02/2023) Social History (Updated 02/27/25 @ 15:04 by Gregoria Thrasher) Alcohol intake: current Alcohol intake frequency: 3 or more drinks per day Alcohol type: wine Patient Tobacco Use Status: Former Tobacco user Tobacco use type: Cigarette Substance Use Type: Marijuana 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: rt handed/[employer] Physical Exam Vital Signs: Last Vital Signs Pulse 70 04/17/25 13:46 Resp 16 04/17/25 13:46 BP 136/75 04/17/25 13:46 Pulse Ox 94 04/17/25 13:46 Oxygen Delivery Method Room Air 04/17/25 13:46 BMI result Body Mass Index 30.0 Assessment & Plan Assessment & Plan Orders: Orders FL guidance in treatment room Today M54.16 - Radiculopathy, lumbar region Coding
[2025-04-17 14:02] VITALS: BP 140/80; PULSE 67; RESP 18; O2SAT 99
--- NOTE | 2025-04-17 14:35 | A.OFFVIS_ITS ---
Vital Signs 04/17/25 13:46 04/17/25 14:02 Height 5 ft 4 in 5 ft 4 in Weight 175 lb 175 lb BMI 30.0 30.0 BP 136/75 140/80 H Blood Pressure Location Lt brachial Lt brachial Position Sitting Sitting Respiration 16 18 Pulse 70 67 Pulse Source Pulse Oximeter Pulse Oximeter Pulse Oximetry (%) 94 99 Oxygen Delivery Method Room Air Room Air Intake Visit Reasons: Left L2-L3, L3-L4 TFESI Allergies ibuprofen Allergy (Severe, Verified 03/28/25 12:03) Affects the Kidneys ANDRADE Inhibitors Allergy (Unknown, Verified 03/28/25 12:03) Unknown diltiazem Allergy (Unknown, Verified 03/28/25 12:03) Unknown hydralazine Allergy (Unknown, Verified 03/28/25 12:03) Unknown HPI HPI Left L2-L3, L3-L4 TFESI: Details: Patient presents for scheduled procedure. Denies any recent cough, cold, infection, fever or other significant changes in medical history since last office visit. 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 Cyst of kidney, acquired Arthropathy of left hip Anemia Discoid lupus erythematosus Surgical History (Updated 02/27/25 @ 15:34 by KALI Li) H/O bilateral cataract extraction (~2018) Hx of decompressive lumbar laminectomy (~02/2023) Social History (Updated 02/27/25 @ 15:04 by Gregoria Thrasher) Alcohol intake: current Alcohol intake frequency: 3 or more drinks per day Alcohol type: wine Patient Tobacco Use Status: Former Tobacco user Tobacco use type: Cigarette Substance Use Type: Marijuana 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 The patient was placed in the prone position on the fluoroscopy table. The lumbosacral area was prepped with chloraprep, allowed to dry and draped in sterile fashion. Using fluoroscopy, the skin overlying our target was anesthetized with 0.5% lidocaine. A 22 gauge 3.5 inch spinal needle was advanced to the safe triangle in the upper pole of the left L2 foramen. Transient paresthesias were elicited with needle placement and aspiration was negative for blood and CSF. Correct needle position was confirmed with approximately 1 ml contrast dye (Omnipaque 180 mg/ml) injected under real-time fluoroscopy with no paresthesia. No evidence of vascular or intrathecal uptake was seen and there was both epidural and peripheral spread of the contrast agent. 7.5 mg dexamethasone plus 1 ml containing 0.5% lidocaine was slowly injected. The needle was flushed and removed. The same procedure was repeated for the remaining levels. The skin was cleansed and a sterile bandages were applied. The patient tolerated the procedure well and no complications were encountered. Following the procedure the patient's vital signs were stable. The patient was discharged home in good condition with post-procedural instructions. Time Out: Immediately prior to the procedure, the following was verbally confirmed that there is a signed consent form and that the correct patient, planned procedure, site and side are consistent with documentation and that necessary equipment and/or blood products are available prior to the start of the case. Complications: none EBL: <5 cc 16518 - Lumbar/Sacral 30781 - Lumbar/Sacral, additional level Procedure code (CPT) selection complete Assessment & Plan Assessment & Plan (1) Lumbar radiculopathy: Code(s): M54.16 - Radiculopathy, lumbar region Category: Medical Plan Patient is status post left L2 & L3 TFESI. Patient tolerated procedure well and was discharged home in stable condition with discharge instructions. All questions were answered. We will follow-up via telephone or in clinic to assess response to therapy. A follow-up appointment was made during today's visit. Orders: Orders FL guidance in treatment room 04/17/25 M54.16 - Radiculopathy, lumbar region Coding Level of Care Code Procedure Only Diagnoses Lumbar radiculopathy M54.16 CPT Codes Transforaminal Epidural Steroid Inj - TESI 3: 57299 - Lumbar/Sacral ([id number]) Transforaminal Epidural Steroid Inj - TESI 4: 43010 - Lumbar/Sacral, additional level ([id number])
== END 2025-04-17 14:46 | disposition home or self-care (01) ==
LOC: HO.PMCPRC 13:45
PROVIDERS: PCP Family Medicine; Visit Provider Internal Medicine
DX: M54.16 Radiculopathy, lumbar region (principal)
CPT/HCPCS: 64483; 64484

== ENCOUNTER 2025-05-07 10:43 | Outpatient (AMB) | payer MEDICARE, MEDICAID, SELFPAY ==
--- NOTE | 2025-05-07 11:01 | A.OFFVIS_ITS ---
Vital Signs 05/07/25 11:04 Height 5 ft 4 in Pulse 66 Pulse Source Pulse Oximeter Pulse Oximetry (%) 97 Oxygen Delivery Method Room Air Comment Patient refused weight and Blood Pressure Intake Visit Reasons: S/P Left L2-L3, L3-L4 TFESI Allergies ibuprofen Allergy (Severe, Verified 05/07/25 11:05) Affects the Kidneys ANDRADE Inhibitors Allergy (Unknown, Verified 05/07/25 11:05) Unknown diltiazem Allergy (Unknown, Verified 05/07/25 11:05) Unknown hydralazine Allergy (Unknown, Verified 05/07/25 11:05) Unknown HPI HPI S/P Left L2-L3, L3-L4 TFESI: Details: History of Present Illness The patient is a 70-year-old female presenting with lumbar radicular pain and postlaminectomy syndrome. The lumbar radicular pain has been persistent and unresponsive to previous interlaminar and transforaminal injections. The patient has undergone left L2 and L3 transforaminal and left parasagittal interlaminar epidural injections without significant relief. The postlaminectomy syndrome has not responded to epidural steroid injections, necessitating further evaluation for a spinal cord stimulator trial. Pain Description - Persistent lumbar radicular pain not relieved by interlaminar or transforaminal injections - Pain associated with postlaminectomy syndrome Physical Exam - Appears afebrile. - Alert and oriented. - Mood and affect appropriate. - Follows and participates in conversation appropriately. - Respiratory effort is unlabored. - Able to transition from sit to stand unassisted. - Ambulates with bilaterally normal heel strike and toe off. - Able to stand and walk on toes and heels. 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 Cyst of kidney, acquired Arthropathy of left hip Anemia Discoid lupus erythematosus Surgical History (Updated 02/27/25 @ 15:34 by KALI Li) H/O bilateral cataract extraction (~2018) Hx of decompressive lumbar laminectomy (~02/2023) Social History (Updated 02/27/25 @ 15:04 by Gregoria Thrasher) Alcohol intake: current Alcohol intake frequency: 3 or more drinks per day Alcohol type: wine Patient Tobacco Use Status: Former Tobacco user Tobacco use type: Cigarette Substance Use Type: Marijuana 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: rt handed/[employer] Physical Exam Vital Signs: Last Vital Signs Pulse 66 05/07/25 11:04 Pulse Ox 97 05/07/25 11:04 Oxygen Delivery Method Room Air 05/07/25 11:04 Assessment & Plan Assessment & Plan (1) Postlaminectomy syndrome: Code(s): M96.1 - Postlaminectomy syndrome, not elsewhere classified Category: Medical Plan Plan - Proceed with psychological evaluation for spinal cord stimulator trial. - Contact the referral service to confirm the psychological evaluation appointment. - Follow up with surgical instrument technician if there are issues with scheduling the evaluation. - Plan for a spinal cord stimulator trial once psychological clearance is obtained and insurance authorization is secured. Patient was informed and verbally consented to the use of an ambient scribe for clinic note documentation during this visit. Discussion Notes I discussed with the patient the lack of response to previous interlaminar and transforaminal injections for her lumbar radicular pain and postlaminectomy syndrome. We reviewed the plan to proceed with a psychological evaluation as a prerequisite for a spinal cord stimulator trial. I explained the process of obtaining psychological clearance and insurance authorization before proceeding with the trial. The patient was advised to contact the referral service to confirm her appointment and to follow up with Rekha if there are any issues. Patient Instructions - Call the referral service to confirm your psychological evaluation appointment. - Follow up with Rekha if you encounter any issues with scheduling. - Await further instructions after the psychological evaluation is completed. Coding Level of Care Code Est Pt Level 3 (00952) Diagnoses Postlaminectomy syndrome M96.1
[2025-05-07 11:04] VITALS: PULSE 66; O2SAT 97
--- OUTSIDE RECORDS SUMMARY | 2025-05-07 11:45 | XMS_ITS | Clinical Summary ---
Author Organization [facility] Address [address] [place] [address] Phone Care Team Providers Care Paper Roll Machine Operator Name Role Phone Patsy Patel MD Primary Care Provider [phone] Allergies Active Allergy Reactions Criticality Noted Date Comments Isaiah Inhibitors 12/08/2021 Diltiazem Hcl 12/08/2021 Medications aspirin 81 MG EC tablet Take 81 mg by mouth daily. Active calcium carbonate/vitam in D3 (CALCIUM 600 + D,3, ORAL) Take 1 capsule by mouth daily. Active omega 3-qvj-ylo-fish oil 1,000 mg (120 mg-180 mg) Cap Take 1 capsule by mouth. 3 times a week Active atorvastatin (LIPITOR) 20 MG tablet Take 20 mg by mouth daily. Active terbinafine HCL (LAMISIL) 1 % cream Apply topically daily as needed. Active metoprolol succinate (TOPROL-XL) 50 MG 24 hr tablet Take 75 mg by mouth daily. 2 Active magnesium 250 mg Tab Take by mouth daily. Active amLODIPine (NORVASC) 2.5 MG tablet Take 2.5 mg by mouth every morning. Active zinc gluconate 50 mg tablet Take 50 mg by mouth. On Monday and Monday Active taurine 500 mg Cap Take by mouth. Activ e biotin 5 mg Cap Take 5 mg by mouth every 7 days. Once weekly Active telmisartan (MICARDIS) 40 MG tablet Take 40 mg by mouth daily. Active hydroxychloroqu ine (PLAQUENIL) 200 mg tabletIndicatio ns:Discoid lupus Take 1 tablet (200 mg total) by mouth daily. 90 tablet 3 Active Active Problems Problem Noted Date Diagnosed Date Sciatica of left side 04/08/2024 Assessment & Plan (11/09/2024 5:00 PM EST): Avoid bending, stooping, heavy lifting, sudden turns, falls and injuries. Use warm packs versus warm shower prior to gentle, regular core muscle strengthening exercises. Use topical products such as Arnica, Biofreeze, Voltaren gel versus medicated patches such as Salonpas or IcyHot patch 2-3 times daily and if needed at bedtime. Call if symptoms worsen or not improve for consideration epidural steroid injection. She may benefit from gentle, regular exercise routine in a warm pool such as at [facility] in [place], [place]. Assessment & Plan (04/09/2024 9:15 PM EDT): Avoid bending, stooping, heavy lifting, sudden turns, falls and injuries. Use warm packs versus warm shower prior to gentle, regular core muscle strengthening exercises. Use topical products such as Arnica, Biofreeze, Voltaren gel versus medicated patches such as Salonpas or IcyHot patch 2-3 times daily and if needed at bedtime. Call if symptoms worsen or not improve for consideration epidural steroid injection. Achilles tendinitis of right lower extremity Assessment & Plan (04/09/2024 9:13 PM EDT): Wear well-fitting, supportive shoes. Use warm pack versus warm shower prior to gentle, regular stretching-examples of proper exercises with pictures and detailed instructions printed for home use today. She may benefit from applying topical Arnica, Biofreeze versus medicated patches such as Salonpas or IcyHot patch 2-3 times daily and if needed at bedtime as tolerated. Lumbar radiculopathy 01/19/2023 Assessment & Plan (02/13/2023 10:32 AM EDT): Seen by a neurosurgeon on 01/17/2023 and getting ready for surgical release of impinged nerve roots in the nearest future with expected recovery over 2-3 weeks per her report. 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 On 200 mg daily since 2015 after initially 200 mg twice daily beginning from June 2009. Encouraged to continue carefully Plaquenil with daily sun protection particularly during summer and spring months. Ophthalmologic checkup from 01/08/2024 by Johny Lopez OD reassuring without signs of retinopathy. Get labs today and prior to next visit-orders in [facility]. Call if problems or questions. Assessment & Plan (04/09/2024 9:12 PM EDT): Well-controlled with 200 mg Plaquenil daily without side effects. On 200 mg daily since 2015 after initially 200 mg twice daily beginning from June 2009. Encouraged to continue carefully Plaquenil with daily sun protection particularly during summer and spring months. Ophthalmologic checkup from 01/08/2024 by Johny Lopez OD reassuring without signs of retinopathy. Get labs today and prior to next visit-orders in [facility]. Call if problems or questions. Assessment & Plan (10/04/2023 9:41 PM EST): Well-controlled with 200 mg Plaquenil daily without side effects. On 200 mg daily since 2015 after initially 200 mg twice daily beginning from June 2009. Encouraged to continue carefully Plaquenil with daily sun protection particularly during summer and spring months. Ophthalmologic checkup from 07/05/2023 Xenia Jimenez OD reassuring without signs of retinopathy. Get labs within the next couple of weeks and prior to next visit- orders in [facility].. Assessment & Plan (02/13/2023 10:32 AM EDT): Well-controlled with 200 mg Plaquenil daily without side effects. On 200 mg daily since 2015 after initially 200 mg twice daily beginning from June 2009.. Encouraged to continue carefully Plaquenil with daily sun protection particularly during summer and spring months. Ophthalmologic checkup is scheduled for February 2023 and labs within the next couple of weeks. Assessment & Plan (05/26/2022 2:22 PM EDT): Well-controlled with 200 mg Plaquenil daily without side effects. On 200 mg daily since 2015 after initially 200 mg twice daily beginning from June 2009. She reports recent eye exam by Dr. Mcclain in [place] within 2 weeks- next scheduled for 6 months. Encouraged to continue carefully Plaquenil with daily sun protection particularly during summer and spring months. In the past labs from November 2019 reassuring-new set requested today. Assessment & Plan (02/24/2022 12:45 AM EDT): Well-controlled with 200 mg Plaquenil daily without side effects. On 200 mg daily since 2015 after initially 200 mg twice daily beginning from June 2009. She reports recent eye exam by Dr. Mcclain in [place] within 2 weeks- next scheduled for 6 months. Encouraged to continue carefully Plaquenil with daily sun protection particularly during summer and spring months. In the past labs from November 2019 reassuring-new set requested today. On statin therapy 02/23/2022 Assessment & Plan (11/08/2024 11:50 AM EST): Monitor for muscle tenderness, swelling and weakness Assessment & Plan (04/08/2024 11:39 AM EDT): Monitor for muscle tenderness, swelling and weakness Assessment & Plan (05/26/2022 2:23 PM EDT): Monitor for muscle tenderness, swelling and weakness Assessment & Plan (02/24/2022 12:46 AM EDT): Monitor for muscle tenderness, swelling and weakness Aspirin long-term use 02/23/2022 Assessment & Plan (11/08/2024 11:47 AM EST): Avoid falls, injuries and cuts. Monitor for excessive bruising and bleeding. Assessment & Plan (04/08/2024 11:39 AM EDT): Avoid falls, injuries and cuts. Monitor for excessive bruising and bleeding. Assessment & Plan (10/04/2023 11:30 AM EST): Avoid falls, injuries and cuts. Monitor for excessive bruising and bleeding. Assessment & Plan (05/26/2022 2:22 PM EDT): Avoid falls, injuries and cuts. Monitor for excessive bruising and bleeding. Assessment & Plan (02/24/2022 12:46 AM EDT): Avoid falls, injuries and cuts. Monitor for excessive bruising and bleeding. Primary hypertension 02/23/2022 Assessment & Plan (02/24/2022 12:43 AM EDT): Encouraged to continue antihypertensive medications exactly as prescribed and monitorBP preferably at the same time of the day, after 30 minutes rest, on the same arm, by the same equipment. Seek help if readings remain above 120/80 Long-term use of Plaquenil 02/23/2022 Assessment & Plan (11/08/2024 11:47 AM EST): Take daily as prescribed. Use daily sun protection all year round, particularly during spring and summer months. See dye range operator cloth as scheduled every 6 months. Avoid concomitant use of QT interval elongating meds such as some SSRIs Assessment & Plan (04/08/2024 11:39 AM EDT): Take daily as prescribed. Use daily sun protection all year round, particularly during spring and summer months. See dye range operator cloth as scheduled every 6 months. Avoid concomitant use of QT interval elongating meds such as some SSRIs Assessment & Plan (10/04/2023 11:29 AM EST): Take daily as prescribed. Use daily sun protection all year round, particularly during spring and summer months. See dye range operator cloth as scheduled every 6 months. Avoid concomitant use of QT interval elongating meds such as some SSRIs Assessment & Plan (01/19/2023 4:30 PM EDT): Take daily as prescribed. Use daily sun protection all year round, particularly during spring and summer months. See dye range operator cloth as scheduled every 6 months. Avoid concomitant use of QT interval elongating meds such as some SSRIs Assessment & Plan (05/26/2022 2:23 PM EDT): Take daily as prescribed. Use daily sun protection all year round, particularly during spring and summer months. See dye range operator cloth as scheduled every 6 months. Avoid concomitant use of QT interval elongating meds such as some SSRIs Assessment & Plan (02/24/2022 12:47 AM EDT): Take daily as prescribed. Use daily sun protection all year round, particularly during spring and summer months. See dye range operator cloth as scheduled every 6 months. Avoid concomitant use of QT interval elongating meds such as some SSRIs Primary osteoarthritis involving multiple joints 02/23/2022 Assessment & Plan (11/08/2024 11:46 AM EST): Joint protection, energy conservation. Gentle, regular exercise routine. Avoid falls, injuries, overuse. Keep body weight in ideal range for her height. She may benefit from topical cream such as Arnica, Biofreeze, Aspercreme versus medicated patches such as salonpas, icy hot patch 2-3 times daily and if necessary at bedtime x 3 weeks. Assessment & Plan (04/08/2024 11:39 AM EDT): Joint protection, energy conservation. Gentle, regular exercise routine. Avoid falls, injuries, overuse. Keep body weight in ideal range for her height. She may benefit from topical cream such as Arnica, Biofreeze, Aspercreme versus medicated patches such as salonpas, icy hot patch 2-3 times daily and if necessary at bedtime x 3 weeks. Assessment & Plan (10/04/2023 11:29 AM EST): Joint protection, energy conservation. Gentle, regular exercise routine. Avoid falls, injuries, overuse. Keep body weight in ideal range for her height. She may benefit from topical cream such as Arnica, Biofreeze, Aspercreme versus medicated patches such as salonpas, icy hot patch 2-3 times daily and if necessary at bedtime x 3 weeks. Assessment & Plan (01/19/2023 4:44 PM EDT): Joint protection, energy conservation. Gentle, regular exercise routine. Avoid falls, injuries, overuse. Keep body weight in ideal range for her height. She may benefit from topical cream such as Arnica, Biofreeze, Aspercreme versus medicated patches such as salonpas, icy hot patch 2-3 times daily and if necessary at bedtime x 3 weeks. Assessment & Plan (05/26/2022 2:22 PM EDT): Joint protection, energy conservation. Gentle, regular exercise routine. Avoid falls, injuries, overuse. Keep body weight in ideal range for her height. She may benefit from topical cream such as Arnica, Biofreeze, Aspercreme versus medicated patches such as salonpas, icy hot patch 2-3 times daily and if necessary at bedtime x 3 weeks. Assessment & Plan (02/24/2022 12:46 AM EDT): Joint protection, energy conservation. Gentle, regular exercise routine. Avoid falls, injuries, overuse. Keep body weight in ideal range for her height. She may benefit from topical cream such as Arnica, Biofreeze, Aspercreme versus medicated patches such as salonpas, icy hot patch 2-3 times daily and if necessary at bedtime x 3 weeks. Resolved Problems Problem Noted Date Diagnosed Date Resolved Date Aspirin long-term use 01/19/20232022 Assessment & Plan (01/19/2023 4:44 PM EDT): Avoid falls, injuries and cuts. Monitor for excessive bruising and bleeding. NSAID long-term use 02/24/2022 04/08/20 Assessment & Plan (05/26/2022 2:23 PM EDT): Take the lowest dose, with least frequency, for shortest time. Remember to take it always with food. Favor topical over oral preparations. Assessment & Plan (02/24/2022 12:47 AM EDT): Take the lowest dose, with least frequency, for shortest time. Remember to take it always with food. Favor topical over oral preparations. NSAID induced gastritis 02/23/202202/13 Social History Tobacco Use Types Packs/Day Years Used Date Smoking Tobacco: Former Smokeless Tobacco: Never Alcohol Use Standard Drinks/Week Comments Yes 7 (1 standard drink = 0.6 oz pur e alcohol) Education Answer Date Recorded Are you interested in more education? Not on michael e 02/10/2023 Are you concerned about learning? Not on file 02/10/2023 No 02/10/2023 No 02/10/2023 Digital Access Answer Date Recorded No 2023 No 2023 Reliable internet access at home? Not on file 2023 Device with a working camera? Not on file Comments Unknown Sex and Gender Information Value Date Recorded Sex Assigned at Not on file Legal Sex Female 8:07 PM EST Gender Identity Not on file Sexual Orientation Not on file Last Filed Vital Signs Vital Sign Reading Time Taken Comments Blood Pressure 138/78 11/08/2024 11:43 AM EST Pulse 75 11/08/2024 11:43 AM EST Temperature - - Respiratory Rate - - Oxygen Saturation 97% 11/08/2024 11:43 AM EST Inhaled Oxygen Concentration - - Weight 80.3 kg (177 lb) 04/08/2024 11:00 AM EDT Height 162.6 cm (5' 4 ) 11/08/2024 11:43 AM EST Body Mass Index 30.38 04/08/2024 11:00 AM EDT Plan of Treatment Health Maintenance Due Date Last Done Comments LIPID PANEL 1953 DEPRESSION SCREENING 1965 SMOKING Hx and SMOKELESS TOBACCO SCREENING 1966 HEPATITIS C SCREENING 1971 COLOGUARD 1998 COLONOSCOPY 1998 COLORECTAL CANCER SCREENING 1998 FIT TEST 1998 FOBT 1998 SIGMOIDOSCOPY 1998 VIRTUAL COLONOSCOPY 1998 COVID-19 VACCINE ( season) 2024 10/18/2023, 08/22/2022, 01/21/2022, Additional history exists BLOOD PRESSURE 05/08/2025 11/08/2024 MAMMOGRAM 06/14/2025 06/14/2023, 06/14/2023 CREATININE LEVEL 11/01/2025 11/01/2024, 03/2024, 01/27/2023, Additional history exists POTASSIUM LEVEL 11/01/2025 11/01/2024, 06/0 03/2024, 01/27/2023, Additional history exists Adult Td,Tdap Booster 12/29/2031 12/28/2021 , 01/19/2011, 02/04/2009 ZOSTER VACCINES Completed 05/15/2020, 12/24/2019 PNEUMOCOCCAL VACCINES (50+ years) Completed 12/28/2021, 10/21/2019, 04/14/2010 OSTEOPOROSIS SCREENING INITIAL (ONE-TIME) Completed 06/14/2023 RSV VACCINE Completed 01/15/2024 HEPATITIS A VACCINES Aged Out No long er eligible based on patient's age to complete this topic HIB VACCINES Aged Out No longer eligi ble based on patient's age to complete this topic MENINGOCOCCAL VACCINES (ACWY) Aged Out No longer eligible based on patient's age to complete this topic MENINGOCOCCAL VACCINES (B) Aged Out N o longer eligible based on patient's age to complete this topic Medical Devices Not on file Procedures Procedure Name Priority Date/Time Associated Diagnosis Comments COMPREHENSIVE METABOLIC PANEL Routine 11/01/2024 1:37 PM EST Discoid lupus Long-term use of Plaquenil MAMMOGRAPHY Routine 06/14/2023 8:22 AM EDT DEXA SCAN Routine 06/14/2023 8:22 AM EDT from Last 3 Months or Most Recently Relevant to Health Maintenance Results * (ABNORMAL) Comprehensive metabolic panel (11/01/2024 1:37 PM EST) SODIUM 137 133 - 146 mmol/L [facility] POTASSIUM 4.5 3.3 - 5.1 mmol/L [facility] Comment:Specimen slightly he molyzed, result may be falsely elevated. CHLORIDE 101 96 - 108 mmol/L [facility] CO2 23 21 - 35 mmol/L [facility] BUN 16 6 - 19 mg/dL [facility] CREATININE 0.80 0.5 - 1.5 mg/dL [facility] GLUCOSE 100(H) 70 - 99 mg/dL [facility] ALBUMIN 4.2 3.9 - 4.8 g/dL [facility] TOTAL PROTEIN 7.7 6.5 - 8.0 g/dL [facility] CALCIUM 9.8 8.4 - 10.3 mg/dL [facility] ALKALINE PHOSPHATASE 64 39 - 117 U/L [facility] TOTAL BILIRUBIN 0.5 0.0 - 1.2 mg/dL [facility] AST 27 0 - 37 U/L [facility] ALT 19 0 - 40 U/L [facility] GLOBULIN 3.5 1 - 4.8 g/dL [facility] EGFR 79 >59 mL/min/1.7 3m2 [facility] Comment:Estimated glomerular filtration rate calculated using the CKD-EPI refit equation. ANION GAP 18 10 - 20 mmol/L [facility] Blood 11/01/2024 1:37 PM EST 11/01/2024 1:40 PM EST Carlotta Yeboah MD LAB BLOOD ORDERABLES Fin al Result Performing Organization Address City/State/[facility] Co de Phone Number [facility] [address] [place] [address] * DEXA SCAN (06/14/2023 8:22 AM EDT) Historical Provider HEALTH MAINTENANCE Final Result * MAMMOGRAPHY FOR RESULT ENTRY ONLY (06/14/2023 8:22 AM EDT) Historical Provider HEALTH MAINTENANCE Final Result from Last 3 Months or Most Recently Relevant to Health Maintenance Insurance [facility] PART A [facility] & B HEALTH MEDICARE PART A & B MEDICARE PART A & B [facility] MEDICARE PART A & B MEDICARE PART A & B [facility] Care Teams Paper Roll Machine Operator Relationship Specialty Start Date End Date Patsy Patel MD [address] [place] [address] PCP - General Family Medicine 08/04/21 Additional Source Comments The information contained in this document represents components of the legal health record. It is not the complete legal health record.[facility]
--- OUTSIDE RECORDS SUMMARY | 2025-05-07 11:45 | XMS_ITS | Encounter Summary ---
Author Organization [facility] Address [address] [place] [address] Care Team Providers Care Nematology Teacher Name Role Phone Patsy Patel MD Primary Care Provider [phone] Tre Goodrich PharmD Unavailable [phone] John Mcclain OD Unavailable Reason for Referral * Consultation (Routine) - Pending Review Specialty Diagnoses / Procedures Referred By Jorge A t Referred To Contact Pharmacy Diagnoses Primary hypertension Patsy Patel MD [address] [place] [address] Phone: tel: fax: Referral ID Status Reason Start Date Expiration Date Visits Requested Visits Authorized [id number] Pending Review Consult and Treat 4 08/27/2025 6 6 Encounter Details Date Type Department Care Team (Late st Contact Info) Description 08/27/2024 Orders Only [facility] [address] [place] [address] [phone] Ptasy Patel MD [address] [place], [place] [phone] Primary hypertension (Primary Dx) Social History Tobacco [...] Info) Description 07/02/2025 2:30 PM EDT Telemedicine [facility] [address] [place] [address] Tre Goodrich, PharmD [address] [place] [address] Scheduled Referrals Name Type Priority Associated Diagnoses [...] documented as of this encounter Care Teams Nematology Teacher Relationship Specialty Start Date End Date Patsy Patel MD [address] [place] [address] PCP - General Family Medicine 10/16/18 Tre Goodrich, MaudeD [address] [place] [address] Pharmacist Internal Medicine 12/25/23 John Mcclain OD [facility] [address] [place] [address] Optometry 11/14/24 documented as of this encounter
--- OUTSIDE RECORDS SUMMARY | 2025-05-07 11:45 | XMS_ITS | Clinical Summary ---
Author Organization [facility] Address [address] [place] [address] Phone Care Team Providers Care Shipyard Painter Apprentice Name Role Phone Patsy Patel MD Primary Care Provider [phone] Allergies Active Allergy Reactions Criticality Noted Date Comments Isaiah Inhibitors 12/08/2021 Diltiazem 12/08/2021 Hydralazine 07/19/2021 Medications aspirin EC 81 MG EC tablet Take 81 mg by mouth 1 (one) time each day Active Calcium Carb-Cholecalci ferol (CALCIUM 500+D3 PO) Take by mouth Activ e zinc gluconate 50 MG tablet Take by mouth 1 (one) time each day Active [place]-3 Fatty Acids (Fish Oil) 1000 MG capsule [...] -Agreed to order MRI and refer to compound specialist. -Continue PT. Hematuria 10/25/2022 07/13/2023 Overview (07/13/2023): Last Assessment & Plan: -microscopic, evaluated by urologist Stage 3 chronic kidney disease 10/25/2022 0 07/13/2023 Overview (07/13/2023): Last Assessment & Plan: -Followed by tire servicer -Optimize BP control -Avoid nephrotoxic drugs -Periodic [...] particularly during spring and summer months. See family services coordinator as scheduled every 6 months. Avoid [...] adjust medication at this time. -Co-managed with tire servicer - EKG 12/24/19 - NSR, no acute [...] 25 mg to 50 mg daily by tire servicer. -Benicar-HCTZ PA was denied. -She does not want to adjust any medication at this time. --Follow- up in 3 months. Disorder of hip joint 07/21/2015 07/13/2023 Overview (07/13/2023): Last Assessment & Plan: -seen by [facility] orthopedist -PT with iontophoresis for [...] recent eye exam by Dr. Mcclain in [place] within 2 weeks- next scheduled for 6 [...] recent eye exam by Dr. Mcclain in [place] within 2 weeks- next scheduled for 6 months. Encouraged to continue carefully Plaquenil with daily sun protection particularly during summer and spring months. In the past labs from November 2019 reassuring-new set requested today. Last Assessment & Plan: -Current Extension Specialist Dr. Martin last note on May 2022 -Current medication: Hydroxychloroquine 200 mg daily -Continue current treatment plan per her current credentialer. -Needs eye exam for long-term use of [...] Cancer Screening: Sigmoidoscopy 2002 Influenza Vaccine (#1) 2025 , 10/18/2023, 08/15/2013, Additional history exists Pneumococcal Vaccine: 50+ Years Completed 12/28/2021, 10/21/2019, 04/14/2010 Hepatitis B Vaccine Aged Out No longe r eligible based on patient's age to complete this topic Insurance Medicare Medicaid [place] Medicare Medicaid [place] Care Teams Shipyard Painter Apprentice Relationship Specialty Start Date End Date Patsy Patel MD PCP - General Family Medicine 07/08/21
== END 2025-05-07 11:29 | disposition home or self-care (01) ==
LOC: HO.PMC 10:44
PROVIDERS: PCP Family Medicine; Visit Provider Internal Medicine
DX: M96.1 Postlaminectomy syndrome, not elsewhere classified (principal)
CPT/HCPCS: 99213

== ENCOUNTER → 2025-05-07 10:43 | Outpatient (BNVA) | payer MEDICARE, MEDICAID, SELFPAY | PROVIDERS: PCP Family Medicine; Visit Provider Internal Medicine | DX: M96.1 Postlaminectomy syndrome, not elsewhere classified (principal) | CPT/HCPCS: 99212 ==

== ENCOUNTER 2025-06-11 10:53 | Day surgery (SDC) | payer MEDICARE, MEDICAID, SELFPAY ==
--- OUTSIDE RECORDS SUMMARY | 2025-06-06 10:18 | XMS_ITS | Clinical Summary ---
Author Organization [facility] Address [address] [place] [address] Phone Care Team Providers Care Remote Coders Name Role Phone Patsy Patel MD Primary Care Provider [phone] Allergies Active Allergy Reactions Criticality Noted Date Comments Isaiah Inhibitors 12/08/2021 Diltiazem 12/08/2021 Hydralazine 07/19/2021 Medications aspirin EC 81 MG EC tablet Take 81 mg by mouth 1 (one) time each day Active Calcium Carb-Cholecalci ferol (CALCIUM 500+D3 PO) Take by mouth Activ e zinc gluconate 50 MG tablet Take by mouth 1 (one) time each day Active [place]-3 Fatty Acids (Fish Oil) 1000 MG capsule [...] -Agreed to order MRI and refer to lawn specialist. -Continue PT. Hematuria 10/25/2022 07/13/2023 Overview (07/13/2023): Last Assessment & Plan: -microscopic, evaluated by urologist Stage 3 chronic kidney disease 10/25/2022 0 07/13/2023 Overview (07/13/2023): Last Assessment & Plan: -Followed by working supervisor -Optimize BP control -Avoid nephrotoxic drugs -Periodic [...] particularly during spring and summer months. See hydro electric station operator as scheduled every 6 months. Avoid [...] adjust medication at this time. -Co-managed with working supervisor - EKG 12/24/19 - NSR, no acute [...] 25 mg to 50 mg daily by working supervisor. -Benicar-HCTZ PA was denied. -She does not [...] recent eye exam by Dr. Mcclain in [place] within 2 weeks- next scheduled for 6 [...] recent eye exam by Dr. Mcclain in [place] within 2 weeks- next scheduled for 6 months. Encouraged to continue carefully Plaquenil with daily sun protection particularly during summer and spring months. In the past labs from November 2019 reassuring-new set requested today. Last Assessment & Plan: -Current Inhalation Therapy Teacher Dr. Martin last note on May 2022 -Current medication: Hydroxychloroquine 200 mg daily -Continue current treatment plan per her current supervisor long goods. -Needs eye exam for long-term use of [...] Medicaid [place] Medicare [place] Care Teams Remote Coders Relationship Specialty Start Date End Date Patsy Patel MD PCP - General Family Medicine 07/08/21
--- OUTSIDE RECORDS SUMMARY | 2025-06-06 10:18 | XMS_ITS | Encounter Summary ---
Author Organization [employer] Address [address] [place] [address] Care Team Providers Care Dog Or Horse Racing Official Name Role Phone Patsy Patel MD Primary Care Provider [phone] Tre Goodrich PharmD Unavailable [phone] John Mcclain OD Unavailable Reason for Referral * Consultation (Routine) - Pending Review Specialty Diagnoses / Procedures Referred By Jorge A t Referred To Contact Pharmacy Diagnoses Primary hypertension Patsy Patel MD [address] [place] [address] Phone: tel: fax: Referral ID Status Reason Start Date Expiration Date Visits Requested Visits Authorized [id number] Pending Review Consult and Treat 4 08/27/2025 6 6 Encounter Details Date Type Department Care Team (Late st Contact Info) Description 08/27/2024 Orders Only [facility] [address] [place] [phone] Patsy Patel MD [address] [place], [place] [phone] Primary hypertension (Primary Dx) Social History Tobacco [...] Care Team (Late st Contact Info) Description 06/10/2025 9:45 AM EDT Office Visit [facility] [address] [place] [phone] 07/02/2025 2:30 PM EDT Telemedicine [facility] [address] [place] [phone] Tre Goodrich, PharmD [address] [place] [phone] Scheduled Referrals Name Type Priority Associated Diagnoses Orde r Schedule Referral to Pharmacy CDTM Outpatient Referral Routine Primary hypertension Ordered: 08/27/2024 documented as of this encounter Goals Goal Patient Goal Type Associated Problems Recent Progress Patient-Stated? Author Blood Pressure < 140/90 Blood Pressure 142/76(07/01/2 025 11:44 AM EDT) No Tre Goodrich, PharmD documented as of this encounter Visit Diagnoses Diagnosis Primary hypertension- Primary Unspecified essential hypertension documented in this encounter Additional Health Concerns Assessment Noted Time PHQ-9 Depression Total Score: 10 023 1:33 PM EST documented as of this encounter Care Teams Dog Or Horse Racing Official Relationship Specialty Start Date End Date Patsy Patel MD [address] [place] [address] PCP - General Family Medicine 10/16/18 Tre Goodrich, PharmD [address] [place] [address] Pharmacist Internal Medicine 12/25/23 John Mcclain OD [facility] [address] [place] [address] Optometry 11/14/24 documented as of this encounter
--- OUTSIDE RECORDS SUMMARY | 2025-06-06 10:18 | XMS_ITS | Clinical Summary ---
Author Organization [facility] Address [address] [place] [phone] Phone Care Team Providers Care Cloth Bleaching Range Back Tender Name Role Phone Patsy Patel MD Primary Care Provider [phone] Allergies Active Allergy Reactions Criticality Noted Date Comments Isaiah Inhibitors 12/08/2021 Diltiazem Hcl 12/08/2021 Medications aspirin 81 MG EC tablet Take 81 mg by mouth daily. Active calcium carbonate/vitam in D3 (CALCIUM 600 + D,3, ORAL) Take 1 capsule by mouth daily. Active omega 2-tbe-zev-fish oil 1,000 mg (120 mg-180 mg) Cap [...] in a warm pool such as at [facility] in [place], [place]. Assessment & Plan (04/09/2024 9:15 PM [...] today and prior to next visit-orders in [facility]. Call if problems or questions. Assessment & [...] today and prior to next visit-orders in [facility]. Call if problems or questions. Assessment & [...] and prior to next visit- orders in [facility].. Assessment & Plan (02/13/2023 10:32 AM EDT): [...] recent eye exam by Dr. Mcclain in [place] within 2 weeks- next scheduled for 6 [...] recent eye exam by Dr. Mcclain in [place] within 2 weeks- next scheduled for 6 [...] particularly during spring and summer months. See patient relations coordinator as scheduled every 6 months. Avoid concomitant use of QT interval elongating meds such as some SSRIs Assessment & Plan (04/08/2024 11:39 AM EDT): Take daily as prescribed. Use daily sun protection all year round, particularly during spring and summer months. See patient relations coordinator as scheduled every 6 months. Avoid concomitant use of QT interval elongating meds such as some SSRIs Assessment & Plan (10/04/2023 11:29 AM EST): Take daily as prescribed. Use daily sun protection all year round, particularly during spring and summer months. See patient relations coordinator as scheduled every 6 months. Avoid concomitant use of QT interval elongating meds such as some SSRIs Assessment & Plan (01/19/2023 4:30 PM EDT): Take daily as prescribed. Use daily sun protection all year round, particularly during spring and summer months. See patient relations coordinator as scheduled every 6 months. Avoid concomitant use of QT interval elongating meds such as some SSRIs Assessment & Plan (05/26/2022 2:23 PM EDT): Take daily as prescribed. Use daily sun protection all year round, particularly during spring and summer months. See patient relations coordinator as scheduled every 6 months. Avoid concomitant use of QT interval elongating meds such as some SSRIs Assessment & Plan (02/24/2022 12:47 AM EDT): Take daily as prescribed. Use daily sun protection all year round, particularly during spring and summer months. See patient relations coordinator as scheduled every 6 months. Avoid [...] EST) SODIUM 137 133 - 146 mmol/L [facility] POTASSIUM 4.5 3.3 - 5.1 mmol/L [facility] Comment:Specimen slightly he molyzed, result may be falsely elevated. CHLORIDE 101 96 - 108 mmol/L [facility] CO2 23 21 - 35 mmol/L [facility] BUN 16 6 - 19 mg/dL [facility] CREATININE 0.80 0.5 - 1.5 mg/dL [facility] GLUCOSE 100(H) 70 - 99 mg/dL [facility] ALBUMIN 4.2 3.9 - 4.8 g/dL [facility] TOTAL PROTEIN 7.7 6.5 - 8.0 g/dL [facility] CALCIUM 9.8 8.4 - 10.3 mg/dL [facility] ALKALINE PHOSPHATASE 64 39 - 117 U/L [facility] TOTAL BILIRUBIN 0.5 0.0 - 1.2 mg/dL [facility] AST 27 0 - 37 U/L [facility] ALT 19 0 - 40 U/L [facility] GLOBULIN 3.5 1 - 4.8 g/dL [facility] EGFR 79 >59 mL/min/1.7 3m2 [facility] Comment:Estimated glomerular filtration rate calculated using the CKD-EPI refit equation. ANION GAP 18 10 - 20 mmol/L [facility] Blood 11/01/2024 1:37 PM EST 11/01/2024 1:40 PM EST Carlotta Yeboah MD LAB BLOOD ORDERABLES Fin al Result Performing Organization Address City/State/[facility] Co de Phone Number [facility] [address] [place] [address] * DEXA SCAN (06/14/2023 8:22 AM EDT) Historical Provider HEALTH MAINTENANCE Final Result * MAMMOGRAPHY FOR RESULT ENTRY ONLY (06/14/2023 8:22 AM EDT) Historical Provider HEALTH MAINTENANCE Final Result from Last 3 Months or Most Recently Relevant to Health Maintenance Insurance [facility]IC[facility] PART A & [facility] Member Subscriber Plan / Payer ([facility] 07/16/2021-) Name:Sariah Fleming Relation to Subscriber:Self Name:Sariah Flemign Payer ID:[id number] Group ID:Not on file Type:Medicaid Address: [address] [place] [address] MEDICARE PART A & B [facility] MEDICARE PART A & B HEALTH MEDICARE PART A & B MEDICARE PART A & B [facility] PART A & B MEDICARE PART A & B MEDICARE PART A & B [facility] Care Teams Cloth Bleaching Range Back Tender Relationship Specialty Start Date End Date Patsy Patel MD [address] [place] [address] PCP - General Family Medicine 08/04/21 Additional Source Comments The information contained in this document represents components of the legal health record. It is not the complete legal health record.[facility]
--- NOTE | 2025-06-10 09:39 | HO.ANESPROP2 ---
HPI - Anesthesia Eval Consult details Narrative: 70yo F for Spinal Cord Stimulation Trial Hydroxychloroquine for discoid lupus PMFSH Active Problems Active Problems: All Active Problems Postlaminectomy syndrome (Acute) Sacroiliac joint pain (Acute) Lumbosacral spondylosis (Acute) Spinal stenosis, lumbar region with neurogenic claudication (Acute) Vertebrogenic low back pain (Acute) Lumbar degenerative disc disease (Acute) Hx of decompressive lumbar laminectomy (Acute ~02/2023) Lumbar radiculopathy (Acute) Hyponatremia (Acute) HTN (hypertension) (Acute) Trochanteric bursitis, right hip (Acute) Discoid lupus erythematosus (Acute) Past Medical History Medical History Postlaminectomy syndrome Tubular adenoma of colon Tobacco use Seborrheic keratosis Osteopenia Essential hypertension Dyslipidemia 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 Cyst of kidney, acquired Arthropathy of left hip Anemia Discoid lupus erythematosus Surgical History Surgical History H/O bilateral cataract extraction (~2018) Hx of decompressive lumbar laminectomy (~02/2023) Social History Social History Are you a primary day care aide to a significant other at home: No Do you presently have visiting nurse or other home services: No Alcohol intake: current Alcohol intake frequency: 0-2 drinks per day Alcohol type: wine Patient Tobacco Use Status: Former Tobacco user Tobacco use type: Cigarette Second Hand Smoke Exposure: No Substance Use Type: Marijuana 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: rt handed/[employer] Meds Allergies Allergy/AdvReac Type Severity Reaction Status Date / Time ibuprofen Allergy Severe Affects Verified 06/18/25 11:01 the Kidneys ANDRADE Inhibitors Allergy Unknown Unknown Verified 06/18/25 11:01 diltiazem Allergy Unknown Unknown Verified 06/18/25 11:01 hydralazine Allergy Unknown Unknown Verified 06/18/25 11:01 Home Medications ?Medication ?Instructions ?Recorded ?Confirmed ?Last Taken ?Type aspirin 81 mg tablet,delayed 81 mg PO DAILY 02/10/21 06/18/25 06/02/25 History release (Adult Aspirin Regimen) atorvastatin 20 mg tablet 20 mg PO DAILY 02/10/21 06/18/25 06/10/25 History calcium 600 mg (as 1 tab PO BID 02/10/21 06/18/25 06/10/25 History carbonate)-vitamin D3 5 mcg (200 unit) tablet (Calcium 600 + D(3)) omega-3 fatty acids 1,000 mg 1,000 mg PO DAILY 07/01/24 06/18/25 06/02/25 History capsule (Fish Oil Concentrate) telmisartan 40 mg tablet 40 mg PO DAILY 07/01/24 06/18/25 06/11/25 History amlodipine 2.5 mg tablet 2.5 mg PO DAILY 03/28/25 06/18/25 06/10/25 History metoprolol succinate 50 mg 50 mg PO DAILY 03/28/25 06/18/25 06/11/25 History tablet,extended release 24 hr Exam Pertinent Lab Results Pertinent Lab Results: Laboratory Tests 01/17/25 15:05 Sodium 135 Potassium 4.4 Chloride 104 Carbon Dioxide 21 L BUN 18 H Creatinine 0.82 Assessment and Plan Assessment Anesthesia Assessment: Chart Reviewed
--- NOTE | ~2025-06-11 | FL_ITS ---
EXAMINATION: FL GUIDANCE ONLY HISTORY: SPINAL CORD STIMULATION TRIAL COMPARISON: None available. TECHNIQUE: Fluoroscopy time: 2.8 minutes. Cumulative Dose: 61.1 mGy. DAP: 5.73 mGym2 Images: 3. FINDINGS: Fluoroscopic spot films of the thoracic spine demonstrate a spinal stimulator in place with the tip of the leads at the superior endplate of T7. FL/FL guidance in OR IMPRESSION: Fluoroscopy during procedure. Please see procedure report for additional information. Electronically signed by: Finesse Quinonez MD 06/11/2025 03:31 PM EDT
[2025-06-11 11:24] VITALS: BP 144/60; PULSE 73; RESP 16; TEMP 36.3; O2SAT 93
[2025-06-11] MEDS: Lactated Ringers 1,000 ML 100 ML IVCONT (11:35)
[2025-06-11 12:42] LABS: MRSA Nasal PCR NEGATIVE (Negative); SA Nasal PCR NEGATIVE (Negative)
--- NOTE | 2025-06-11 12:49 | MHC.SHP ---
Pre-Procedural Eval Section A - 24 Hr Update-Section A only Date of Service: 06/11/25 The patient is an INPATIENT: No Changes since office visit: Yes Patient answered all questions The patient has been examined within 24 hours of the surgical procedure. The History & Physical has been completed within 30 days and I have reviewed it.: No Section B - Complete if H&P > 30 days Chief Complaint: Postlaminectomy syndrome, not elsewhere classified Relevant Family History (Specify if Yes): Yes Relevant Social History: None Present Medications: see Short Stay Collaborative assessment Medical History: No relevant PMH History of Previous Operations: No relevant previous surgery Allergies: Allergies Allergy/AdvReac Type Severity Reaction Status Date / Time ibuprofen Allergy Severe Affects Verified 05/07/25 11:05 the Kidneys ANDRADE Inhibitors Allergy Unknown Unknown Verified 05/07/25 11:05 diltiazem Allergy Unknown Unknown Verified 05/07/25 11:05 hydralazine Allergy Unknown Unknown Verified 05/07/25 11:05 Review of Systems Sugical H&P ROS: Negative: Constitution, Cardiovascular and Respiratory Exam Surgical H&P Exam: Normal: HEENT, Normal: Heart and Normal: Lungs Plan Diagnosis/Plan: Unchanged I have reviewed the history and physical and performed a pertinent physical examination on my patient. No changes have occurred unless specified. Time Spent With Patient Time: Total time managing care of this patient today ____ minutes.
--- NOTE | 2025-06-11 12:50 | P.BOP_ITS ---
Brief Operative Note Date of Service: 06/11/25 Pre-op diagnosis: Post-laminectomy syndrome Post-op diagnosis: same Procedure: Lumbar spinal cord stimulation trial Implants: [place] scientific SCS trial leads Surgeon: Giovanny Alanis MD Anesthesia: MAC Was an Obstetrics Technician used for this Procedure?: No Estimated blood loss (mL): 2 Pathology: none sent Condition: stable Disposition: PACU
--- NOTE | 2025-06-11 12:50 | W.PM.OPN ---
Operative Note Operative Note Date of Service: 06/11/25 Narrative: Pre-procedure diagnosis: Post-laminectomy syndrome Postprocedure diagnosis: Same Procedure: Percutaneous Spinal Cord Stimulator Trial, Lumbar After obtaining written consent, pre-procedure blood pressure and heart rate were recorded and are in the nursing record for review. A peripheral IV was started. Antibiotics, cefazolin 2 gram, were given intraoperatively. The patient was placed in a prone position.? The patient was sedated by the anesthesiologist. The thoracolumbar area was widely prepped with ChloraPrep, allowed to dry and draped in sterile fashion. Fluoroscopy was used to identify the target interlaminar spaces and appropriate needle insertion sites. The skin and subcutaneous tissue was anesthetized with 1% lidocaine mixed with bupivacaine 0.25% with epinephrine. Two separate 14 gauge cuode epidural needles were then advanced from this point in a paramedian approach to the epidural space opening at T12/L1 interspace, where loss of resistance was found using air. No paresthesias were elicited with needle placement. No CSF or heme was present upon needle placement. A guide wire was then used to confirm placement into the epidural space at each level under live fluoroscopy. The 1x16 [employer] stimulator leads were then threaded to the top of T7 in the right and left parasagittal positions under live fluoroscopy. The leads advanced midline and dorsally.?The patient was woken up and appropriate paresthesia coverage was confirmed. The needles were then completely removed under live fluoroscopy. The stimulator wires were then secured with Dermabond, Mastisol and Steri-Strips. The lead insertion sites were covered with gauze and tegaderm for skin dressing. The patient tolerated the procedure well and no complications were encountered. Following the procedure the patient's vital signs were stable. The patient was discharged home in good condition after being given discharge instructions. Time Out: Immediately prior to the procedure, the following was verbally confirmed that there is a signed consent form and that the correct patient, planned procedure, site and side are consistent with documentation and that necessary equipment and/or blood products are available prior to the start of the case. Complications: none EBL: <2 cc
--- NOTE | 2025-06-11 14:54 | HO.ANESPROP2 ---
[facility] Active Problems Active Problems: All Active Problems (Updated 05/13/25 @ 13:32 by Giovanny Alanis MD) Postlaminectomy syndrome (Acute) Sacroiliac joint pain (Acute) Lumbosacral spondylosis (Acute) Spinal stenosis, lumbar region with neurogenic claudication (Acute) Vertebrogenic low back pain (Acute) Lumbar degenerative disc disease (Acute) Hx of decompressive lumbar laminectomy (Acute ~02/2023) Lumbar radiculopathy (Acute) Hyponatremia (Acute) HTN (hypertension) (Acute) Trochanteric bursitis, right hip (Acute) Discoid lupus erythematosus (Acute) Past Medical History Medical History Postlaminectomy syndrome Tubular adenoma of colon Tobacco use Seborrheic keratosis Osteopenia Essential hypertension Dyslipidemia 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 Cyst of kidney, acquired Arthropathy of left hip Anemia Discoid lupus erythematosus Functional capacity: independent ambulation Patient : No Family History Family history of problems with anesthesia: No Surgical History Surgical History H/O bilateral cataract extraction (~2018) Hx of decompressive lumbar laminectomy (~02/2023) History of Problems with Anesthesia: No Social History Social History Are you a primary client care manager to a significant other at home: No Do you presently have visiting nurse or other home services: No Alcohol intake: current Alcohol intake frequency: 0-2 drinks per day Alcohol type: wine Patient Tobacco Use Status: Former Tobacco user Tobacco use type: Cigarette Second Hand Smoke Exposure: No Use of substances other than those prescribed or required for medical reasons: Yes Substance Use Type: Marijuana Substance Use Frequency: Daily Have you been hit, kicked, punched, or otherwise hurt by someone within the past year? 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 [employer] Meds Allergies Allergy/AdvReac Type Severity Reaction Status Date / Time ibuprofen Allergy Severe Affects Verified 05/07/25 11:05 the Kidneys ANDRADE Inhibitors Allergy Unknown Unknown Verified 05/07/25 11:05 diltiazem Allergy Unknown Unknown Verified 05/07/25 11:05 hydralazine Allergy Unknown Unknown Verified 05/07/25 11:05 Active Medications: Current Medications Albuterol Sulfate (Albuterol Sulfate (0.083%) 2.5 Mg/3 Ml Vial.Neb) 2.5 mg INHALE ONCE PRN PRN Reason: Shortness of Breath/Wheezing Lactated Ringer's (Lr) 1,000 mls @ 100 mls/hr IVCONT .Q10H BEATRICE Last Admin: 06/11/25 11:35 Dose: 100 mls/hr Home Medications ?Medication ?Instructions ?Recorded ?Confirmed ?Last Taken ?Type aspirin 81 mg tablet,delayed 81 mg PO DAILY 02/10/21 06/11/25 06/02/25 History release (Adult Aspirin Regimen) atorvastatin 20 mg tablet 20 mg PO DAILY 02/10/21 06/11/25 06/10/25 History calcium 600 mg (as 1 tab PO BID 02/10/21 06/11/25 06/10/25 History carbonate)-vitamin D3 5 mcg (200 unit) tablet (Calcium 600 + D(3)) omega-3 fatty acids 1,000 mg 1,000 mg PO DAILY 07/01/24 06/11/25 06/02/25 History capsule (Fish Oil Concentrate) telmisartan 40 mg tablet 40 mg PO DAILY 07/01/24 06/11/25 06/11/25 History amlodipine 2.5 mg tablet 2.5 mg PO DAILY 03/28/25 06/11/25 06/10/25 History metoprolol succinate 50 mg 50 mg PO DAILY 03/28/25 06/11/25 06/11/25 History tablet,extended release 24 hr Exam Height,Weight and Vital Signs: Height 5 ft 4 in Weight 79.379 kg Last Vital Signs Temp 97.3 F 06/11/25 11:24 Pulse 73 06/11/25 11:24 Resp 16 06/11/25 11:24 BP 144/60 H 06/11/25 11:24 Pulse Ox 93 06/11/25 11:24 O2 Del Method Room Air 06/11/25 11:24 Pertinent Lab Results Pertinent Lab Results: Laboratory Tests 06/11/25 11:15 Nasal Screen MRSA (PCR) NEGATIVE Nasal S. aureus Screen NEGATIVE Nasal MRSA/S.aureus Interp SEE NOTE Airway Mallampati Class: II TM Dist: >3cm Neck ROM: Full Heart: RRR Lungs: CTA Assessment and Plan Final Anesthetic Review Family History of Problems with Anesthesia: No History of Problems with Anesthesia: No NPO: Yes ASA Class: III Final Preanesthetic Review: Meds/Allgs Chart Reviewed, Consent Obtained/Reviewed and Anes Risks/Benef Reviewed Patient Risk: Low Procedure Risk: Low Anesthetic Plan Anesthetic Plan: MAC: Disposition: Standard PACU
[2025-06-11 15:21] VITALS: BP 166/82; PULSE 78; RESP 16; TEMP 36.9; O2SAT 97
[2025-06-11 15:35] VITALS: BP 151/66; PULSE 79; RESP 16; O2SAT 98
[2025-06-11 15:50] VITALS: BP 140/74; PULSE 74; RESP 16; O2SAT 97
[2025-06-11 16:05] VITALS: BP 143/68; PULSE 72; RESP 16; O2SAT 97
[2025-06-11 16:20] VITALS: BP 149/74; PULSE 74; RESP 16; TEMP 36.3; O2SAT 98
== END 2025-06-11 16:56 | disposition home or self-care (01) ==
PROVIDERS: Registered Nurse Emergency; PCP Family Medicine; Visit Provider Internal Medicine
PROC: (CPT 63650; principal; 2025-06-11 13:20)
DX: M96.1 Postlaminectomy syndrome, not elsewhere classified (principal); M54.16 Radiculopathy, lumbar region; M85.80 Other specified disorders of bone density and structure, unspecified site; M53.3 Sacrococcygeal disorders, not elsewhere classified; L93.0 Discoid lupus erythematosus; M16.12 Unilateral primary osteoarthritis, left hip; I10 Essential (primary) hypertension; E78.5 Hyperlipidemia, unspecified; D64.9 Anemia, unspecified; Z88.6 Allergy status to analgesic agent; Z88.8 Allergy status to other drugs, medicaments and biological substances; Z87.891 Personal history of nicotine dependence
CPT/HCPCS: 63650 ×2; 87640; 87641; C1897; J0690; J2003; J2250; J2704; J3010

== ENCOUNTER → 2025-06-11 10:53 | Outpatient (BNV) | payer MEDICARE, MEDICAID, SELFPAY | PROVIDERS: PCP Family Medicine; Visit Provider Internal Medicine | DX: M96.1 Postlaminectomy syndrome, not elsewhere classified (principal) | CPT/HCPCS: 64555 ==

== ENCOUNTER 2025-06-18 10:51 | Outpatient (AMB) | payer MEDICARE, MEDICAID, SELFPAY ==
--- NOTE | 2025-06-18 10:53 | MHC.OFFVIS ---
Vital Signs 06/18/25 10:55 Height 5 ft 4 in Weight 172 lb BMI 29.5 BP 135/95 H Blood Pressure Location Lt brachial Position Sitting Respiration 16 Pulse 81 Pulse Source Pulse Oximeter Intake Visit Reasons: S/p [facility] Sci SCS Trial 06/11/25 Cripple Worker Required: No Accompanied by: Prasanna ([facility]) Allergies ibuprofen Allergy (Severe, Verified 06/18/25 11:01) Affects the Kidneys ANDRADE Inhibitors Allergy (Unknown, Verified 06/18/25 11:01) Unknown diltiazem Allergy (Unknown, Verified 06/18/25 11:01) Unknown hydralazine Allergy (Unknown, Verified 06/18/25 11:01) Unknown Medication List - Last Reconciled 06/18/25 by Kelsi Hargrove LPN amlodipine 2.5 mg PO DAILY aspirin (Adult Aspirin Regimen) 81 mg PO DAILY atorvastatin 20 mg PO DAILY calcium carbonate-vitamin D3 600 mg-5 mcg (200 unit) (Calcium 600 + D(3)) 1 tab PO BID hydroxychloroquine 200 mg PO DAILY metoprolol succinate ER 50 mg PO DAILY omega-3 fatty acids (Fish Oil Concentrate) 1,000 mg PO DAILY telmisartan 40 mg PO DAILY HPI HPI S/p [facility] SCS Trial 06/11/25: Details: History of Present Illness The patient is a 70-year-old female presenting for follow-up after a lumbar spinal cord stimulator trial. She reports experiencing chronic pain, which has been partially alleviated by the trial, providing approximately 60% relief. The pain previously caused significant discomfort upon standing from a seated position, but this has improved since the trial. The patient inquired about the long-term efficacy of the stimulator, learning that while initial relief is common, the effectiveness may decrease over time. She expressed interest in proceeding with the permanent implant despite understanding these potential limitations. Additionally, the patient has a history of a colon polyp and is overdue for a colonoscopy screening, which she plans to address soon. She has previously undergone a Cologuard test, which returned negative results. Pain Description - Onset and Timing: Chronic pain with significant improvement post-stimulator trial - Quality and Character: Pain causing cringing upon standing, now reduced - Primary Location: Lumbar region - Exacerbating Factors: Standing from a seated position - Relieving Factors: Lumbar spinal cord stimulator trial Physical Exam - Leads removed with tip intact. Results - Cologuard test: Negative result Pain Management - Affect: Pain has impacted daily activities, but improvement noted post-trial - Analgesia: 60% pain relief reported with spinal cord stimulator trial - Activities of Daily Living: Improved ability to stand without cringing [facility] Medical History Postlaminectomy syndrome Tubular adenoma of colon Tobacco use Seborrheic keratosis Osteopenia Essential hypertension Dyslipidemia 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 Cyst of kidney, acquired Arthropathy of left hip Anemia Discoid lupus erythematosus Surgical History H/O bilateral cataract extraction (~2018) Hx of decompressive lumbar laminectomy (~02/2023) Social History Are you a primary transition of care specialist to a significant other at home: No Do you presently have visiting nurse or other home services: No Alcohol intake: current Alcohol intake frequency: 0-2 drinks per day Alcohol type: wine Patient Tobacco Use Status: Former Tobacco user Tobacco use type: Cigarette Second Hand Smoke Exposure: No Substance Use Type: Marijuana 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 1. Post-laminectomy syndrome - Proceed with the implantation of a lumbar spinal cord stimulator for long-term pain management. - Discussed potential risks including infection and sensitivity at the implant site. Discussion Notes I discussed with the patient the outcomes of the spinal cord stimulator trial, noting a 60% improvement in pain relief. We reviewed the potential risks associated with the permanent implant, including infection and sensitivity at the implant site. I advised the patient to complete her overdue colonoscopy screening. Patient Instructions - Schedule and complete a colonoscopy screening before the spinal cord stimulator implant procedure. - Be aware of the potential risks of the implant, including infection and sensitivity at the site. - Follow up with the clinic to schedule the implant procedure. Coding Level of Care Code Est Pt Level 3 (96174) Diagnoses Postlaminectomy syndrome M96.1
[2025-06-18 10:55] VITALS: BP 135/95; PULSE 81; RESP 16; BMI 29.5
--- OUTSIDE RECORDS SUMMARY | 2025-06-18 12:53 | XMS_ITS | Clinical Summary ---
Author Organization [facility] Address [address] [place] [id number] Phone Care Team Providers Care Cylinder Handler Name Role Phone Patsy Patel MD Primary Care Provider [phone] Allergies Active Allergy Reactions Criticality Noted Date Comments Isaiah Inhibitors 12/08/2021 Diltiazem Hcl 12/08/2021 Medications aspirin 81 MG EC tablet Take 81 mg by mouth daily. Active calcium carbonate/vitam in D3 (CALCIUM 600 + D,3, ORAL) Take 1 capsule by mouth daily. Active omega 3-lxo-can-fish oil 1,000 mg (120 mg-180 mg) Cap [...] in a warm pool such as at [facility] in [place], [place]. Assessment & Plan (04/09/2024 9:15 PM [...] today and prior to next visit-orders in [facility]. Call if problems or questions. Assessment [...] today and prior to next visit-orders in [facility]. Call if problems or questions. Assessment [...] and prior to next visit- orders in [facility].. Assessment & Plan (02/13/2023 10:32 AM [...] recent eye exam by Dr. Mcclain in [place] within 2 weeks- next scheduled for 6 [...] recent eye exam by Dr. Mcclain in [place] within 2 weeks- next scheduled for 6 [...] particularly during spring and summer months. See furnace combustion analyst as scheduled every 6 months. Avoid concomitant use of QT interval elongating meds such as some SSRIs Assessment & Plan (04/08/2024 11:39 AM EDT): Take daily as prescribed. Use daily sun protection all year round, particularly during spring and summer months. See furnace combustion analyst as scheduled every 6 months. Avoid concomitant use of QT interval elongating meds such as some SSRIs Assessment & Plan (10/04/2023 11:29 AM EST): Take daily as prescribed. Use daily sun protection all year round, particularly during spring and summer months. See furnace combustion analyst as scheduled every 6 months. Avoid concomitant use of QT interval elongating meds such as some SSRIs Assessment & Plan (01/19/2023 4:30 PM EDT): Take daily as prescribed. Use daily sun protection all year round, particularly during spring and summer months. See furnace combustion analyst as scheduled every 6 months. Avoid concomitant use of QT interval elongating meds such as some SSRIs Assessment & Plan (05/26/2022 2:23 PM EDT): Take daily as prescribed. Use daily sun protection all year round, particularly during spring and summer months. See furnace combustion analyst as scheduled every 6 months. Avoid concomitant use of QT interval elongating meds such as some SSRIs Assessment & Plan (02/24/2022 12:47 AM EDT): Take daily as prescribed. Use daily sun protection all year round, particularly during spring and summer months. See furnace combustion analyst as scheduled every 6 months. Avoid concomitant [...] Additional history exists BLOOD PRESSURE 05/08/2025 11/08/2024 INFLUENZA VACCINE (#1) 2025 , 07/07/2022, 08/10/2021, Additional history exists MAMMOGRAM 06/14/2025 06/14/2023, 06/14/2023 CREATININE LEVEL 11/01/2025 11/01/2024, 03/2024, 01/27/2023, Additional history exists POTASSIUM LEVEL 11/01/2025 11/01/2024, 06/03/2024, 01/27/2023, Additional history exists Adult Td,Tdap Booster [...] EST) SODIUM 137 133 - 146 mmol/L [facility] POTASSIUM 4.5 3.3 - 5.1 mmol/L [facility] Comment:Specimen slightly he molyzed, result may be falsely elevated. CHLORIDE 101 96 - 108 mmol/L [facility] CO2 23 21 - 35 mmol/L [facility] BUN 16 6 - 19 mg/dL [facility] CREATININE 0.80 0.5 - 1.5 mg/dL [facility] GLUCOSE 100(H) 70 - 99 mg/dL [facility] ALBUMIN 4.2 3.9 - 4.8 g/dL [facility] TOTAL PROTEIN 7.7 6.5 - 8.0 g/dL [facility] CALCIUM 9.8 8.4 - 10.3 mg/dL [facility] ALKALINE PHOSPHATASE 64 39 - 117 U/L [facility] TOTAL BILIRUBIN 0.5 0.0 - 1.2 mg/dL [facility] AST 27 0 - 37 U/L [facility] ALT 19 0 - 40 U/L [facility] GLOBULIN 3.5 1 - 4.8 g/dL [facility] EGFR 79 >59 mL/min/1.7 3m2 [facility] Comment:Estimated glomerular filtration rate calculated using the CKD-EPI refit equation. ANION GAP 18 10 - 20 mmol/L [facility] Blood 11/01/2024 1:37 PM EST 11/01/2024 1:40 PM EST Carlotta Yeboah MD LAB BLOOD ORDERABLES Fin al Result Performing Organization Address City/State/[facility] Co de Phone Number [address] [address] * DEXA SCAN (06/14/2023 8:22 AM EDT) Historical Provider HEALTH MAINTENANCE Final Result * MAMMOGRAPHY FOR RESULT ENTRY ONLY (06/14/2023 8:22 AM EDT) Historical Provider HEALTH MAINTENANCE Final Result from Last 3 Months or Most Recently Relevant to Health Maintenance Insurance MEDICARE PART A & B HEALTH MEDICARE PART A & [place] HEALTH MEDICARE PART A & [facility] [place] MEDICARE PART [place] & [place] [id number] MEDICARE PART A [place] [id number] [facility] [phone] MEDICARE PART A & [place] [facility] [id number] Care Teams Cylinder Handler Relationship Specialty Start Date End Date Patsy Patel MD [address] [place] [id number] PCP - General Family Medicine 08/04/21 Additional Source Comments The information contained in this document represents components of the legal health record. It is not the complete legal health record.[facility]
--- OUTSIDE RECORDS SUMMARY | 2025-06-18 12:53 | XMS_ITS | Clinical Summary ---
Author Organization [facility] Address [address] [place] [address] [place] [place] [address] Phone Care Team Providers Care Facing Machine Operator Name Role Phone Patsy Patel MD Primary Care Provider [phone] Allergies Active Allergy Reactions Criticality Noted Date Comments Isaiah Inhibitors 12/08/2021 Diltiazem 12/08/2021 Hydralazine 07/19/2021 Medications aspirin EC 81 MG EC tablet Take 81 mg by mouth 1 (one) time each day Active Calcium Carb-Cholecalci ferol (CALCIUM 500+D3 PO) Take by mouth Activ e zinc gluconate 50 MG tablet Take by mouth 1 (one) time each day Active Hannibal-3 Fatty Acids (Fish Oil) 1000 MG capsule [...] -Agreed to order MRI and refer to credentialing specialist. -Continue PT. Hematuria 10/25/2022 07/13/2023 Overview (07/13/2023): Last Assessment & Plan: -microscopic, evaluated by urologist Stage 3 chronic kidney disease 10/25/2022 0 07/13/2023 Overview (07/13/2023): Last Assessment & Plan: -Followed by angle shear operator -Optimize BP control -Avoid nephrotoxic drugs -Periodic lab to monitor renal function Patient encounter status 02/24/2022 023 Overview (07/13/2023): Last Assessment & Plan: Take the lowest dose, with least frequency, for shortest time. Remember to take it always with food. Favor topical over oral preparations. alf current use of aspirin 02/23/2022 07/13/2023 Overview (07/13/2023): Last Assessment & Plan: Avoid falls, injuries and cuts. Monitor for excessive bruising and bleeding. Drug therapy finding 02/23/2022 07/13/2023 Overview (07/13/2023): Last Assessment & Plan: Monitor for muscle tenderness, swelling and weakness Last Assessment & Plan: Take daily as prescribed. Use daily sun protection all year round, particularly during spring and summer months. See supervisor wire rope fabrication as scheduled every 6 months. Avoid concomitant [...] adjust medication at this time. -Co-managed with angle shear operator - EKG 12/24/19 - NSR, no [...] 25 mg to 50 mg daily by angle shear operator. -Benicar-HCTZ PA was denied. -She does not want to adjust any medication at this time. --Follow- up in 3 months. Disorder of hip joint 07/21/2015 07/13/2023 Overview (07/13/2023): Last Assessment & Plan: -[place] [facility] [place]PT with iontophoresis for trochanteric bursitis [...] recent eye exam by Dr. Mcclain in [place] within 2 weeks- next scheduled for 6 [...] recent eye exam by Dr. Mcclain in [place] within 2 weeks- next scheduled for 6 months. Encouraged to continue carefully Plaquenil with daily sun protection particularly during summer and spring months. In the past labs from November 2019 reassuring-new set requested today. Last Assessment & Plan: -Current Accounting Machine Servicer Dr. 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 -Needs eye exam for long-term use of [...] Medicaid [place] Care Teams Facing Machine Operator Relationship Specialty Start Date End Date Patsy Patel MD PCP - General Family Medicine 07/08/21
== END 2025-06-18 11:40 | disposition home or self-care (01) ==
LOC: HO.PMC 10:52
PROVIDERS: PCP Family Medicine; Visit Provider Internal Medicine
DX: M96.1 Postlaminectomy syndrome, not elsewhere classified (principal)
CPT/HCPCS: 99024

== ENCOUNTER → 2025-06-18 10:51 | Outpatient (BNVA) | payer MEDICARE, MEDICAID, SELFPAY | PROVIDERS: PCP Family Medicine; Visit Provider Internal Medicine | DX: M96.1 Postlaminectomy syndrome, not elsewhere classified (principal) | CPT/HCPCS: 99212 ==

== ENCOUNTER 2025-06-27 14:42 | Outpatient (REF) | payer MEDICARE, MEDICAID, SELFPAY ==
[2025-06-27 16:28] LABS: Anion Gap 15 (12-20); Anion Gap 18 (12-20); Blood Urea Nitrogen 10 mg/dL (9-16); Calcium 9.3 mg/dL (8.4-10.2); Calcium 9.4 mg/dL (8.4-10.2); Carbon Dioxide 22 mmol/L (22-29); Chloride 103 mmol/L (96-108); Chloride 104 mmol/L (96-108); Estimated Glomerular Filt Rate > 60; Potassium 4.4 mmol/L (3.3-5.1); Potassium 4.5 mmol/L (3.3-5.1); Sodium 137 mmol/L (135-145); Sodium 138 mmol/L (135-145)
--- OUTSIDE RECORDS SUMMARY | 2025-06-27 17:23 | XMS_ITS | Clinical Summary ---
Author Organization [employer] Address [address] [facility] [address] [facility] [address] [place] [address] Care Team Providers Care Aerospace Physiological Technician Name Role Phone Patsy Berg MD Primary Care Provider [phone] Tre Goodrich PharmD Unavailable [phone] John Mcclain OD Unavailable Allergies Active Allergy Reactions Criticality Noted Date Comments Isaiah Inhibitors 01/02/2020 Diltiazem 01/02/2020 Hydralazine 07/19/2021 Nsaids 03/25/2023 Medications hydroxychloroqui ne (Plaquenil) 200 MG tablet Take 1 tablet by mouth in the morning. 2 Active aspirin 81 MG EC tablet Take 81 mg by mouth in the morning. Active Calcium Carb-Cholecalcif ankit (CALCIUM 600 + D PO) Take 1 tablet by mouth in the morning. Active magnesium 250 MG tablet Take 1 tablet by mouth in the morning. Active Bowman-3 Fatty Acids (Fish Oil) 1000 MG capsule [...] capsule by mouth in the morning. Active ciclopirox (Penlac) 8 % solution Apply topically at bedtime. 6 mL 1 4 Active Saline Haviland 0.65 % solution Use to moisten your nose, especially before blowing nose, and as needed for dryness 50 mL 4 Active metoprolol succinate XL (Toprol-XL) 50 MG 24 hr tabletIndication s:Primary hypertension TAKE 1 AND 1/2 TABLETS BY MOUTH ONCE DAILY 45 tablet 5 5 Active atorvastatin (Lipitor) 20 MG tablet TAKE 1 TABLET BY MOUTH DAILY AT BEDTIME 90 tablet 1 5 Active oxyCODONE (Roxicodone) 5 MG immediate release tabletIndication s:Lumbar radiculopathy,Sp inal stenosis of lumbar region with neurogenic claudication Take 1 tablet (5 mg) by mouth Once daily as needed for severe pain. 28 tablet 5 Active naloxone (Narcan) 4 mg/0.1 mL nasal spray Administer 1 spray (4 mg) into affected nostril(s) if needed for opioid reversal. May repeat every 2-3 minutes if needed, alternating nostrils, until medical assistance becomes available. 2 each 5 04/15/20 26 Active amLODIPine (Norvasc) 2.5 MG tablet TAKE 1 TABLET BY MOUTH EVERY DAY IN THE MORNING 90 tablet 3 5 Active telmisartan (MIcarDIS) 40 MG tabletIndication s:Primary hypertension TAKE 1 TABLET BY MOUTH ONCE DAILY 30 tablet 5 5 Active Active Problems Problem Noted Date Diagnosed Date Positive colorectal cancer screening using Colog uard test 05/20/2025 Alcohol intake above recommended sensible limits 04/26/2025 Overweight 06/20/2024 Onychomycosis 06/20/2024 Assessment & Plan [...] with neurogenic claudication 05/13/2023 Assessment & Plan (04/26/2025 4:49 PM EDT): - s/p left L2-3 decompression surgery on 02/22/[address] Robert - most recent MRI on 01/23/2025 showed advanced but largely stable spondylosis with surgical intervention. - Patient had tried physical therapy several times and acupuncture - Patient tried gabapentin which she disliked it side effect, euphoric/hallucinating affect - She has tried tramadol which was marginally effective - We agreed to start opioid analgesics. She will take 5 mg nightly for severe pain. - Will refer to chronic pain group Assessment & Plan (01/11/2025 6:44 AM EDT): - s/p left L2-3 decompression surgery on 02/22/[address] Robert - continue current treatment plan - refer back to PT, ATI per patient's request - evaluate with MRI and refer to reception specialist at [facility] Assessment & Plan (10/22/2023 11:13 AM EST): [...] weeks per her report. Assessment & Plan (04/15/2025 12:18 PM EDT): - s/p left L2-3 decompression surgery on 02/22/[address] Robert - currently following with pain management and reception specialist - Status post trial of MBB with marginal relief February 2025 - Plan for stimulator - She has tried acupuncture, Physical therapy, gabapentin, NSAIDS, acetaminophen, and tramadol - We will try oxycodone Assessment & Plan (01/11/2025 6:38 AM EDT): - s/p left L2-3 decompression surgery on 02/22/[address] Robert - continue current treatment plan - she is motivated to try non-pharmacological pain management Aspirin long-term use 01/19/2023 Overview (03/25/2023): Last Assessment & Plan: Avoid falls, injuries and cuts. Monitor for excessive bruising and bleeding. Chronic low back pain 10/26/2022 Assessment & Plan (04/26/2025 4:53 PM EDT): - s/p left L2-3 decompression surgery on 02/22/[address] Robert - most recent MRI on 01/23/2025 showed advanced but largely stable spondylosis with surgical intervention. -She was evaluated by orthopedist for hip, [...] to take due to CKD and HTN. - Will start oxycodone for pain management Assessment & Plan (04/26/2025 4:52 PM EDT): >>ASSESSMENT AND PLAN FOR CHRONIC LEFT-SIDED LOW BACK PAIN WRITTEN ON 10/26/2022 4:41 PM BY PATSY BERG MD -She was evaluated by orthopedist for hip, [...] -Agreed to order MRI and refer to reception specialist. -Continue PT. Assessment & Plan (04/26/2025 4:52 PM EDT): >>ASSESSMENT AND PLAN FOR CHRONIC LEFT-SIDED LOW BACK PAIN WRITTEN ON 01/11/2025 6:47 AM BY PATSY BERG MD -She was evaluated by orthopedist for hip, [...] -Agreed to order MRI and refer to reception specialist. -Continue PT. Stage 3 chronic kidney disease 10/25/2022 Assessment & Plan (01/11/2025 6:44 AM EDT): -Followed by rivet flunky, last seen in Jun 2024 -Optimize BP control -Avoid nephrotoxic drugs -Periodic lab to monitor renal function Assessment & Plan (10/22/2023 11:13 AM EST): -Followed by rivet flunky, last seen in Jun 2023 -Optimize BP control -Avoid nephrotoxic drugs -Periodic lab to monitor renal function Assessment & Plan (05/13/2023 6:27 AM EDT): -Followed by rivet flunky -Optimize BP control -Avoid nephrotoxic drugs -Periodic lab to monitor renal function Assessment & Plan (10/25/2022 5:59 AM EST): -Followed by rivet flunky -Optimize BP control -Avoid nephrotoxic drugs -Periodic [...] Plan (01/11/2025 6:46 AM EDT): -seen by [facility] orthopedist -PT with iontophoresis for trochanteric bursitis -Tried tramadol, dosage was ineffective -discouraged use of NSAIDs and HUNT-2 inhibitor due to CKD -Tried gabapentin to 300 mg tid, patient weaned herself off. -Tried lidocaine topical; first cream then patch if cream not effective Assessment & Plan (10/25/2022 6:06 AM EST): -seen by [facility] orthopedist -PT with iontophoresis for trochanteric bursitis [...] supplementation Primary hypertension 07/21/2015 Assessment & Plan (04/26/2025 4:44 PM EDT): -Goal BP < 130/80 per ACC/AHA guideline -BP not at goal, questionable medication adherence -Co-managed with rivet flunky and pharmacist - EKG 12/24/19 - NSR, [...] Amlodipine was increased to 5 mg by rivet flunky, but pt self- discontinued due to ankle swelling. Restarted at low dose and kept at current dose -previously on Olmesartan-hctz 40-25 mg daily, Brand Benicar-hctz was more effective than the generic, per pt. -Benicar-HCTZ PA was denied. - Metoprolol was increased from 25 mg to 50 mg daily by rivet flunky. -Losartan was changed to telmesartan in December 2023 since it is longer-acting. - Pt has been consuming a few glasses of wine every night. Discussed about reducing consumption. -Follow- up in 3 months. Assessment & Plan (01/11/2025 6:43 AM EDT): -Goal BP <140/90 per JNC-8, and < 130/80 per ACC/AHA guideline -BP not at goal, questionable medication adherence -Co-managed with rivet flunky and pharmacist - EKG 12/24/19 - NSR, [...] Amlodipine was increased to 5 mg by rivet flunky, but pt self- discontinued due to ankle swelling. Restarted at low dose and kept at current dose -previously on Olmesartan-hctz 40-25 mg daily, Brand Benicar-hctz was more effective than the generic, per pt. -Benicar-HCTZ PA was denied. - Metoprolol was increased from 25 mg to 50 mg daily by rivet flunky. -Losartan was changed to telmesartan in December 2023 since it is longer-acting. -Follow- up in 3 months. - Ordered labs on 01/07/25 Assessment & Plan (06/21/2024 11:24 AM EDT): -Goal BP <140/90 per JNC-8, and < 130/80 per ACC/AHA guideline -BP not at goal, questionable medication adherence -Co-managed with rivet flunky and pharmacist - EKG 12/24/19 - NSR, [...] Amlodipine was increased to 5 mg by rivet flunky, but pt self- discontinued due to ankle swelling. -previously on Olmesartan-hctz 40-25 mg daily, Brand Benicar-hctz was more effective than the generic, per pt. Metoprolol was increased from 25 mg to 50 mg daily by rivet flunky. -Benicar-HCTZ PA was denied. -Losartan was changed to telmesartan in December 2023 since it is longer-acting. -Follow- up in 3 months. Assessment & Plan (10/22/2023 11:09 AM EST): -Goal BP <140/90 per JNC-8, and < 130/80 per ACC/AHA guideline -BP not at goal, questionable medication adherence -Co-managed with rivet flunky - EKG 12/24/19 - NSR, no acute [...] Amlodipine was increased to 5 mg by rivet flunky, but pt self- discontinued due to ankle swelling. -previously on Olmesartan-hctz 40-25 mg daily, Brand Benicar-hctz was more effective than the generic, per pt. Metoprolol was increased from 25 mg to 50 mg daily by rivet flunky. -Benicar-HCTZ PA was denied. We will check if we can try to decrease pill-burden again. -Follow- up in 3 months. Assessment & Plan (05/13/2023 6:26 AM EDT): -Goal BP <140/90 per JNC-8, and < 130/80 per ACC/AHA guideline -BP not at goal, questionable medication adherence -Co-managed with rivet flunky - EKG 12/24/19 - NSR, no acute [...] Amlodipine was increased to 5 mg by rivet flunky, but pt self- discontinued due to ankle swelling. -previously on Olmesartan-hctz 40-25 mg daily, Brand Benicar-hctz was more effective than the generic, per pt. Metoprolol was increased from 25 mg to 50 mg daily by rivet flunky. -Benicar-HCTZ PA was denied. We will check if we can try to decrease pill-burden again. -Follow- up in 3 months. Assessment & Plan (10/26/2022 4:43 PM EST): -Goal BP <140/90 per JNC-8, and < 130/80 per ACC/AHA guideline -BP not at goal, pt does not want to adjust medication at this time. -Co-managed with rivet flunky - EKG 12/24/19 - NSR, no acute [...] 25 mg to 50 mg daily by rivet flunky. -Benicar-HCTZ PA was denied. -She does not [...] recent eye exam by Dr. Mcclain in [place] within 2 weeks- next scheduled for 6 months. Encouraged to continue carefully Plaquenil with daily sun protection particularly during summer and spring months. In the past labs from November 2019 reassuring-new set requested today. Assessment & Plan (04/15/2025 10:04 AM EDT): -Current Technical Supervisor Dr. Martin last visit on 03/21/24 -Current medication: Hydroxychloroquine 200 mg daily -Continue current treatment plan per her current strand buncher fine wire. -Needs eye exam for long-term use of Plaquenil, last eye exam in Jun 2023 Assessment & Plan (01/07/2025 9:58 AM EDT): -Current Technical Supervisor Dr. Martin last visit on 03/21/24 -Current medication: Hydroxychloroquine 200 mg daily -Continue current treatment plan per her current strand buncher fine wire. -Needs eye exam for long-term use of Plaquenil, last eye exam in Jun 2023 Assessment & Plan (06/20/2024 10:26 AM EDT): -Current Technical Supervisor Dr. Martin last visit on 03/21/24 -Current medication: Hydroxychloroquine 200 mg daily -Continue current treatment plan per her current strand buncher fine wire. -Needs eye exam for long-term use of Plaquenil, last eye exam in Jun 2023 Assessment & Plan (10/22/2023 11:18 AM EST): -Current Technical Supervisor Dr. Martin last visit on 10/04/23 -Current medication: Hydroxychloroquine 200 mg daily -Continue current treatment plan per her current strand buncher fine wire. -Needs eye exam for long-term use of Plaquenil, last eye exam in Jun 2023 Assessment & Plan (05/13/2023 6:30 AM EDT): -Current Technical Supervisor Dr. Martin last visit in January 2023 -Current medication: Hydroxychloroquine 200 mg daily -Continue current treatment plan per her current strand buncher fine wire. -Needs eye exam for long-term use of Plaquenil, last eye exam within last 1 year per pt's report Assessment & Plan (10/25/2022 6:02 AM EST): -Current Technical Supervisor Dr. Martin last note on May 2022 -Current medication: Hydroxychloroquine 200 mg daily -Continue current treatment plan per her current strand buncher fine wire. -Needs eye exam for long-term use of Plaquenil, last eye exam in 09/2020 per pt's report Dyslipidemia 08/27/2012 Assessment & Plan (04/26/2025 4:45 PM EDT): Last lipid profile: 01/17/25 TRIG 96; CHOL 225; LDL 105; HDL 101 Current medication: atorvastatin 20 mg at bedtime Continue current treatment plan, recommended high-intensity statin therapy. Currently on moderate-intensity statin therapy due to her joint problem Continue working on lifestyle modifications Assessment & Plan (01/11/2025 6:47 AM EDT): [...] Encounters Date Type Department Care Team Description 06/27/2025 Orders Only [facility] [address] [place] [phone] Patsy Berg MD 06/25/2025 Travel 06/13/2025 Telephone [facility] [address] [place] [address] Elif Barrera RN 06/12/2025 Telephone [facility] [address] [place] [phone] Patsy Berg MD Appointment Request 06/12/2025 Orders Only [facility] [address] [place] [address] Patsy Berg MD 06/11/2025 Telephone [facility] [address] [place] [address] lEif Barrera RN 06/11/2025 Orders Only GENERIC EXTERNAL DATA DEPARTMENT Provider, Generic External Data 06/05/2025 Telephone [facility] [address] [place] [address] Elif Barrera RN 06/03/2025 Telephone [facility] [place] [address] Patsy Berg MD clearence 06/03/2025 Travel 05/20/2025 Orders Only [facility] [address] Patsy Berg MD Positive colorectal cancer screening using Cologuard test (Primary Dx) 05/20/2025 Results Follow-Up [facility] [address] Patsy Berg MD Cologuard colon cancer screening 05/19/2025 Travel 05/10/2025 Refill [facility] [place] [address] Tre Goodrich, PharmD Primary hypertension 04/28/2025 Refill [facility] [place] [address] Patsy Berg MD 04/15/2025 11:15 AM EDT Office Visit [facility] [place] [address] Patsy Berg MD Screening for colon cancer (Primary Dx); Primary hypertension; Dyslipidemia; Lumbar radiculopathy; Spinal stenosis of lumbar region with neurogenic claudication; Discoid lupus; Chronic low back pain with left-sided sciatica, unspecified back pain laterality; Alcohol intake above recommended sensible limits 04/15/2025 Travel 04/14/2025 Telephone [facility] [place] [address] Patsy Berg MD chartprep 04/08/2025 Travel 04/07/2025 Refill [facility] [place] [address] Patsy Berg MD 04/04/2025 Refill [facility] [place] [address] Tre Goodrich, PharmD Primary hypertension from Last 3 Months Immunizations Immunization Administration [...] Sign Reading Time Taken Comments Blood Pressure 142/76 04/15/2025 11:44 AM EDT Pulse 73 04/15/2025 11:44 AM EDT Temperature 36.1 C (96.9 F) 04/15/2025 11:44 AM EDT Respiratory Rate 14 04/15/2025 11:44 AM EDT Oxygen Saturation 96% 04/15/2025 11:44 AM EDT Inhaled Oxygen Concentration - - Weight - - Height 162.6 cm (5' 4 ) 04/26/2021 12:07 AM EDT Body Mass Index - - Plan of Treatment Upcoming Encounters Date Type Department Care Team (Late st Contact Info) Description 07/02/2025 2:30 PM EDT Telemedicine [facility] [address] [place] [phone] Tre Goodrich, PharmD [address] [place] [phone] 07/22/2025 11:15 AM EDT Office Visit [facility] [address] [place] [phone] Patsy Berg MD [address] [place] [address] Health Maintenance Due Date Last Done Comments CT Colonography 1955 Colonoscopy 1955 FIT 1955 Sigmoidoscopy 1955 Dental Oral Exam 02/14/2024 08/14/2023, 09/2017, 01/04/2017, Additional history exists Dental Prophylaxis 07/25/2024 01/23/2024, 1 , 01/16/2018, Additional history exists Dental X-Ray: Bitewings 08/15/2024 08/14/20 23, 11/06/2018, 01/04/2017, Additional history exists Mammogram 06/14/2025 06/14/2023, 05/18, 09/21/2021, Additional history exists Influenza Vaccine (#1) 2025 , 10/18/2023, 07/07/2022, Additional history exists COVID-19 Vaccine ( season) 2025 01/07/2025, 10/18/2023, 08/22/2022, Additional history exists SDOH Screening 10/22/2025 10/22/2024 Alcohol/Substance Use Screening 01/07/2026 01/07/2025 Depression Screening 01/07/2026 01/07/2025, 01/08/20 Tobacco Screening 01/11/2026 01/11/2025 FOBT 05/12/2026 05/12/2025 Dental X-Ray: Full Mouth 08/15/2026 023, 01/04/2017, 07/17/2014 Colorectal Cancer Screening 05/12/2028 FIT DNA/Cologuard 05/12/2028 05/12/2025 Lipid Panel 01/17/2030 01/17/2025, 06/16, 05/11/2023, Additional history exists DTaP/Tdap/Td Vaccines (3 - Td or Tdap) 12/29/2031 12/28/2021, 01/19/2011, 02/04/2009 Hepatitis C Screening Completed 12/10/2019 Zoster Vaccines Completed 05/15/2020, 12/24/2019 Pneumococcal Vaccine: 50+ Years Completed 12/28/2021, 10/21/2019, 04/14/2010 RSV Patients and Patients Aged 60 years or older Completed 01/15/2024 HIB Vaccines Aged Out No longer eligi [...] 025 11:44 AM EDT) No Tre Goodrich, Evelina Procedures Procedure Name Priority Date/Time Associated Diagnosis Comments BASIC METABOLIC PANEL Routine 06/27/2025 2:48 PM EDT BASIC METABOLIC PANEL Routine 06/27/2025 2:48 PM EDT FL GUIDANCE IN OR Routine 06/11/2025 2:1 1 PM EDT MRSA NASAL SCREEN Routine 06/11/2025 11: 15 AM EDT LAB COLOGUARD COLON CANCER SCREEN Routine 05/12/2025 10:45 AM EDT Screening for colon cancer LIPID PANEL WITH REFLEX TO DIRECT LDL Routine 01/17/2025 3:05 PM EDT Dyslipidemia PROPHYLAXIS - ADULT Routine [...] Recently Relevant to Health Maintenance Results * Basic Metabolic Panel (06/27/2025 2:48 PM EDT) Only the most recent of2 resultswithin the time period is included. Sodium 137 135 - 145 mmol/L [facility] Potassium 4.4 3.3 - 5.1 mmol/L [facility] Chloride 104 96 - 108 mmol/L [facility] Carbon Dioxide 22 22 - 29 mmol/L [facility] Anion Gap 15 12 - 20 [facility] Urea Nitrogen (BUN) 10 9 - 16 mg/dL [facility] Creatinine, Serum 0.72 0.5 - 1.4 mg/dL [facility] Estimated Glomerular Filt Rate >60 [facility] Comment:Chronic Kidney Disea se: Estimated GFR < 60 mL/min/[id number] Kidney Disease: Estimated GFR < 15 mL/min/1.73m2 Glucose 106 60 - 115 mg/dL [facility] Calcium 9.3 8.4 - 10.2 mg/dL [facility] 06/27/2025 2:48 PM EDT 06/27/2025 4:01 PM EDT us Generic External Data Provider LAB BLOOD ORDERAB LES Final Result [facility] [address] [place] [phone] * FL Guidance in OR (06/11/2025 2:11 PM EDT) Anatomical Region Laterality Modality X-Ray Angiograph y 06/11/2025 2:11 PM EDT Narrative 06/11/2025 3:33 PM EDT [address] [address] Fluoroscopy Report Signed Patient: Sariah Fleming MR#: [id number] 09 : 1955 Acct:[id number] Age/Sex: 70 / F ADM Date: 06/11/25 Loc: [facility] Attending Dr: Giovanny Alanis MD Ordering Physician: Giovanny Alanis MD Date of Service: 06/11/25 Procedure(s): FL guidance in OR Accession Number(s): [id number] cc: Giovanny Alanis MD; Patsy Berg MD EXAMINATION: FL GUIDANCE ONLY HISTORY: SPINAL CORD STIMULATION TRIAL COMPARISON: None available. TECHNIQUE: Fluoroscopy time: 2.8 minutes. Cumulative Dose: 61.1 mGy. DAP: 5.73 mGym2 Images: 3. FINDINGS: Fluoroscopic spot films of the thoracic spine demonstrate a spinal stimulator in place with the tip of the leads at the superior endplate of T7. FL/FL guidance in OR IMPRESSION: Fluoroscopy during procedure. Please see procedure report for additional information. Electronically signed by: Finesse Quinonez MD 06/11/2025 03:31 PM EDT Dictated By: Finesse Quinnoez MD Signed By: <Electronically signed by Finesse Quinonez MD in OV> 06/11/25 1531 DD/ 1411 TD/TT: 06/11/25 1505 First Cook: Procedure Note Donotuseinterpreter, Image - 06/11/2025 [place] [address] Fluoroscopy Report Signed Patient: Sariah FlemingMR#: [id number] 09 : 1955cct:[id number] Age/Sex: 70 / FADM Date: 06/11/25 Loc: [facility] Attending Dr: Giovanny Alanis MD Ordering Physician: Giovanny Alanis MD Date of Service: 06/11/25 Procedure(s): FL guidance in OR Accession Number(s): [id number] cc: Giovanny Alanis MD; Patsy Berg MD EXAMINATION: FL GUIDANCE ONLY HISTORY: SPINAL CORD STIMULATION TRIAL COMPARISON: None available. TECHNIQUE: Fluoroscopy time: 2.8 minutes. Cumulative Dose: 61.1 mGy. DAP: 5.73 mGym2 Images: 3. FINDINGS: Fluoroscopic spot films of the thoracic spine demonstrate a spinal stimulator in place with the tip of the leads at the superior endplate of T7. FL/FL guidance in OR IMPRESSION: Fluoroscopy during procedure. Please see procedure report for additional information. Electronically signed by: Finesse Quinonez MD 06/11/2025 03:31 PM EDT Dictated By: Finesse Quinonez MD Signed By: <Electronically signed by Finesse Quinonez MD in OV> 06/11/25 1531 DD/ 1411 TD/TT: 06/11/25 1505 First Cook: [facility] External Provider IMG IR PROCEDURES Final Result * MRSA Nasal Screen (06/11/2025 11:15 AM EDT) Pathologist [facility] MRSA Nasal PCR NEGATIVE Negative [facility] SA Nasal PCR NEGATIVE Negative [facility] MRSA Interpretation SEE NOTE [facility] Comment:MRSA target DNA not detected; SA target DNA not detected.A MRSA NEGATIVE, SA NEGATIVE test result does not precludeMRSA or SA nasal colonization. 06/11/2025 11:1 5 AM EDT 06/11/2025 11:29 AM EDT Generic External Data Provider LAB MICROBIOLOGY - GENERAL ORDERABLES Final Result [facility] [address] [place] [phone] * (ABNORMAL) Cologuard?? colon cancer screening (05/12/2025 10:45 AM EDT) Cologuard Result Positive( A) Negative 05/17/2025 12:32 PM EDT [employer] [facility] (CLIA #:[id number]) Comment: The Cologuard Plus (TM) test was performed on this specimen. POSITIVE TEST RESULT. A positive (abnormal) Cologuard Plus result means the patient has a [id number] chance of having colorectal cancer (CRC) or precancer (polyps or lesions that could become cancer). The normal value (reference range) for this assay is negative. A positive result should be followed by a colonoscopy to locate and confirm the presence of cancer or precancer. A positive Cologuard Plus result is not a cancer diagnosis. The federal government now considers the colonoscopy following a positive Cologuard Plus test result a covered preventive service. Call for more information. A clinical validation study measured the effectiveness of the Cologuard Plus test. Out of 100 patients testing positive: approximately 3 patients will have CRC; 34 patients will have advanced precancer; 33 will have a non-advanced precancer; and 30 will have no cancer or precancer. TEST DESCRIPTION: The Cologuard Plus test is a multi-target stool DNA (mt-sDNA) test that analyzes DNA and hemoglobin biomarkers in stool. It uses a proprietary algorithm to qualitatively detect CRC and advanced precancer. It is FDA-approved and indicated for use in adults 45 years or older at average risk for CRC. A positive (abnormal) result should be followed by a colonoscopy. Patients with a negative (normal) result should screen again in 3 years. False positive and false negative results may occur. The USPSTF recommends the Cologuard test as a CRC screening option. Their modeling estimates that screening with the test every 3 years from ages 45-85 could prevent up to 73% of CRC and avoid up to 85% of CRC deaths. A 18,911-patient clinical trial found the Cologuard Plus test effectively detects CRC and precancer. The study found the test was 95% sensitive for CRC, 43% sensitive for advanced precancer, and had a 91% specificity (Cologuard Plus Clinician Brochure. [place]. [place], [place] Visit www.[facility].com/about/osvtctbj-gnhedzskdlq-vxieyewycjp for more test information, references, warnings, and precautions. Stool specimen (specimen) 05/12/2025 10:45 AM EDT 05/13/2025 12:45 PM EDT Patsy Berg MD LAB MOLECULAR DIAGNOSTICS ORDERA BLES Final Result [employer] [facility] (CLIA #:[id number]) [address] [place] [address], * (ABNORMAL) Lipid Panel with Reflex to Direct LDL (01/17/2025 3:05 PM EDT) Triglycerides 96 <150 mg/dL [facility] Comment:Desirable Triglyceri de: less than 150 mg/dLBorderline High Triglyceride 150-199 mg/dLHigh Triglyceride: 200-499 mg/dLVery High Triglyceride: greater than or equal to 5OO mg/dL Cholesterol 225(H) <200 mg/dL [facility] Comment:Desirable Cholestero l: less than 200 mg/dLBorderline High Cholesterol: 200-239 mg/dLHigh Cholesterol: greater than 239 mg/dL LDL Cholesterol Calculated 105(H) <100 mg/dL [facility] Comment:Desirable LDL: less than 100 mg/dLNear Optimal/Above Optimal LDL: 110- 129 mg/dLBorderline High LDL: 130-159 mg/dLHigh LDL: 160-189 mg/dLVery High LDL: greater than or equal to 190 mg/dL HDL Cholesterol 101 >40 mg/dL [facility] Comment:Desirable HDL: great er than 40 mg/dL Note: This HDL assay may give artificially low results in patients with liver disease. Blood 01/17/2025 3:05 PM EDT 01/17/2025 4:14 PM EDT Patsy Berg MD LAB BLOOD ORDERABLES Final Resul t [facility] [address] [place] [phone] * BI Mammogram Screening Tomosynthesis Bilateral (06/14/2023 11:10 AM EDT) Anatomical Region Laterality Modality Breast Bilateral Mammography 06/14/2023 11:1 0 AM EDT Narrative 06/28/2023 8:16 AM EDT [address] [place] [address] Mammography Report Signed Patient: Sariah Fleming MR#: [id number] 09 : 1955 Acct:[id number] Age/Sex: 68 / F ADM Date: 06/14/23 Loc: HO.MAMMO Attending Dr: Patsy Berg MD Ordering Physician: Patsy Berg MD Results: 1Negative Date of Service: 06/14/23 Follow Up: 1 Year From Orig ina Mammogram Procedure(s): MM tomosynthesis screening BI Accession Number(s): [id number] cc: Patsy Berg MD EXAMINATION: MM SCREENING DIGITAL BREAST TOMOSYNTHESIS, [...] in OV> 06/28/23 0812 DD/ 1110 TD/TT: First Cook: Procedure Note Donotuseinterpreter, Image - 06/29/[address] [place] [address] Mammography Report Signed Patient: Sariah FlemingMR#: [id number] 09 : 1955cct:[id number] Age/Sex: 68 / FADM Date: 06/14/23 Loc: HO.MAMMO Attending Dr: Patsy Berg MD Ordering Physician: Patsy Berg MDResults: 1Negative Date of Service: 06/14/23Follow Up: 1 Year From Orig ina Mammogram Procedure(s): MM tomosynthesis screening BI Accession Number(s): [id number] cc: Patsy Berg MD EXAMINATION: MM SCREENING DIGITAL BREAST TOMOSYNTHESIS, [...] in OV> 06/28/23 0812 DD/ 1110 TD/TT: First Cook: Patsy Berg MD IMG BI PROCEDURES Edited Result - Final * HEPATITIS C ANTIBODY RFLX (12/10/2019 9:10 AM EST) HEPATITIS C ANTIBODY NONREACTIVE NONREACTIVE [facility] Comment: Antibodies to HCV not detected; does not exclude early acute HCV infection. 12/10/2019 9:10 AM EST us Patsy Berg MD HISTORICAL/NON ORDERABLE LABS Fi nal Result [place] [id number] from Last 3 Months or Most Recently Relevant to Health Maintenance Insurance [place] [id number] [facility] STAND ADULT Care Teams Aerospace Physiological Technician Relationship Specialty Start Date End Date Patsy Berg MD [address] [place] [address] PCP - General Family Medicine 10/16/18 Tre Goodrich, MaudeD [address] [place] [address] Pharmacist Internal Medicine 12/25/23 John Mcclain OD [facility] [address] [place] [address] [place] [address] Optometry 11/14/24
--- OUTSIDE RECORDS SUMMARY | 2025-06-27 17:23 | XMS_ITS | Encounter Summary ---
Author Organization [employer] Address [address] [place] [address] 7 [place] [address] Care Team Providers Care Independent Jeweler Name Role Phone Patsy Patel MD Primary Care Provider [phone] Tre Goodrich PharmD Unavailable [phone] John Mcclain OD Unavailable Reason for Referral * Consultation (Routine) - Authorized Specialty Diagnoses / Procedures Referred By Contabraham kunz Referred To Contact General Surgery Diagnoses Positive colorectal cancer screening using Cologuard test Patsy Patel MD [address] [place] [address] Phone: tel: fax: Moreno Donahue MD [address] [place] [address] [address] [place] [address] Phone: tel: Referral ID Status Reason Start Date Expiration Date Visits Requested Visits Authorized [id number] Authorized Specialty Services Required 05/20/2025 05/20/2026 1 1 Encounter Details Date Type Department Care Team (Late st Contact Info) Description 05/20/2025 Orders Only [facility] [address] [place] [address] Patsy Patel MD 230 [place], [place] [phone] Positive colorectal cancer screening using Cologuard test (Primary Dx) Social History Tobacco Use Types [...] Info) Description 07/02/2025 2:30 PM EDT Telemedicine [facility] [address] [place] [address] Tre Goodrich, PharmD 230 [place] [address] 07/22/2025 11:15 AM EDT Office Visit [facility] 230 [place] [address] Patsy Patel MD 230 [place] [address] Scheduled Referrals Name Type Priority Associated Diagnoses Orde r Schedule Referral to General Surgery Outpatient Referral Routine Positive colorectal cancer screening using Cologuard test Expected: 05/20/2025 (Approximate), Expires: 05/20/2026 documented as of this encounter Goals Goal Patient Goal Type Associated Problems Recent Progress Patient-Stated? Author Blood Pressure < 140/90 Blood Pressure 142/76( 025 11:44 AM EDT) No Tre Goodrich, PharmD documented as of this encounter Visit Diagnoses Diagnosis Positive colorectal cancer screening using Cologuard test- Primary documented in this encounter Additional Health Concerns Assessment Noted Time PHQ-9 Depression Total Score: 2 01/08/20 25 3:33 PM EDT documented as of this encounter Care Teams Independent Jeweler Relationship Specialty Start Date End Date Patsy Patel MD 230 [place] [address] PCP - General Family Medicine 10/16/18 Tre Goodrich, PharmD [address] [place] [address] Pharmacist Internal Medicine 12/25/23 John Mcclain OD [facility] [address] [place] [address] Optometry 11/14/24 documented as of this encounter
--- OUTSIDE RECORDS SUMMARY | 2025-06-27 17:23 | XMS_ITS | Encounter Summary ---
Author Organization [employer] Address [address] [facility] 7t [place] [address] Care Team Providers Care Supervisor Train Operations Name Role Phone Patsy Patel MD Primary Care Provider [phone] Tre Goodrich PharmD Unavailable [phone] John Mcclain OD Unavailable Reason for Visit * Reason Onset Date Comments Appointment Request 12/12/2024 Encounter Details Date Type Department Care Team ([facility] st Contact Info) Description 12/12/2024 Telephone [facility] 230 [place], [place] [phone] Patsy Patel MD 230 [place], [place] [phone] Appointment Request Social History Tobacco Use Types [...] Description 07/02/2025 2:30 PM EDT Telemedicine [facility] [address] [place] [address] Tre Goodrich, PharmD 230 [place] [address] 07/22/2025 11:15 AM EDT Office Visit [facility] [address] [place] [address] [phone] Patsy Patel MD 230 [place] [address] documented as of this encounter Goals Goal [...] as of this encounter Care Teams Supervisor Train Operations Relationship Specialty Start Date End Date Patsy Patel MD 230 [place] [address] PCP - General Family Medicine 10/16/18 Tre Goodrich, PharmD [address] [place] [address] Pharmacist Internal Medicine 12/25/23 John Mcclain OD [facility] [address] [place] [address] Optometry 11/14/24 documented as of this encounter
--- OUTSIDE RECORDS SUMMARY | 2025-06-27 17:23 | XMS_ITS | Encounter Summary ---
Author Organization [employer] Address 75 [facility] 7t [place] [address] Care Team Providers Care Kaiwhakahaere Name Role Phone Patsy Patel MD Primary Care Provider [phone] Tre Goodrich PharmD Unavailable [phone] John Mcclain OD Unavailable Reason for Visit * Reason Onset Date Comments Referral 01/27/2025 Encounter Details Date Type Department Care Team (Late st Contact Info) Description 01/27/2025 Telephone [facility] 230 [place] [address] Patsy Patel MD 230 [place], [place] [phone] Referral Social History Tobacco Use Types Packs/Day [...] Tc from pt requesting a referral to [facility]. Contact pt at [phone] documented in this encounter Plan of Treatment Upcoming Encounters Date Type Department Care Team (Late st Contact Info) Description 07/02/2025 2:30 PM EDT Telemedicine [facility] [address] [place] [address] Tre Goodrich, MaudeD 230 [place] [address] 07/22/2025 11:15 AM EDT Office Visit [facility] [address] [place] [address] Patsy Patel MD 230 [place] [address] documented as of this encounter Goals Goal [...] documented as of this encounter Care Teams Kaiwhakahaere Relationship Specialty Start Date End Date Patsy Patel MD 230 [place] [address] PCP - General Family Medicine 10/16/18 Tre Goodrich, PharmD [address] [place] [address] Pharmacist Internal Medicine 12/25/23 John Mcclain OD [facility] [address] [place] [address] Optometry 11/14/24 documented as of this encounter
--- OUTSIDE RECORDS SUMMARY | 2025-06-27 17:23 | XMS_ITS | Encounter Summary ---
Author Organization [employer] Address [address] [facility] 7t [place] [address] Care Team Providers Care Junior Programmer Analyst Name Role Phone Patsy Patel MD Primary Care Provider [phone] Tre Goodrich PharmD Unavailable [phone] John Mcclain OD Unavailable Encounter Details Date Type Department Care Team (Late st Contact Info) Description 06/27/2025 Orders Only [facility] 230 [place], [place] [phone] Patsy Patel MD 230 [place], [place] [phone] Social History Tobacco Use Types Packs/Day Years [...] Info) Description 07/02/2025 2:30 PM EDT Telemedicine [facility] [address] [place] [address] Tre Goodrich PharmD [address] [place] [address] 07/22/2025 11:15 AM EDT Office Visit [facility] [address] [place] [address] Patsy Patel MD [address] [place] [address] documented as of this encounter Goals Goal Patient Goal Type Associated Problems Recent Progress Patient-Stated? Author Blood Pressure < 140/90 Blood Pressure 142/76( 025 11:44 AM EDT) No Tre Goodrich, Evelina documented as of this encounter Procedures Procedure Name Priority Date/Time Associated Diagnosis Comments BASIC METABOLIC PANEL Routine 06/27/2025 2:48 PM EDT BASIC METABOLIC PANEL Routine 06/27/2025 2:48 PM EDT documented in this encounter Results * Basic Metabolic Panel (06/27/2025 2:48 PM EDT) Sodium 137 135 - 145 mmol/L [facility] Potassium 4.4 3.3 - 5.1 mmol/L [facility] Chloride 104 96 - 108 mmol/L [facility] Carbon Dioxide 22 22 - 29 mmol/L [facility] Anion Gap 15 12 - 20 [facility] Urea Nitrogen (BUN) 10 9 - 16 mg/dL [facility] Creatinine, Serum 0.72 0.5 - 1.4 mg/dL [facility] Estimated Glomerular Filt Rate >60 [facility] Comment:Chronic Kidney Disea se: Estimated GFR < 60 mL/min/1.02p5Ocwfsb Kidney Disease: Estimated GFR < 15 mL/min/1.73m2 Glucose 106 60 - 115 mg/dL [facility] Calcium 9.3 8.4 - 10.2 mg/dL [facility] 06/27/2025 2:48 PM EDT 06/27/2025 4:01 PM EDT us Generic External Data Provider LAB BLOOD ORDERAB LES Final Result [facility] [address] [place] [phone] * Basic Metabolic Panel (06/27/2025 2:48 PM EDT) Sodium 138 135 - 145 mmol/L [facility] Potassium 4.5 3.3 - 5.1 mmol/L [facility] Chloride 103 96 - 108 mmol/L [facility] Carbon Dioxide 22 22 - 29 mmol/L [facility] Anion Gap 18 12 - 20 [facility] Urea Nitrogen (BUN) 10 9 - 16 mg/dL [facility] Creatinine, Serum 0.75 0.5 - 1.4 mg/dL [facility] Estimated Glomerular Filt Rate >60 [facility] Comment:Chronic Kidney Disea se: Estimated GFR < 60 mL/min/1.50m5Mjnlpg Kidney Disease: Estimated GFR < 15 mL/min/1.73m2 Glucose 106 60 - 115 mg/dL [facility] Calcium 9.4 8.4 - 10.2 mg/dL [facility] 06/27/2025 2:48 PM EDT 06/27/2025 4:01 PM EDT us Patsy Patel MD LAB BLOOD ORDERABLES Final Resul t [facility] [address] [place] [address] [phone] documented in this encounter Visit Diagnoses Not on filedocumented in this encounter Additional Health Concerns Assessment Noted Time PHQ-9 Depression Total Score: 2 01/08/20 3:33 PM EDT documented as of this encounter Care Teams Junior Programmer Analyst Relationship Specialty Start Date End Date Pasty Patel MD 230 [place] [address] PCP - General Family Medicine 10/16/18 Tre Goodrich, MaudeD 230 [place] [address] Pharmacist Internal Medicine 12/25/23 John Mcclain OD [facility] [address] [place] [address] Optometry 11/14/24 documented as of this encounter
--- OUTSIDE RECORDS SUMMARY | 2025-06-27 17:23 | XMS_ITS | Clinical Summary ---
Author Organization [facility] Address [address] [place] [address] [place] [address] Phone Care Team Providers Care Professor Of Music Name Role Phone Patsy Patel MD Primary Care Provider [phone] Allergies Active Allergy Reactions Criticality Noted Date Comments Isaiah Inhibitors 12/08/2021 Diltiazem 12/08/2021 Hydralazine 07/19/2021 Medications aspirin EC 81 MG EC tablet Take 81 mg by mouth 1 (one) time each day Active Calcium Carb-Cholecalci ferol (CALCIUM 500+D3 PO) Take by mouth Activ e zinc gluconate 50 MG tablet Take by mouth 1 (one) time each day Active [place]-3 Fatty Acids (Fish Oil) 1000 MG capsule [...] -Agreed to order MRI and refer to production specialist. -Continue PT. Hematuria 10/25/2022 07/13/2023 Overview (07/13/2023): Last Assessment & Plan: -microscopic, evaluated by urologist Stage 3 chronic kidney disease 10/25/2022 0 07/13/2023 Overview (07/13/2023): Last Assessment & Plan: -Followed by basket mender -Optimize BP control -Avoid nephrotoxic drugs -Periodic lab to monitor renal function Patient encounter status 02/24/2022 023 Overview (07/13/2023): Last Assessment & Plan: Take the lowest dose, with least frequency, for shortest time. Remember to take it always with food. Favor topical over oral preparations. [facility] current use of aspirin 02/23/2022 07/13/2023 Overview (07/13/2023): Last Assessment & Plan: Avoid falls, injuries and cuts. Monitor for excessive bruising and bleeding. Drug therapy finding 02/23/2022 07/13/2023 Overview (07/13/2023): Last Assessment & Plan: Monitor for muscle tenderness, swelling and weakness Last Assessment & Plan: Take daily as prescribed. Use daily sun protection all year round, particularly during spring and summer months. See credit reference clerk as scheduled every 6 months. Avoid concomitant [...] adjust medication at this time. -Co-managed with basket mender - EKG 12/24/19 - NSR, no acute [...] 25 mg to 50 mg daily by basket mender. -Benicar-HCTZ PA was denied. -She does not want to adjust any medication at this time. --Follow- up in 3 months. Disorder of hip joint 07/21/2015 07/13/2023 Overview (07/13/2023): Last Assessment & Plan: -[place] [facility] [place] -PT with iontophoresis for trochanteric bursitis [...] recent eye exam by Dr. Mcclain in [place] within 2 weeks- next scheduled for 6 [...] recent eye exam by Dr. Mcclain in [place] within 2 weeks- next scheduled for 6 months. Encouraged to continue carefully Plaquenil with daily sun protection particularly during summer and spring months. In the past labs from November 2019 reassuring-new set requested today. Last Assessment & Plan: -Current [employer] Dr. Martin last note on May 2022 -Current medication: Hydroxychloroquine 200 mg daily -Continue current treatment plan per her current wrapper stripper. -Needs eye exam for long-term use of [...] Medicaid [place] Care Teams Professor Of Music Relationship Specialty Start Date End Date Patsy Patel MD PCP - General Family Medicine 07/08/21
--- OUTSIDE RECORDS SUMMARY | 2025-06-27 17:23 | XMS_ITS | Encounter Summary ---
Author Organization [employer] Address 75 [facility] 7t [place] [address] Care Team Providers Care Operational Assistant Name Role Phone Patsy Patel MD Primary Care Provider Tre Goodrich PharmD Unavailable [phone] John Mcclain OD Unavailable Encounter Details Date Type Department Care Team (Late st Contact Info) Description 06/12/2025 Orders Only [facility] 230 [place], [place] [phone] Patsy Patel MD 230 [place], [place] [phone] Social History Tobacco Use Types Packs/Day Years [...] EDT Telemedicine [facility] [address] [place] [phone] Tre Goodrich PharmD [address] [place] [address] 07/22/2025 11:15 AM EDT Office Visit [facility] [address] [place] [phone] Patsy Patel MD [address] [place] [address] documented as of this encounter Goals Goal [...] documented as of this encounter Care Teams Operational Assistant Relationship Specialty Start Date End Date Patsy Patel MD 230 [place] [address] PCP - General Family Medicine 10/16/18 Tre Goodrich PharmD 230 [place] [address] Pharmacist Internal Medicine 12/25/23 John Mcclain OD [facility] [address] [place] [address] Optometry 11/14/24 documented as of this encounter
--- OUTSIDE RECORDS SUMMARY | 2025-06-27 17:23 | XMS_ITS | Encounter Summary ---
Author Organization [employer] Address [address] [facility] 7t [place] [address] Care Team Providers Care Studio Control Operator Name Role Phone Patsy Patel MD Primary Care Provider [phone] Tre Goodrich PharmD Unavailable [phone] John Mcclain OD Unavailable Reason for Visit * Reason Onset Date Comments Appointment Request 06/12/2025 Encounter Details Date Type Department Care Team ([facility] st Contact Info) Description 06/12/2025 Telephone [facility] 230 [place], [place] [phone] Patsy Patel MD 230 [place], [place] [phone] Appointment Request Social History Tobacco Use Types [...] encounter Miscellaneous Notes * Telephone Encounter - Alok Roberto - 06/12/2025 3:14 PM EDT Tc from pt wanting to r/s pain management visit . documented in this encounter Plan of Treatment Upcoming Encounters Date Type Department Care Team (Late st Contact Info) Description 07/02/2025 2:30 PM EDT Telemedicine [facility] [address] [place] [phone] Tre Goodrich, PharmD [address] [place] [address] 07/22/2025 11:15 AM EDT Office Visit [facility] [address] [place] [address] Patsy Patel MD [address] [place] [address] documented as of this encounter Goals Goal [...] documented as of this encounter Care Teams Studio Control Operator Relationship Specialty Start Date End Date Patsy Patel MD [address] [place] [address] PCP - General Family Medicine 10/16/18 Tre Goodrich, PharmD [address] [place] [address] Pharmacist Internal Medicine 12/25/23 John Mcclain OD [facility] [address] [place] [address] Optometry 11/14/24 documented as of this encounter
--- OUTSIDE RECORDS SUMMARY | 2025-06-27 17:23 | XMS_ITS | Encounter Summary ---
Author Organization [employer] Address [address] [facility] 7t [place] [address] Care Team Providers Care Casino Supervisor Name Role Phone Patsy Patel MD Primary Care Provider Tre Goodrich PharmD Unavailable [phone] John Mcclain OD Unavailable Reason for Visit * Reason Comments Med Refill Encounter Details Date Type Department Care Team ([facility] st Contact Info) Description 09/17/2024 Refill [facility] 230 [place] [address] Tre Goodrich, PharmD 230 [place], [place] [phone] Primary hypertension Social History Tobacco Use Types [...] Info) Description 07/02/2025 2:30 PM EDT Telemedicine [facility] [address] [place] [phone] Tre Goodrich, PharmD [address] [place] [address] 07/22/2025 11:15 AM EDT Office Visit [facility] [address] [place] [address] Patsy Patel MD [address] [place] [address] documented as of this encounter Goals Goal Patient Goal Type Associated Problems Recent Progress Patient-Stated? Author Blood Pressure < 140/90 Blood Pressure 142/76( 025 11:44 AM EDT) No Tre Goodrich PharmD documented as of this encounter Visit Diagnoses Diagnosis Primary hypertension Unspecified essential hypertension documented in this encounter Additional Health Concerns Assessment Noted Time PHQ-9 Depression Total Score: 10 023 1:33 PM EST documented as of this encounter Care Teams Casino Supervisor Relationship Specialty Start Date End Date Patsy Patel MD [address] [place] [address] PCP - General Family Medicine 10/16/18 Tre Goodrich, MaudeD [address] [place] [address] Pharmacist Internal Medicine 12/25/23 John Mcclain OD [facility] [address] [place] [address] [place] [address] Optometry 11/14/24 documented as of this encounter
--- OUTSIDE RECORDS SUMMARY | 2025-06-27 17:23 | XMS_ITS | Encounter Summary ---
Author Organization [employer] Address 75 [facility] 7t h Floor [place] [id number] Care Team Providers Care Clinical Practitioner Name Role Phone Patsy Patel MD Primary Care Provider [phone] Tre Goodrich PharmD Unavailable [phone] John Mcclain OD Unavailable Reason for Visit * Reason Onset Date Comments Referral 12/29/2023 Encounter Details Date Type Department Care Team ([facility] st Contact Info) Description 12/29/2023 Telephone [facility] [address] [place], [place] [phone] Patsy Patel MD 230 [place], [place] [phone] Referral Social History Tobacco Use Types Packs/Day [...] to orthopaedic surgery that was placed 12/31. [facility] was told they need derm's note and that she brought it in and gave to medical records a while ago. [facility] medical records told her they would give [...] swelling or discharge. Saw a surgeon at [facility] who states the pt needs to see a leasing specialist. Scheduled for an ultrasound at [facility] on Monday. Advised I would notify Dr. Patel to see if an appt will be necessary.Pt stated understanding. * Telephone Encounter - Ana Lilia Del Rio - 12/29/2023 3:27 PM EDT Tc from pt requesting a referral for orthopedics surgeons to treat a lump on left ankle. [facility] [place] documented in this encounter Plan of Treatment Upcoming Encounters Date Type Department Care Team (Late st Contact Info) Description 07/02/2025 2:30 PM EDT Telemedicine [facility] [address] [place] [address] Tre Goodrich, PharmD [address] [place] [address] 07/22/2025 11:15 AM EDT Office Visit [facility] [address] [place] [address] Patsy Patel MD [address] [place] [address] documented as of this encounter Goals Goal Patient Goal Type Associated Problems Recent Progress Patient-Stated? Author Blood Pressure < 140/90 Blood Pressure 142/76( 025 11:44 AM EDT) No Tre Goodrich, PharmNikhil documented as of this encounter Visit Diagnoses Not on filedocumented in this encounter Additional Health Concerns Assessment Noted Time PHQ-9 Depression Total Score: 10 023 1:33 PM EST documented as of this encounter Care Teams Clinical Practitioner Relationship Specialty Start Date End Date Patsy Patel MD [address] [place] [address] PCP - General Family Medicine 10/16/18 Tre Goodrich, PharmD [address] [place] [address] Pharmacist Internal Medicine 12/25/23 John Mcclain OD [facility] [address] [place] [address] Optometry 11/14/24 documented as of this encounter
--- OUTSIDE RECORDS SUMMARY | 2025-06-27 17:23 | XMS_ITS | Encounter Summary ---
Author Organization [employer] Address 75 [facility] 7t [place] [address] Care Team Providers Care Rn Womens Health Name Role Phone Patsy Patel MD Primary Care Provider Tre Goodrich PharmD Unavailable [phone] John Mcclain OD Unavailable Reason for Visit * Reason Onset Date Comments Results 05/20/2025 Encounter Details Date Type Department Care Team ([facility] st Contact Info) Description 05/20/2025 Results Follow-Up [facility] 230 [place] [address] Patsy Patel MD 230 [place], [place] [phone] Cologuard colon cancer screening Social History Tobacco Use Types Packs/Day Years [...] Telephone Encounter - Nelida Swan RN - 05/20/2025 10:31 AM EDT Telephone call placed to pt regarding below results and POC. Informed of positive cologuard and recommendation for colonoscopy. Pt agreeable. Pt reports that she had a polyp last time she had colonoscopy. Pt gave option of waiting for appt with Dr Donahue or being referred elsewhere. Pt states that she really liked Dr Donahue and would like to see him again. Informed we would start that process. Pt verbalized understanding and denied having any further questions or concerns at this time. * Telephone Encounter - Obi Mccoy - 05/20/2025 9:29 AM EDT Tc from pt returning call regarding message prior. * Telephone Encounter - Ashley Harris RN - 05/20/2025 8:59 AM EDT Telephone call x1 to pt to advise of below result. No answer, left voicemail to call back. * Telephone Encounter - Ashley Harris RN - 05/20/2025 8:58 AM EDT ----- Message from Patsy Patel MD sent at 05/20/2025 7:06 AM EDT ----- Please inform patient that her cologuard was positive and colonoscopy is recommended. Please ask her if she wants to be referred to the same provider (Dr. Donahue, may take a while since the office is very busy) or does not mind to be referred to other providers. Thank you. ----- Message ----- From: [employer] Results In Sent: 05/17/2025 6:06 PM EDT To: Patsy Patel MD documented in this encounter Plan of Treatment Upcoming Encounters Date Type Department Care Team (Late st Contact Info) Description 07/02/2025 2:30 PM EDT Telemedicine [facility] [address] [place] [address] Tre Goodrich PharmD [address] [place] [address] 07/22/2025 11:15 AM EDT Office Visit [facility] [address] [place] [address] Patsy Patel MD [address] [place] [address] documented as of this encounter Goals Goal [...] documented as of this encounter Care Teams Rn Womens Health Relationship Specialty Start Date End Date Patsy Patel MD 230 [place] [address] PCP - General Family Medicine 10/16/18 Tre Goodrich, Evelina 230 [place] [address] Pharmacist Internal Medicine 12/25/23 John Mcclain OD [facility] [address] [place] [address] Optometry 11/14/24 documented as of this encounter
--- OUTSIDE RECORDS SUMMARY | 2025-06-27 17:23 | XMS_ITS | Encounter Summary ---
Author Organization [employer] Address [address] [place] [address] 7t [place] [address] Care Team Providers Care Food Service Team Member Name Role Phone Patsy Patel MD Primary Care Provider [phone] Tre Goodrich PharmD Unavailable [phone] John Mcclain OD Unavailable Reason for Visit * Reason Comments Med Refill Encounter Details Date Type Department Care Team (Late Contact Info) Description 07/19/2023 Refill [facility] 230 [place] [address] Patsy Patel MD 230 [place], [place] [phone] Social History Tobacco Use Types Packs/Day Years [...] 2:30 PM EDT Telemedicine [facility] [address] [place] [address] Tre Goodrich, PharmD [address] [place] [address] 07/22/2025 11:15 AM EDT Office Visit [facility] [address] [place] [address] Patsy Patel MD [address] [place] [address] [phone] documented as of this encounter Visit Diagnoses Not on filedocumented in this encounter Additional Health Concerns Assessment Noted Time PHQ-9 Depression Total Score: 023 1:33 PM EST documented as of this encounter Care Teams Food Service Team Member Relationship Specialty Start Date End Date Patsy Patel MD [address] [place] [address] PCP - General Family Medicine 10/16/18 Tre Goodrich, PharmD [address] [place] [address] Pharmacist Internal Medicine 12/25/23 John Mcclain OD [facility] [address] [place] [address] [place] [address] Optometry 11/14/24 documented as of this encounter
--- OUTSIDE RECORDS SUMMARY | 2025-06-27 17:23 | XMS_ITS | Encounter Summary ---
Author Organization [employer] Address [address] [place] [address] 7t [place] [address] Care Team Providers Care Medical Accounting Clerk Name Role Phone Patsy Patel MD Primary Care Provider [phone] Tre Goodrich PharmD Unavailable [phone] John Mcclain OD Unavailable Reason for Referral * Consultation (Urgent) - Closed Specialty Diagnoses / Procedures Referred By Contac t Referred To Contact Orthopaedic Surgery Diagnoses Ankle mass, left Patsy Patel MD 230 [place] [address] Phone: tel: fax: [facility] [address] [place] [address] [place] [address] Phone: tel: fax: Referral ID Status Reason Start Date Expiration Date V isits Requested Visits Authorized [id number] Closed Specialty Services Required 01/01/2024 12/31/2024 1 1 Scheduling Instructions Cardiopulmonary Specialist recommends [facility]. Encounter Details Date Type Department Care Team (Late st Contact Info) Description 01/01/2024 Orders Only [facility] 230 [place], [place] [phone] Patsy Patel MD 230 [place], [place] [phone] Ankle mass, left (Primary Dx) Social History [...] Info) Description 07/02/2025 2:30 PM EDT Telemedicine [facility] [address] [place] [address] Tre Goodrich, PharmD 230 [place] [address] 07/22/2025 11:15 AM EDT Office Visit [facility] [address] [place] [address] Patsy Patel MD 230 [place] [address] Scheduled Referrals Name Type Priority Associated Diagnoses [...] documented as of this encounter Care Teams Medical Accounting Clerk Relationship Specialty Start Date End Date Patsy Patel MD 230 [place] [address] PCP - General Family Medicine 10/16/18 Tre Goodrich, PharmD [address] [place] [address] Pharmacist Internal Medicine 12/25/23 John Mcclain OD [facility] [address] [place] [address] Optometry 11/14/24 documented as of this encounter
--- OUTSIDE RECORDS SUMMARY | 2025-06-27 17:23 | XMS_ITS | Clinical Summary ---
Author Organization [facility] Address [address] [place] [address] Phone Care Team Providers Care Safety Specialist Name Role Phone Patsy Patel MD Primary Care Provider [phone] Allergies Active Allergy Reactions Criticality Noted Date Comments Isaiah Inhibitors 12/08/2021 Diltiazem Hcl 12/08/2021 Medications aspirin 81 MG EC tablet Take 81 mg by mouth daily. Active calcium carbonate/vitam in D3 (CALCIUM 600 + D,3, ORAL) Take 1 capsule by mouth daily. Active omega 3-odv-xmz-fish oil 1,000 mg (120 mg-180 mg) Cap [...] in a warm pool such as at [facility] in [place], [place]. Assessment & Plan (04/09/2024 9:15 PM [...] today and prior to next visit-orders in [facility]. Call if problems or questions. Assessment [...] today and prior to next visit-orders in [facility]. Call if problems or questions. Assessment [...] and prior to next visit- orders in [facility].. Assessment & Plan (02/13/2023 10:32 AM [...] recent eye exam by Dr. Mcclain in [place] within 2 weeks- next scheduled for 6 [...] recent eye exam by Dr. Mcclain in [place] within 2 weeks- next scheduled for 6 [...] particularly during spring and summer months. See rug cutter helper as scheduled every 6 months. Avoid concomitant use of QT interval elongating meds such as some SSRIs Assessment & Plan (04/08/2024 11:39 AM EDT): Take daily as prescribed. Use daily sun protection all year round, particularly during spring and summer months. See rug cutter helper as scheduled every 6 months. Avoid concomitant use of QT interval elongating meds such as some SSRIs Assessment & Plan (10/04/2023 11:29 AM EST): Take daily as prescribed. Use daily sun protection all year round, particularly during spring and summer months. See rug cutter helper as scheduled every 6 months. Avoid concomitant use of QT interval elongating meds such as some SSRIs Assessment & Plan (01/19/2023 4:30 PM EDT): Take daily as prescribed. Use daily sun protection all year round, particularly during spring and summer months. See rug cutter helper as scheduled every 6 months. Avoid concomitant use of QT interval elongating meds such as some SSRIs Assessment & Plan (05/26/2022 2:23 PM EDT): Take daily as prescribed. Use daily sun protection all year round, particularly during spring and summer months. See rug cutter helper as scheduled every 6 months. Avoid concomitant use of QT interval elongating meds such as some SSRIs Assessment & Plan (02/24/2022 12:47 AM EDT): Take daily as prescribed. Use daily sun protection all year round, particularly during spring and summer months. See rug cutter helper as scheduled every 6 months. Avoid concomitant [...] FOBT 1998 SIGMOIDOSCOPY 1998 VIRTUAL COLONOSCOPY 1998 BLOOD PRESSURE 05/08/2025 11/08/2024 INFLUENZA VACCINE (#1) 2025 , 07/07/2022, 08/10/2021, Additional history exists MAMMOGRAM 06/14/2025 06/14/2023, 06/14/2023 COVID-19 VACCINE ( season) 2025 10/18/2023, 08/22/2022, 01/21/2022, Additional history exists CREATININE LEVEL 11/01/2025 11/01/2024, 03/2024, 01/27/2023, Additional [...] EST Discoid lupus Long-term use of Plaquenil HM MAMMOGRAPHY Routine 06/14/2023 8:22 AM EDT DEXA SCAN Routine 06/14/2023 8:22 AM EDT from Last 3 Months or Most Recently Relevant to Health Maintenance Results * (ABNORMAL) Comprehensive metabolic panel (11/01/2024 1:37 PM EST) SODIUM 137 133 - 146 mmol/L [facility] POTASSIUM 4.5 3.3 - 5.1 mmol/L [facility] Comment:Specimen slightly he molyzed, result may be falsely elevated. CHLORIDE 101 96 - 108 mmol/L [facility] CO2 23 21 - 35 mmol/L [facility] BUN 16 6 - 19 mg/dL [facility] CREATININE 0.80 0.5 - 1.5 mg/dL [facility] GLUCOSE 100(H) 70 - 99 mg/dL [facility] ALBUMIN 4.2 3.9 - 4.8 g/dL [facility] TOTAL PROTEIN 7.7 6.5 - 8.0 g/dL [facility] CALCIUM 9.8 8.4 - 10.3 mg/dL [facility] ALKALINE PHOSPHATASE 64 39 - 117 U/L [facility] TOTAL BILIRUBIN 0.5 0.0 - 1.2 mg/dL [facility] AST 27 0 - 37 U/L [facility] ALT 19 0 - 40 U/L [facility] GLOBULIN 3.5 1 - 4.8 g/dL [facility] EGFR 79 >59 mL/min/1.7 3m2 [facility] Comment:Estimated glomerular filtration rate calculated using the CKD-EPI refit equation. ANION GAP 18 10 - 20 mmol/L [facility] Blood 11/01/2024 1:37 PM EST 11/01/2024 1:40 PM EST Carlotta Yeboah MD LAB BLOOD ORDERABLES Fin al Result Performing Organization Address City/State/[facility] Co de Phone Number [address] [address] * DEXA SCAN (06/14/2023 8:22 AM EDT) Historical Provider HEALTH MAINTENANCE Final Result * MAMMOGRAPHY FOR RESULT ENTRY ONLY (06/14/2023 8:22 AM EDT) Historical Provider HEALTH MAINTENANCE Final Result from Last 3 Months or Most Recently Relevant to Health Maintenance Insurance MEDICARE PART A & B HEALTH MEDICARE PART A & B HEALTH MEDICARE PART A & [facility] [place] PART [place] [id number] MEDICARE PART A [place] [phone] [facility] [phone] MEDICARE PART A & B [facility] [place] [address] Care Teams Safety Specialist Relationship Specialty Start Date End Date Patsy Patel MD [address] [place] [address] PCP - General Family Medicine 08/04/21 Additional Source Comments The information contained in this document represents components of the legal health record. It is not the complete legal health record.[facility]
--- OUTSIDE RECORDS SUMMARY | 2025-06-27 17:23 | XMS_ITS | Encounter Summary ---
Author Organization [employer] Address 75 [facility] 7t [place] [address] Care Team Providers Care Final Cleaner Name Role Phone Patsy Patel MD Primary Care Provider [phone] Tre Goodrich PharmD Unavailable [phone] John Mcclain OD Unavailable Encounter Details Date Type Department Care Team (Late st Contact Info) Description 06/27/2024 Orders Only [facility] MEDICINE 230 [place], [place] [phone] Patsy Patel MD [address] [place], [place] [phone] Social History Tobacco Use Types Packs/Day Years [...] Info) Description 07/02/2025 2:30 PM EDT Telemedicine [facility] [address] [place] [address] Tre Goodrich, PharmD [address] [place] [address] 07/22/2025 11:15 AM EDT Office Visit [facility] [address] [place] [address] Patsy Patel MD [address] [place] [address] documented as of this encounter Goals Goal [...] documented as of this encounter Care Teams Final Cleaner Relationship Specialty Start Date End Date Patsy Patel MD [address] [place] [address] PCP - General Family Medicine 10/16/18 Tre Goodrich, Evelina [address] [facility] [place] [address] Pharmacist Internal Medicine 12/25/23 John Mcclain OD [facility] [address] [place] [address] Optometry 11/14/24 documented as of this encounter
--- OUTSIDE RECORDS SUMMARY | 2025-06-27 17:23 | XMS_ITS | Encounter Summary ---
Author Organization [employer] Address 75 [facility] 7t [place] [address] Care Team Providers Care Braider Operator Name Role Phone Patsy Patel MD Primary Care Provider [phone] Tre Goodrich PharmD Unavailable [phone] John Mcclain OD Unavailable Reason for Referral * Consultation (Routine) - Pending Review Specialty Diagnoses / Procedures Referred By Jorge A t Referred To Contact Pharmacy Diagnoses Primary hypertension Patsy Patel MD 230 [place] [address] Phone: tel: fax: Referral ID Status Reason Start Date Expiration Date Visits Requested Visits Authorized [id number] Pending Review Consult and Treat 4 08/27/2025 6 6 Encounter Details Date Type Department Care Team (Late st Contact Info) Description 08/27/2024 Orders Only [facility] MED[facility]INE 230 [place], [place] [phone] Patsy Patel MD 230 [place], [place] [phone] Primary hypertension (Primary Dx) Social History Tobacco [...] Info) Description 07/02/2025 2:30 PM EDT Telemedicine [facility] [address] [place] [address] Tre Goodrich, Evleina 230 [place] [address] 07/22/2025 11:15 AM EDT Office Visit [facility] [address] [place] [address] Patsy Patel MD 230 [place] [address] Scheduled Referrals Name Type Priority Associated Diagnoses [...] documented as of this encounter Care Teams Braider Operator Relationship Specialty Start Date End Date Patsy Patel MD 230 [place] [address] PCP - General Family Medicine 10/16/18 Tre Goodrich, PharmD 230 [place] [address] Pharmacist Internal Medicine 12/25/23 John Mcclain OD [facility] [address] [place] [address] Optometry 11/14/24 documented as of this encounter
--- OUTSIDE RECORDS SUMMARY | 2025-06-27 17:23 | XMS_ITS | Encounter Summary ---
Author Organization [employer] Address 75 [facility] 7t [place] [address] Care Team Providers Care Package Delivery Driver Name Role Phone Patsy Patel MD Primary Care Provider [phone] Tre Goodrich PharmD Unavailable [phone] John Mcclain OD Unavailable Encounter Details Date Type Department Care Team (Latest Contact Info) Description 06/25/2025 Travel Social History Tobacco Use Types Packs/Day [...] Info) Description 07/02/2025 2:30 PM EDT Telemedicine [facility] [address] [place] [address] Tre Goodrich, PharmD [address] [place] [address] 07/22/2025 11:15 AM EDT Office Visit [facility] [address] [place] [address] Patsy Patel MD [address] [place] [address] documented as of this encounter Goals Goal [...] documented as of this encounter Care Teams Package Delivery Driver Relationship Specialty Start Date End Date Patsy Patel MD [address] [place] [address] PCP - General Family Medicine 10/16/18 Tre Goodrich, MaudeD [address] [place] [address] Pharmacist Internal Medicine 12/25/23 John Mcclain OD [facility] [address] [place] [address] Optometry 11/14/24 documented as of this encounter
== END 2025-06-27 14:43 | disposition home or self-care (01) ==
LOC: HO.HHCL 14:42
PROVIDERS: PCP Family Medicine; Visit Provider Internal Medicine Hypertension Specialist
DX: L93.0 Discoid lupus erythematosus (principal); I10 Essential (primary) hypertension
CPT/HCPCS: 36415; 80048

== ENCOUNTER 2025-06-30 12:17 | Outpatient (REF) | payer MEDICARE, MEDICAID, SELFPAY ==
[2025-06-30 14:03] LABS: Appearance Urine Clear; Glucose Urine UA Negative (Negative); PH 6.0 (5.0-9.0); Specific Gravity - Urine 1.010 (1.005-1.025); UMIC TRIGGER UA YES
[2025-06-30 16:09] LABS: Total Protein Urine Random 9 mg/dL (<12)
--- OUTSIDE RECORDS SUMMARY | 2025-06-30 16:53 | XMS_ITS | Encounter Summary ---
Author Organization [employer] Address 75 [facility] 7t [place] [address] Care Team Providers Care Classified Advertising Manager Name Role Phone Patsy Patel MD Primary Care Provider [phone] Tre Goodrich PharmD Unavailable [phone] John Mcclain OD Unavailable Reason for Visit * Reason Onset Date Comments Referral 01/27/2025 Encounter Details Date Type Department Care Team (Late st Contact Info) Description 01/27/2025 Telephone [facility]INE 230 [place] [address] Patsy Patel MD 230 [place], [place] [phone] Referral Social History Tobacco Use Types Packs/Day [...] from pt requesting a referral [facility]. Contact pt at [phone] documented in this encounter Plan of Treatment Upcoming Encounters Date Type Department Care Team (Late st Contact Info) Description 07/02/2025 2:30 PM EDT Telemedicine [facility] [address] [place] [address] Tre Goodrich, MaudeD 230 [place] [address] 07/22/2025 11:15 AM EDT Office Visit [facility] [address] [place] [address] Patsy Patel MD 230 [place] [address] documented as of this encounter Goals Goal [...] documented as of this encounter Care Teams Classified Advertising Manager Relationship Specialty Start Date End Date Patsy Patel MD 230 [place] [address] PCP - General Family Medicine 10/16/18 Tre Goodrich, PharmD [address] [place] [address] Pharmacist Internal Medicine 12/25/23 John Mcclain OD [facility] [address] [place] [address] Optometry 11/14/24 documented as of this encounter
--- OUTSIDE RECORDS SUMMARY | 2025-06-30 16:53 | XMS_ITS | Encounter Summary ---
Author Organization [employer] Address 75 [facility] 7t [place] [address] Care Team Providers Care Business Relations Manager Name Role Phone Patsy Patel MD Primary Care Provider Tre Goodrich PharmD Unavailable [phone] John Mcclain OD Unavailable Encounter Details Date [...] Info) Description 07/02/2025 2:30 PM EDT Telemedicine [facility] [address] [place] [address] Tre Goodrich, PharmD [address] [place] [address] 07/22/2025 11:15 AM EDT Office Visit [facility] [address] [place] [address] Patsy Patel MD [address] [place] [address] documented as of this encounter Goals Goal [...] documented as of this encounter Care Teams Business Relations Manager Relationship Specialty Start Date End Date Patsy Patel MD [address] [place] [address] PCP - General Family Medicine 10/16/18 Tre Goodrich, MaudeD [address] [place] [address] Pharmacist Internal Medicine 12/25/23 John Mcclain OD [facility] [address] [place] [address] Optometry 11/14/24 documented as of this encounter
--- OUTSIDE RECORDS SUMMARY | 2025-06-30 16:53 | XMS_ITS | Encounter Summary ---
Author Organization [employer] Address [address] [place] [address] 7t [place] [address] Care Team Providers Care Interface Engineer Name Role Phone Patsy Patel MD Primary Care Provider [phone] Tre Goodrich PharmD Unavailable [phone] John Mcclain OD Unavailable Reason for Visit * Reason Comments Med Refill Encounter Details Date Type Department Care Team (Late Contact Info) Description 07/19/2023 Refill [facility] [address] [place] [address] Patsy Patel MD [address] [place], [place] [phone] Social History Tobacco Use Types Packs/Day Years [...] Info) Description 07/02/2025 2:30 PM EDT Telemedicine [facility] [address] [place] [address] Tre Goodrich, PharmD [address] [place] [address] 07/22/2025 11:15 AM EDT Office Visit [facility] [address] [place] [address] Patsy Patel MD [address] [place] [address] [phone] documented as of this encounter Visit Diagnoses Not on filedocumented in this encounter Additional Health Concerns Assessment Noted Time PHQ-9 Depression Total Score: 023 1:33 PM EST documented as of this encounter Care Teams Interface Engineer Relationship Specialty Start Date End Date Patsy Patel MD [address] [place] [address] PCP - General Family Medicine 10/16/18 Tre Goodrich, PharmD [address] [place] [address] Pharmacist Internal Medicine 12/25/23 John Mcclain OD [facility] [address] [place] [address] [place] [address] Optometry 11/14/24 documented as of this encounter
--- OUTSIDE RECORDS SUMMARY | 2025-06-30 16:53 | XMS_ITS | Encounter Summary ---
Author Organization [employer] Address [address] [facility] 7t [place] [address] Care Team Providers Care Awning Erector Name Role Phone Patsy Patel MD Primary Care Provider [phone] Tre Goodrich PharmD Unavailable [phone] John Mcclain OD Unavailable Encounter Details Date Type Department Care Team (Late st Contact Info) Description 06/12/2025 Orders Only [facility] [address] [place], [place] [phone] Patsy Patel MD [address] [place], [place] [phone] Social History Tobacco Use Types Packs/Day Years [...] Info) Description 07/02/2025 2:30 PM EDT Telemedicine [facility] [address] [place] [address] Tre Goodrich PharmD [address] [place] [address] 07/22/2025 11:15 AM EDT Office Visit [facility] [address] [place] [address] Patsy Patel MD [address] [place] [address] documented as of this encounter Goals Goal [...] documented as of this encounter Care Teams Awning Erector Relationship Specialty Start Date End Date Patsy Patel MD [address] [place] [address] PCP - General Family Medicine 10/16/18 Tre Goodrich PharmD [address] [place] [address] Pharmacist Internal Medicine 12/25/23 John Mcclain OD [facility] [address] [place] [address] Optometry 11/14/24 documented as of this encounter
--- OUTSIDE RECORDS SUMMARY | 2025-06-30 16:53 | XMS_ITS | Clinical Summary ---
Author Organization [facility] Address [address] [place] [address] [place] [address] Phone Care Team Providers Care Slide Attendant Name Role Phone Patsy Patel MD Primary Care Provider [phone] Allergies Active Allergy Reactions Criticality Noted Date Comments Isaiah Inhibitors 12/08/2021 Diltiazem 12/08/2021 Hydralazine 07/19/2021 Medications aspirin EC 81 MG EC tablet Take 81 mg by mouth 1 (one) time each day Active Calcium Carb-Cholecalci ferol (CALCIUM 500+D3 PO) Take by mouth Activ e zinc gluconate 50 MG tablet Take by mouth 1 (one) time each day Active Denton-3 Fatty Acids (Fish Oil) 1000 MG capsule [...] -Agreed to order MRI and refer to practice support specialist. -Continue PT. Hematuria 10/25/2022 07/13/2023 Overview (07/13/2023): Last Assessment & Plan: -microscopic, evaluated by urologist Stage 3 chronic kidney disease 10/25/2022 0 07/13/2023 Overview (07/13/2023): Last Assessment & Plan: -Followed by bridge manager -Optimize BP control -Avoid nephrotoxic drugs -Periodic lab to monitor renal function Patient encounter status 02/24/2022 023 Overview (07/13/2023): Last Assessment & Plan: Take the lowest dose, with least frequency, for shortest time. Remember to take it always with food. Favor topical over oral preparations. [facility] current use of aspirin 02/23/2022 07/13/2023 Overview (07/13/2023): Last Assessment & Plan: Avoid falls, injuries and cuts. Monitor for excessive bruising and bleeding. Drug therapy finding 02/23/2022 07/13/2023 Overview (07/13/2023): Last Assessment & Plan: Monitor for muscle tenderness, swelling and weakness Last Assessment & Plan: Take daily as prescribed. Use daily sun protection all year round, particularly during spring and summer months. See sales and merchandising representative as scheduled every 6 months. Avoid concomitant [...] adjust medication at this time. -Co-managed with bridge manager - EKG 12/24/19 - NSR, no acute [...] 25 mg to 50 mg daily by bridge manager. -Benicar-HCTZ PA was denied. -She does not want to adjust any medication at this time. --Follow- up in 3 months. Disorder of hip joint 07/21/2015 07/13/2023 Overview (07/13/2023): Last Assessment & Plan: -seen by [facility] [place] -PT with iontophoresis [...] recent eye exam by Dr. Mcclain in [place] within 2 weeks- next scheduled for 6 [...] recent eye exam by Dr. Mcclain in [place] within 2 weeks- next scheduled for 6 months. Encouraged to continue carefully Plaquenil with daily sun protection particularly during summer and spring months. In the past labs from November 2019 reassuring-new set requested today. Last Assessment & Plan: -Current Facility Supervisor Dr. 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 -Needs eye exam for long-term use of [...] Medicaid [place] Care Teams Slide Attendant Relationship Specialty Start Date End Date Patsy Patel MD PCP - General Family Medicine 07/08/21
--- OUTSIDE RECORDS SUMMARY | 2025-06-30 16:53 | XMS_ITS | Encounter Summary ---
Author Organization [employer] Address [address] [facility] 7t [place] [address] Care Team Providers Care Solid Waste Collector Name Role Phone Patsy Patel MD Primary Care Provider [phone] Tre Goodrich PharmD Unavailable [phone] John Mcclain OD Unavailable Encounter Details Date Type Department Care Team (Late st Contact Info) Description 06/27/2024 Orders Only [facility] [address] [place], [place] [phone] Patsy Patel MD 230 [place], [place] [phone] Social History Tobacco Use Types Packs/Day Years [...] Info) Description 07/02/2025 2:30 PM EDT Telemedicine [facility] [address] [place] [address] Tre Goodrich, PharmD [address] [place] [address] 07/22/2025 11:15 AM EDT Office Visit [facility] [address] [place] [address] Patsy Patel MD [address] [place] [address] documented as of this encounter Goals Goal [...] documented as of this encounter Care Teams Solid Waste Collector Relationship Specialty Start Date End Date Patsy Patel MD [address] [place] [address] PCP - General Family Medicine 10/16/18 Tre Goodrich, Evelina [address] [facility] [place] [address] Pharmacist Internal Medicine 12/25/23 Jhon Mcclain OD [facility] [address] [place] [address] Optometry 11/14/24 documented as of this encounter
--- OUTSIDE RECORDS SUMMARY | 2025-06-30 16:53 | XMS_ITS | Encounter Summary ---
Author Organization [employer] Address [address] [facility] 7t [place] [address] Care Team Providers Care Bellstaff Name Role Phone Patsy Patel MD Primary Care Provider [phone] Tre Goodrich PharmD Unavailable [phone] John Mcclain OD Unavailable Reason for Visit * Reason Comments Med Refill Encounter Details Date Type Department Care Team ([facility] st Contact Info) Description 09/17/2024 Refill [facility] [address] [place] [address] Ter Goodrich, PharmD 230 [place], [place] [phone] Primary hypertension Social History Tobacco Use Types [...] Info) Description 07/02/2025 2:30 PM EDT Telemedicine [facility] [address] [place] [phone] Tre Goodrich, PharmD [address] [place] [address] 07/22/2025 11:15 AM EDT Office Visit [facility] [address] [place] [address] Patsy Patel MD [address] [place] [address] documented as of this encounter Goals Goal [...] documented as of this encounter Care Teams Bellstaff Relationship Specialty Start Date End Date Patsy Patel MD [address] [place] [address] PCP - General Family Medicine 10/16/18 Tre Goodrich, MaudeD [address] [place] [address] Pharmacist Internal Medicine 12/25/23 John Mcclain OD [facility] [address] [place] [address] [place] [address] Optometry 11/14/24 documented as of this encounter
--- OUTSIDE RECORDS SUMMARY | 2025-06-30 16:53 | XMS_ITS | Encounter Summary ---
Author Organization [employer] Address [address] [facility] 7t [place] [address] Care Team Providers Care Metal Machine Operator Name Role Phone Patsy Patel MD Primary Care Provider Tre Goodrich PharmD Unavailable [phone] John Mcclain OD Unavailable Reason for Visit * Reason Onset Date Comments Appointment Request 06/12/2025 Encounter Details Date Type Department Care Team ([facility] st Contact Info) Description 06/12/2025 Telephone [facility] 230 [place], [place] [phone] Patsy Patel MD 230 [place], [place] [phone] Appointment Request Social History Tobacco Use Types [...] 07/02/2025 2:30 PM EDT Telemedicine [facility] [address] [place] [address] Tre Goodrich, PharmD [address] [place] [address] 07/22/2025 11:15 AM EDT Office Visit [facility] [address] [place] [address] Patsy Patel MD [address] [place] [address] documented as of this encounter Goals Goal [...] as of this encounter Care Teams Metal Machine Operator Relationship Specialty Start Date End Date Patsy Patel MD [address] [place] [address] PCP - General Family Medicine 10/16/18 Tre Goodrich, PharmD [address] [place] [address] Pharmacist Internal Medicine 12/25/23 John Mcclain OD [facility] [address] [place] [address] Optometry 11/14/24 documented as of this encounter
--- OUTSIDE RECORDS SUMMARY | 2025-06-30 16:53 | XMS_ITS | Encounter Summary ---
Author Organization [employer] Address [address] [facility] 7t [place] [address] Care Team Providers Care Manufacture Specialist Name Role Phone Patsy Patel MD Primary Care Provider [phone] Tre Goodrich PharmD Unavailable [phone] John Mcclain OD Unavailable Reason for Visit * Reason Onset Date Comments Appointment Request 12/12/2024 Encounter Details Date Type Department Care Team ([facility] st Contact Info) Description 12/12/2024 Telephone [facility] 230 [place], [place] [phone] Patsy Patel MD 230 [place], [place] [phone] Appointment Request Social History Tobacco Use Types [...] Info) Description 07/02/2025 2:30 PM EDT Telemedicine [facility] [address] [place] [address] Tre Goodrich, PharmD 230 [place] [address] 07/22/2025 11:15 AM EDT Office Visit [facility] [address] [place] [address] [phone] Patsy Patel MD 230 [place] [address] documented as of this encounter Goals Goal [...] documented as of this encounter Care Teams Manufacture Specialist Relationship Specialty Start Date End Date Patsy Patel MD 230 [place] [address] PCP - General Family Medicine 10/16/18 Tre Goodrich, PharmD [address] [place] [address] Pharmacist Internal Medicine 12/25/23 John Mcclain OD [facility] [address] [place] [address] Optometry 11/14/24 documented as of this encounter
--- OUTSIDE RECORDS SUMMARY | 2025-06-30 16:53 | XMS_ITS | Encounter Summary ---
Author Organization [employer] Address [address] [facility] 7t [place] [address] Care Team Providers Care Farmworker Dairy Name Role Phone Patsy Patel MD Primary Care Provider [phone] Tre Goodrich PharmD Unavailable [phone] John Mcclain OD Unavailable Reason for Referral * Consultation (Routine) - Pending Review Specialty Diagnoses / Procedures Referred By Jorge A t Referred To Contact Pharmacy Diagnoses Primary hypertension Patsy Patel MD 230 [place] [address] Phone: tel: fax: Referral ID Status Reason Start Date Expiration Date Visits Requested Visits Authorized [id number] Pending Review Consult and Treat 4 08/27/2025 6 6 Encounter Details Date Type Department Care Team (Late st Contact Info) Description 08/27/[address] [facility] [address] [place] [address] [phone] Patsy Patel MD [address] [place], [place] [phone] Primary hypertension (Primary Dx) Social History Tobacco [...] Info) Description 07/02/2025 2:[address] [facility] [address] [place] [address] Tre Goodrich, Evelina [address] [place] [address] 07/22/2025 11:15 AM EDT Office Visit [facility] [address] [place] [address] Patsy Patel MD 230 [place] [address] Scheduled Referrals Name Type Priority Associated Diagnoses [...] documented as of this encounter Care Teams Farmworker Dairy Relationship Specialty Start Date End Date Patsy Patel MD 230 [place] [address] PCP - General Family Medicine 10/16/18 Tre Goodrich, PharmD 230 [place] [address] Pharmacist Internal Medicine 12/25/23 John Mcclain OD [facility] [address] [place] [address] Optometry 11/14/24 documented as of this encounter
--- OUTSIDE RECORDS SUMMARY | 2025-06-30 16:53 | XMS_ITS | Encounter Summary ---
Author Organization [employer] Address [address] [facility] 7t [place] [address] Care Team Providers Care Supervisor Statement Clerks Name Role Phone Patsy Patel MD Primary Care Provider [phone] Tre Goodrich PharmD Unavailable [phone] John Mcclain OD Unavailable Encounter Details Date Type Department Care Team (Late st Contact Info) Description 06/27/2025 Orders Only [facility] 230 [place], [place] [phone] Patsy Patel MD 230 [place], [place] [phone] Social History Tobacco Use Types Packs/Day Years [...] Description 07/02/2025 2:30 PM EDT Telemedicine [facility] [address] [place] [address] Tre Goodrich PharmD [address] [place] [address] 07/22/2025 11:15 AM EDT Office Visit [facility] [address] [place] [address] Patsy Patel MD [address] [place] [address] documented as of this encounter Goals Goal [...] EDT) Sodium 137 135 - 145 mmol/L [facility] Potassium 4.4 3.3 - 5.1 mmol/L [facility] Chloride 104 96 - 108 mmol/L [facility] Carbon Dioxide 22 22 - 29 mmol/L [facility] Anion Gap 15 12 - 20 [facility] Urea Nitrogen (BUN) 10 9 - 16 mg/dL [facility] Creatinine, Serum 0.72 0.5 - 1.4 mg/dL [facility] Estimated Glomerular Filt Rate >60 [facility] Comment:Chronic Kidney Disea se: Estimated GFR < 60 mL/min/[id number] Kidney Disease: Estimated GFR < 15 mL/min/1.73m2 Glucose 106 60 - 115 mg/dL [facility] Calcium 9.3 8.4 - 10.2 mg/dL [facility] 06/27/2025 2:48 PM EDT 06/27/2025 4:01 PM EDT us Generic External Data Provider LAB BLOOD ORDERAB LES Final Result [facility] [address] [place] [phone] * Basic Metabolic Panel (06/27/2025 2:48 PM EDT) Sodium 138 135 - 145 mmol/L [facility] Potassium 4.5 3.3 - 5.1 mmol/L [facility] Chloride 103 96 - 108 mmol/L [facility] Carbon Dioxide 22 22 - 29 mmol/L [facility] Anion Gap 18 12 - 20 [facility] Urea Nitrogen (BUN) 10 9 - 16 mg/dL [facility] Creatinine, Serum 0.75 0.5 - 1.4 mg/dL [facility] Estimated Glomerular Filt Rate >60 [facility] Comment:Chronic Kidney Disea se: Estimated GFR < 60 mL/min/[id number] Kidney Disease: Estimated GFR < 15 mL/min/1.73m2 Glucose 106 60 - 115 mg/dL [facility] Calcium 9.4 8.4 - 10.2 mg/dL [facility] 06/27/2025 2:48 PM EDT 06/27/2025 4:01 PM EDT us Patsy Patel MD LAB BLOOD ORDERABLES Final Resul t [facility] [address] [place] [address] [phone] documented in this encounter Visit Diagnoses Not on filedocumented in this encounter Additional Health Concerns Assessment Noted Time PHQ-9 Depression Total Score: 2 01/08/20 3:33 PM EDT documented as of this encounter Care Teams Supervisor Statement Clerks Relationship Specialty Start Date End Date Patsy Patel MD [address] [place] [address] PCP - General Family Medicine 10/16/18 Tre Goodrich, MaudeD [address] [place] [address] Pharmacist Internal Medicine 12/25/23 John Mcclain OD [facility] [address] [place] [address] Optometry 11/14/24 documented as of this encounter
--- OUTSIDE RECORDS SUMMARY | 2025-06-30 16:53 | XMS_ITS | Clinical Summary ---
Author Organization [employer] Address [address] [facility] 7[address] [place] [address] Care Team Providers Care Social Security Specialist Name Role Phone Patsy Berg MD Primary Care Provider [phone] Tre Goodrich PharmD Unavailable [phone] John Mcclain OD Unavailable Allergies Active Allergy [...] tablet by mouth in the morning. Active Byron-3 Fatty Acids (Fish Oil) 1000 MG capsule [...] bedtime. 6 mL 1 4 Active Saline Zenda 0.65 % solution Use to moisten your [...] - evaluate with MRI and refer to personnel placement specialist at [facility] Assessment & Plan (10/22/2023 11:13 AM EST): [...] - currently following with pain management and personnel placement specialist - Status post trial of MBB [...] -Agreed to order MRI and refer to personnel placement specialist. -Continue PT. Assessment & Plan (04/26/2025 [...] -Agreed to order MRI and refer to personnel placement specialist. -Continue PT. Stage 3 chronic kidney disease 10/25/2022 Assessment & Plan (01/11/2025 6:44 AM EDT): -Followed by clothing manager, last seen in Jun 2024 -Optimize BP control -Avoid nephrotoxic drugs -Periodic lab to monitor renal function Assessment & Plan (10/22/2023 11:13 AM EST): -Followed by clothing manager, last seen in Jun 2023 -Optimize BP control -Avoid nephrotoxic drugs -Periodic lab to monitor renal function Assessment & Plan (05/13/2023 6:27 AM EDT): -Followed by clothing manager -Optimize BP control -Avoid nephrotoxic drugs -Periodic lab to monitor renal function Assessment & Plan (10/25/2022 5:59 AM EST): -Followed by clothing manager -Optimize BP control -Avoid nephrotoxic drugs [...] Plan (01/11/2025 6:46 AM EDT): -seen by [facility] orthopedist -PT with iontophoresis for trochanteric bursitis -Tried tramadol, dosage was ineffective -discouraged use of NSAIDs and HUNT-2 inhibitor due to CKD -Tried gabapentin to 300 mg tid, patient weaned herself off. -Tried lidocaine topical; first cream then patch if cream not effective Assessment & Plan (10/25/2022 6:06 AM EST): -seen by [facility] orthopedist -PT with iontophoresis for trochanteric bursitis [...] at goal, questionable medication adherence -Co-managed with clothing manager and pharmacist - EKG 12/24/19 - NSR, [...] Amlodipine was increased to 5 mg by clothing manager, but pt self- discontinued due to ankle swelling. Restarted at low dose and kept at current dose -previously on Olmesartan-hctz 40-25 mg daily, Brand Benicar-hctz was more effective than the generic, per pt. -Benicar-HCTZ PA was denied. - Metoprolol was increased from 25 mg to 50 mg daily by clothing manager. -Losartan was changed to telmesartan in December 2023 since it is longer-acting. - Pt has been consuming a few glasses of wine every night. Discussed about reducing consumption. -Follow- up in 3 months. Assessment & Plan (01/11/2025 6:43 AM EDT): -Goal BP <140/90 per JNC-8, and < 130/80 per ACC/AHA guideline -BP not at goal, questionable medication adherence -Co-managed with clothing manager and pharmacist - EKG 12/24/19 - NSR, [...] Amlodipine was increased to 5 mg by clothing manager, but pt self- discontinued due to ankle swelling. Restarted at low dose and kept at current dose -previously on Olmesartan-hctz 40-25 mg daily, Brand Benicar-hctz was more effective than the generic, per pt. -Benicar-HCTZ PA was denied. - Metoprolol was increased from 25 mg to 50 mg daily by clothing manager. -Losartan was changed to telmesartan in December 2023 since it is longer-acting. -Follow- up in 3 months. - Ordered labs on 01/07/25 Assessment & Plan (06/21/2024 11:24 AM EDT): -Goal BP <140/90 per JNC-8, and < 130/80 per ACC/AHA guideline -BP not at goal, questionable medication adherence -Co-managed with clothing manager and pharmacist - EKG 12/24/19 - NSR, [...] Amlodipine was increased to 5 mg by clothing manager, but pt self- discontinued due to ankle swelling. -previously on Olmesartan-hctz 40-25 mg daily, Brand Benicar-hctz was more effective than the generic, per pt. Metoprolol was increased from 25 mg to 50 mg daily by clothing manager. -Benicar-HCTZ PA was denied. -Losartan was changed to telmesartan in December 2023 since it is longer-acting. -Follow- up in 3 months. Assessment & Plan (10/22/2023 11:09 AM EST): -Goal BP <140/90 per JNC-8, and < 130/80 per ACC/AHA guideline -BP not at goal, questionable medication adherence -Co-managed with clothing manager - EKG 12/24/19 - NSR, no [...] Amlodipine was increased to 5 mg by clothing manager, but pt self- discontinued due to ankle swelling. -previously on Olmesartan-hctz 40-25 mg daily, Brand Benicar-hctz was more effective than the generic, per pt. Metoprolol was increased from 25 mg to 50 mg daily by clothing manager. -Benicar-HCTZ PA was denied. We will check if we can try to decrease pill-burden again. -Follow- up in 3 months. Assessment & Plan (05/13/2023 6:26 AM EDT): -Goal BP <140/90 per JNC-8, and < 130/80 per ACC/AHA guideline -BP not at goal, questionable medication adherence -Co-managed with clothing manager - EKG 12/24/19 - NSR, no [...] Amlodipine was increased to 5 mg by clothing manager, but pt self- discontinued due to ankle swelling. -previously on Olmesartan-hctz 40-25 mg daily, Brand Benicar-hctz was more effective than the generic, per pt. Metoprolol was increased from 25 mg to 50 mg daily by clothing manager. -Benicar-HCTZ PA was denied. We will check if we can try to decrease pill-burden again. -Follow- up in 3 months. Assessment & Plan (10/26/2022 4:43 PM EST): -Goal BP <140/90 per JNC-8, and < 130/80 per ACC/AHA guideline -BP not at goal, pt does not want to adjust medication at this time. -Co-managed with clothing manager - EKG 12/24/19 - NSR, no [...] 25 mg to 50 mg daily by clothing manager. -Benicar-HCTZ PA was denied. -She does [...] recent eye exam by Dr. Mcclain in [place] within 2 weeks- next scheduled for 6 months. Encouraged to continue carefully Plaquenil with daily sun protection particularly during summer and spring months. In the past labs from November 2019 reassuring-new set requested today. Assessment & Plan (04/15/2025 10:04 AM EDT): -Current Provider Relations Manager Dr. Martin last visit on 03/21/24 -Current medication: Hydroxychloroquine 200 mg daily -Continue current treatment plan per her current senior portfolio analyst. -Needs eye exam for long-term use of Plaquenil, last eye exam in Jun 2023 Assessment & Plan (01/07/2025 9:58 AM EDT): -Current Provider Relations Manager Dr. Martin last visit on 03/21/24 -Current medication: Hydroxychloroquine 200 mg daily -Continue current treatment plan per her current senior portfolio analyst. -Needs eye exam for long-term use of Plaquenil, last eye exam in Jun 2023 Assessment & Plan (06/20/2024 10:26 AM EDT): -Current Provider Relations Manager Dr. Martin last visit on 03/21/24 -Current medication: Hydroxychloroquine 200 mg daily -Continue current treatment plan per her current senior portfolio analyst. -Needs eye exam for long-term use of Plaquenil, last eye exam in Jun 2023 Assessment & Plan (10/22/2023 11:18 AM EST): -Current Provider Relations Manager Dr. Martin last visit on 10/04/23 -Current medication: Hydroxychloroquine 200 mg daily -Continue current treatment plan per her current senior portfolio analyst. -Needs eye exam for long-term use of Plaquenil, last eye exam in Jun 2023 Assessment & Plan (05/13/2023 6:30 AM EDT): -Current Provider Relations Manager Dr. Martin last visit in January 2023 -Current medication: Hydroxychloroquine 200 mg daily -Continue current treatment plan per her current senior portfolio analyst. -Needs eye exam for long-term use of Plaquenil, last eye exam within last 1 year per pt's report Assessment & Plan (10/25/2022 6:02 AM EST): -Current Provider Relations Manager Dr. Martin last note on May 2022 -Current medication: Hydroxychloroquine 200 mg daily -Continue current treatment plan per her current senior portfolio analyst. -Needs eye exam for long-term use of [...] Encounters Date Type Department Care Team Description 06/30/2025 Orders Only GENERIC EXTERNAL DATA DEPARTMENT Provider, Generic External Data 06/27/2025 Orders Only [facility] [address] [place] [address] Patsy Berg MD 06/25/2025 Travel 06/13/2025 Telephone [facility] [address] [place] [address] Elif Barrera RN 06/12/2025 Telephone [facility] [address] [place] [address] Patsy Berg MD Appointment Request 06/12/2025 Orders Only [facility] [address] [place] [address] Patsy Berg MD 06/11/2025 Telephone [facility] [address] [place] [address] Elif Barrera RN 06/11/2025 Orders Only GENERIC EXTERNAL DATA DEPARTMENT Provider, Generic External Data 06/05/2025 Telephone [facility] [address] [place] [address] Elif Barrera RN 06/03/2025 Telephone [facility] [place] [address] Patsy Berg MD clearence 06/03/2025 Travel 05/20/2025 Orders Only [facility] [place] [address] Patsy Berg MD Positive colorectal cancer screening using Cologuard test (Primary Dx) 05/20/2025 Results Follow-Up [facility] [place] [address] Patsy Berg MD Cologuard colon cancer screening 05/19/2025 Travel 05/10/2025 Refill [facility] [place] [address] Tre Goodrich, PharmD Primary hypertension 04/28/2025 Refill [facility] [place] [address] Patsy Berg MD 04/15/2025 11:15 AM EDT Office Visit [facility] [place] [address] Patsy Berg MD Screening for colon cancer (Primary Dx); Primary hypertension; Dyslipidemia; Lumbar radiculopathy; Spinal stenosis of lumbar region with neurogenic claudication; Discoid lupus; Chronic low back pain with left-sided sciatica, unspecified back pain laterality; Alcohol intake above recommended sensible limits 04/15/2025 Travel 04/14/2025 Telephone [facility] [place] [address] Patsy Berg MD chartprep 04/08/2025 Travel 04/07/2025 Refill [facility] [place] [address] Patsy Berg MD 04/04/2025 Refill [facility] [place] [address] Tre Goodrich, PharmD Primary hypertension from Last [...] Info) Description 07/02/2025 2:30 PM EDT Telemedicine [facility] [address] [place] [phone] Tre Goodrich, PharmD [address] [place] [phone] 07/22/2025 11:15 AM EDT Office Visit [facility] [address] [place] [phone] Patsy Berg MD [address] [place] [phone] Health Maintenance Due Date Last Done Comments [...] Procedure Name Priority Date/Time Associated Diagnosis Comments URINE PROTEIN, TOTAL, RANDOM (W/O CREATININE) Routine 06/30/2025 12:20 PM EDT URINALYSIS, COMPLETE Routine 06/30/2025 12:20 PM EDT CREATININE, RANDOM URINE Routine 06/30/2025 12:20 PM EDT BASIC METABOLIC PANEL Routine 06/27/2025 [...] Recently Relevant to Health Maintenance Results * Urine Protein, Total, Random without Creatinine (06/30/2025 12:20 PM EDT) Protein, Total, Random Urine 9 <12 mg/dL [facility] 06/30/2025 12:2 0 PM EDT 06/30/2025 1:34 PM EDT us Generic External Data Provider LAB URINE ORDERAB LES Final Result Performing Organization Address [facility] Co de Phone Number [facility] [address] [place] [phone] * Creatinine, Random Urine (06/30/2025 12:20 PM EDT) Creatinine, Urine 61.69 mg/dL [facility] 06/30/2025 12:2 0 PM EDT 06/30/2025 1:11 PM EDT Generic External Data Provider LAB URINE ORDERAB LES Final Result Performing Organization Address [facility] de Phone Number [facility] [address] [place] [phone] * (ABNORMAL) Urinalysis Complete (06/30/2025 12:20 PM EDT) Color Urine Yellow [facility] Appearance Urine Clear [facility] PH 6.0 5.0 - 9.0 [facility] Glucose Urine UA Negative Negative mg/dL [facility] Urine Blood Trace(A) Negative [facility] Specific [place] - Urine 1.010 1.005 - 1.025 [facility] Urine Protein Negative Neg-Trace mg/dL [facility] Urine Ketones Negative Negative mg/dL [facility] Nitrite Urine Negative Negative [facility] Leukocyte Esterase Urine Trace(A) Negative [facility] RBC Urine 0-2 0 - 2 /HPF [facility] Urine WBC 0-5 0 - 5 /HPF [facility] Urine Squamous Epithelial Cell 0-2 0 - 2 /HPF [facility] Urine Bacteria None Seen None Seen [facility] Hyaline Casts, Urine 0-2 0 - 2 /LPF [facility] 06/30/2025 12:2 0 PM EDT 06/30/2025 1:11 PM EDT us Generic External Data Provider LAB URINE ORDERAB LES Final Result [facility] [address] [place] [phone] * Basic Metabolic Panel (06/27/2025 2:48 PM EDT) Only the most recent of2 resultswithin the time period is included. [facility] Sodium 137 135 - 145 mmol/L [facility] Potassium 4.4 3.3 - 5.1 mmol/L [facility] Chloride 104 96 - 108 mmol/L [facility] Carbon Dioxide 22 22 - 29 mmol/L [facility] Anion Gap 15 12 - 20 [facility] Urea Nitrogen (BUN) 10 9 - 16 mg/dL [facility] Creatinine, Serum 0.72 0.5 - 1.4 mg/dL [facility] Estimated Glomerular Filt Rate >60 [facility] Comment:Chronic Kidney Disea se: Estimated GFR < 60 mL/min/1.95b1Megmuk Kidney Disease: Estimated GFR < 15 mL/min/1.73m2 Glucose 106 60 - 115 mg/dL [facility] Calcium 9.3 8.4 - 10.2 mg/dL [facility] 06/27/2025 2:48 PM EDT 06/27/2025 4:01 PM EDT us Generic External Data Provider LAB BLOOD ORDERAB LES Final Result [facility] [address] [place] [phone] * FL Guidance in OR (06/11/2025 2:11 PM EDT) Anatomical Region Laterality Modality X-Ray Angiograph y 06/11/2025 2:11 PM EDT Narrative 06/11/2025 3:33 PM EDT [place] [address] Fluoroscopy Report Signed Patient: Sariah Fleming MR#: [id number] 09 : 1955 Acct:[id number] Age/Sex: 70 / F ADM Date: 06/11/25 Loc: .[facility] Attending Dr: Giovanny Alanis MD Ordering Physician: Giovanny Alanis MD Date of Service: 06/11/25 Procedure(s): FL guidance in OR Accession Number(s): [id number] cc: Giovanny Alanis MD; Patsy Berg MD [...] Finesse Quinonez MD 06/11/2025 03:31 PM EDT RP Dictated By: Finesse Quinonez MD Signed By: <Electronically signed by Finesse Quinonez MD in OV> 06/11/25 1531 DD/ 1411 TD/TT: 06/11/25 1505 Special Loan Officer: Procedure Note Donotuseinterpreter, Image - 06/11/[address] [address] Fluoroscopy Report Signed Patient: Hui Fleming#: [id number] 09 : 1955cct:[id number] Age/Sex: 70 / FADM Date: 06/11/25 Loc: .[facility] Attending Dr: Giovanny Alanis MD Ordering Physician: Giovanny Alanis MD Date of Service: 06/11/25 Procedure(s): FL guidance in OR Accession Number(s): [id number] cc: Giovanny Alanis MD; Patsy Berg MD [...] Finesse Quinonez MD 06/11/2025 03:31 PM EDT RP Dictated By: Finesse Quinonez MD Signed By: <Electronically signed by Finesse Quinonez MD in OV> 06/11/25 1531 DD/ 1411 TD/TT: 06/11/25 1505 Special Loan Officer: [facility] External Provider IMG IR PROCEDURES Final Result * MRSA Nasal Screen (06/11/2025 11:15 AM EDT) MRSA Nasal PCR NEGATIVE Negative [facility] SA Nasal PCR NEGATIVE Negative [facility] MRSA Interpretation SEE NOTE [facility] Comment:MRSA target DNA not detected; SA target DNA not detected.A MRSA NEGATIVE, SA NEGATIVE test result does not precludeMRSA or SA nasal colonization. 06/11/2025 11:1 5 AM EDT 06/11/2025 11:29 AM EDT us Generic External Data Provider LAB MICROBIOLOGY - GENERAL ORDERABLES Final Result [facility] [address] [place] [phone] [phone] * (ABNORMAL) Cologuard?? colon cancer screening (05/12/2025 10:45 AM EDT) Cologuard Result Positive( A) Negative 05/17/2025 12:32 PM EDT [employer] (CLIA #:[id number]) Comment: The Cologuard Plus (TM) test was performed on this specimen. POSITIVE TEST RESULT. A positive (abnormal) Cologuard Plus result means the patient has a nuxexy-kgfw-fxrpaag chance of having colorectal cancer (CRC) or [...] a 91% specificity (Cologuard Plus Clinician Brochure. [employer]. [place], [place].). Visit [email or web address]/about/iqlpqife-cdoeqvocyop-aciptbqaqiw for more test information, references, warnings, and precautions. Stool specimen (specimen) 05/12/2025 10:45 AM EDT 05/13/2025 12:45 PM EDT Patsy Berg MD LAB MOLECULAR DIAGNOSTICS ORDERA BLES Final Result [employer] (CLIA #:[id number]) [phone] [place] [address], * (ABNORMAL) Lipid Panel with Reflex to Direct LDL (01/17/2025 3:05 PM EDT) Triglycerides 96 <150 mg/dL [facility] Comment:Desirable Triglyceri de: less than 150 mg/dLBorderline High Triglyceride 150-199 mg/dLHigh Triglyceride: 200-499 mg/dLVery High Triglyceride: greater than or equal to 5OO mg/dL Cholesterol 225(H) <200 mg/dL [facility] Comment:Desirable Cholestero l: less than 200 mg/dLBorderline High Cholesterol: 200-239 mg/dLHigh Cholesterol: greater than 239 mg/dL LDL Cholesterol Calculated 105(H) <100 mg/dL [facility] Comment:Desirable LDL: less than 100 mg/dLNear Optimal/Above Optimal LDL: 110- 129 mg/dLBorderline High LDL: 130-159 mg/dLHigh LDL: 160-189 mg/dLVery High LDL: greater than or equal to 190 mg/dL HDL Cholesterol 101 >40 mg/dL [facility] Comment:Desirable HDL: great er than 40 mg/dL Note: This HDL assay may give artificially low results in patients with liver disease. Blood 01/17/2025 3:05 PM EDT 01/17/2025 4:14 PM EDT us Patsy Berg MD LAB BLOOD ORDERABLES Final Resul t [facility] [address] [place] [phone] * BI Mammogram Screening Tomosynthesis Bilateral (06/14/2023 11:10 AM EDT) Anatomical Region Laterality Modality Breast Bilateral Mammography 06/14/2023 11:1 0 AM EDT Narrative 06/28/2023 8:16 AM EDT [address] [place] [address] Mammography Report Signed Patient: Sariah Fleming MR#: [id number] 09 : 1955 Acct:[id number] Age/Sex: 68 / F ADM Date: 06/14/23 Loc: [facility] Attending Dr: Patsy Berg MD Ordering Physician: Patsy Berg MD Results: 1Negative Date of Service: 06/14/23 Follow Up: 1 Year From Orig ina Mammogram Procedure(s): MM tomosynthesis screening BI Accession Number(s): [id number] cc: Patsy Berg MD EXAMINATION: MM SCREENING [...] in OV> 06/28/23 0812 DD/ 1110 TD/TT: Special Loan Officer: Procedure Note Donotuseinterpreter, Image - 06/29/2023 [facility] [address] [place] [address] Mammography Report Signed Patient: Sariah FlemingMR#: [id number] 09 : 3Acct:[id number] Age/Sex: 68 / FADM Date: 06/14/23 Loc: [facility] Attending Dr: Patsy Berg MD Ordering Physician: Patsy Berg MDResults: 1Negative Date of Service: 06/14/23Follow Up: 1 Year From Orig inal Mammogram Procedure(s): MM tomosynthesis screening BI Accession Number(s): [id number] cc: Patsy Berg MD EXAMINATION: MM SCREENING [...] in OV> 06/28/23 0812 DD/ 1110 TD/TT: Special Loan Officer: Patsy Berg MD IMG BI PROCEDURES Edited Result - Final * HEPATITIS C ANTIBODY RFLX (12/10/2019 9:10 AM EST) HEPATITIS C ANTIBODY NONREACTIVE NONREACTIVE [facility] Comment: Antibodies to HCV not detected; does not exclude early acute HCV infection. 12/10/2019 9:10 AM EST Patsy Berg MD HISTORICAL/NON ORDERABLE LABS Fi nal Result [facility] [address] from Last 3 Months or Most Recently Relevant to Health Maintenance Insurance [place] [address] [place] [address] [place] [id number] [facility] MEDICAID STAND ADULT Care Teams Social Security Specialist Relationship Specialty Start Date End Date Patsy Berg MD [address] [place] [address] PCP - General Family Medicine 10/16/18 Tre Goodrich, PharmD [address] [place] [address] Pharmacist Internal Medicine 12/25/23 John Mcclain OD [facility] [address] [place] [address] Optometry 11/14/24
--- OUTSIDE RECORDS SUMMARY | 2025-06-30 16:54 | XMS_ITS | Encounter Summary ---
Author Organization [employer] Address [address] [facility] [address] [place] [address] Care Team Providers Care C Programmer Name Role Phone Patsy Patel MD Primary Care Provider [phone] Tre Goodrich PharmD Unavailable [phone] John Mcclain OD Unavailable Reason for Visit * Reason Onset Date Comments Results 05/20/2025 Encounter Details Date Type Department Care Team ([facility] st Contact Info) Description 05/20/2025 Results Follow-Up [facility] [address] [place] [address] Patsy Patel MD [address], [place] [phone] Cologuard colon cancer screening Social History Tobacco [...] providers. Thank you. ----- Message ----- From: [facility] Results In Sent: 05/17/2025 6:06 PM EDT To: Patsy Patel MD documented in this encounter Plan of Treatment Upcoming Encounters Date Type Department Care Team (Late st Contact Info) Description 07/02/2025 2:30 PM EDT Telemedicine [facility] [address] [place] [phone] Tre Goodrich PharmD [address] [place] [phone] 07/22/2025 11:15 AM EDT Office Visit [facility] [address] [place] [phone] Patsy Patel MD [address] [place] [phone] documented as of this encounter Goals Goal [...] documented as of this encounter Care Teams C Programmer Relationship Specialty Start Date End Date Patsy Patel MD [address] [place] [address] PCP - General Family Medicine 10/16/18 Tre Goodrich, Evelina [address] [place] [address] Pharmacist Internal Medicine 12/25/23 Jhon Mcclain OD [facility] [address] [place] [address] Optometry 11/14/24 documented as of this encounter
--- OUTSIDE RECORDS SUMMARY | 2025-06-30 16:54 | XMS_ITS | Encounter Summary ---
Author Organization [employer] Address [address] [place] [address] 7 [place] [address] Care Team Providers Care Recycling Operations Manager Name Role Phone Patsy Patel MD Primary Care Provider [phone] Tre Goodrich PharmD Unavailable [phone] John Mcclain OD Unavailable Reason for Referral * Consultation (Routine) - Authorized Specialty Diagnoses / Procedures Referred By Contabraham kunz Referred To Contact General Surgery Diagnoses Positive colorectal cancer screening using Cologuard test Patsy Patel MD [address] [place] [phone] Phone: tel: fax: Moreon Donahue MD [address] [place] [address] [address] [place] [address] Phone: tel: Referral ID Status Reason Start Date Expiration Date Visits Requested Visits Authorized [id number] Authorized Specialty Services Required 05/20/2025 05/20/2026 1 1 Encounter Details Date Type Department Care Team (Late st Contact Info) Description 05/20/2025 Orders Only [facility] [address] [place] [address] Patsy Patel MD [address] [place], [place] [phone] Positive colorectal cancer screening using Cologuard test [...] Info) Description 07/02/2025 2:30 PM EDT Telemedicine [facility] [address] [place] [address] Tre Goodrich, PharmD [address] [place] [address] 07/22/2025 11:15 AM EDT Office Visit [facility] [address] [place] [address] Patsy Patel MD [address] [place] [address] Scheduled Referrals Name Type Priority Associated Diagnoses [...] documented as of this encounter Care Teams Recycling Operations Manager Relationship Specialty Start Date End Date Patsy Patel MD [address] [place] [address] PCP - General Family Medicine 10/16/18 Tre Goodrich, PharmD [address] [place] [address] Pharmacist Internal Medicine 12/25/23 John Mcclain OD [facility] [address] [place] [address] Optometry 11/14/24 documented as of this encounter
--- OUTSIDE RECORDS SUMMARY | 2025-06-30 16:54 | XMS_ITS | Encounter Summary ---
Author Organization [employer] Address [address] [facility] 7t [place] [address] Care Team Providers Care Clerical And Office Support Workers Name Role Phone Patsy Patel MD Primary Care Provider [phone] Tre Goodrich PharmD Unavailable [phone] John Mcclain OD Unavailable Encounter Details Date Type Department Care Team (Late st Contact Info) Description 06/30/2025 Orders Only GENERIC EXTERNAL DATA DEPARTMENT Provider, Generic External Data Social History Tobacco Use Types Packs/Day Years [...] Info) Description 07/02/2025 2:30 PM EDT Telemedicine [facility] [address] [place] [address] Tre Goodrich, PharmD [address] [place] [address] 07/22/2025 11:15 AM EDT Office Visit [facility] [address] [place] [address] Patsy Patel MD [address] [place] [address] documented as of this encounter Goals Goal Patient Goal Type Associated Problems Recent Progress Patient-Stated? Author Blood Pressure < 140/90 Blood Pressure 142/76( 025 11:44 AM EDT) No Tre Goodrich, PharmD documented as of this encounter Procedures Procedure Name Priority Date/Time Associated Diagnosis Comments URINE PROTEIN, TOTAL, RANDOM (W/O CREATININE) Routine 06/30/2025 12:20 PM EDT CREATININE, RANDOM URINE Routine 06/30/2025 12:20 PM EDT URINALYSIS, COMPLETE Routine 06/30/2025 12:20 PM EDT documented in this encounter Results * Urine Protein, Total, Random without Creatinine (06/30/2025 12:20 PM EDT) Protein, Total, Random Urine 9 <12 mg/dL [facility] 06/30/2025 12:2 0 PM EDT 06/30/2025 1:34 PM EDT us Generic External Data Provider LAB URINE ORDERAB LES Final Result Performing Organization Address City/[facility]/ZIP Co de Phone Number [facility] [address] [place] [address] [phone] * (ABNORMAL) Urinalysis Complete (06/30/2025 12:20 PM EDT) Color Urine Yellow [facility] Appearance Urine Clear [facility] PH 6.0 5.0 - 9.0 [facility] Glucose Urine UA Negative Negative mg/dL [facility] Urine Blood Trace(A) Negative [facility] Specific Allen - Urine 1.010 1.005 - 1.025 [facility] Urine Protein Negative Neg-Trace mg/dL [facility] Urine Ketones Negative Negative mg/dL [facility] Nitrite Urine Negative Negative [facility] Leukocyte Esterase Urine Trace(A) Negative [facility] RBC Urine 0-2 0 - 2 /HPF [facility] Urine WBC 0-5 0 - 5 /HPF [facility] Urine Squamous Epithelial Cell 0-2 0 - 2 /HPF [facility] Urine Bacteria None Seen None Seen [facility] Hyaline Casts, Urine 0-2 0 - 2 /LPF [facility] 06/30/2025 12:2 0 PM EDT 06/30/2025 1:11 PM EDT us Generic External Data Provider LAB URINE ORDERAB LES Final Result Performing Organization Address City/[facility]/ZIP Co de Phone Number [facility] [address] [place] [address] [phone] * Creatinine, Random Urine (06/30/2025 12:20 PM EDT) Creatinine, Urine 61.69 mg/dL [facility] 06/30/2025 12:2 0 PM EDT 06/30/2025 1:11 PM EDT us Generic External Data Provider LAB URINE ORDERAB LES Final Result [facility] [address] [place] [address] [phone] documented in this encounter Visit Diagnoses Not on filedocumented in this encounter Additional Health Concerns Assessment Noted Time PHQ-9 Depression Total Score: 2 01/08/20 3:33 PM EDT documented as of this encounter Care Teams Clerical And Office Support Workers Relationship Specialty Start Date End Date Patsy Patel MD [address] [place] [address] PCP - General Family Medicine 10/16/18 Tre Goodrich, MaudeD [address] [place] [address] Pharmacist Internal Medicine 12/25/23 John Mcclain OD [facility] [address] [place] [address] Optometry 11/14/24 documented as of this encounter
--- OUTSIDE RECORDS SUMMARY | 2025-06-30 16:54 | XMS_ITS | Encounter Summary ---
Author Organization [employer] Address [address] [facility] 7t h Floor [place] [id number] Care Team Providers Care Correctional Officer Lieutenant Name Role Phone Patsy Patel MD Primary Care Provider [phone] Tre Goodrich PharmD Unavailable [phone] John Mcclain OD Unavailable Reason for Visit * Reason Onset Date Comments Referral 12/29/2023 Encounter Details Date Type Department Care Team ([facility] st Contact Info) Description 12/29/2023 Telephone [facility] [address] [place], [place] [phone] Patsy Patel MD [address] [place], [place] [phone] Referral Social History Tobacco Use Types Packs/Day [...] to orthopaedic surgery that was placed 12/31. [facility] was told they need derm's note and that she brought it in and gave to medical records a while ago. [facility] medical records told her they would [...] swelling or discharge. Saw a surgeon at [facility] who states the pt needs to see a technology specialist. Scheduled for an ultrasound at [facility] on Monday. Advised I would notify Dr. Patel to see if an appt will be necessary.Pt stated understanding. * Telephone Encounter - Ana Lilia Del Rio - 12/29/2023 3:27 PM EDT Tc from pt requesting a referral for orthopedics surgeons to treat a lump on left ankle. [facility] on [place] documented in this encounter Plan of Treatment Upcoming Encounters Date Type Department Care Team (Late st Contact Info) Description 07/02/2025 2:30 PM EDT Telemedicine [facility] [address] [place] [phone] Tre Goodrich, PharmD [address] [place] [address] 07/22/2025 11:15 AM EDT Office Visit [facility] [address] [place] [address] Patsy Patel MD [address] [place] [address] documented as of this encounter Goals Goal [...] documented as of this encounter Care Teams Correctional Officer Lieutenant Relationship Specialty Start Date End Date Patsy Patel MD [address] [place] [address] PCP - General Family Medicine 10/16/18 Tre Goodrich, PharmD [address] [place] [address] Pharmacist Internal Medicine 12/25/23 John Mcclain OD [facility] [address] [place] [address] Optometry 11/14/24 documented as of this encounter
--- OUTSIDE RECORDS SUMMARY | 2025-06-30 16:54 | XMS_ITS | Encounter Summary ---
Author Organization [employer] Address [address] [place] [address] 7t [place] [address] Care Team Providers Care Office Support Name Role Phone Patsy Patel MD Primary Care Provider [phone] Tre Goodrich PharmD Unavailable [phone] John Mcclain OD Unavailable Reason for Referral * Consultation (Urgent) - Closed Specialty Diagnoses / Procedures Referred By Contac t Referred To Contact Orthopaedic Surgery Diagnoses Ankle mass, left Patsy Patel MD [address] [place] [address] Phone: tel: fax: [facility] [address] [place] [address] [place] [address] Phone: tel: fax: Referral ID Status Reason Start Date Expiration Date V isits Requested Visits Authorized [id number] Closed Specialty Services Required 01/01/2024 12/31/2024 1 1 Scheduling Instructions Acoustical Carpenter recommends [facility]. Encounter Details Date Type Department Care Team (Late st Contact Info) Description 01/01/2024 Orders Only [facility] [address] [place], [place] [phone] Patsy Patel MD [address] [place], [place] [phone] Ankle mass, left (Primary Dx) Social History [...] Info) Description 07/02/2025 2:30 PM EDT Telemedicine [facility] [address] [place] [address] Tre Goodrich, PharmD [address] [place] [address] 07/22/2025 11:15 AM EDT Office Visit [facility] [address] [place] [address] Patsy Patel MD [address] [place] [address] Scheduled Referrals Name Type Priority Associated Diagnoses [...] as of this encounter Care Teams Office Support Relationship Specialty Start Date End Date Patsy Patel MD [address] [place] [address] PCP - General Family Medicine 10/16/18 Tre Goodrich, PharmD [address] [place] [address] Pharmacist Internal Medicine 12/25/23 John Mcclain OD [facility] [address] [place] [address] Optometry 11/14/24 documented as of this encounter
--- OUTSIDE RECORDS SUMMARY | 2025-06-30 16:54 | XMS_ITS | Clinical Summary ---
Author Organization [facility] Address [address] [place] [address] Phone Care Team Providers Care Supply Chain Technician Name Role Phone Patsy Patel MD Primary Care Provider Allergies Active Allergy Reactions Criticality Noted Date Comments Isaiah Inhibitors 12/08/2021 Diltiazem Hcl 12/08/2021 Medications aspirin 81 MG EC tablet Take 81 mg by mouth daily. Active calcium carbonate/vitam in D3 (CALCIUM 600 + D,3, ORAL) Take 1 capsule by mouth daily. Active omega 6-tdn-qgf-fish oil 1,000 mg (120 mg-180 mg) Cap [...] in a warm pool such as at [facility] in [place], [place]. Assessment & Plan (04/09/2024 9:15 PM [...] today and prior to next visit-orders in [facility]. Call if problems or questions. Assessment [...] today and prior to next visit-orders in [facility]. Call if problems or questions. Assessment [...] and prior to next visit- orders in [facility].. Assessment & Plan (02/13/2023 10:32 AM [...] recent eye exam by Dr. Mcclain in [place] within 2 weeks- next scheduled for 6 [...] recent eye exam by Dr. Mcclain in [place] within 2 weeks- next scheduled for 6 [...] particularly during spring and summer months. See fibre cement moulder as scheduled every 6 months. Avoid concomitant use of QT interval elongating meds such as some SSRIs Assessment & Plan (04/08/2024 11:39 AM EDT): Take daily as prescribed. Use daily sun protection all year round, particularly during spring and summer months. See fibre cement moulder as scheduled every 6 months. Avoid concomitant use of QT interval elongating meds such as some SSRIs Assessment & Plan (10/04/2023 11:29 AM EST): Take daily as prescribed. Use daily sun protection all year round, particularly during spring and summer months. See fibre cement moulder as scheduled every 6 months. Avoid concomitant use of QT interval elongating meds such as some SSRIs Assessment & Plan (01/19/2023 4:30 PM EDT): Take daily as prescribed. Use daily sun protection all year round, particularly during spring and summer months. See fibre cement moulder as scheduled every 6 months. Avoid concomitant use of QT interval elongating meds such as some SSRIs Assessment & Plan (05/26/2022 2:23 PM EDT): Take daily as prescribed. Use daily sun protection all year round, particularly during spring and summer months. See fibre cement moulder as scheduled every 6 months. Avoid concomitant use of QT interval elongating meds such as some SSRIs Assessment & Plan (02/24/2022 12:47 AM EDT): Take daily as prescribed. Use daily sun protection all year round, particularly during spring and summer months. See fibre cement moulder as scheduled every 6 months. Avoid concomitant [...] EST) SODIUM 137 133 - 146 mmol/L [facility] POTASSIUM 4.5 3.3 - 5.1 mmol/L [facility] Comment:Specimen slightly he molyzed, result may be falsely elevated. CHLORIDE 101 96 - 108 mmol/L [facility] CO2 23 21 - 35 mmol/L [facility] BUN 16 6 - 19 mg/dL [facility] CREATININE 0.80 0.5 - 1.5 mg/dL [facility] GLUCOSE 100(H) 70 - 99 mg/dL [facility] ALBUMIN 4.2 3.9 - 4.8 g/dL [facility] TOTAL PROTEIN 7.7 6.5 - 8.0 g/dL [facility] CALCIUM 9.8 8.4 - 10.3 mg/dL [facility] ALKALINE PHOSPHATASE 64 39 - 117 U/L [facility] TOTAL BILIRUBIN 0.5 0.0 - 1.2 mg/dL [facility] AST 27 0 - 37 U/L [facility] ALT 19 0 - 40 U/L [facility] GLOBULIN 3.5 1 - 4.8 g/dL [facility] EGFR 79 >59 mL/min/1.7 3m2 [facility] Comment:Estimated glomerular filtration rate calculated using the CKD-EPI refit equation. ANION GAP 18 10 - 20 mmol/L [facility] Blood 11/01/2024 1:37 PM EST 11/01/2024 1:40 PM EST Carlotta Yeboah MD LAB BLOOD ORDERABLES Fin al Result Performing Organization Address City/State/[facility] Co de Phone Number [address] [address] * DEXA SCAN (06/14/2023 8:22 AM EDT) Historical Provider HEALTH MAINTENANCE Final Result * MAMMOGRAPHY FOR RESULT ENTRY ONLY (06/14/2023 8:22 AM EDT) Historical Provider HEALTH MAINTENANCE Final Result from Last 3 Months or Most Recently Relevant to Health Maintenance Insurance MEDICARE PART A & B HEALTH MEDICARE PART A & B HEALTH MEDICARE PART A & B Member Subscriber Plan / Payer (Ef fective 2018-Present) Name:Sariah Fleming Member ID:[id number] Relation to Subscriber:Self Name:Sariah Fleming Subscriber ID:[id number] Payer ID:[id number] Group ID:Not on file Type:Medicare Address: [employer] [address] [place] [address] [facility] Member Subscriber Plan / Payer (Ef fective 2018-Present) Name:Sariah Fleming Member ID:[id number] Relation to Subscriber:Self Name:Sariah Fleming Subscriber ID:[id number] Payer ID:[id number] Group ID:Not on file Type:Medicare Address: [employer] [address] [place] [address] [facility] Member Subscriber Plan / Payer ( fective 2018-) Name:Sariah Fleming Member ID:[id number] Relation to Subscriber:Self Name:Sariah Fleming Subscriber ID:[id number] Payer ID:[id number] Group ID:Not on file Type:Medicare Address: [employer] [address] [place], [place] [address]HEALTH MEDICARE PART A & B Member Subscriber Plan / Payer ( fective 2018-) Name:Sariah Fleming Member ID:[id number] Relation to Subscriber:Self Name:Sariah Fleming Subscriber ID:[id number] Payer ID:[id number] Group ID:Not on file Type:Medicare Address: [employer] [address] [place] [address] [place] [address] MEDICARE PART A & B Member Subscriber Plan / Payer ( fective 2018-) Name:Sariah Fleming Member ID:[id number] Relation to Subscriber:Self Name:Sariah Fleming Subscriber ID:[id number] Payer ID:[id number] Group ID:Not on file Type:Medicare Address: [employer] [address] [place], [place] [address] [address] Member Subscriber Plan / Payer ( fective 2018-) Name:Sariah Fleming Member ID:[id number] Relation to Subscriber:Self Name:Sariah Fleming Subscriber ID:[id number] Payer ID:[id number] Group ID:Not on file Type:Medicare Address: [employer] [address] [place], [place] [address] [address] MEDICARE PART A [place] [address] Care Teams Supply Chain Technician Relationship Specialty Start Date End Date Patsy Patel MD [address] [place] [address] PCP - General Family Medicine 08/04/21 Additional Source Comments The information contained in this document represents components of the legal health record. It is not the complete legal health record.[facility]
== END 2025-06-30 12:18 | disposition home or self-care (01) ==
LOC: HO.HHCL 12:17
PROVIDERS: Visit Provider Internal Medicine Hypertension Specialist
DX: L93.0 Discoid lupus erythematosus (principal)
CPT/HCPCS: 81001; 81003; 82570; 84156

== ENCOUNTER 2025-07-01 13:27 | Outpatient (AMB) | payer MEDICARE, MEDICAID, SELFPAY ==
[2025-07-01 13:32] VITALS: BP 158/82; PULSE 67; O2SAT 97; BMI 29.2
--- NOTE | 2025-07-01 13:32 | HO.NEPHOV_ITS ---
Vital Signs 07/01/25 13:32 07/01/25 13:40 Height 5 ft 4 in Weight 170 lb BMI 29.2 BP 158/82 H 150/70 H Blood Pressure Location Lt brachial Rt brachial Position Sitting Sitting Pulse 67 Pulse Source Pulse Oximeter Pulse Oximetry (%) 97 Oxygen Delivery Method Room Air Intake Visit Reasons: 1 yr follow up/ CONF Utility Teller Required: No Accompanied by: Self / Same As Patient Allergies ibuprofen Allergy (Severe, Verified 07/01/25 13:34) Affects the Kidneys ANDRADE Inhibitors Allergy (Unknown, Verified 07/01/25 13:34) Unknown diltiazem Allergy (Unknown, Verified 07/01/25 13:34) Unknown hydralazine Allergy (Unknown, Verified 07/01/25 13:34) Unknown Medication List - Last Reconciled 07/01/25 by Farhat Monique MD amlodipine 2.5 mg PO DAILY aspirin (Adult Aspirin Regimen) 81 mg PO DAILY atorvastatin 20 mg PO DAILY calcium carbonate-vitamin D3 600 mg-5 mcg (200 unit) (Calcium 600 + D(3)) 1 tab PO BID hydroxychloroquine 200 mg PO DAILY metoprolol succinate ER 50 mg PO DAILY omega-3 fatty acids (Fish Oil Concentrate) 1,000 mg PO DAILY telmisartan 40 mg PO DAILY HPI Comments Details: Sariah is a pleasant 69-year-old woman with a history of discoid lupus. She had history of hypertension and she was referred for evaluation of hypertension and hyponatremia. Discoid lupus was treated several years ago she is on Plaquenil. In 02/03/2020 serum creatinine 0.92. Serum complements C3-C4 were normal no significant proteinuria she did have microscopic hematuria but did not undergo any workup at the time. She was started on losartan hydrochlorothiazide and subsequently developed a bu mp in serum creatinine hyponatremia. She was also on NSAIDs at the time it was discontinued. Losartan hydrochlorothiazide was discontinued and she was referred for further evaluation. She is here for follow-up regarding hypertension and alkali abnormalities. 07/01/25 The patient is a 70-year-old female presenting with hypertension management and evaluation of hematuria. Blood pressure was 152/80 mmHg, attributed to white coat syndrome and pain. Medications include amlodipine, telmisartan, and metoprolol. Urine analysis showed trace blood, no red blood cells, kidney function normal. Chronic pain managed with spinal cord stimulator trial, 65% improvement reported. Medications: - Amlodipine 2.5 mg for hypertension - Telmisartan 40 mg for hypertension - Metoprolol, one and a half tablets daily for hypertension Diagnostic Results: - Labs: Kidney function tests normal - Urine analysis: Trace blood, no red blood cells detected [facility] Medical History Postlaminectomy syndrome Tubular adenoma of colon Tobacco use Seborrheic keratosis Osteopenia Essential hypertension Dyslipidemia 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 Cyst of kidney, acquired Arthropathy of left hip Anemia Discoid lupus erythematosus Surgical History H/O bilateral cataract extraction (~2018) Hx of decompressive lumbar laminectomy (~02/2023) Social History Are you a primary medicare coordinator to a significant other at home: No Do you presently have visiting nurse or other home services: No Alcohol intake: current Alcohol intake frequency: 0-2 drinks per day Alcohol type: wine Patient Tobacco Use Status: Former Tobacco user Tobacco use type: Cigarette Second Hand Smoke Exposure: No Substance Use Type: Marijuana 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: rt handed/[employer] Physical Exam Vital Signs: Last Vital Signs Pulse 67 07/01/25 13:32 BP 150/70 H 07/01/25 13:40 Pulse Ox 97 07/01/25 13:32 Oxygen Delivery Method Room Air 07/01/25 13:32 BMI result Body Mass Index 29.2 Comfortable Neck supple no JVD. Lungs entry equal no rales. Heart S1-S2 heard no gallop or rub. Abdomen soft nontender. Neuro alert awake oriented. No asterixis. Extremities no edema. Results Reviewed Nephrology Results: Sodium, (135-145) 137 mmol/L 06/27/25 Potassium, (3.3-5.1) 4.4 mmol/L 06/27/25 Chloride, (96-108) 104 mmol/L 06/27/25 Carbon Dioxide, (22-29) 22 mmol/L 06/27/25 BUN, (9-16) 10 mg/dL 06/27/25 Creatinine, (0.5-1.4) 0.72 mg/dL 06/27/25 Calcium, (8.4-10.2) 9.3 mg/dL 06/27/25 Urine Protein, (Neg-Trace) Negative mg/dL 06/30/25 Urine Creatinine 61.69 mg/dL 06/30/25 Assessment & Plan Assessment & Plan (1) Discoid lupus erythematosus: Code(s): L93.0 - Discoid lupus erythematosus Category: Medical Plan: Stable On PLaquenil (2) HTN (hypertension): Code(s): I10 - Essential (primary) hypertension Category: Medical Plan: Keep Telmisartan (3) Hyponatremia: Code(s): E87.1 - Hypo-osmolality and hyponatremia Category: Medical Plan: Resolved Avoid HCTZ Plan 1. Essential Hypertension BP acceptable - Continue antihypertensive medications. - Home blood pressure monitoring advised. 2. Hematuria Trace by dipstick; RBCs 0-2 No protienria -, continue monitoring. Renal function is stable. 3. Chronic Pain - Spinal cord stimulator trial successful, consider for management. Orders: Orders UA and rflx microscopic 1 Year I10 - Essential (primary) hypertension Basic Metabolic Panel 1 Year I10 - Essential (primary) hypertension Coding Level of Care Code Est Pt Level 4 (05135) Diagnoses Discoid lupus erythematosus L93.0 HTN (hypertension) I10 Hyponatremia E87.1
[2025-07-01 13:40] VITALS: BP 150/70
--- OUTSIDE RECORDS SUMMARY | 2025-07-01 17:24 | XMS_ITS | Encounter Summary ---
Author Organization [employer] Address 75 [facility] 7t [place] [address] Care Team Providers Care Clinical Medical Transcriptionist Name Role Phone Patsy aPtel MD Primary Care Provider [phone] Tre Goodrich PharmD Unavailable [phone] John Mcclain OD Unavailable Reason for Visit * Reason Comments Med Refill Encounter Details Date Type Department Care Team ([facility] st Contact Info) Description 09/17/2024 Refill [facility] 230 [place] [address] Tre Goodrich, PharmD 230 [place], [place] [phone] Primary hypertension Social History Tobacco Use Types [...] Info) Description 07/02/2025 2:30 PM EDT Telemedicine [facility] [address] [place] [address] Tre Goodrich, PharmD [address] [place] [address] 07/22/2025 11:15 AM EDT Office Visit [facility] [address] [place] [address] Patsy Patel MD [address] [place] [address] documented as of this encounter Goals Goal [...] as of this encounter Care Teams Clinical Medical Transcriptionist Relationship Specialty Start Date End Date Patsy Patel MD [address] [place] [address] 39587 PCP - General Family Medicine 10/16/18 Tre Goodrich, MaudeD [address] [place] [address] 61436 Pharmacist Internal Medicine 12/25/23 John Mcclain OD [facility] [address] [place] [address] [place] [address] Optometry 11/14/24 documented as of this encounter
--- OUTSIDE RECORDS SUMMARY | 2025-07-01 17:24 | XMS_ITS | Encounter Summary ---
Author Organization [employer] Address 75 [facility] 7t [place] [address] Care Team Providers Care Carpet Or Rug Layer Helper Name Role Phone Patsy Patel MD Primary Care Provider [phone] Tre Goodrich PharmD Unavailable [phone] John Mcclain OD Unavailable Reason for Referral * Consultation (Routine) - Pending Review Specialty Diagnoses / Procedures Referred By Jorge A t Referred To Contact Pharmacy Diagnoses Primary hypertension Patsy Patel MD 230 [place] [address] Phone: tel: fax: Referral ID Status Reason Start Date Expiration Date Visits Requested Visits Authorized [id number] Pending Review Consult and Treat 4 08/27/2025 6 6 Encounter Details Date Type Department Care Team (Late st Contact Info) Description 08/27/2024 Orders Only [facility] [address] [place] [address] [phone] Patsy Patel MD [address] [place], [place] [phone] Primary hypertension (Primary Dx) Social History Tobacco [...] Telemedicine [facility] [address] [place] [address] Tre Goodrich, Evelina [address] [place] [address] 07/22/2025 11:15 AM EDT Office Visit [facility] [address] [place] [address] 15[address] Patsy Patel MD 230 [place] [address] Scheduled Referrals Name Type Priority Associated Diagnoses [...] documented as of this encounter Care Teams Carpet Or Rug Layer Helper Relationship Specialty Start Date End Date Patsy Patel MD [address] [place] [address] PCP - General Family Medicine 10/16/18 Tre Goodrich, PharmD 230 [place] [address] Pharmacist Internal Medicine 12/25/23 John Mcclain OD [facility] [address] [place] [address] Optometry 11/14/24 documented as of this encounter
--- OUTSIDE RECORDS SUMMARY | 2025-07-01 17:24 | XMS_ITS | Encounter Summary ---
Author Organization [employer] Address 75 [facility] 7t [place] [address] Care Team Providers Care Carpet Mechanic Name Role Phone Patsy Patel MD Primary Care Provider [phone] Tre Goodrich PharmD Unavailable [phone] John Mcclain OD Unavailable Reason for Visit * Reason Onset Date Comments Referral 01/27/2025 Encounter Details Date Type Department Care Team (Late st Contact Info) Description 01/27/2025 Telephone [facility] 230 [place] [address] Patsy Patel MD 230 [place], [place] [phone] Referral Social History Tobacco Use Types Packs/Day [...] Tc from pt requesting a referral to [facility] [place] [facility]. Contact pt at [phone] documented in this encounter Plan of Treatment Upcoming Encounters Date Type Department Care Team (Late st Contact Info) Description 07/02/2025 2:30 PM EDT Telemedicine [facility] [address] [place] [address] Tre Goodrich, MaudeD 230 [place] [address] 07/22/2025 11:15 AM EDT Office Visit [facility] [address] [place] [address] Patsy Patel MD 230 [place] [address] documented as of this encounter Goals Goal [...] as of this encounter Care Teams Carpet Mechanic Relationship Specialty Start Date End Date Patsy Patel MD [address] [place] [address] PCP - General Family Medicine 10/16/18 Tre Goodrich, PharmD [address] [place] [address]272 Pharmacist Internal Medicine 12/25/23 John Mcclain OD [facility] [address] [place] [address] Optometry 11/14/24 documented as of this encounter
--- OUTSIDE RECORDS SUMMARY | 2025-07-01 17:24 | XMS_ITS | Encounter Summary ---
Author Organization [employer] Address 75 [facility] 7t [place] [address] Care Team Providers Care Sack Lifter Name Role Phone Patsy Patel MD Primary Care Provider [phone] Tre Goodrich PharmD Unavailable [phone] John Mcclain OD Unavailable Reason for Visit * Reason Onset Date Comments Appointment Request 06/12/2025 Encounter Details Date Type Department Care Team ([facility] st Contact Info) Description 06/12/2025 Telephone [facility] 230 [place], [place] [phone] Patsy Patel MD 230 [place], [place] [phone] Appointment Request Social History Tobacco Use Types [...] Info) Description 07/02/2025 2:30 PM EDT Telemedicine [facility] [address] [place] [address] Tre Goodrich, PharmD [address] [place] [address] 07/22/2025 11:15 AM EDT Office Visit [facility] [address] [place] [address] Patsy Patel MD [address] [place] [address] 07[address] documented as of this encounter Goals Goal [...] documented as of this encounter Care Teams Sack Lifter Relationship Specialty Start Date End Date Patsy Patel MD 230 [place] [address] PCP - General Family Medicine 10/16/18 Tre Goodrich, PharmD [address] [place] [address] 148[address] Pharmacist Internal Medicine 12/25/23 John Mcclain OD [facility] [address] [place] [address] Optometry 11/14/24 documented as of this encounter
--- OUTSIDE RECORDS SUMMARY | 2025-07-01 17:24 | XMS_ITS | Encounter Summary ---
Author Organization [employer] Address 75 [facility] 7t [place] [address] Care Team Providers Care Setter Induction Heating Equipment Name Role Phone Patsy Patel MD Primary Care Provider Tre Goodrich PharmD Unavailable [phone] John Mcclain OD Unavailable Encounter Details Date Type Department Care Team (Late st Contact Info) Description 06/27/2025 Orders Only [facility] 230 [place], [place] [phone] Patsy Patel MD 230 [place], [place] [phone] Social History Tobacco Use Types Packs/Day Years [...] 07/02/2025 2:30 PM EDT Telemedicine [facility] [address] [place] [address] Tre Goodrich PharmD [address] [place] [address] 07/22/2025 11:15 AM EDT Office Visit [facility] [address] [place] [address] 309[address] Patsy Patel MD [address] [place] [address] 611[address] documented as of this encounter Goals Goal [...] EDT) Sodium 137 135 - 145 mmol/L [facility] Potassium 4.4 3.3 - 5.1 mmol/L [facility] Chloride 104 96 - 108 mmol/L [facility] Carbon Dioxide 22 22 - 29 mmol/L [facility] Anion Gap 15 12 - 20 [facility] Urea Nitrogen (BUN) 10 9 - 16 mg/dL [facility] Creatinine, Serum 0.72 0.5 - 1.4 mg/dL [facility] Estimated Glomerular Filt Rate >60 [facility] Comment:Chronic Kidney Disea se: Estimated GFR < 60 mL/min/1.90s7Inrgru Kidney Disease: Estimated GFR < 15 mL/min/1.73m2 Glucose 106 60 - 115 mg/dL [facility] Calcium 9.3 8.4 - 10.2 mg/dL [facility] 06/27/2025 2:48 PM EDT 06/27/2025 4:01 PM EDT us Generic External Data Provider LAB BLOOD ORDERAB LES Final Result [facility] [address] [place] [phone] * Basic Metabolic Panel (06/27/2025 2:48 PM EDT) Sodium 138 135 - 145 mmol/L [facility] Potassium 4.5 3.3 - 5.1 mmol/L [facility] Chloride 103 96 - 108 mmol/L [facility] Carbon Dioxide 22 22 - 29 mmol/L [facility] Anion Gap 18 12 - 20 [facility] Urea Nitrogen (BUN) 10 9 - 16 mg/dL [facility] Creatinine, Serum 0.75 0.5 - 1.4 mg/dL [facility] Estimated Glomerular Filt Rate >60 [facility] Comment:Chronic Kidney Disea se: Estimated GFR < 60 mL/min/1.90h8Mcndme Kidney Disease: Estimated GFR < 15 mL/min/1.73m2 Glucose 106 60 - 115 mg/dL [facility] Calcium 9.4 8.4 - 10.2 mg/dL [facility] 06/27/2025 2:48 PM EDT 06/27/2025 4:01 PM EDT us Patsy Patel MD LAB BLOOD ORDERABLES Final Resul t [facility] [address] [place] [address] [phone] documented in this encounter Visit Diagnoses Not on filedocumented in this encounter Additional Health Concerns Assessment Noted Time PHQ-9 Depression Total Score: 2 01/08/20 3:33 PM EDT documented as of this encounter Care Teams Setter Induction Heating Equipment Relationship Specialty Start Date End Date Patsy Patel MD 230 [place] [address] PCP - General Family Medicine 10/16/18 Tre Goodrich, MaudeD [address] [place] [address] Pharmacist Internal Medicine 12/25/23 John Mcclain OD [facility] [address] [place] [address] Optometry 11/14/24 documented as of this encounter
--- OUTSIDE RECORDS SUMMARY | 2025-07-01 17:24 | XMS_ITS | Encounter Summary ---
Author Organization [employer] Address 75 [facility] 7t [place] [address] Care Team Providers Care Literary Agent Name Role Phone Patsy Patel MD Primary Care Provider [phone] Tre Goodrich PharmD Unavailable [phone] John Mcclain OD Unavailable Encounter Details Date Type Department Care Team (Late st Contact Info) Description 06/12/2025 Orders Only [facility] 230 [place], [place] [phone] Patsy Patel MD 230 [place], [place] [phone] Social History Tobacco Use Types Packs/Day Years [...] 07/02/2025 2:30 PM EDT Telemedicine [facility] [address] [place] [address] Tre Goodrich PharmD [address] [place] [address] 07/22/2025 11:15 AM EDT Office Visit [facility] [address] [place] [address] Patsy Patel MD [address] [place] [address] 197[address] documented as of this encounter Goals Goal [...] documented as of this encounter Care Teams Literary Agent Relationship Specialty Start Date End Date Patsy Patel MD [address] [place] [address] PCP - General Family Medicine 10/16/18 Tre Goodrich PharmD [address] [place] [address] Pharmacist Internal Medicine 12/25/23 John Mcclain OD [facility] [address] [place] [address] Optometry 11/14/24 documented as of this encounter
--- OUTSIDE RECORDS SUMMARY | 2025-07-01 17:24 | XMS_ITS | Clinical Summary ---
Author Organization [facility] Address [address] [place] [address] [place] [address] Phone Care Team Providers Care Mixing Tank Operator Name Role Phone Patsy Patel MD [...] mouth 1 (one) time each day Active [place]-3 Fatty Acids (Fish Oil) 1000 MG capsule [...] -Agreed to order MRI and refer to flight service specialist. -Continue PT. Hematuria 10/25/2022 07/13/2023 Overview (07/13/2023): Last Assessment & Plan: -microscopic, evaluated by urologist Stage 3 chronic kidney disease 10/25/2022 0 07/13/2023 Overview (07/13/2023): Last Assessment & Plan: -Followed by assistant in nursing -Optimize BP control -Avoid nephrotoxic drugs -Periodic [...] particularly during spring and summer months. See ground control approach technician as scheduled every 6 months. Avoid concomitant [...] adjust medication at this time. -Co-managed with assistant in nursing - EKG 12/24/19 - NSR, no acute [...] 25 mg to 50 mg daily by assistant in nursing. -Benicar-HCTZ PA was denied. -She does not want to adjust any medication at this time. --Follow- up in 3 months. Disorder of hip joint 07/21/2015 07/13/2023 Overview (07/13/2023): Last Assessment & Plan: -seen by [facility] [...] recent eye exam by Dr. Mcclain in [place] within 2 weeks- next scheduled for 6 [...] recent eye exam by Dr. Mcclain in [place] within 2 weeks- next scheduled for 6 months. Encouraged to continue carefully Plaquenil with daily sun protection particularly during summer and spring months. In the past labs from November 2019 reassuring-new set requested today. Last Assessment & Plan: -Current Tile Conduit Layer Dr. Martin last note on May 2022 -Current medication: Hydroxychloroquine 200 mg daily -Continue current treatment plan per her current stained glass painter. -Needs eye exam for long-term use of [...] Medicaid [place] Care Teams Mixing Tank Operator Relationship Specialty Start Date End Date Patsy Patel MD PCP - General Family Medicine 07/08/21
--- OUTSIDE RECORDS SUMMARY | 2025-07-01 17:24 | XMS_ITS | Encounter Summary ---
Author Organization [employer] Address [address] [facility] 7t [place] [address] Care Team Providers Care Continuous Mining Machine Company Miner Name Role Phone Patsy Patel MD Primary Care Provider [phone] Tre Goodrich PharmD Unavailable [phone] John Mcclain OD Unavailable Reason for Visit * Reason Onset Date Comments Appointment Request 12/12/2024 Encounter Details Date Type Department Care Team ([facility] st Contact Info) Description 12/12/2024 Telephone [facility] 230 [place], [place] [phone] Patsy Patel MD 230 [place], [place] [phone] Appointment Request Social History Tobacco Use Types [...] Miscellaneous Notes * Telephone Encounter - [place] iMranda - 12/12/2024 1:54 PM EST Tc from pt requesting r/s 12/13 (CDTM HTN TV Amanda) appt with Tre Goodrich. documented in this encounter Plan of Treatment Upcoming Encounters Date Type Department Care Team (Late st Contact Info) Description 07/02/2025 2:30 PM EDT Telemedicine [facility] [address] [place] [address] [phone] Tre Goodrich, PharmD 230 [place] [address] 07/22/2025 11:15 AM EDT Office Visit [facility] [address] [place] [address] [phone] Patsy Patel MD [address] [place] [address] documented as of this encounter Goals Goal [...] documented as of this encounter Care Teams Continuous Mining Machine Company Miner Relationship Specialty Start Date End Date Patsy Patel MD [address] [place] [address] PCP - General Family Medicine 10/16/18 Tre Goodrich, PharmD [address] [place] [address] Pharmacist Internal Medicine 12/25/23 John Mcclain OD [facility] [address] [place] [address] Optometry 11/14/24 documented as of this encounter
--- OUTSIDE RECORDS SUMMARY | 2025-07-01 17:25 | XMS_ITS | Encounter Summary ---
Author Organization [employer] Address 75 [facility] 7t [place] [address] Care Team Providers Care Pattern Lease Inspector Name Role Phone Patsy Patel MD Primary Care Provider [phone] Tre Goodrich PharmD Unavailable [phone] John Mcclain OD Unavailable Reason for Visit * Reason Onset Date Comments Results 05/20/2025 Encounter Details Date Type Department Care Team ([facility] st Contact Info) Description 05/20/2025 Results Follow-Up [facility] 230 [place] [address] Patsy Patel MD 230 [place], [place] [phone] Cologuard colon cancer screening Social History Tobacco [...] providers. Thank you. ----- Message ----- From: Olark Results In Sent: 05/17/2025 6:06 PM EDT To: Patsy Patel MD documented in this encounter Plan of Treatment Upcoming Encounters Date Type Department Care Team (Late st Contact Info) Description 07/02/2025 2:30 PM EDT Telemedicine [facility] [address] [place] [phone] Tre Goodrich PharmD [address] [place] [phone] 07/22/2025 11:15 AM EDT Office Visit [facility] [address] [place] [address] Patsy Patel MD [address] [place] [address] documented as of this encounter Goals Goal [...] documented as of this encounter Care Teams Pattern Lease Inspector Relationship Specialty Start Date End Date Patsy Patel MD 230 [place] [address] PCP - General Family Medicine 10/16/18 Tre Goodrich, Evelina [address] [place] [address] Pharmacist Internal Medicine 12/25/23 John Mcclain OD [facility] [address] [place] [address] Optometry 11/14/24 documented as of this encounter
--- OUTSIDE RECORDS SUMMARY | 2025-07-01 17:25 | XMS_ITS | Encounter Summary ---
Author Organization [employer] Address 75 [facility] 7t h Floor [place] [id number] Care Team Providers Care Mine Laborer Name Role Phone Patsy Patel MD Primary Care Provider [phone] Tre Goodrich PharmD Unavailable [phone] John Mcclain OD Unavailable Reason for Visit * Reason Onset Date Comments Referral 12/29/2023 Encounter Details Date Type Department Care Team ([facility] st Contact Info) Description 12/29/2023 Telephone [facility] 230 [place], [place] [phone] Patsy Patel MD 230 [place], [place] [phone] Referral Social History Tobacco Use Types Packs/Day [...] to orthopaedic surgery that was placed 12/31. [facility] was told they need derm's note and that she brought it in and gave to medical records a while ago. [facility] medical records told her they [...] swelling or discharge. Saw a surgeon at [facility] who states the pt needs to see a claims account specialist. Scheduled for an ultrasound at [facility] on Monday. Advised I would notify Dr. Patel to see if an appt will be necessary.Pt stated understanding. * Telephone Encounter - Ana Lilia Del Rio - 12/29/2023 3:27 PM EDT Tc from pt requesting a referral for orthopedics surgeons to treat a lump on left ankle. [facility] [place] documented in this encounter Plan of Treatment Upcoming Encounters Date Type Department Care Team (Late st Contact Info) Description 07/02/2025 2:30 PM EDT Telemedicine [facility] [address] [place] [address] Tre Goodrich, PharmD [address] [place] [address] 07/22/2025 11:15 AM EDT Office Visit [facility] [address] [place] [address] Patsy Patel MD [address] [place] [address] documented as of this encounter Goals Goal [...] documented as of this encounter Care Teams Mine Laborer Relationship Specialty Start Date End Date Patsy Patel MD [address] [place] [address] PCP - General Family Medicine 10/16/18 Tre Goodrich, PharmD [address] [place] [address] Pharmacist Internal Medicine 12/25/23 John Mcclain OD [facility] [address] [place] [address] Optometry 11/14/24 documented as of this encounter
--- OUTSIDE RECORDS SUMMARY | 2025-07-01 17:25 | XMS_ITS | Encounter Summary ---
Author Organization [employer] Address 75 [facility] 7t [place] [address] Care Team Providers Care Brick Extruder Operator Name Role Phone Patsy Patel MD Primary Care Provider [phone] Tre Goodrich PharmD Unavailable [phone] John Mcclain OD Unavailable Encounter Details Date [...] Info) Description 07/02/2025 2:30 PM EDT Telemedicine [facility] [address] [place] [address] Tre Goodrich, PharmD [address] [place] [address] 07/22/2025 11:15 AM EDT Office Visit [facility] [address] [place] [address] Patsy Patel MD [address] [place] [address] documented as of this encounter Goals Goal [...] Protein, Total, Random Urine 9 <12 mg/dL [facility] 06/30/2025 12:2 0 PM EDT 06/30/2025 1:34 PM EDT us Generic External Data Provider LAB URINE ORDERAB LES Final Result Performing Organization Address City/[facility]/ZIP Co de Phone Number [facility] [address] [place] [address] [phone] * (ABNORMAL) Urinalysis Complete (06/30/2025 12:20 PM EDT) Color Urine Yellow [facility] Appearance Urine Clear [facility] PH 6.0 5.0 - 9.0 [facility] Glucose Urine UA Negative Negative mg/dL [facility] Urine Blood Trace(A) Negative [facility] Specific [place] - Urine 1.010 1.005 - 1.025 [facility] Urine Protein Negative Neg-Trace mg/dL [facility] Urine Ketones Negative Negative mg/dL [facility] Nitrite Urine Negative Negative [facility] Leukocyte Esterase Urine Trace(A) Negative [facility] RBC Urine 0-2 0 - 2 /HPF [facility] Urine WBC 0-5 0 - 5 /HPF [facility] Urine Squamous Epithelial Cell 0-2 0 - 2 /HPF [facility] Urine Bacteria None Seen None Seen [facility] Hyaline Casts, Urine 0-2 0 - 2 /LPF [facility] 06/30/2025 12:2 0 PM EDT 06/30/2025 1:11 PM EDT us Generic External Data Provider LAB URINE ORDERAB LES Final Result Performing Organization Address City/[facility]/ZIP Co de Phone Number [facility] [address] [place] [phone] [phone] * Creatinine, Random Urine (06/30/2025 12:20 PM EDT) Creatinine, Urine 61.69 mg/dL [facility] 06/30/2025 12:2 0 PM EDT 06/30/2025 1:11 PM EDT us Generic External Data Provider LAB URINE ORDERAB LES Final Result [facility] [address] [place] [address] [phone] documented in this encounter Visit Diagnoses Not on filedocumented in this encounter Additional Health Concerns Assessment Noted Time PHQ-9 Depression Total Score: 2 01/08/20 3:33 PM EDT documented as of this encounter Care Teams Brick Extruder Operator Relationship Specialty Start Date End Date Patsy Patel MD [address] [place] [address] PCP - General Family Medicine 10/16/18 Tre Goodrich, MaudeD [address] [place] [address] Pharmacist Internal Medicine 12/25/23 John Mcclain OD [facility] [address] [place] [address] Optometry 11/14/24 documented as of this encounter
--- OUTSIDE RECORDS SUMMARY | 2025-07-01 17:25 | XMS_ITS | Encounter Summary ---
Author Organization [employer] Address [address] [place] [address] 7t [place] [address] Care Team Providers Care Last Trimmer Name Role Phone Patsy Patel MD Primary Care Provider [phone] Tre Goodrich PharmD Unavailable [phone] John Mcclain OD Unavailable Reason for Visit * Reason Comments Med Refill Encounter Details Date Type Department Care Team (Late Contact Info) Description 07/19/2023 Refill [facility] [address] [place] [address] Patsy Patel MD [address] [place], [place] [phone] Social History Tobacco Use Types Packs/Day Years [...] Info) Description 07/02/2025 2:30 PM EDT Telemedicine [facility] [address] [place] [address] Tre Goodrich, PharmD [address] [place] [phone] 07/22/2025 11:15 AM EDT Office Visit [facility] [address] [place] [phone] Patsy Patel MD [address] [place] [address] [phone] documented as of this encounter Visit Diagnoses Not on filedocumented in this encounter Additional Health Concerns Assessment Noted Time PHQ-9 Depression Total Score: 023 1:33 PM EST documented as of this encounter Care Teams Last Trimmer Relationship Specialty Start Date End Date Patsy Patel MD [address] [place] [phone] PCP - General Family Medicine 10/16/18 Tre Goodrich, PharmD [address] [place] [phone] Pharmacist Internal Medicine 12/25/23 John Mcclain OD [facility] [address] [place] [address] [place] [address] Optometry 11/14/24 documented as of this encounter
--- OUTSIDE RECORDS SUMMARY | 2025-07-01 17:25 | XMS_ITS | Clinical Summary ---
Author Organization [employer] Address [address] [facility] 7t [place] [address] Care Team Providers Care Nuclear Physicist Name Role Phone Patsy Berg MD Primary Care Provider [phone] Tre Goodrich PharmD Unavailable [phone] John Mcclain OD Unavailable Allergies Active Allergy [...] tablet by mouth in the morning. Active [place]-3 Fatty Acids (Fish Oil) 1000 MG capsule [...] bedtime. 6 mL 1 4 Active Saline [place] 0.65 % solution Use to moisten your [...] - evaluate with MRI and refer to instructional systems specialist at [facility] Assessment & Plan (10/22/2023 11:13 AM EST): [...] - currently following with pain management and instructional systems specialist - Status post trial of MBB [...] -Agreed to order MRI and refer to instructional systems specialist. -Continue PT. Assessment & Plan (04/26/2025 [...] -Agreed to order MRI and refer to instructional systems specialist. -Continue PT. Stage 3 chronic kidney disease 10/25/2022 Assessment & Plan (01/11/2025 6:44 AM EDT): -Followed by straightener, last seen in Jun 2024 -Optimize BP control -Avoid nephrotoxic drugs -Periodic lab to monitor renal function Assessment & Plan (10/22/2023 11:13 AM EST): -Followed by straightener, last seen in Jun 2023 -Optimize BP control -Avoid nephrotoxic drugs -Periodic lab to monitor renal function Assessment & Plan (05/13/2023 6:27 AM EDT): -Followed by straightener -Optimize BP control -Avoid nephrotoxic drugs -Periodic lab to monitor renal function Assessment & Plan (10/25/2022 5:59 AM EST): -Followed by straightener -Optimize BP control -Avoid nephrotoxic drugs -Periodic [...] Plan (01/11/2025 6:46 AM EDT): -seen by [facility] orthopedist -PT with iontophoresis for trochanteric bursitis -Tried tramadol, dosage was ineffective -discouraged use of NSAIDs and HUNT-2 inhibitor due to CKD -Tried gabapentin to 300 mg tid, patient weaned herself off. -Tried lidocaine topical; first cream then patch if cream not effective Assessment & Plan (10/25/2022 6:06 AM EST): -seen by [facility] orthopedist -PT with iontophoresis for trochanteric bursitis [...] at goal, questionable medication adherence -Co-managed with straightener and pharmacist - EKG 12/24/19 - NSR, [...] Amlodipine was increased to 5 mg by straightener, but pt self- discontinued due to ankle swelling. Restarted at low dose and kept at current dose -previously on Olmesartan-hctz 40-25 mg daily, Brand Benicar-hctz was more effective than the generic, per pt. -Benicar-HCTZ PA was denied. - Metoprolol was increased from 25 mg to 50 mg daily by straightener. -Losartan was changed to telmesartan in December 2023 since it is longer-acting. - Pt has been consuming a few glasses of wine every night. Discussed about reducing consumption. -Follow- up in 3 months. Assessment & Plan (01/11/2025 6:43 AM EDT): -Goal BP <140/90 per JNC-8, and < 130/80 per ACC/AHA guideline -BP not at goal, questionable medication adherence -Co-managed with straightener and pharmacist - EKG 12/24/19 - NSR, [...] Amlodipine was increased to 5 mg by straightener, but pt self- discontinued due to ankle swelling. Restarted at low dose and kept at current dose -previously on Olmesartan-hctz 40-25 mg daily, Brand Benicar-hctz was more effective than the generic, per pt. -Benicar-HCTZ PA was denied. - Metoprolol was increased from 25 mg to 50 mg daily by straightener. -Losartan was changed to telmesartan in December 2023 since it is longer-acting. -Follow- up in 3 months. - Ordered labs on 01/07/25 Assessment & Plan (06/21/2024 11:24 AM EDT): -Goal BP <140/90 per JNC-8, and < 130/80 per ACC/AHA guideline -BP not at goal, questionable medication adherence -Co-managed with straightener and pharmacist - EKG 12/24/19 - NSR, [...] Amlodipine was increased to 5 mg by straightener, but pt self- discontinued due to ankle swelling. -previously on Olmesartan-hctz 40-25 mg daily, Brand Benicar-hctz was more effective than the generic, per pt. Metoprolol was increased from 25 mg to 50 mg daily by straightener. -Benicar-HCTZ PA was denied. -Losartan was changed to telmesartan in December 2023 since it is longer-acting. -Follow- up in 3 months. Assessment & Plan (10/22/2023 11:09 AM EST): -Goal BP <140/90 per JNC-8, and < 130/80 per ACC/AHA guideline -BP not at goal, questionable medication adherence -Co-managed with straightener - EKG 12/24/19 - NSR, no acute [...] Amlodipine was increased to 5 mg by straightener, but pt self- discontinued due to ankle swelling. -previously on Olmesartan-hctz 40-25 mg daily, Brand Benicar-hctz was more effective than the generic, per pt. Metoprolol was increased from 25 mg to 50 mg daily by straightener. -Benicar-HCTZ PA was denied. We will check if we can try to decrease pill-burden again. -Follow- up in 3 months. Assessment & Plan (05/13/2023 6:26 AM EDT): -Goal BP <140/90 per JNC-8, and < 130/80 per ACC/AHA guideline -BP not at goal, questionable medication adherence -Co-managed with straightener - EKG 12/24/19 - NSR, no acute [...] Amlodipine was increased to 5 mg by straightener, but pt self- discontinued due to ankle swelling. -previously on Olmesartan-hctz 40-25 mg daily, Brand Benicar-hctz was more effective than the generic, per pt. Metoprolol was increased from 25 mg to 50 mg daily by straightener. -Benicar-HCTZ PA was denied. We will check if we can try to decrease pill-burden again. -Follow- up in 3 months. Assessment & Plan (10/26/2022 4:43 PM EST): -Goal BP <140/90 per JNC-8, and < 130/80 per ACC/AHA guideline -BP not at goal, pt does not want to adjust medication at this time. -Co-managed with straightener - EKG 12/24/19 - NSR, no acute [...] 25 mg to 50 mg daily by straightener. -Benicar-HCTZ PA was denied. -She does not [...] recent eye exam by Dr. Mcclain in [place] within 2 weeks- next scheduled for 6 months. Encouraged to continue carefully Plaquenil with daily sun protection particularly during summer and spring months. In the past labs from November 2019 reassuring-new set requested today. 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 -Needs eye exam for long-term use of Plaquenil, last eye exam in Jun 2023 Assessment & Plan (10/22/2023 11:18 AM EST): -Current Jet Pilot Dr. Martin last visit on 10/04/23 -Current medication: Hydroxychloroquine 200 mg daily -Continue current treatment plan per her current crystallizer operator. -Needs eye exam for long-term use of Plaquenil, last eye exam in Jun 2023 Assessment & Plan (05/13/2023 6:30 AM EDT): -Current Jet Pilot Dr. Martin last visit in January 2023 -Current medication: Hydroxychloroquine 200 mg daily -Continue current treatment plan per her current crystallizer operator. -Needs eye exam for long-term use of Plaquenil, last eye exam within last 1 year per pt's report Assessment & Plan (10/25/2022 6:02 AM EST): -Current Jet Pilot Dr. Martin last note on May 2022 -Current medication: Hydroxychloroquine 200 mg daily -Continue current treatment plan per her current crystallizer operator. -Needs eye exam for long-term use [...] Provider, Generic External Data 06/27/2025 Orders Only [facility] [address] [place] [address] Patsy Berg MD 06/25/2025 Travel 06/13/2025 Telephone [facility] [address] [place] [address] Elif Barrera RN 06/12/2025 Telephone [facility] [address] [place] [phone] Patsy Berg MD Appointment Request 06/12/2025 Orders Only [facility] [address] [place] [phone] Patsy Berg MD 06/11/2025 Telephone [facility] [address] [place] [address] Elif Barrera RN 06/11/2025 Orders Only GENERIC EXTERNAL DATA DEPARTMENT Provider, Generic External Data 06/05/2025 Telephone [facility] [address] [facility] [place] [address] Elif Barrera RN 06/03/2025 Telephone [facility] [place] [address] Patsy Berg MD clearence 06/03/2025 Travel 05/20/2025 Orders Only [facility] [place] [address] Patsy Berg MD Positive colorectal cancer screening using Cologuard test (Primary Dx) 05/20/2025 Results Follow-Up [facility] [place] [address] Patsy Berg MD Cologuard colon cancer screening 05/19/2025 Travel 05/10/2025 Refill [facility] [place] [address] Tre Goodrich, PharmD Primary hypertension 04/28/2025 Refill [facility] [place] [address] Patsy Berg MD 04/15/2025 11:15 AM EDT Office Visit [facility] [place] [address] Patsy Berg MD Screening for colon cancer (Primary Dx); Primary hypertension; Dyslipidemia; Lumbar radiculopathy; Spinal stenosis of lumbar region with neurogenic claudication; Discoid lupus; Chronic low back pain with left-sided sciatica, unspecified back pain laterality; Alcohol intake above recommended sensible limits 04/15/2025 Travel 04/14/2025 Telephone [facility] [place] [address] Patsy Berg MD chartprep 04/08/2025 Travel 04/07/2025 Refill [facility] [place] [address] Patsy Berg MD 04/04/2025 Refill [facility] [address] [place] [address] Tre Goodrich, PharmD Primary hypertension from Last [...] Info) Description 07/02/2025 2:30 PM EDT Telemedicine [facility] [address] [place] [phone] Tre Goodrich, PharmD [address] [place] [phone] 07/22/2025 11:15 AM EDT Office Visit [facility] [address] [place] [phone] Patsy Berg MD [address] [place] [address] Health Maintenance Due Date Last Done Comments [...] Protein, Total, Random Urine 9 <12 mg/dL [facility] 06/30/2025 12:2 0 PM EDT 06/30/2025 1:34 PM EDT us Generic External Data Provider LAB URINE ORDERAB LES Final Result Performing Organization Address [facility] Co de Phone Number [facility] [address] [place] [phone] * Creatinine, Random Urine (06/30/2025 12:20 PM EDT) Creatinine, Urine 61.69 mg/dL [facility] 06/30/2025 12:2 0 PM EDT 06/30/2025 1:11 PM EDT Generic External Data Provider LAB URINE ORDERAB LES Final Result Performing Organization Address [facility] de Phone Number [facility] [address] [place] [phone] * (ABNORMAL) Urinalysis Complete (06/30/2025 12:20 PM EDT) Color Urine Yellow [facility] Appearance Urine Clear [facility] PH 6.0 5.0 - 9.0 [facility] Glucose Urine UA Negative Negative mg/dL [facility] Urine Blood Trace(A) Negative [facility] Specific [place] - Urine 1.010 1.005 - 1.025 [facility] Urine Protein Negative Neg-Trace mg/dL [facility] Urine Ketones Negative Negative mg/dL [facility] Nitrite Urine Negative Negative [facility] Leukocyte Esterase Urine Trace(A) Negative [facility] RBC Urine 0-2 0 - 2 /HPF [facility] Urine WBC 0-5 0 - 5 /HPF [facility] Urine Squamous Epithelial Cell 0-2 0 - 2 /HPF [facility] Urine Bacteria None Seen None Seen [facility] Hyaline Casts, Urine 0-2 0 - 2 /LPF [facility] 06/30/2025 12:2 0 PM EDT 06/30/2025 1:11 PM EDT us Generic External Data Provider LAB URINE ORDERAB LES Final Result [facility] [address] [place] [phone] * Basic Metabolic Panel (06/27/2025 2:48 PM EDT) Only the most recent of2 resultswithin the time period is included. [facility] Sodium 137 135 - 145 mmol/L [facility] Potassium 4.4 3.3 - 5.1 mmol/L [facility] Chloride 104 96 - 108 mmol/L [facility] Carbon Dioxide 22 22 - 29 mmol/L [facility] Anion Gap 15 12 - 20 [facility] Urea Nitrogen (BUN) 10 9 - 16 mg/dL [facility] Creatinine, Serum 0.72 0.5 - 1.4 mg/dL [facility] Estimated Glomerular Filt Rate >60 [facility] Comment:Chronic Kidney Disea se: Estimated GFR < 60 mL/min/1.88x7Yfzsdv Kidney Disease: Estimated GFR < 15 mL/min/1.73m2 Glucose 106 60 - 115 mg/dL [facility] Calcium 9.3 8.4 - 10.2 mg/dL [facility] 06/27/2025 2:48 PM EDT 06/27/2025 4:01 PM EDT us Generic External Data Provider LAB BLOOD ORDERAB LES Final Result [facility] [address] [place] [phone] * FL Guidance in OR (06/11/2025 2:11 PM EDT) Anatomical Region Laterality Modality X-Ray Angiograph y 06/11/2025 2:11 PM EDT Narrative 06/11/2025 3:33 PM EDT [place] [address] Fluoroscopy Report Signed Patient: Sariah Fleming MR#: [id number] [birth year] : 1955 Acct:[id number] Age/Sex: 70 / F ADM Date: 06/11/25 Loc: .[facility] Attending Dr: Giovanny Alanis MD Ordering Physician: Giovanny Alanis MD Date of Service: 06/11/25 Procedure(s): FL guidance in OR Accession Number(s): [id number] cc: Giovanny Alanis MD; Patsy Berg MD [...] 06/11/25 1531 DD/ 1411 TD/TT: 06/11/25 1505 Purification Director: Procedure Note Donotuseinterpreter, Image - 06/11/[address] [address] Fluoroscopy Report Signed Patient: Hui Fleming#: [id number] 09 : 1955cct:[id number] Age/Sex: 70 / FADM Date: 06/11/25 Loc: .[facility] Attending Dr: Giovanny Alanis MD Ordering Physician: Giovanny Alanis MD Date of Service: 06/11/25 Procedure(s): FL guidance in OR Accession Number(s): [id number] cc: Giovanny Alanis MD; Patsy Berg MD [...] 06/11/25 1531 DD/ 1411 TD/TT: 06/11/25 1505 Purification Director: [facility] External Provider IMG IR PROCEDURES Final Result * MRSA Nasal Screen (06/11/2025 11:15 AM EDT) MRSA Nasal PCR NEGATIVE Negative [facility] SA Nasal PCR NEGATIVE Negative [facility] MRSA Interpretation SEE NOTE [facility] Comment:MRSA target DNA not detected; SA target DNA not detected.A MRSA NEGATIVE, SA NEGATIVE test result does not precludeMRSA or SA nasal colonization. 06/11/2025 11:1 5 AM EDT 06/11/2025 11:29 AM EDT us Generic External Data Provider LAB MICROBIOLOGY - GENERAL ORDERABLES Final Result [facility] [address] [place] [phone] * (ABNORMAL) Cologuard?? colon cancer screening (05/12/2025 10:45 AM EDT) Cologuard Result Positive( A) Negative 05/17/2025 12:32 PM EDT [facility] (CLIA #:[id number]) Comment: The Cologuard Plus (TM) test was performed on this specimen. POSITIVE TEST RESULT. A positive (abnormal) Cologuard Plus result means the patient has a tfxfdw-[id number] chance of having colorectal cancer (CRC) or [...] a 91% specificity (Cologuard Plus Clinician Brochure. [employer] [place], [place] Visit [email or web address] for more test information, references, warnings, and precautions. Stool specimen (specimen) 05/12/2025 10:45 AM EDT 05/13/2025 12:45 PM EDT Patsy Berg MD LAB MOLECULAR DIAGNOSTICS ORDERA BLES Final Result [facility] [facility] (CLIA #:[id number]) [address] [place] [address], * (ABNORMAL) Lipid Panel with Reflex to Direct LDL (01/17/2025 3:05 PM EDT) Triglycerides 96 <150 mg/dL [facility] Comment:Desirable Triglyceri de: less than 150 mg/dLBorderline High Triglyceride 150-199 mg/dLHigh Triglyceride: 200-499 mg/dLVery High Triglyceride: greater than or equal to 5OO mg/dL Cholesterol 225(H) <200 mg/dL [facility] Comment:Desirable Cholestero l: less than 200 mg/dLBorderline High Cholesterol: 200-239 mg/dLHigh Cholesterol: greater than 239 mg/dL LDL Cholesterol Calculated 105(H) <100 mg/dL [facility] Comment:Desirable LDL: less than 100 mg/dLNear Optimal/Above Optimal LDL: 110- 129 mg/dLBorderline High LDL: 130-159 mg/dLHigh LDL: 160-189 mg/dLVery High LDL: greater than or equal to 190 mg/dL HDL Cholesterol 101 >40 mg/dL [facility] Comment:Desirable HDL: great er than 40 mg/dL Note: This HDL assay may give artificially low results in patients with liver disease. Blood 01/17/2025 3:05 PM EDT 01/17/2025 4:14 PM EDT us Patsy Berg MD LAB BLOOD ORDERABLES Final Resul t [facility] [address] [place] [phone] * BI Mammogram Screening Tomosynthesis Bilateral (06/14/2023 11:10 AM EDT) Anatomical Region Laterality Modality Breast Bilateral Mammography 06/14/2023 11:1 0 AM EDT Narrative 06/28/2023 8:16 AM EDT [address] [place] [address] Mammography Report Signed Patient: Sariah Fleming MR#: [id number] 09 : 1955 Acct:[id number] Age/Sex: 68 / F ADM Date: 06/14/23 Loc: [facility] Attending Dr: Patsy Berg MD Ordering Physician: Patsy Berg MD Results: 1Negative Date of Service: 06/14/23 Follow Up: 1 Year From Orig ina Mammogram Procedure(s): MM tomosynthesis screening BI Accession Number(s): [id number] cc: Patsy Berg MD EXAMINATION: MM SCREENING [...] in OV> 06/28/23 0812 DD/ 1110 TD/TT: Purification Director: Procedure Note Donotuseinterpreter, Image - 06/29/2023 [facility] [address] [place] [address] Mammography Report Signed Patient: Sariah FlemingMR#: [id number] 09 : 3Acct:[id number] Age/Sex: 68 / FADM Date: 06/14/23 Loc: [facility] Attending Dr: Patsy Berg MD Ordering Physician: Patsy Berg MDResults: 1Negative Date of Service: 06/14/23Follow Up: 1 Year From Orig inal Mammogram Procedure(s): MM tomosynthesis screening BI Accession Number(s): [id number] cc: Patsy Berg MD EXAMINATION: MM SCREENING [...] in OV> 06/28/23 0812 DD/ 1110 TD/TT: Purification Director: Patsy Berg MD IMG BI PROCEDURES Edited Result - Final * HEPATITIS C ANTIBODY RFLX (12/10/2019 9:10 AM EST) HEPATITIS C ANTIBODY NONREACTIVE NONREACTIVE [facility] Comment: Antibodies to HCV not detected; does not exclude early acute HCV infection. 12/10/2019 9:10 AM EST Patsy Berg MD HISTORICAL/NON ORDERABLE LABS Fi nal Result [facility] [address] from Last 3 Months or Most Recently Relevant to Health Maintenance Insurance [place] [address] [place] [address] [place] [id number] [facility] STAND ADULT Care Teams Nuclear Physicist Relationship Specialty Start Date End Date Patsy Berg MD [address] [place] [address] PCP - General Family Medicine 10/16/18 Tre Goodrich, Evelina [address] [place] [address] Pharmacist Internal Medicine 12/25/23 John Mcclain OD [facility] [address] [place] [address] Optometry 11/14/24
--- OUTSIDE RECORDS SUMMARY | 2025-07-01 17:25 | XMS_ITS | Encounter Summary ---
Author Organization [employer] Address [address] [place] [address] 7t [place] [address] Care Team Providers Care High School Counselor Name Role Phone Patsy Patel MD Primary Care Provider [phone] Tre Goodrich PharmD Unavailable [phone] John Mcclain OD Unavailable Reason for Referral * Consultation (Urgent) - Closed Specialty Diagnoses / Procedures Referred By Contac t Referred To Contact Orthopaedic Surgery Diagnoses Ankle mass, left Patsy Patel MD [address] [place] [address] Phone: tel: fax: [facility] [address] [place] [address] [place] [address] Phone: tel: fax: Referral ID Status Reason Start Date Expiration Date V isits Requested Visits Authorized [id number] Closed Specialty Services Required 01/01/2024 12/31/2024 1 1 Scheduling Instructions Magnet Valve Assembler recommends [facility]. Encounter Details Date Type Department Care Team (Late st Contact Info) Description 01/01/2024 Orders Only [facility] [address] [place], [place] [phone] Patsy Patel MD [address] [place], [place] [phone] Ankle mass, left (Primary Dx) Social History [...] EDT Telemedicine [facility] [address] [place] [phone] Tre Goodrich, PharmD [address] [place] [address] 07/22/2025 11:15 AM EDT Office Visit [facility] [address] [place] [phone] Patsy Patel MD [address] [place] [address] Scheduled Referrals Name Type Priority Associated Diagnoses [...] documented as of this encounter Care Teams High School Counselor Relationship Specialty Start Date End Date Patsy Patel MD [address] [place] [address] PCP - General Family Medicine 10/16/18 Tre Goodrich, PharmD [address] [place] [phone] Pharmacist Internal Medicine 12/25/23 John Mcclain OD [facility] [address] [place] [address] Optometry 11/14/24 documented as of this encounter
--- OUTSIDE RECORDS SUMMARY | 2025-07-01 17:25 | XMS_ITS | Encounter Summary ---
Author Organization [employer] Address [address] [place] [address] 7 [place] [address] Care Team Providers Care Door Operator Name Role Phone Patsy Patel MD Primary Care Provider [phone] Tre Goodrich PharmD Unavailable [phone] John Mcclain OD Unavailable Reason for Referral * Consultation (Routine) - Authorized Specialty Diagnoses / Procedures Referred By Contabraham kunz Referred To Contact General Surgery Diagnoses Positive colorectal cancer screening using Cologuard test Patsy Patel MD [address] [place] [address] Phone: tel: fax: Moreno Donahue MD [address] [place] [address] 3[address] [place] [address] Phone: tel: Referral ID Status Reason Start Date Expiration Date Visits Requested Visits Authorized [id number] Authorized Specialty Services Required 05/20/2025 05/20/2026 1 1 Encounter Details Date Type Department Care Team (Late st Contact Info) Description 05/20/2025 Orders Only [facility] [address] [place] [address] Patsy Patel MD [address] [place], [place] [phone] Positive colorectal cancer screening using Cologuard test [...] Info) Description 07/02/2025 2:30 PM EDT Telemedicine [facility] [address] [place] [address] Tre Goodrich, PharmD [address] [place] [address] 07/22/2025 11:15 AM EDT Office Visit [facility] [address] [place] [address] Patsy Patel MD [address] [place] [address] Scheduled Referrals Name Type Priority Associated Diagnoses [...] documented as of this encounter Care Teams Door Operator Relationship Specialty Start Date End Date Patsy Patel MD [address] [place] [address] PCP - General Family Medicine 10/16/18 Tre Goodrich, PharmD [address] [place] [address] Pharmacist Internal Medicine 12/25/23 John Mcclain OD [facility] [address] [place] [address] Optometry 11/14/24 documented as of this encounter
--- OUTSIDE RECORDS SUMMARY | 2025-07-01 17:25 | XMS_ITS | Encounter Summary ---
Author Organization [employer] Address 75 [facility] 7t [place] [address] Care Team Providers Care Tie Puller Name Role Phone Patsy Patel MD Primary Care Provider [phone] Tre Goodrich PharmD Unavailable [phone] John Mcclain OD Unavailable Encounter Details Date Type Department Care Team (Late st Contact Info) Description 06/27/2024 Orders Only [facility] 230 [place], [place] [phone] Patsy Patel MD 230 [place], [place] [phone] Social History Tobacco Use Types Packs/Day Years [...] Description 07/02/2025 2:30 PM EDT Telemedicine [facility] [address] [place] [address] Tre Goodrich, PharmD [address] [place] [address] 07/22/2025 11:15 AM EDT Office Visit [facility] [address] [place] [address] Patsy Patel MD [address] [place] [address] documented as of this encounter Goals Goal [...] documented as of this encounter Care Teams Tie Puller Relationship Specialty Start Date End Date Patsy Patel MD [address] [place] [address] PCP - General Family Medicine 10/16/18 Tre Goodrich, Evelina 230 [facility] [place] [address] Pharmacist Internal Medicine 12/25/23 John Mcclain OD [facility] [address] [place] [address] Optometry 11/14/24 documented as of this encounter
== END 2025-07-01 14:59 | disposition home or self-care (01) ==
LOC: HO.HKA 13:28
PROVIDERS: PCP Family Medicine; Visit Provider Internal Medicine Hypertension Specialist
DX: L93.0 Discoid lupus erythematosus (principal); I10 Essential (primary) hypertension; E87.1 Hypo-osmolality and hyponatremia
CPT/HCPCS: 99214

== ENCOUNTER → 2025-07-01 13:27 | Outpatient (BNVA) | payer MEDICARE, MEDICAID, SELFPAY | PROVIDERS: PCP Family Medicine; Visit Provider Internal Medicine Hypertension Specialist | DX: E87.1 Hypo-osmolality and hyponatremia (principal); I10 Essential (primary) hypertension; L93.0 Discoid lupus erythematosus | CPT/HCPCS: 99212 ==

== ENCOUNTER 2025-08-06 10:41 | Day surgery (SDC) | payer MEDICARE, MEDICAID, SELFPAY ==
--- OUTSIDE RECORDS SUMMARY | 2025-07-02 14:30 | XMS_ITS | Encounter Summary ---
Author Organization [employer] Address [address] [place] [address] 7t [place] [address] Care Team Providers Care Mail Manager Name Role Phone Patsy Patel MD Primary Care Provider [phone] Tre Goodrich PharmD Unavailable [phone] John Mcclain OD Unavailable Reason for Visit * Consultation (Routine) - Pending Review Specialty Diagnoses / Procedures Referred By Contabraham t Referred To Contact Pharmacy Diagnoses Primary hypertension Patsy Patel MD 230 [place] [address] Phone: tel: fax: Referral ID Status Reason Start Date Expiration Date Visits Requested Visits Authorized [id number] Pending Review Consult and Treat 4 08/27/2025 6 6 Encounter Details Date Type Department Care Team ([facility] st Contact Info) Description 07/02/2025 2:30 PM EDT Telemedicine [facility] MEDICINE 230 [place] [address] Tre Goodrich, PharmD 230 [place] [address] Social History Tobacco Use Types Packs/Day Years [...] AM EDT documented as of this encounter Last Filed Vital Signs Vital Sign Reading Time Taken Comments Blood Pressure 172/83 07/02/2025 2:57 PM EDT Omr on Home Monitor Pulse 74 07/02/2025 2:57 PM EDT Temperature - - Respiratory Rate - - Oxygen Saturation - - Inhaled Oxygen Concentration - - Weight - - Height - - Body Mass Index - - documented in this encounter Plan of Treatment Upcoming Encounters Date Type Department Care Team (Late st Contact Info) Description 07/22/2025 11:15 AM EDT Office Visit [facility] 230 [place], [place] [phone] Patsy Patel MD 230 [place] [address] 09/03/2025 2:30 PM EST Telemedicine [facility] MED[facility]INE 230 [place] [address] Tre Goodrich, PharmD 230 [place] [address] documented as of this encounter Goals Goal Patient Goal Type Associated Problems Recent Progress Patient-Stated? Author Blood Pressure < 140/90 Blood Pressure 172/83( 025 2:57 PM EDT) No Tre Goodrich, PharmNikhil documented as of this encounter Visit Diagnoses Not on filedocumented in this encounter Additional Health Concerns Assessment Noted Time PHQ-9 Depression Total Score: 2 01/08/20 3:33 PM EDT documented as of this encounter Care Teams Mail Manager Relationship Specialty Start Date End Date Patsy Patel MD 230 [place] [address] PCP - General Family Medicine 10/16/18 Tre Goodrich, PharmD [address] [place] [address] Pharmacist Internal Medicine 12/25/23 John Mcclain OD [facility] [address] [place] [address] Optometry 11/14/24 documented as of this encounter
--- OUTSIDE RECORDS SUMMARY | 2025-07-02 15:56 | XMS_ITS | Encounter Summary ---
Author Organization [employer] Address 75 [facility] 7t [place] [address] Care Team Providers Care Windlasser Name Role Phone Patsy Patel MD Primary Care Provider [phone] Tre Goodrich PharmD Unavailable [phone] John Mcclain OD Unavailable Encounter Details Date Type Department Care Team (Late st Contact Info) Description 06/27/2024 Orders Only [facility] MED[facility]INE 230 [place], [place] [phone] Patsy Patel MD 230 [place], [place] [phone] Social History Tobacco Use Types Packs/Day Years [...] Description 07/22/2025 11:15 AM EDT Office Visit [facility] [address] [place] [address] Patsy Patel MD [address] [place] [address] 09/03/2025 2:30 PM EST Telemedicine [facility] [address] [place] [address] Tre Goodrich, PharmD [address] [place] [address] documented as of this encounter Goals Goal Patient Goal Type Associated Problems Recent Progress Patient-Stated? Author Blood Pressure < 140/90 Blood Pressure 172/83( 025 2:57 PM EDT) No Tre Goodrich, PharmD documented as of this encounter Visit Diagnoses Not on filedocumented in this encounter Additional Health Concerns Assessment Noted Time PHQ-9 Depression Total Score: 10 023 1:33 PM EST documented as of this encounter Care Teams Windlasser Relationship Specialty Start Date End Date Patsy Patel MD [address] [place] [address] PCP - General Family Medicine 1/1/19 Tre Goodrich, MaudeD [address] [place] [address] [place] [address] Pharmacist Internal Medicine 12/25/23 John Mcclain OD [facility] [address] [place] [address] Optometry 11/14/24 documented as of this encounter
--- OUTSIDE RECORDS SUMMARY | 2025-07-02 15:56 | XMS_ITS | Encounter Summary ---
Author Organization [employer] Address 75 [facility] 7t [place] [address] Care Team Providers Care Welder Plastic Name Role Phone Patsy Patel MD Primary Care Provider [phone] Tre Goodrich PharmD Unavailable [phone] John Mcclain OD Unavailable Reason for Visit * Reason Onset Date Comments Appointment Request 12/12/2024 Encounter Details Date Type Department Care Team ([facility] st Contact Info) Description 12/12/[address] [facility] MEDICINE 230 [place], [place] [phone] Patsy Patel MD 230 [place], [place] [phone] Appointment Request Social History Tobacco Use Types [...] Description 07/22/2025 11:15 AM EDT Office [address] [facility] MEDICINE [address] [place] [address] Patsy Patel MD [address] [place] [address] 09/03/2025 2:30 PM EST Telemedicine [address] [phone] Tre Goodrich, PharmD [address] [place] [address] documented as of this encounter Goals Goal Patient Goal Type Associated Problems Recent Progress Patient-Stated? Author Blood Pressure < 140/90 Blood Pressure 172/83( 025 2:57 PM EDT) No Tre Goodrihc, PharmD documented as of this encounter Visit Diagnoses Not on filedocumented in this encounter Additional Health Concerns Assessment Noted Time PHQ-9 Depression Total Score: 10 023 1:33 PM EST documented as of this encounter Care Teams Welder Plastic Relationship Specialty Start Date End Date Patsy Patel MD 230 [place] [address] PCP - General Family Medicine 10/16/18 Tre Goodrich, PharmD [address] [place] [address] Pharmacist Internal Medicine 12/25/23 John Mcclain OD [facility] [address] [place] [address] Optometry 11/14/24 documented as of this encounter
--- OUTSIDE RECORDS SUMMARY | 2025-07-02 15:56 | XMS_ITS | Encounter Summary ---
Author Organization [employer] Address 75 [facility] 7t [place] [address] Care Team Providers Care Welder Gas Automatic Name Role Phone Patsy Patel MD Primary Care Provider [phone] Tre Goodrich PharmD Unavailable [phone] John Mcclain OD Unavailable Reason for Visit * Reason Onset Date Comments Appointment Request 06/12/2025 Encounter Details Date Type Department Care Team ([facility] st Contact Info) Description 06/12/2025 Telephone [facility] 230 [place], [place] [phone] Patsy Patel MD 230 [place], [place] [phone] Appointment Request Social History Tobacco Use Types [...] Description 07/22/2025 11:15 AM EDT Office Visit [facility] [address] [place] [address] Patsy Patel MD [address] [place] [address] 09/03/2025 2:30 PM EST Telemedicine [facility] [address] [place] [address] Tre Goodrich, PharmD [address] [place] [address] documented as of this encounter Goals Goal [...] as of this encounter Care Teams Welder Gas Automatic Relationship Specialty Start Date End Date Patsy Patel MD 230 [place] [address] PCP - General Family Medicine 10/16/18 Tre Goodrich, PharmD [address] [place] [address] Pharmacist Internal Medicine 12/25/23 John Mcclain OD [facility] [address] [place] [address] Optometry 11/14/24 documented as of this encounter
--- OUTSIDE RECORDS SUMMARY | 2025-07-02 15:56 | XMS_ITS | Encounter Summary ---
Author Organization [employer] Address [address] [place] [address] 7t [place] [address] Care Team Providers Care Dispatch Officer Name Role Phone Patsy Patel MD Primary Care Provider [phone] Tre Goodrich PharmD Unavailable [phone] John Mcclain OD Unavailable Reason for Referral * Consultation (Urgent) - Closed Specialty Diagnoses / Procedures Referred By Contac t Referred To Contact Orthopaedic Surgery Diagnoses Ankle mass, left Patsy Patel MD 230 [place] [address] Phone: tel: fax: [facility] [address] [place] [address] [place] [address] Phone: tel: fax: Referral ID Status Reason Start Date Expiration Date V isits Requested Visits Authorized [id number] Closed Specialty Services Required 01/01/2024 12/31/2024 1 1 Scheduling Instructions Brush Finisher recommends [facility]. Encounter Details Date Type Department Care Team (Late st Contact Info) Description 01/01/2024 Orders Only [facility] 230 [place], [place] [phone] Patsy Patel MD 230 [place], [place] [phone] Ankle mass, left (Primary Dx) Social History [...] Description 07/22/2025 11:15 AM EDT Office Visit [facility] [address] [place] [address] Patsy Patel MD [address] [place] [address] 09/03/2025 2:30 PM EST Telemedicine [facility] [address] [place] [address] Tre Goodrich, PharmD 230 [place] [address] Scheduled Referrals Name Type Priority Associated Diagnoses [...] documented as of this encounter Care Teams Dispatch Officer Relationship Specialty Start Date End Date Patsy Patel MD 230 [place] [address] PCP - General Family Medicine 10/16/18 Tre Goodrich, PharmD 230 [place] [address] Pharmacist Internal Medicine 12/25/23 John Mcclain OD [facility] [address] [place] [address] Optometry 11/14/24 documented as of this encounter
--- OUTSIDE RECORDS SUMMARY | 2025-07-02 15:56 | XMS_ITS | Encounter Summary ---
Author Organization [employer] Address 75 [facility] 7t [place] [address] Care Team Providers Care Caul Fat Puller Name Role Phone Patsy Patel MD Primary Care Provider [phone] Tre Goodrich PharmD Unavailable [phone] John Mcclain OD Unavailable Reason for Visit * Reason Onset Date Comments Referral 01/27/2025 Encounter Details Date Type Department Care Team (Late st Contact Info) Description 01/27/2025 Telephone [facility]INE 230 [place] [address] Patsy Patel MD 230 [place], [place] [phone] Referral Social History Tobacco Use Types Packs/Day [...] Tc from pt requesting a referral [facility]. Contact pt at [phone] documented in this encounter Plan of Treatment Upcoming Encounters Date Type Department Care Team (Late st Contact Info) Description 07/22/2025 11:15 AM EDT Office Visit [facility] [address] [place] [address] Patsy Patel MD [address] [place] [address] 09/03/2025 2:30 PM EST Telemedicine [facility]INE [address] [place] [address] Tre Goodrich, PharmD [address] [place] [address] documented as of this encounter Goals Goal [...] documented as of this encounter Care Teams Caul Fat Puller Relationship Specialty Start Date End Date Patsy Patel MD 230 [place] [address] PCP - General Family Medicine 10/16/18 Tre Goodrich, PharmD [address] [place] [address] Pharmacist Internal Medicine 12/25/23 John Mcclain OD [facility] [address] [place] [address] Optometry 11/14/24 documented as of this encounter
--- OUTSIDE RECORDS SUMMARY | 2025-07-02 15:56 | XMS_ITS | Encounter Summary ---
Author Organization [employer] Address 75 [facility] 7t h Floor [place] [phone] Care Team Providers Care Field Pipelines Supervisor Name Role Phone Patsy Patel MD Primary Care Provider [phone] rTe Goodrich PharmD Unavailable [phone] John Mcclain OD Unavailable Reason for Visit * Reason Onset Date Comments Referral 12/29/2023 Encounter Details Date Type Department Care Team ([facility] st Contact Info) Description 12/29/2023 Telephone [facility] MED[facility]INE 230 [place], [place] [phone] Patsy Patel MD 230 [place], [place] [phone] Referral Social History Tobacco Use Types Packs/Day [...] to orthopaedic surgery that was placed 12/31. [facility] was told they need derm's note and that she brought it in and gave to medical records a while ago. [facility] medical records told her they would [...] swelling or discharge. Saw a surgeon at [facility] who states the pt needs to see a operation specialist. Scheduled for an ultrasound at [facility] on Monday. Advised I would notify Dr. Patel to see if an appt will be necessary.Pt stated understanding. * Telephone Encounter - [facility] Lilia Del [facility] - 12/29/2023 3:27 PM EDT Tc from pt requesting a referral for orthopedics surgeons to treat a lump on left ankle. [facility] on [address] documented in this encounter Plan of Treatment Upcoming Encounters Date Type Department Care Team (Late st Contact Info) Description 07/22/2025 11:15 AM EDT Office Visit [facility] MEDICINE [address] [place] [address] Patsy Patel MD [address] [place] [address] 09/03/2025 2:30 PM EST Telemedicine [facility]INE [address] [place] [address] Tre Goodrich PharmD [address] [place] [address] documented as of this encounter Goals Goal Patient Goal Type Associated Problems Recent Progress Patient-Stated? Author Blood Pressure < 140/90 Blood Pressure 172/83( 025 2:57 PM EDT) No Tre Goodrich PharmD documented as of this encounter Visit Diagnoses Not on filedocumented in this encounter Additional Health Concerns Assessment Noted Time PHQ-9 Depression Total Score: 10 023 1:33 PM EST documented as of this encounter Care Teams Field Pipelines Supervisor Relationship Specialty Start Date End Date Patsy Patel MD [address] [place] [address] PCP - General Family Medicine 10/16/18 Tre Goodrich, PharmD [address] [place] [address] Pharmacist Internal Medicine 12/25/23 John Mcclain OD [facility] [address] [place] [address] Optometry 11/14/24 documented as of this encounter
--- OUTSIDE RECORDS SUMMARY | 2025-07-02 15:56 | XMS_ITS | Clinical Summary ---
Author Organization [employer] Address [address] [place] [address] Care Team Providers Care Night Supervisor Name Role Phone Patsy Berg MD Primary Care Provider [phone] Tre Goodrich PharmD Unavailable [phone] John Mcclain OD Unavailable Allergies Active Allergy Reactions Criticality Noted Date Comments Isaiah Inhibitors 01/02/2020 Diltiazem 01/02/2020 Hydralazine 07/19/2021 Nsaids 03/25/2023 Medications hydroxychloroqu ine (Plaquenil) 200 MG tablet Take 1 tablet by mouth in the morning. 10/07/20 22 Active aspirin 81 MG EC tablet Take 81 mg by mouth in the morning. Active Calcium Carb-Cholecalci ferol (CALCIUM 600 + D PO) Take 1 tablet by mouth in the morning. Active magnesium 250 MG tablet Take 1 tablet by mouth in the morning. Active Johnston-3 Fatty Acids (Fish Oil) 1000 MG capsule [...] Apply topically at bedtime. 6 mL 1 06/20/20 24 Active metoprolol succinate XL (Toprol-XL) 50 MG 24 hr tabletIndicatio ns:Primary hypertension TAKE 1 AND 1/2 TABLETS BY MOUTH ONCE DAILY 45 tablet 5 04/04/20 25 Active atorvastatin (Lipitor) 20 MG tablet TAKE 1 TABLET BY MOUTH DAILY AT BEDTIME 90 tablet 1 04/08/20 25 Active naloxone (Narcan) 4 mg/0.1 mL nasal spray Administer 1 spray (4 mg) into affected nostril(s) if needed for opioid reversal. May repeat every 2-3 minutes if needed, alternating nostrils, until medical assistance becomes available. 2 each 04/15/20 25 2025 Active amLODIPine (Norvasc) 2.5 MG tablet TAKE 1 TABLET BY MOUTH EVERY DAY IN THE MORNING 90 tablet 3 04/29/20 25 Active telmisartan (MIcarDIS) 40 MG tabletIndicatio ns:Primary hypertension TAKE 1 TABLET BY MOUTH ONCE DAILY 30 tablet 5 05/13/20 25 Active Saline [place] 0.65 % solution Use to moisten your nose, especially before blowing nose, and as needed for dryness 50 mL 06/27/20 24 2024 Discontinued(M ed list cleanup (will not trigger notification to Pharmacy)) oxyCODONE (Roxicodone) 5 MG immediate release tabletIndicatio ns:Lumbar radiculopathy,S vilma stenosis of lumbar region with neurogenic claudication Take 1 tablet (5 mg) by mouth Once daily as needed for severe pain. 28 tablet 04/15/20 25 2024 Discontinued(M ed list cleanup (will not trigger notification to Pharmacy)) Active Problems Problem Noted Date Diagnosed Date [...] - evaluate with MRI and refer to provider relations specialist at [facility] Assessment & Plan (10/22/2023 11:13 AM EST): [...] - currently following with pain management and provider relations specialist - Status post trial of MBB [...] -Agreed to order MRI and refer to provider relations specialist. -Continue PT. Assessment & Plan (04/26/2025 [...] -Agreed to order MRI and refer to provider relations specialist. -Continue PT. Stage 3 chronic kidney disease 10/25/2022 Assessment & Plan (01/11/2025 6:44 AM EDT): -Followed by utilities ground worker, last seen in Jun 2024 -Optimize BP control -Avoid nephrotoxic drugs -Periodic lab to monitor renal function Assessment & Plan (10/22/2023 11:13 AM EST): -Followed by utilities ground worker, last seen in Jun 2023 -Optimize BP control -Avoid nephrotoxic drugs -Periodic lab to monitor renal function Assessment & Plan (05/13/2023 6:27 AM EDT): -Followed by utilities ground worker -Optimize BP control -Avoid nephrotoxic drugs -Periodic lab to monitor renal function Assessment & Plan (10/25/2022 5:59 AM EST): -Followed by utilities ground worker -Optimize BP control -Avoid nephrotoxic drugs -Periodic [...] Plan (01/11/2025 6:46 AM EDT): -seen by [facility] orthopedist -PT with iontophoresis for trochanteric bursitis -Tried tramadol, dosage was ineffective -discouraged use of NSAIDs and HUNT-2 inhibitor due to CKD -Tried gabapentin to 300 mg tid, patient weaned herself off. -Tried lidocaine topical; first cream then patch if cream not effective Assessment & Plan (10/25/2022 6:06 AM EST): -seen by [facility] orthopedist -PT with iontophoresis for [...] at goal, questionable medication adherence -Co-managed with utilities ground worker and pharmacist - EKG 12/24/19 - NSR, [...] Amlodipine was increased to 5 mg by utilities ground worker, but pt self- discontinued due to ankle swelling. Restarted at low dose and kept at current dose -previously on Olmesartan-hctz 40-25 mg daily, Brand Benicar-hctz was more effective than the generic, per pt. -Benicar-HCTZ PA was denied. - Metoprolol was increased from 25 mg to 50 mg daily by utilities ground worker. -Losartan was changed to telmesartan in December 2023 since it is longer-acting. - Pt has been consuming a few glasses of wine every night. Discussed about reducing consumption. -Follow- up in 3 months. Assessment & Plan (01/11/2025 6:43 AM EDT): -Goal BP <140/90 per JNC-8, and < 130/80 per ACC/AHA guideline -BP not at goal, questionable medication adherence -Co-managed with utilities ground worker and pharmacist - EKG 12/24/19 - NSR, [...] Amlodipine was increased to 5 mg by utilities ground worker, but pt self- discontinued due to ankle swelling. Restarted at low dose and kept at current dose -previously on Olmesartan-hctz 40-25 mg daily, Brand Benicar-hctz was more effective than the generic, per pt. -Benicar-HCTZ PA was denied. - Metoprolol was increased from 25 mg to 50 mg daily by utilities ground worker. -Losartan was changed to telmesartan in December 2023 since it is longer-acting. -Follow- up in 3 months. - Ordered labs on 01/07/25 Assessment & Plan (06/21/2024 11:24 AM EDT): -Goal BP <140/90 per JNC-8, and < 130/80 per ACC/AHA guideline -BP not at goal, questionable medication adherence -Co-managed with utilities ground worker and pharmacist - EKG 12/24/19 - NSR, [...] Amlodipine was increased to 5 mg by utilities ground worker, but pt self- discontinued due to ankle swelling. -previously on Olmesartan-hctz 40-25 mg daily, Brand Benicar-hctz was more effective than the generic, per pt. Metoprolol was increased from 25 mg to 50 mg daily by utilities ground worker. -Benicar-HCTZ PA was denied. -Losartan was changed to telmesartan in December 2023 since it is longer-acting. -Follow- up in 3 months. Assessment & Plan (10/22/2023 11:09 AM EST): -Goal BP <140/90 per JNC-8, and < 130/80 per ACC/AHA guideline -BP not at goal, questionable medication adherence -Co-managed with utilities ground worker - EKG 12/24/19 - NSR, no acute [...] Amlodipine was increased to 5 mg by utilities ground worker, but pt self- discontinued due to ankle swelling. -previously on Olmesartan-hctz 40-25 mg daily, Brand Benicar-hctz was more effective than the generic, per pt. Metoprolol was increased from 25 mg to 50 mg daily by utilities ground worker. -Benicar-HCTZ PA was denied. We will check if we can try to decrease pill-burden again. -Follow- up in 3 months. Assessment & Plan (05/13/2023 6:26 AM EDT): -Goal BP <140/90 per JNC-8, and < 130/80 per ACC/AHA guideline -BP not at goal, questionable medication adherence -Co-managed with utilities ground worker - EKG 12/24/19 - NSR, no acute [...] Amlodipine was increased to 5 mg by utilities ground worker, but pt self- discontinued due to ankle swelling. -previously on Olmesartan-hctz 40-25 mg daily, Brand Benicar-hctz was more effective than the generic, per pt. Metoprolol was increased from 25 mg to 50 mg daily by utilities ground worker. -Benicar-HCTZ PA was denied. We will check if we can try to decrease pill-burden again. -Follow- up in 3 months. Assessment & Plan (10/26/2022 4:43 PM EST): -Goal BP <140/90 per JNC-8, and < 130/80 per ACC/AHA guideline -BP not at goal, pt does not want to adjust medication at this time. -Co-managed with utilities ground worker - EKG 12/24/19 - NSR, no acute [...] 25 mg to 50 mg daily by utilities ground worker. -Benicar-HCTZ PA was denied. -She does not [...] recent eye exam by Dr. Mcclain in [place] within 2 weeks- next scheduled for 6 months. Encouraged to continue carefully Plaquenil with daily sun protection particularly during summer and spring months. In the past labs from November 2019 reassuring-new set requested today. Assessment & Plan (04/15/2025 10:04 AM EDT): -Current Commercial Hvac Technician Dr. Mratin last visit on 03/21/24 -Current medication: Hydroxychloroquine 200 mg daily -Continue current treatment plan per her current resident service coordinator. -Needs eye exam for long-term use of Plaquenil, last eye exam in Jun 2023 Assessment & Plan (01/07/2025 9:58 AM EDT): -Current Commercial Hvac Technician Dr. Martin last visit on 03/21/24 -Current medication: Hydroxychloroquine 200 mg daily -Continue current treatment plan per her current resident service coordinator. -Needs eye exam for long-term use of Plaquenil, last eye exam in Jun 2023 Assessment & Plan (06/20/2024 10:26 AM EDT): -Current Commercial Hvac Technician Dr. Martin last visit on 03/21/24 -Current medication: Hydroxychloroquine 200 mg daily -Continue current treatment plan per her current resident service coordinator. -Needs eye exam for long-term use of Plaquenil, last eye exam in Jun 2023 Assessment & Plan (10/22/2023 11:18 AM EST): -Current Commercial Hvac Technician Dr. Martin last visit on 10/04/23 -Current medication: Hydroxychloroquine 200 mg daily -Continue current treatment plan per her current resident service coordinator. -Needs eye exam for long-term use of Plaquenil, last eye exam in Jun 2023 Assessment & Plan (05/13/2023 6:30 AM EDT): -Current Commercial Hvac Technician Dr. Martin last visit in January 2023 -Current medication: Hydroxychloroquine 200 mg daily -Continue current treatment plan per her current resident service coordinator. -Needs eye exam for long-term use of Plaquenil, last eye exam within last 1 year per pt's report Assessment & Plan (10/25/2022 6:02 AM EST): -Current Commercial Hvac Technician Dr. Martin last note on May 2022 -Current medication: Hydroxychloroquine 200 mg daily -Continue current treatment plan per her current resident service coordinator. -Needs eye exam for long-term use of [...] Encounters Date Type Department Care Team Description 07/02/2025 2:30 PM EDT Telemedicine [facility] [address] [place] [phone] Tre Goodrich, PharmD 06/30/2025 Orders Only GENERIC EXTERNAL DATA DEPARTMENT Provider, Generic External Data 06/27/[address] [facility] [address] [place] [phone] Patsy Berg MD 06/25/2025 Travel 06/13/[address] [facility] [address] [place] [address] Elif Barrera, MICHAEL 06/12/[address] [address] Patsy Berg MD Appointment Request 06/12/[address] [facility] [place] [address] Patsy Berg MD 06/11/2025 Telephone [facility] [address] [place] [address] Elif Barrera RN 06/11/2025 Orders Only GENERIC EXTERNAL DATA DEPARTMENT Provider, Generic External Data 06/05/2025 Telephone [facility] [address] [place] [address] Elif Barrera RN 06/03/[address] [facility] [place] [address] Patsy Berg MD clearence 06/03/2025 Travel 05/20/[address] [facility] [place] [address] aPtsy Berg MD Positive colorectal cancer screening using Cologuard test (Primary Dx) 05/20/2025 Results Follow-Up [facility] [place] [address] Patsy Berg MD Cologuard colon cancer screening 05/19/2025 Travel 05/10/[address] [facility] [place] [address] Tre Goodrich, PharmD Primary hypertension 04/28/[address] [facility] [place] [address] Patsy Berg MD 04/15/2025 11:15 AM EDT Office Visit [facility] [place] [address] Patsy Berg MD Screening for colon cancer (Primary Dx); Primary hypertension; Dyslipidemia; Lumbar radiculopathy; Spinal stenosis of lumbar region with neurogenic claudication; Discoid lupus; Chronic low back pain with left-sided sciatica, unspecified back pain laterality; Alcohol intake above recommended sensible limits 04/15/2025 Travel 04/14/[address] [facility] [place] [address] Patsy Berg MD chartprep 04/08/2025 Travel 04/07/[address] [facility] [address] [place] [address] Patsy Berg MD 04/04/[address] [facility] [address] [place] [address] Tre Goodrich, PharmD Primary hypertension from Last [...] Blood Pressure 172/83 07/02/2025 2:57 PM EDT [facility] Monitor Pulse 74 07/02/2025 2:57 PM EDT Temperature 36.1 C (96.9 F) 04/15/2025 11:44 AM EDT Respiratory Rate 14 04/15/2025 11:4 4 AM EDT Oxygen Saturation 96% 04/15/2025 11: 44 AM EDT Inhaled Oxygen Concentration - - Weight - - Height 162.6 cm (5' 4 ) 04/26/2021 12:0 7 AM EDT Body Mass Index - - Plan of Treatment Upcoming Encounters Date Type Department Care Team (Late st Contact Info) Description 07/22/2025 11:15 AM EDT Office Visit [facility] [address] [place] [address] Patsy Berg MD [address] [place] [address] 09/03/2025 2:30 PM EST Telemedicine [facility] [address] [facility] [place] [address] Tre Goodrich, PharmD [address] [facility] [place] [address] Health Maintenance Due Date Last Done Comments [...] 01/07/2026 01/07/2025 Depression Screening 01/07/2026 01/07/2025, 01/08/20 25 Tobacco Screening 01/11/2026 01/11/2025 FOBT 05/12/2026 05/12/2025 [...] Blood Pressure 172/83( 025 2:57 PM EDT) Tre Bryant, Evelina Procedures Procedure Name Priority Date/Time Associated [...] Protein, Total, Random Urine 9 <12 mg/dL [facility] 06/30/2025 12:2 0 PM EDT 06/30/2025 1:34 PM EDT us Generic External Data Provider LAB URINE ORDERAB LES Final Result [facility] [address] [place] [address] [phone] * Creatinine, Random Urine (06/30/2025 12:20 PM EDT) Creatinine, Urine 61.69 mg/dL [facility] 06/30/2025 12:2 0 PM EDT 06/30/2025 1:11 PM EDT Generic External Data Provider LAB URINE ORDERAB LES Final Result Performing Organization Address [facility] Co de Phone Number [facility] [address] [place] [phone] * (ABNORMAL) Urinalysis Complete (06/30/2025 12:20 PM EDT) Color Urine Yellow [facility] Appearance Urine Clear [facility] PH 6.0 5.0 - 9.0 [facility] Glucose Urine UA Negative Negative mg/dL [facility] Urine Blood Trace(A) Negative [facility] Specific [place] - Urine 1.010 1.005 - 1.025 [facility] Urine Protein Negative Neg-Trace mg/dL [facility] Urine Ketones Negative Negative mg/dL [facility] Nitrite Urine Negative Negative [facility] Leukocyte Esterase Urine Trace(A) Negative [facility] RBC Urine 0-2 0 - 2 /HPF [facility] Urine WBC 0-5 0 - 5 /HPF [facility] Urine Squamous Epithelial Cell 0-2 0 - 2 /HPF [facility] Urine Bacteria None Seen None Seen [facility] Hyaline Casts, Urine 0-2 0 - 2 /LPF [facility] 06/30/2025 12:2 0 PM EDT 06/30/2025 1:11 PM EDT us Generic External Data Provider LAB URINE ORDERAB LES Final Result Performing Organization Address [facility]/ZIP Co de Phone Number [facility] [address] [place] [phone] * Basic Metabolic Panel (06/27/2025 2:48 PM EDT) Only the most recent of2 resultswithin the time period is included. Sodium 137 135 - 145 mmol/L [facility] Potassium 4.4 3.3 - 5.1 mmol/L [facility] Chloride 104 96 - 108 mmol/L [facility] Carbon Dioxide 22 22 - 29 mmol/L [facility] Anion Gap 15 12 - 20 [facility] Urea Nitrogen (BUN) 10 9 - 16 mg/dL [facility] Creatinine, Serum 0.72 0.5 - 1.4 mg/dL [facility] Estimated Glomerular Filt Rate >60 [facility] Comment:Chronic Kidney Disea se: Estimated GFR < 60 mL/min/1.62j2Kfjcmt Kidney Disease: Estimated GFR < 15 mL/min/1.73m2 Glucose 106 60 - 115 mg/dL [facility] Calcium 9.3 8.4 - 10.2 mg/dL [facility] 06/27/2025 2:48 PM EDT 06/27/2025 4:01 PM EDT us Generic External Data Provider LAB BLOOD ORDERAB LES Final Result Performing Organization Address City/State/[facility] Co de Phone Number [facility] [address] [place] [phone] * FL Guidance in OR (06/11/2025 2:11 PM EDT) Anatomical Region Laterality Modality X-Ray Angiograph y 06/11/2025 2:11 PM EDT Narrative 06/11/2025 3:33 PM EDT [place] [address] Fluoroscopy Report Signed Patient: Sariah Fleming MR#: [id number] 09 : 1955 Acct:[id number] Age/Sex: 70 / F ADM Date: 06/11/25 Loc: .[facility] Attending Dr: Giovanny Alanis MD Ordering Physician: Giovanny Alanis MD Date of Service: 06/11/25 Procedure(s): FL guidance in OR Accession Number(s): [id number] cc: Giovanny Alanis MD; Patsy Berg MD [...] 06/11/25 1531 DD/ 1411 TD/TT: 06/11/25 1505 [address] Operator: Procedure Note Donotuseinterpreter, Image - 06/11/2025 [place] [address] Fluoroscopy Report Signed Patient: Hui Fleming#: [id number] 09 : 1955cct:[id number] Age/Sex: 70 / FADM Date: 06/11/25 Loc: [facility] Attending Dr: Giovanny Alanis MD Ordering Physician: Giovanny Alanis MD Date of Service: 06/11/25 Procedure(s): FL guidance in OR Accession Number(s): [id number] cc: Giovanny Alanis MD; Patsy Berg MD [...] 06/11/25 1531 DD/ 1411 TD/TT: 06/11/25 1505 [address] Operator: [facility] External Provider IMG IR PROCEDURES Final Result * MRSA Nasal Screen (06/11/2025 11:15 AM EDT) MRSA Nasal PCR NEGATIVE Negative [facility] SA Nasal PCR NEGATIVE Negative [facility] MRSA Interpretation SEE NOTE [facility] Comment:MRSA target DNA not detected; SA target DNA not detected.A MRSA NEGATIVE, SA NEGATIVE test result does not precludeMRSA or SA nasal colonization. 06/11/2025 11:1 5 AM EDT 06/11/2025 11:29 AM EDT Generic External Data Provider LAB MICROBIOLOGY - GENERAL ORDERABLES Final Result Performing Organization Address City/State/[facility] Co de Phone Number [facility] [address] [place] [phone] * (ABNORMAL) Cologuard?? colon cancer screening (05/12/2025 10:45 AM EDT) Cologuard Result Positive( A) Negative 05/17/2025 12:32 PM EDT [facility] (CLIA #:[id number]) Comment: The Cologuard Plus (TM) test was performed on this specimen. POSITIVE TEST RESULT. A positive (abnormal) Cologuard Plus result means the patient has a [id number]-[id number] chance of having colorectal cancer (CRC) or [...] a 91% specificity (Cologuard Plus Clinician Brochure. [employer]. [place] Visit [email or web address] for more test information, references, warnings, and precautions. Stool specimen (specimen) 05/12/2025 10:45 AM EDT 05/13/2025 12:45 PM EDT Patsy Berg MD LAB MOLECULAR DIAGNOSTICS ORDERA BLES Final Result [facility] (CLIA #:[id number]) [address] [place] [address], * (ABNORMAL) Lipid Panel with Reflex to Direct LDL (01/17/2025 3:05 PM EDT) Triglycerides 96 <150 mg/dL [facility] Comment:Desirable Triglyceri de: less than 150 mg/dLBorderline High Triglyceride 150-199 mg/dLHigh Triglyceride: 200-499 mg/dLVery High Triglyceride: greater than or equal to 5OO mg/dL Cholesterol 225(H) <200 mg/dL [facility] Comment:Desirable Cholestero l: less than 200 mg/dLBorderline High Cholesterol: 200-239 mg/dLHigh Cholesterol: greater than 239 mg/dL LDL Cholesterol Calculated 105(H) <100 mg/dL [facility] Comment:Desirable LDL: less than 100 mg/dLNear Optimal/Above Optimal LDL: 110- 129 mg/dLBorderline High LDL: 130-159 mg/dLHigh LDL: 160-189 mg/dLVery High LDL: greater than or equal to 190 mg/dL HDL Cholesterol 101 >40 mg/dL [facility] Comment:Desirable HDL: great er than 40 mg/dL Note: This HDL assay may give artificially low results in patients with liver disease. Blood 01/17/2025 3:05 PM EDT 01/17/2025 4:14 PM EDT us Patsy Berg MD LAB BLOOD ORDERABLES Final Resul t [facility] [address] [place] [address] [phone] * BI Mammogram Screening Tomosynthesis Bilateral (06/14/2023 11:10 AM EDT) Anatomical Region Laterality Modality Breast Bilateral Mammography 06/14/2023 11:1 0 AM EDT Narrative 06/28/2023 8:16 AM EDT [facility] [address] [place] [address] Mammography Report Signed Patient: Sariah Fleming MR#: [id number] 09 : 1955 Acct:[id number] Age/Sex: 68 / F ADM Date: 06/14/23 Loc: [facility] Attending Dr: Patsy Berg MD Ordering Physician: Patsy Berg MD Results: 1Negative Date of Service: 06/14/23 Follow Up: 1 Year From Orig inal Mammogram Procedure(s): MM tomosynthesis screening BI Accession Number(s): [id number] cc: Patsy Berg MD EXAMINATION: MM SCREENING [...] in OV> 06/28/23 0812 DD/ 1110 TD/TT: [employer] Dr[employer] Operator: Procedure Note Donotuseinterpreter, Image - 06/29/2023 [facility] [address] [place] [address] Mammography Report Signed Patient: Sariah FlemingMR#: [id number] 09 : 1955cct:[id number] Age/Sex: 68 / FADM Date: 06/14/23 Loc: [facility] Attending Dr: Patsy Berg MD Ordering Physician: Patsy Berg MDResults: 1Negative Date of Service: 06/14/23Follow Up: 1 Year From Orig inal Mammogram Procedure(s): MM tomosynthesis screening BI Accession Number(s): [id number] cc: Patsy Berg MD EXAMINATION: MM SCREENING DIGITAL BREAST TOMOSYNTHESIS, BILATERAL CLINICAL INFORMATION: Screening. Asymptomatic. COMPARISON: Mammography: This study is compared with prior exams dating back to 2016. TECHNIQUE: Digital breast tomosynthesis is performed in [...] in OV> 06/28/23 0812 DD/ 1110 TD/TT: [employer] Dr[employer] Operator: Patsy Berg MD IM BI PROCEDURES Edited Result - Final * HEPATITIS C ANTIBODY RFLX (12/10/2019 9:10 AM EST) HEPATITIS C ANTIBODY NONREACTIVE NONREACTIVE [facility] Comment: Antibodies to HCV not detected; does not exclude early acute HCV infection. 12/10/2019 9:10 AM EST Patsy Berg MD HISTORICAL/NON ORDERABLE LABS Fi nal Result [facility] [address] from Last 3 Months or Most Recently Relevant to Health Maintenance Insurance MEDICARE [facility] STANDARD HSN FULL DENTAL-[facility] MEDICAID STAND ADULT Care Teams Night Supervisor Relationship Specialty Start Date End Date Patsy Berg MD [address] [place] [address] PCP - General Family Medicine 10/16/18 Tre Goodrich, MaudeD [address] [place] [phone] Pharmacist Internal Medicine 12/25/23 John Mcclain OD [facility] [address] [place] [address] Optometry 11/14/24
--- OUTSIDE RECORDS SUMMARY | 2025-07-02 15:56 | XMS_ITS | Encounter Summary ---
Author Organization [employer] Address [address] [place] [address] 7 [place] [address] Care Team Providers Care Psychiatric Orderly Name Role Phone Patsy Patel MD Primary Care Provider Tre Goodrich PharmD Unavailable [phone] John Mcclain OD Unavailable Reason for Referral * Consultation (Routine) - Authorized Specialty Diagnoses / Procedures Referred By Contabraham kunz Referred To Contact General Surgery Diagnoses Positive colorectal cancer screening using Cologuard test Patsy Patel MD [address] [place] [address] Phone: tel: fax: Moreno Donahue MD [address] [place] [address] 3[address] [place] [address] Phone: tel: Referral ID Status Reason Start Date Expiration Date Visits Requested Visits Authorized [id number] Authorized Specialty Services Required 05/20/2025 05/20/2026 1 1 Encounter Details Date Type Department Care Team (Late st Contact Info) Description 05/20/[address] [facility] [address] [place] [address] Patsy Patel MD [address] [place], [place] [phone] Positive colorectal cancer screening using Cologuard test [...] 07/22/2025 11:15 AM EDT Office Visit [facility] 230 [place] [address] Patsy Patel MD [address] [place], [place] [phone] 09/03/2025 2:[address] [facility] [address] [place] [address] Tre Goodrich, PharmD [address] [place] [address] Scheduled Referrals Name Type Priority Associated Diagnoses [...] documented as of this encounter Care Teams Psychiatric Orderly Relationship Specialty Start Date End Date Patsy Patel MD [address] [place] [address] PCP - General Family Medicine 10/16/18 Tre Goodrich, PharmD [address] [place] [address] Pharmacist Internal Medicine 12/25/23 John Mcclain OD [facility] [address] [place] [address] Optometry 11/14/24 documented as of this encounter
--- OUTSIDE RECORDS SUMMARY | 2025-07-02 15:56 | XMS_ITS | Encounter Summary ---
Author Organization [employer] Address 75 [facility] 7t [place] [address] Care Team Providers Care Programmer Engineering And Scientific Name Role Phone Patsy Patel MD Primary Care Provider [phone] Tre Goodrich PharmD Unavailable [phone] John Mcclain OD Unavailable Encounter Details Date Type Department Care Team (Late st Contact Info) Description 06/27/2025 Orders Only [facility] 230 [place], [place] [phone] Patsy Patel MD 230 [place], [place] [phone] Social History Tobacco Use Types Packs/Day Years [...] Description 07/22/2025 11:15 AM EDT Office Visit [facility] [address] [place] [address] Patsy Patel MD [address] [place] [address] 09/03/2025 2:30 PM EST Telemedicine [facility] [address] [place] [address] Tre Goodrich PharmD [address] [place] [address] documented as of this encounter Goals Goal Patient Goal Type Associated Problems Recent Progress Patient-Stated? Author Blood Pressure < 140/90 Blood Pressure 172/83( 025 2:57 PM EDT) No Tre Goodrich, Evelina documented as of this encounter Procedures Procedure Name Priority Date/Time Associated Diagnosis Comments BASIC METABOLIC PANEL Routine 06/27/2025 2:48 PM EDT BASIC METABOLIC PANEL Routine 06/27/2025 2:48 PM EDT documented in this encounter Results * Basic Metabolic Panel (06/27/2025 2:48 PM EDT) Sodium 137 135 - 145 mmol/L [facility] Potassium 4.4 3.3 - 5.1 mmol/L [facility] Chloride 104 96 - 108 mmol/L [facility] Carbon Dioxide 22 22 - 29 mmol/L [facility] Anion Gap 15 12 - 20 [facility] Urea Nitrogen (BUN) 10 9 - 16 mg/dL [facility] Creatinine, Serum 0.72 0.5 - 1.4 mg/dL [facility] Estimated Glomerular Filt Rate >60 [facility] Comment:Chronic Kidney Disea se: Estimated GFR < 60 mL/min/1.33o7Feutdw Kidney Disease: Estimated GFR < 15 mL/min/1.73m2 Glucose 106 60 - 115 mg/dL [facility] Calcium 9.3 8.4 - 10.2 mg/dL [facility] 06/27/2025 2:48 PM EDT 06/27/2025 4:01 PM EDT us Generic External Data Provider LAB BLOOD ORDERAB LES Final Result [facility] [address] [place] [phone] * Basic Metabolic Panel (06/27/2025 2:48 PM EDT) Sodium 138 135 - 145 mmol/L [facility] Potassium 4.5 3.3 - 5.1 mmol/L [facility] Chloride 103 96 - 108 mmol/L [facility] Carbon Dioxide 22 22 - 29 mmol/L [facility] Anion Gap 18 12 - 20 [facility] Urea Nitrogen (BUN) 10 9 - 16 mg/dL [facility] Creatinine, Serum 0.75 0.5 - 1.4 mg/dL [facility] Estimated Glomerular Filt Rate >60 [facility] Comment:Chronic Kidney Disea se: Estimated GFR < 60 mL/min/1.31e3Xadbco Kidney Disease: Estimated GFR < 15 mL/min/1.73m2 Glucose 106 60 - 115 mg/dL [facility] Calcium 9.4 8.4 - 10.2 mg/dL [facility] 06/27/2025 2:48 PM EDT 06/27/2025 4:01 PM EDT us Patsy Patel MD LAB BLOOD ORDERABLES Final Resul t [facility] [address] [place] [phone] documented in this encounter Visit Diagnoses Not on filedocumented in this encounter Additional Health Concerns Assessment Noted Time PHQ-9 Depression Total Score: 2 01/08/20 25 3:33 PM EDT documented as of this encounter Care Teams Programmer Engineering And Scientific Relationship Specialty Start Date End Date Patsy Patel MD [address] [place] [address] PCP - General Family Medicine 10/16/18 Tre Goodrich, MaudeD 230 [place] [address] Pharmacist Internal Medicine 12/25/23 John Mcclain OD [facility] [address] [place] [address] Optometry 11/14/24 documented as of this encounter
--- OUTSIDE RECORDS SUMMARY | 2025-07-02 15:56 | XMS_ITS | Encounter Summary ---
Author Organization [employer] Address 75 [facility] 7t [place] [address] Care Team Providers Care Computer Systems Auditor Name Role Phone Patsy Patel MD Primary Care Provider [phone] Tre Goodrich PharmD Unavailable [phone] John Mcclain OD Unavailable Encounter Details Date Type Department Care Team (Late st Contact Info) Description 06/12/2025 Orders Only [facility] 230 [place], [place] [phone] Patsy Patel MD 230 [place], [place] [phone] Social History Tobacco Use Types Packs/Day Years [...] Description 07/22/2025 11:15 AM EDT Office Visit [facility] [address] [place] [address] Patsy Patel MD [address] [place] [address] 09/03/2025 2:30 PM EST Telemedicine [facility] [address] [place] [address] Tre Goodrich PharmD [address] [place] [address] documented as of this encounter Goals Goal [...] documented as of this encounter Care Teams Computer Systems Auditor Relationship Specialty Start Date End Date Patsy Patel MD [address] [place] [address] PCP - General Family Medicine 10/16/18 Tre Goodrich, Evelina [address] [place] [address] Pharmacist Internal Medicine 12/25/23 John Mcclain OD [facility] [address] [place] [address] Optometry 11/14/24 documented as of this encounter
--- OUTSIDE RECORDS SUMMARY | 2025-07-02 15:56 | XMS_ITS | Encounter Summary ---
Author Organization [employer] Address 75 [facility] 7t [place] [address] Care Team Providers Care Health And Wellness Manager Name Role Phone Patsy Patel MD Primary Care Provider Tre Goodrich PharmD Unavailable [phone] John Mcclain OD Unavailable Encounter Details Date [...] Description 07/22/2025 11:15 AM EDT Office Visit [facility] [address] [place] [address] Patsy Patel MD [address] [place] [address] 09/03/2025 2:30 PM EST Telemedicine [address] [address] Tre Goodrich, Evelina [address] [place] [address] documented as of this encounter Goals Goal [...] Protein, Total, Random Urine 9 <12 mg/dL [facility] 06/30/2025 12:2 0 PM EDT 06/30/2025 1:34 PM EDT us Generic External Data Provider LAB URINE ORDERAB LES Final Result Performing Organization Address City/[facility] Co de Phone Number [facility] [address] [place] [phone] * (ABNORMAL) Urinalysis Complete (06/30/2025 12:20 PM EDT) Color Urine Yellow [facility] Appearance Urine Clear [facility] PH 6.0 5.0 - 9.0 [facility] Glucose Urine UA Negative Negative mg/dL [facility] Urine Blood Trace(A) Negative [facility] Specific [place] - Urine 1.010 1.005 - 1.025 [facility] Urine Protein Negative Neg-Trace mg/dL [facility] Urine Ketones Negative Negative mg/dL [facility] Nitrite Urine Negative Negative [facility] Leukocyte Esterase Urine Trace(A) Negative [facility] RBC Urine 0-2 0 - 2 /HPF [facility] Urine WBC 0-5 0 - 5 /HPF [facility] Urine Squamous Epithelial Cell 0-2 0 - 2 /HPF [facility] Urine Bacteria None Seen None Seen [facility] Hyaline Casts, Urine 0-2 0 - 2 /LPF [facility] 06/30/2025 12:2 0 PM EDT 06/30/2025 1:11 PM EDT us Generic External Data Provider LAB URINE ORDERAB LES Final Result Performing Organization Address City/[facility]/ZIP Co de Phone Number [facility] [address] [place] [phone] * Creatinine, Random Urine (06/30/2025 12:20 PM EDT) Creatinine, Urine 61.69 mg/dL [facility] 06/30/2025 12:2 0 PM EDT 06/30/2025 1:11 PM EDT us Generic External Data Provider LAB URINE ORDERAB LES Final Result [facility] [address] [place] [phone] documented in this encounter Visit Diagnoses Not on filedocumented in this encounter Additional Health Concerns Assessment Noted Time PHQ-9 Depression Total Score: 2 01/08/20 25 3:33 PM EDT documented as of this encounter Care Teams Health And Wellness Manager Relationship Specialty Start Date End Date Patsy Patel MD [address] [place] [address] PCP - General Family Medicine 10/16/18 Tre Goodrich, MaudeD [address] [place] [address] Pharmacist Internal Medicine 12/25/23 John Mcclain OD [facility] [address] [place] [address] Optometry 11/14/24 documented as of this encounter
--- OUTSIDE RECORDS SUMMARY | 2025-07-02 15:56 | XMS_ITS | Encounter Summary ---
Author Organization [employer] Address [address] [place] [address] 7t [place] [address] Care Team Providers Care Carpet Layer Helper Name Role Phone Patsy Patel MD Primary Care Provider [phone] Tre Goodrich PharmD Unavailable [phone] John Mcclain OD Unavailable Reason for Visit * Reason Comments Med Refill Encounter Details Date Type Department Care Team (Late st Contact Info) Description 07/19/2023 Refill [facility] 230 [place] [address] Patsy Patel MD 230 [place], [place] [phone] Social History Tobacco Use Types Packs/Day Years [...] 11:15 AM EDT Office Visit [facility] 230 [place], [place] [phone] Patsy Patel MD [address] [place] [address] 09/03/2025 2:30 PM EST Telemedicine [facility] [address] [place] [address] [phone] Tre Goodrich, PharmD [address] [place] [phone] documented as of this encounter Visit Diagnoses Not on filedocumented in this encounter Additional Health Concerns Assessment Noted Time PHQ-9 Depression Total Score: 023 1:33 PM EST documented as of this encounter Care Teams Carpet Layer Helper Relationship Specialty Start Date End Date Patsy Patel MD [address] [place] [address] [phone] PCP - General Family Medicine 10/16/18 Tre Goodrich, PharmD [address] [place] [address] Pharmacist Internal Medicine 12/25/23 John Mcclain OD [facility] [address] [place] [address] Optometry 11/14/24 documented as of this encounter
--- OUTSIDE RECORDS SUMMARY | 2025-07-02 15:56 | XMS_ITS | Encounter Summary ---
Author Organization [employer] Address [address] [facility] 7t [place] [address] Care Team Providers Care Assistant Superintendent Name Role Phone Patsy Patel MD Primary Care Provider [phone] Tre Goodrich PharmD Unavailable [phone] John Mcclain OD Unavailable Reason for Visit * Reason Comments Med Refill Encounter Details Date Type Department Care Team ([facility] st Contact Info) Description 09/17/2024 Refill [facility] [address] [place] [address] Tre Goodrich, PharmD 230 [place], [place] [phone] Primary hypertension Social History Tobacco Use Types [...] Description 07/22/2025 11:15 AM EDT Office Visit [facility] [address] [place] [address] Patsy Patel MD [address] [place] [address] 09/03/2025 2:30 PM EST Telemedicine [facility] [address] [place] [address] Tre Goodrich PharmD [address] [place] [address] documented as of this encounter Goals Goal [...] documented as of this encounter Care Teams Assistant Superintendent Relationship Specialty Start Date End Date Patsy Patel MD [address] [place] [address] PCP - General Family Medicine 10/16/18 Tre Goodrich, Evelina [address] [place] [address] Pharmacist Internal Medicine 12/25/23 John Mcclain OD [facility] [address] [place] [address] Optometry 11/14/24 documented as of this encounter
--- OUTSIDE RECORDS SUMMARY | 2025-07-02 15:56 | XMS_ITS | Clinical Summary ---
Author Organization [facility] Address [address] [place] [address] [place] [phone] Phone Care Team Providers Care Pottery Striper Name Role Phone Patsy Patel MD Primary Care Provider [phone] Allergies Active Allergy Reactions Criticality Noted Date Comments Isaiah Inhibitors 12/08/2021 Diltiazem 12/08/2021 Hydralazine 07/19/2021 Medications aspirin EC 81 MG EC tablet Take 81 mg by mouth 1 (one) time each day Active Calcium Carb-Cholecalci ferol (CALCIUM 500+D3 PO) Take by mouth Activ e zinc gluconate 50 MG tablet Take by mouth 1 (one) time each day Active [place]-3 Fatty Acids (Fish Oil) 1000 MG capsule [...] -Agreed to order MRI and refer to personal injury specialist. -Continue PT. Hematuria 10/25/2022 07/13/2023 Overview (07/13/2023): Last Assessment & Plan: -microscopic, evaluated by urologist Stage 3 chronic kidney disease 10/25/2022 0 07/13/2023 Overview (07/13/2023): Last Assessment & Plan: -Followed by trouble shooter -Optimize BP control -Avoid nephrotoxic drugs -Periodic [...] particularly during spring and summer months. See shorer as scheduled every 6 months. Avoid concomitant [...] adjust medication at this time. -Co-managed with trouble shooter - EKG 12/24/19 - NSR, no acute [...] 25 mg to 50 mg daily by trouble shooter. -Benicar-HCTZ PA was denied. -She does not want to adjust any medication at this time. --Follow- up in 3 months. Disorder of hip joint 07/21/2015 07/13/2023 Overview (07/13/2023): Last Assessment & Plan: -seen by [facility] [place] -PT with iontophoresis for trochanteric bursitis [...] recent eye exam by Dr. Mcclain in [place] within 2 weeks- next scheduled for 6 [...] recent eye exam by Dr. Mcclain in [place] within 2 weeks- next scheduled for 6 months. Encouraged to continue carefully Plaquenil with daily sun protection particularly during summer and spring months. In the past labs from November 2019 reassuring-new set requested today. Last Assessment & Plan: -Current Programming Development Project Manager Dr. Martin last note on May 2022 -Current medication: Hydroxychloroquine 200 mg daily -Continue current treatment plan per her current retail merchandising coordinator. -Needs eye exam for long-term use [...] Medicaid [place] Care Teams Pottery Striper Relationship Specialty Start Date End Date Patsy Patel MD PCP - General Family Medicine 07/08/21
--- OUTSIDE RECORDS SUMMARY | 2025-07-02 15:56 | XMS_ITS | Encounter Summary ---
Author Organization [employer] Address 75 [facility] 7t [place] [address] Care Team Providers Care Secretary Of State Name Role Phone Patsy Patel MD Primary Care Provider [phone] Tre Goodrich PharmD Unavailable [phone] John Mcclain OD Unavailable Reason for Referral * Consultation (Routine) - Pending Review Specialty Diagnoses / Procedures Referred By Jorge A t Referred To Contact Pharmacy Diagnoses Primary hypertension Patsy Patel MD [address] [place] [address] Phone: tel: fax: Referral ID Status Reason Start Date Expiration Date Visits Requested Visits Authorized [id number] Pending Review Consult and Treat 4 08/27/2025 6 6 Encounter Details Date Type Department Care Team (Late st Contact Info) Description 08/27/2024 Orders Only [facility] [address] [place] [address] [phone] Patsy Patel MD [address] [place], [place] [phone] Primary hypertension (Primary Dx) Social History Tobacco [...] Description 07/22/2025 11:15 AM EDT Office Visit [facility] [address] [place] [address] Patsy Patel MD [address] [place] [address] 09/03/2025 2:30 PM EST Telemedicine [facility] [address] [place] [address] Tre Goodrich, MaudeD [address] [place] [address] Scheduled Referrals Name Type Priority Associated Diagnoses [...] documented as of this encounter Care Teams Secretary Of State Relationship Specialty Start Date End Date Patsy Patel MD [address] [place] [address] PCP - General Family Medicine 10/16/18 Tre Goodrich, PharmD [address] [place] [address] Pharmacist Internal Medicine 12/25/23 John Mcclain OD [facility] [address] [place] [address] Optometry 11/14/24 documented as of this encounter
--- OUTSIDE RECORDS SUMMARY | 2025-07-02 15:56 | XMS_ITS | Clinical Summary ---
Author Organization [facility] Address [address] [place] [address] Phone Care Team Providers Care Record Filing Clerk Name Role Phone Patsy Patel MD Primary Care Provider [phone] Allergies Active Allergy Reactions Criticality Noted Date Comments Isaiah Inhibitors 12/08/2021 Diltiazem Hcl 12/08/2021 Medications aspirin 81 MG EC tablet Take 81 mg by mouth daily. Active calcium carbonate/vitam in D3 (CALCIUM 600 + D,3, ORAL) Take 1 capsule by mouth daily. Active omega 7-pdx-cnj-fish oil 1,000 mg (120 mg-180 mg) Cap [...] in a warm pool such as at [facility] in [place], [place]. Assessment & Plan (04/09/2024 9:15 PM [...] today and prior to next visit-orders in [facility]. Call if problems or questions. [...] today and prior to next visit-orders in [facility]. Call if problems or questions. [...] and prior to next visit- orders in [facility].. Assessment & Plan (02/13/2023 10:32 [...] recent eye exam by Dr. Mcclain in [place] within 2 weeks- next scheduled for 6 [...] recent eye exam by Dr. Mcclain in [place] within 2 weeks- next scheduled for 6 [...] particularly during spring and summer months. See undertaker assistant as scheduled every 6 months. Avoid concomitant use of QT interval elongating meds such as some SSRIs Assessment & Plan (04/08/2024 11:39 AM EDT): Take daily as prescribed. Use daily sun protection all year round, particularly during spring and summer months. See undertaker assistant as scheduled every 6 months. Avoid concomitant use of QT interval elongating meds such as some SSRIs Assessment & Plan (10/04/2023 11:29 AM EST): Take daily as prescribed. Use daily sun protection all year round, particularly during spring and summer months. See undertaker assistant as scheduled every 6 months. Avoid concomitant use of QT interval elongating meds such as some SSRIs Assessment & Plan (01/19/2023 4:30 PM EDT): Take daily as prescribed. Use daily sun protection all year round, particularly during spring and summer months. See undertaker assistant as scheduled every 6 months. Avoid concomitant use of QT interval elongating meds such as some SSRIs Assessment & Plan (05/26/2022 2:23 PM EDT): Take daily as prescribed. Use daily sun protection all year round, particularly during spring and summer months. See undertaker assistant as scheduled every 6 months. Avoid concomitant use of QT interval elongating meds such as some SSRIs Assessment & Plan (02/24/2022 12:47 AM EDT): Take daily as prescribed. Use daily sun protection all year round, particularly during spring and summer months. See undertaker assistant as scheduled every 6 months. Avoid concomitant [...] EST) SODIUM 137 133 - 146 mmol/L [facility] POTASSIUM 4.5 3.3 - 5.1 mmol/L [facility] Comment:Specimen slightly he molyzed, result may be falsely elevated. CHLORIDE 101 96 - 108 mmol/L [facility] CO2 23 21 - 35 mmol/L [facility] BUN 16 6 - 19 mg/dL [facility] CREATININE 0.80 0.5 - 1.5 mg/dL [facility] GLUCOSE 100(H) 70 - 99 mg/dL [facility] ALBUMIN 4.2 3.9 - 4.8 g/dL [facility] TOTAL PROTEIN 7.7 6.5 - 8.0 g/dL [facility] CALCIUM 9.8 8.4 - 10.3 mg/dL [facility] ALKALINE PHOSPHATASE 64 39 - 117 U/L [facility] TOTAL BILIRUBIN 0.5 0.0 - 1.2 mg/dL [facility] AST 27 0 - 37 U/L [facility] ALT 19 0 - 40 U/L [facility] GLOBULIN 3.5 1 - 4.8 g/dL [facility] EGFR 79 >59 mL/min/1.7 3m2 [facility] Comment:Estimated glomerular filtration rate calculated using the CKD-EPI refit equation. ANION GAP 18 10 - 20 mmol/L [facility] Blood 11/01/2024 1:37 PM EST 11/01/2024 1:40 PM EST Carlotta Yeboah MD LAB BLOOD ORDERABLES Fin al Result Performing Organization Address City/State/[facility] Co de Phone Number [address] [phone] * DEXA SCAN (06/14/2023 8:22 AM EDT) Historical Provider HEALTH MAINTENANCE Final Result * MAMMOGRAPHY FOR RESULT ENTRY ONLY (06/14/2023 8:22 AM EDT) Historical Provider HEALTH MAINTENANCE Final Result from Last 3 Months or Most Recently Relevant to Health Maintenance Insurance MEDICARE PART A & B HEALTH MEDICARE PART A & B HEALTH MEDICARE PART A & [facility] [place] [id number] MEDICARE PART [place] [phone] [place] [phone] MEDICARE PART A & [place] [facility] [place] [phone] Care Teams Record Filing Clerk Relationship Specialty Start Date End Date Patsy Patel MD [address] [place] [address] PCP - General Family Medicine 08/04/21 Additional Source Comments The information contained in this document represents components of the legal health record. It is not the complete legal health record.[facility]
--- OUTSIDE RECORDS SUMMARY | 2025-07-02 15:56 | XMS_ITS | Encounter Summary ---
Author Organization [employer] Address [address] [facility] 7t [place] [address] Care Team Providers Care Clutch Specialist Name Role Phone Patsy Patel MD Primary Care Provider [phone] Tre Goodrich PharmD Unavailable [phone] John Mcclain OD Unavailable Reason for Visit * Reason Onset Date Comments Results 05/20/2025 Encounter Details Date Type Department Care Team ([facility] st Contact Info) Description 05/20/2025 Results Follow-Up [facility] MEDICINE [address] [place] [address] Patsy Patel MD [address] [place], [place] [phone] Cologuard colon cancer screening Social History Tobacco [...] providers. Thank you. ----- Message ----- From: [employer] Results In Sent: 05/17/2025 6:06 PM EDT To: Patsy Patel MD documented in this encounter Plan of Treatment Upcoming Encounters Date Type Department Care Team (Late st Contact Info) Description 07/22/2025 11:15 AM EDT Office Visit [facility] MEDICINE [address] [place] [phone] Patsy Patel MD [address] [place] [phone] 09/03/2025 2:30 PM EST Telemedicine [facility] MEDICINE [address] [place] [phone] Tre Goodrich, PharmD [address] [place] [phone] documented as of this encounter Goals Goal [...] documented as of this encounter Care Teams Clutch Specialist Relationship Specialty Start Date End Date Patsy Patel MD [address] [place] [address] PCP - General Family Medicine 10/16/18 Tre Goodrich, Evelina [address] [place] [address] Pharmacist Internal Medicine 12/25/23 John Mcclain OD [facility] [address] [place] [address] Optometry 11/14/24 documented as of this encounter
--- NOTE | 2025-08-04 10:18 | HO.ANESPROP2 ---
Documented by User: Clara Lagos NP 08/04/25 10:19 HPI - Anesthesia Eval Consult details Narrative: 70yo F for Spinal Cord Stimulation Implant s/p Trial 05/2025 with TIVA Hydroxychloroquine for discoid lupus PMFSH Active Problems Active Problems: All Active Problems Postlaminectomy syndrome (Acute) Sacroiliac joint pain (Acute) Lumbosacral spondylosis (Acute) Spinal stenosis, lumbar region with neurogenic claudication (Acute) Vertebrogenic low back pain (Acute) Lumbar degenerative disc disease (Acute) Hx of decompressive lumbar laminectomy (Acute ~02/2023) Lumbar radiculopathy (Acute) Hyponatremia (Acute) HTN (hypertension) (Acute) Trochanteric bursitis, right hip (Acute) Discoid lupus erythematosus (Acute) Past Medical History Medical History Postlaminectomy syndrome Tubular adenoma of colon Tobacco use Seborrheic keratosis Osteopenia Essential hypertension Dyslipidemia 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 Cyst of kidney, acquired Arthropathy of left hip Anemia Discoid lupus erythematosus Family History Family history of problems with anesthesia: No Surgical History Surgical History H/O bilateral cataract extraction (~2018) Hx of decompressive lumbar laminectomy (~02/2023) History of Problems with Anesthesia: No Social History Social History Are you a primary medicare nurse to a significant other at home: No Do you presently have visiting nurse or other home services: No Alcohol intake: current Alcohol intake frequency: 0-2 drinks per day Alcohol type: wine Patient Tobacco Use Status: Former Tobacco user Tobacco use type: Cigarette Second Hand Smoke Exposure: No Substance Use Type: Marijuana 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: rt handed/[employer] Meds Allergies Allergy/AdvReac Type Severity Reaction Status Date / Time ibuprofen Allergy Severe Affects Verified 07/01/25 13:34 the Kidneys ANDRADE Inhibitors Allergy Unknown Unknown Verified 07/01/25 13:34 diltiazem Allergy Unknown Unknown Verified 07/01/25 13:34 hydralazine Allergy Unknown Unknown Verified 07/01/25 13:34 Home Medications ?Medication ?Instructions ?Recorded ?Confirmed ?Last Taken ?Type aspirin 81 mg tablet,delayed 81 mg PO DAILY 02/10/21 08/04/25 07/01/25 History release (Adult Aspirin Regimen) atorvastatin 20 mg tablet 20 mg PO DAILY 02/10/21 08/04/25 06/10/25 History calcium 600 mg (as 1 tab PO BID 02/10/21 08/04/25 06/10/25 History carbonate)-vitamin D3 5 mcg (200 unit) tablet (Calcium 600 + D(3)) omega-3 fatty acids 1,000 mg 1,000 mg PO DAILY 07/01/24 08/04/25 07/01/25 History capsule (Fish Oil Concentrate) telmisartan 40 mg tablet 40 mg PO DAILY 07/01/24 08/04/25 08/06/25 History amlodipine 2.5 mg tablet 2.5 mg PO DAILY 03/28/25 08/04/25 08/06/25 History metoprolol succinate 50 mg 50 mg PO DAILY 03/28/25 08/04/25 08/05/25 History tablet,extended release 24 hr Exam Pertinent Lab Results Pertinent Lab Results: Laboratory Tests 06/25/24 06/27/25 14:15 14:48 WBC 6.5 Hgb 12.6 Hct 37.6 Plt Count 311 D Sodium 137 Potassium 4.4 Chloride 104 Carbon Dioxide 22 BUN 10 Creatinine 0.72 Assessment and Plan Assessment Anesthesia Assessment: Chart Reviewed Final Anesthetic Review Family History of Problems with Anesthesia: No History of Problems with Anesthesia: No Documented by User: Damien Styles MD 08/08/25 09:47 [facility] Past Medical History Medical History Postlaminectomy syndrome Tubular adenoma of colon Tobacco use Seborrheic keratosis Osteopenia Essential hypertension Dyslipidemia 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 Cyst of kidney, acquired Arthropathy of left hip Anemia Discoid lupus erythematosus Surgical History Surgical History H/O bilateral cataract extraction (~2018) Hx of decompressive lumbar laminectomy (~02/2023) Social History Social History Are you a primary medicare nurse to a significant other at home: No Do you presently have visiting nurse or other home services: No Alcohol intake: current Alcohol intake frequency: 0-2 drinks per day Alcohol type: wine Patient Tobacco Use Status: Former Tobacco user Tobacco use type: Cigarette Second Hand Smoke Exposure: No Substance Use Type: Marijuana 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: rt 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/[employer] Meds Allergies Allergy/AdvReac Type Severity Reaction Status Date / Time ibuprofen Allergy Severe Affects Verified 07/01/25 13:34 the Kidneys ANDRADE Inhibitors Allergy Unknown Unknown Verified 07/01/25 13:34 diltiazem Allergy Unknown Unknown Verified 07/01/25 13:34 hydralazine Allergy Unknown Unknown Verified 07/01/25 13:34 Home Medications ?Medication ?Instructions ?Recorded ?Confirmed ?Last Taken ?Type aspirin 81 mg tablet,delayed 81 mg PO DAILY 02/10/21 08/04/25 07/01/25 History release (Adult Aspirin Regimen) atorvastatin 20 mg tablet 20 mg PO DAILY 02/10/21 08/04/25 06/10/25 History calcium 600 mg (as 1 tab PO BID 02/10/21 08/04/25 06/10/25 History carbonate)-vitamin D3 5 mcg (200 unit) tablet (Calcium 600 + D(3)) omega-3 fatty acids 1,000 mg 1,000 mg PO DAILY 07/01/24 08/04/25 07/01/25 History capsule (Fish Oil Concentrate) telmisartan 40 mg tablet 40 mg PO DAILY 07/01/24 08/04/25 08/06/25 History amlodipine 2.5 mg tablet 2.5 mg PO DAILY 03/28/25 08/04/25 08/06/25 History metoprolol succinate 50 mg 50 mg PO DAILY 03/28/25 08/04/25 08/05/25 History tablet,extended release 24 hr Exam Airway Mallampati Class: II TM Dist: >3cm Neck ROM: Full Heart: rrr Lungs: ctab vesicular Assessment and Plan Final Anesthetic Review NPO: Yes ASA Class: II Final Preanesthetic Review: Meds/Allgs Chart Reviewed and Anes Risks/Benef Reviewed Patient Risk: Low Procedure Risk: Low Anesthetic Plan Anesthetic Plan: GA and MAC: Disposition: Standard PACU
[2025-08-04 11:22] VITALS: BMI 29.2
[2025-08-06] VITALS (7 sets, daily range): BP systolic 144–181; BP diastolic 56–92; PULSE 87–99; RESP 12–19; TEMP 36.1–36.8; O2SAT 90–96
--- NOTE | ~2025-08-06 | FL_ITS ---
EXAMINATION: FLUOROSCOPY GUIDANCE FOR NEEDLE PLACEMENT CLINICAL INFORMATION: SPINAL CORD STIM IMPLANT COMPARISON: Previous fluoroscopy exam May 2025 TECHNIQUE: Fluoroscopic guidance provided for spinal stimulator placement. 4 submitted images. Fluoroscopy time 6 minutes 30.4 seconds. DAP 19 g/sq cm FINDINGS: Images demonstrate spinal stimulator with 2 leads in the spinal canal terminating at the T7-8 disc space level. FL/FL guidance in OR IMPRESSION: Fluoroscopy guidance for spinal stimulator placement.. Electronically signed by: Taylor Owusu MD 08/06/2025 02:48 PM EDT
[2025-08-06] MEDS: Lactated Ringers 1,000 ML 100 ML IVCONT (11:14)
--- NOTE | 2025-08-06 12:13 | MHC.SHP ---
Pre-Procedural Eval Section A - 24 Hr Update-Section A only Date of Service: 08/06/25 The patient is an INPATIENT: No Changes since office visit: Yes Patient answered all questions The patient has been examined within 24 hours of the surgical procedure. The History & Physical has been completed within 30 days and I have reviewed it.: No Section B - Complete if H&P > 30 days Chief Complaint: Postlaminectomy syndrome, not elsewhere classified Relevant Family History (Specify if Yes): No Relevant Social History: None Present Medications: see Short Stay Collaborative assessment Medical History: No relevant PMH History of Previous Operations: Relevant previous surgery/procedure and date(s) Allergies: Allergies Allergy/AdvReac Type Severity Reaction Status Date / Time ibuprofen Allergy Severe Affects Verified 07/01/25 13:34 the Kidneys ANDRADE Inhibitors Allergy Unknown Unknown Verified 07/01/25 13:34 diltiazem Allergy Unknown Unknown Verified 07/01/25 13:34 hydralazine Allergy Unknown Unknown Verified 07/01/25 13:34 Review of Systems Sugical H&P ROS: Negative: Constitution, Cardiovascular and Respiratory Exam Surgical H&P Exam: Normal: HEENT, Normal: Heart and Normal: Lungs Plan Diagnosis/Plan: Unchanged I have reviewed the history and physical and performed a pertinent physical examination on my patient. No changes have occurred unless specified. Time Spent With Patient Time: Total time managing care of this patient today ____ minutes.
[2025-08-06 12:21] LABS: MRSA Nasal PCR NEGATIVE (Negative); SA Nasal PCR NEGATIVE (Negative)
--- NOTE | 2025-08-06 15:29 | P.BOP_ITS ---
Brief Operative Note Date of Service: 08/06/25 Pre-op diagnosis: Postlaminectomy syndrome Post-op diagnosis: same Procedure: Lumbar SCS Implant Implants: Interview Rocket Alpha WaveWriter SCS System Surgeon: Giovanny Alanis MD Was an Rn Ccu used for this Procedure?: No Estimated blood loss (mL): 30 Pathology: none sent Condition: stable Disposition: PACU
--- NOTE | 2025-08-06 15:31 | W.PM.OPN ---
Operative Note Operative Note Date of Service: 08/06/25 Narrative: Pre-procedure diagnosis: Postlaminectomy syndrome Postprocedure diagnosis: Same Procedure: Lumbar SCS Implant After proper identification, the patient was brought to the operating room. After prone positioning, patient was sedated under anesthesia. Care was taken during positioning to protect and pad all pressure points. Cefazolin 2gm was given as preoperative antibiotic prophylaxis. The back was prepped and draped in the usual sterile fashion using Chloroprep. The fluoroscope unit was sterilely draped and brought into field, the vertebral target and the T12/L1 interspace was localized with fluoroscopy after the skin was anesthetized with 0.25% bupivicaine with 1:200,000 epinephrine and 1% lidocaine using a 25-gauge needle. A 6 cm incision was then made in the right parasagittal position with a 15 blade between the L2 and L3 spinous processes. Electrocautery was used to dissect down to the prevertebral fascia. The patient complained of pain at the incision site despite generous local anesthetic infiltration and IV anesthetic dosage so decision was made by the tire service technician to induce general anesthesia in the prone position with LMA placement, which the patient tolerated well. Following that, two 14-gauge introducer Tuohy needles were advanced using AP and contralateral oblique fluoroscopy views to the target interspace at T12/L1 from the right parasagittal position. Upon loss of resistance, a flexible stylet was advanced and verified to be in the epidural space.? The left electrode was then threaded up to the middle of T7 vertebral body. The right electrode was threaded to the top of T8 vertebral body. With the needles covering the leads, we placed 2 sets of Tycron sutures per electrode for the anchor stitches. We then backed out the needle under live fluoroscopy, verifying that the electrodes were in the correct position and we then used the locking anchors to secure the electrodes down to the prevertebral fascia, tying them down with the Tycron sutures. At this point, a pocket for the generator was made in the right iliac fossa. With the skin and subcutaneous tissues anesthetized with 0.25% bupivicaine with 1:200,000 epinephrine and 1% lidocaine, a horizontal 2-inch incision was made using a 15 blade and combination of sharp dissection, blunt dissection and electrocautery was used. A pocket was created about half an inch below the skin. The pocket was then irrigated with normal saline containing vancomycin. Hemostasis was attained with electrocautery. We then tunneled the electrodes from the back into the pocket using the tunneling device. The electrodes were then connected to the generator. Two Tycron sutures were thrown across the floor of the pocket and through the anchor holds of the generator. After interrogation with impedance check the generator was placed into the subcutaneous pocket and the anchoring suture tied. Care was taken not to get fluid in the generator connector block. The excess lead was closed beneath the generator creating a loop of strain relief as well. The neurostimulator generator was placed parallel to the skin at a depth of half an inch along for successful telemetry and impedence. The pocket was reirrigated and closed with the generator name facing out. Final electronic analysis was performed to ensure proper functioning. Positioning of the leads were rechecked and confirmed with fluoroscopy and images saved. Both incisions were closed with a deep layer of 2-0 Vicryl sutures and the deep dermal layer with 3-0 Vicryl sutures. We then secured the incision with Dermabond, steristrips, Mastisol and OpSites over both incisions. The patient tolerated the procedure well. The patient was then flipped back into the supine position, woken up and brought to the PACU in stable condition. Complications: None EBL: 30 mL
== END 2025-08-06 17:50 | disposition home or self-care (01) ==
PROVIDERS: Registered Nurse Emergency; PCP Family Medicine; Visit Provider Internal Medicine
PROC: (CPT 63685; principal; 2025-08-06 12:00)
DX: M96.1 Postlaminectomy syndrome, not elsewhere classified (principal); G89.29 Other chronic pain; M85.80 Other specified disorders of bone density and structure, unspecified site; M53.3 Sacrococcygeal disorders, not elsewhere classified; L93.0 Discoid lupus erythematosus; M16.12 Unilateral primary osteoarthritis, left hip; I10 Essential (primary) hypertension; E78.5 Hyperlipidemia, unspecified; D64.9 Anemia, unspecified; Z79.82 Long term (current) use of aspirin; Z79.899 Other long term (current) drug therapy; Z88.6 Allergy status to analgesic agent; Z88.8 Allergy status to other drugs, medicaments and biological substances; Z87.891 Personal history of nicotine dependence
CPT/HCPCS: 63685; 63650 ×2; 87640; 87641; C1778; C1787; C1820; C1889; J0131; J0690; J1171; J2003; J2250; J2405; J2704; J2765; J3010; J3374

== ENCOUNTER → 2025-08-06 10:41 | Outpatient (BNV) | payer MEDICARE, MEDICAID, SELFPAY | PROVIDERS: PCP Family Medicine; Visit Provider Internal Medicine | DX: M96.1 Postlaminectomy syndrome, not elsewhere classified (principal) | CPT/HCPCS: 63650; 63685 ==

== ENCOUNTER 2025-08-13 10:15 | Outpatient (AMB) | payer MEDICARE, MEDICAID, SELFPAY ==
--- NOTE | 2025-08-13 10:21 | MHC.OFFVIS ---
Vital Signs 08/13/25 10:22 Height 5 ft 4 in Weight 170 lb BMI 29.2 BP 140/74 H Blood Pressure Location Lt brachial Position Sitting Respiration 16 Pulse 84 Pulse Source Pulse Oximeter Pulse Oximetry (%) 96 Oxygen Delivery Method Room Air Intake Visit Reasons: S/p Soquel Sci SCS Implant 08/06/25 Cutter Grind Tool Technician Required: No Allergies ibuprofen Allergy (Severe, Verified 08/20/25 10:20) Affects the Kidneys ANDRADE Inhibitors Allergy (Unknown, Verified 08/20/25 10:20) Unknown diltiazem Allergy (Unknown, Verified 08/20/25 10:20) Unknown hydralazine Allergy (Unknown, Verified 08/20/25 10:20) Unknown Medication List - Last Reconciled 08/13/25 by Kelsi Hargrove LPN amlodipine 2.5 mg PO DAILY aspirin (Adult Aspirin Regimen) 81 mg PO DAILY atorvastatin 20 mg PO DAILY calcium carbonate-vitamin D3 600 mg-5 mcg (200 unit) (Calcium 600 + D(3)) 1 tab PO BID hydroxychloroquine 200 mg PO DAILY metoprolol succinate ER 50 mg PO DAILY omega-3 fatty acids (Fish Oil Concentrate) 1,000 mg PO DAILY oxycodone-acetaminophen 5-325 mg 1 tab PO TID PRN telmisartan 40 mg PO DAILY HPI HPI S/p Soquel Sci SCS Implant 08/06/25: Details: History of Present Illness The patient is a 70-year-old female presenting with chronic pain in the left lower back and leg. The pain has been persistent, with a reported improvement to about 65% relief, but it remains significant. The pain radiates from the left lower back down to the leg, and the patient has undergone a procedure involving lead placement to manage this pain. The patient also reports post-surgical incision pain in the buttock and back, which is described as tender but improving daily. The incisions are one week old, and the patient notes tenderness, particularly in the right buttock area. Pain Description - Onset: Persistent pain in the left lower back and leg - Quality: Described as significant, with 65% relief reported - Location: Left lower back radiating to the leg - Exacerbating factors: Movement and positioning - Relieving factors: Lead placement procedure Physical Exam - Integumentary: Incisions clean and dry, dressings intact, no signs of bleeding or soaking - Musculoskeletal: Right buttock incision tender to palpation Pain Management - Affect: Pain impacts daily activities but is improving - Analgesia: Current pain relief at 65%, goal is further improvement - Adverse Effects: None reported - Activities of Daily Living: Pain affects mobility, but patient can stand without cringing - Aberrant Drug Related Behaviors: None reported [facility] Medical History (Updated 09/02/25 @ 10:52 by Giovanny Alanis MD) Postlaminectomy syndrome Tubular adenoma of colon Tobacco use Seborrheic keratosis Osteopenia Essential hypertension Dyslipidemia 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 Cyst of kidney, acquired Arthropathy of left hip Anemia Discoid lupus erythematosus Surgical History H/O bilateral cataract extraction (~2018) Hx of decompressive lumbar laminectomy (~02/2023) Social History Are you a primary career information specialist to a significant other at home: No Do you presently have visiting nurse or other home services: No Alcohol intake: current Alcohol intake frequency: 0-2 drinks per day Alcohol type: wine Patient Tobacco Use Status: Former Tobacco user Tobacco use type: Cigarette Second Hand Smoke Exposure: No Substance Use Type: Marijuana 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 1. Chronic Pain In The Left Lower Back And Leg - Continue monitoring pain relief and adjust lead placement if necessary - Follow-up appointment scheduled for next week to assess progress 2. Post-Surgical Incision Pain - Monitor incision healing and manage tenderness - Dressing removal planned for next follow-up visit Discussion Notes During the visit, we discussed the current status of the patient's pain management, including the effectiveness of the lead placement and the expected healing process of the surgical incisions. The patient was informed about the possibility of lead adjustment if pain relief decreases and was reassured about the normal healing process of the incisions. Patient Instructions - Continue monitoring pain levels and report any significant changes - Follow up next week for dressing removal and further assessment Coding Level of Care Code Est Pt Level 3 (89692) Diagnoses Postlaminectomy syndrome M96.1
[2025-08-13 10:22] VITALS: BP 140/74; PULSE 84; RESP 16; O2SAT 96; BMI 29.2
--- OUTSIDE RECORDS SUMMARY | 2025-08-13 12:41 | XMS_ITS | Encounter Summary ---
Author Organization [employer] Address [address] [facility] 7t [place] [address] Care Team Providers Care Programmer Name Role Phone Patsy Patel MD Primary Care Provider [phone] Tre Goodrich PharmD Unavailable [phone] John Mcclain OD Unavailable Reason for Visit * Reason Comments Med Refill Encounter Details Date Type Department Care Team ([facility] st Contact Info) Description 09/17/2024 Refill [facility] MEDICINE [address] [place] [address] Tre Goodrich, PharmD [address] [place], [place] [phone] Primary hypertension Social History Tobacco Use Types [...] Care Team (Late st Contact Info) Description 09/03/2025 2:30 PM EST Telemedicine [facility] MEDICINE [address] [place] [address] Tre Goodrich, PharmD [address] [place] [phone] documented as of this encounter Goals Goal Patient Goal Type Associated Problems Recent Progress Patient-Stated? Author Blood Pressure < 140/90 Blood Pressure 136/88( 025 11:22 AM EDT) No Tre Goodrich, PharmD documented as of this encounter Visit Diagnoses Diagnosis Primary hypertension Unspecified essential hypertension documented in this encounter Additional Health Concerns Assessment Noted Time PHQ-9 Depression Total Score: 10 023 1:33 PM EST documented as of this encounter Care Teams Programmer Relationship Specialty Start Date End Date Patsy Patel MD [address] [place] [phone] PCP - General Family Medicine 10/16/18 Tre Goodrich, PharmD [address] [place] [address] [phone] Pharmacist Internal Medicine 12/25/23 John Mcclain OD [facility] [address] [place] [address] Optometry 11/14/24 documented as of this encounter
--- OUTSIDE RECORDS SUMMARY | 2025-08-13 12:41 | XMS_ITS | Encounter Summary ---
Author Organization [employer] Address [address] [facility] [address] [place] [address] Care Team Providers Care Supervisor Home Energy Consultant Name Role Phone Patsy Patel MD Primary Care Provider [phone] Tre Goodrich PharmD Unavailable [phone] John Mcclain OD Unavailable Reason for Referral * Consultation (Routine) - Closed Specialty Diagnoses / Procedures Referred By Contac t Referred To Contact Pharmacy Diagnoses Primary hypertension Patsy Patel MD [address] [place] [address] Phone: tel: fax: Referral ID Status Reason Start Date Expiration Date V isits Requested Visits Authorized [id number] Closed Consult and Treat 08/27/2024 08/27/2025 6 6 Encounter Details Date Type Department Care Team (Late st Contact Info) Description 08/27/2024 Orders Only [facility] MEDICINE [address] [place], [place] [phone] Patsy Patel MD [address] [place], [place] [phone] Primary hypertension (Primary Dx) Social History Tobacco [...] 09/03/2025 2:30 PM EST Telemedicine [facility] MEDICINE [address] [place] [address] Tre Goodrich, PharmD [address] [place] [address] Scheduled Referrals Name Type Priority Associated Diagnoses [...] as of this encounter Care Teams Supervisor Home Energy Consultant Relationship Specialty Start Date End Date Patsy Patel MD [address] [place] [address] PCP - General Family Medicine 10/16/18 Tre Goodrich, Evelina [address] [place] [address] Pharmacist Internal Medicine 12/25/23 John Mcclain OD [facility] [address] [place] [address] Optometry 11/14/24 documented as of this encounter
--- OUTSIDE RECORDS SUMMARY | 2025-08-13 12:41 | XMS_ITS | Encounter Summary ---
Author Organization [employer] Address [address] [facility] 7t [place] [address] Care Team Providers Care Quickbooks Bookkeeper Name Role Phone Patsy Patel MD Primary Care Provider [phone] Tre Goodrich PharmD Unavailable [phone] John Mcclain OD Unavailable Reason for Visit * Reason Onset Date Comments Referral 01/27/2025 Encounter Details Date Type Department Care Team (Late st Contact Info) Description 01/27/2025 Telephone [facility] [address] [place] [address] Patsy Patel MD 230 [place], [place] [phone] Referral Social History Tobacco Use Types Packs/Day [...] from pt requesting a referral to [facility] for [facility]. Contact pt at [phone] documented in this encounter Plan of Treatment Upcoming Encounters Date Type Department Care Team (Late st Contact Info) Description 09/03/2025 2:30 PM EST Telemedicine [facility] [address] [place] [address] Tre Goodrich PharmD [address] [place] [address] documented as of this encounter Goals Goal [...] documented as of this encounter Care Teams Quickbooks Bookkeeper Relationship Specialty Start Date End Date Patsy Patel MD [address] [place] [address] PCP - General Family Medicine 10/16/18 Tre Goodrich, MaudeD 230 [place] [address] Pharmacist Internal Medicine 12/25/23 John Mcclain OD [facility] [address] [place] [address] Optometry 11/14/24 documented as of this encounter
--- OUTSIDE RECORDS SUMMARY | 2025-08-13 12:41 | XMS_ITS | Encounter Summary ---
Author Organization [employer] Address 75 [facility] 7t [place] [address] Care Team Providers Care Airveyor Operator Name Role Phone Patsy Patel MD Primary Care Provider [phone] Tre Goodrich PharmD Unavailable [phone] John Mcclain OD Unavailable Reason for Visit * Reason Onset Date Comments Appointment Request 06/12/2025 Encounter Details Date Type Department Care Team ([facility] st Contact Info) Description 06/12/2025 Telephone [facility] 230 [place], [place] [phone] Patsy Patel MD [address] [place], [place] [phone] Appointment Request Social History Tobacco Use Types [...] t he electric, gas, oil or water [facility] threatened to shut off services in your [...] Info) Description 09/03/2025 2:30 PM EST Telemedicine [facility] 230 [place] [address] Tre Goodrich PharmD [address] [place] [address] documented as of this encounter Goals Goal Patient Goal Type Associated Problems Recent Progress Patient-Stated? Author Blood Pressure < 140/90 Blood Pressure 136/88( 025 11:22 AM EDT) No Tre Goodrich, PharmD documented as of this encounter Visit Diagnoses Not on filedocumented in this encounter Additional Health Concerns Assessment Noted Time PHQ-9 Depression Total Score: 2 03/25/20 25 3:33 PM EDT documented as of this encounter Care Teams Airveyor Operator Relationship Specialty Start Date End Date Patsy Patel MD [address] [place] [address] PCP - General Family Medicine 10/16/18 Tre Goodrich, Evelina [address] [place] [address] Pharmacist Internal Medicine 12/25/23 John Mcclain OD [facility] [address] [place] [address] Optometry 11/14/24 documented as of this encounter
--- OUTSIDE RECORDS SUMMARY | 2025-08-13 12:41 | XMS_ITS | Encounter Summary ---
Author Organization [employer] Address 75 [facility] 7t [place] [address] Care Team Providers Care Extension Service Specialist In Charge Name Role Phone Patsy Patel MD Primary Care Provider [phone] Tre Goodrich PharmD Unavailable [phone] John Mcclain OD Unavailable Encounter Details Date Type Department Care Team (Late st Contact Info) Description 06/12/2025 Orders Only [facility] 230 [place], [place] [phone] Patsy Patel MD 230 [place], [place] [phone] Social History Tobacco Use Types Packs/Day Years [...] Info) Description 09/03/2025 2:30 PM EST Telemedicine [facility] 230 [place] [address] Tre Goodrich PharmD 230 [place] [address] documented as of this encounter Goals Goal [...] documented as of this encounter Care Teams Extension Service Specialist In Charge Relationship Specialty Start Date End Date Patsy Patel MD 230 [place] [address] PCP - General Family Medicine 10/16/18 Tre Goodrich, PharmD 230 [place] [address] Pharmacist Internal Medicine 12/25/23 John Mcclain OD [facility] [address] [place] [address] Optometry 11/14/24 documented as of this encounter
--- OUTSIDE RECORDS SUMMARY | 2025-08-13 12:41 | XMS_ITS | Encounter Summary ---
Author Organization [employer] Address [address] [facility] 7t [place] [address] Care Team Providers Care Rug Measurer Name Role Phone Patsy Patel MD Primary Care Provider [phone] Tre Goodrich PharmD Unavailable [phone] Jhon Mcclain OD Unavailable Reason for Visit * Reason Onset Date Comments Appointment Request 12/12/2024 Encounter Details Date Type Department Care Team ([facility] st Contact Info) Description 12/12/2024 Telephone [facility] 230 [place], [place] [phone] Patsy Patel MD 230 [place], [place] [phone] Appointment Request Social History Tobacco Use Types [...] pt requesting r/s 12/13 ([facility] [employer]) appt with Tre Goodrich. documented in this encounter Plan of Treatment Upcoming Encounters Date Type Department Care Team (Late st Contact Info) Description 09/03/2025 2:30 PM EST Telemedicine [facility] [address] [place] [address] Tre Goodrich, PharmD [address] [place] [address] documented as of this encounter Goals Goal [...] documented as of this encounter Care Teams Rug Measurer Relationship Specialty Start Date End Date Patsy Patel MD 230 [place] [address] PCP - General Family Medicine 10/16/18 Tre Goodrich, MaudeD 230 [place] [address] Pharmacist Internal Medicine 12/25/23 John Mcclain OD [facility] [address] [place] [address] Optometry 11/14/24 documented as of this encounter
--- OUTSIDE RECORDS SUMMARY | 2025-08-13 12:42 | XMS_ITS | Encounter Summary ---
Author Organization [employer] Address [address] [place] [address] 7t [place] [address] Care Team Providers Care Patroller Name Role Phone Patsy Patel MD Primary Care Provider [phone] Tre Goodrich PharmD Unavailable [phone] John Mcclain OD Unavailable Reason for Visit * Reason Onset Date Comments Nurse Triage 08/07/2025 Medication Question 08/07/2025 Encounter Details Date Type Department Care Team ([facility] st Contact Info) Description 08/07/2025 Telephone [facility] 230 [place], [place] [phone] Patsy Patel MD [address] [place], [place] [phone] Nurse Triage; Medication Question Social History Tobacco Use Types Packs/Day Years [...] your housing situation today? I have lisa sing 10/22/[address] you li [...] encounter Miscellaneous Notes * Telephone Encounter - Kimberlee Figueredo RN - 08/08/2025 1:48 PM EDT Return call placed to the pt to inform that PCP placed a prescription for the requested anti-nauseamedication and sent the Zofran 4 Mg tablet to the [facility] pharmacy. The pt was agreeable and stated understanding * Telephone Encounter - Aydee Welsh - 08/08/2025 12:08 PM EDT Tc from pt requesting update on nausea medication as she can not take pain meds if she is nauseous Contact pt at [phone] * Telephone Encounter - Candie Ramey RN - 08/07/2025 2:58 PM EDT TC placed to patient. Patient reported she had a Lumbar SCS Implant placed on 08/07/2025. Patient reported after anesthesia she was nauseous for about 12 hours yesterday. Denies any nausea during thephone triage. RN advised patient to come into [facility] for further evaluation. Patient declined due to her procedure on 08/07/25. Patient requested since she seen her PCP recently can this RN send a message requesting Zofran for nausea. RN informed the patient that a message will be sent to her PCP. Patient verbalized understanding. Protocol Used: Nausea (Adult) Protocol-Based Disposition: Callback or Video Visit by PCP Today Video visit not offered Positive Triage Question: * Taking prescription medication that could cause nausea (e.g., narcotics/opiates, antibiotics, OCPs, many others) * All higher-acuity triage questions were negative Care Advice Discussed: * Reassurance and Education - Nausea * Reasons To Call Back - Nausea lasts over 1 week - You become worse * Telephone Encounter - Aydee Welsh - 08/07/2025 1:56 PM EDT Symptom: Nausea But No Vomiting Outcome: Schedule an appointment to be seen within 3 days Reason: Caller denied all higher acuity questions The caller accepted this outcome. Contact pt at [phone] documented in this encounter Plan of Treatment Upcoming Encounters Date Type Department Care Team (Late st Contact Info) Description 09/03/2025 2:30 PM EST Telemedicine [facility] 230 [place] [address] Tre Goodrich PharmD [address] [place] [address] documented as of this encounter Goals Goal Patient Goal Type Associated Problems Recent Progress Patient-Stated? Author Blood Pressure < 140/90 Blood Pressure 136/88( 025 11:22 AM EDT) No Tre Goodrich, Evelina documented as of this encounter Visit Diagnoses Not on filedocumented in this encounter Additional Health Concerns Assessment Noted Time PHQ-9 Depression Total Score: 2 01/08/20 25 3:33 PM EDT documented as of this encounter Care Teams Patroller Relationship Specialty Start Date End Date Patsy Patel MD [address] [place] [address] PCP - General Family Medicine 10/16/18 Tre Goodrich, MaudeD [address] [place] [address] Pharmacist Internal Medicine 12/25/23 John Mcclain OD [facility] [address] [place] [address] Optometry 11/14/24 documented as of this encounter
--- OUTSIDE RECORDS SUMMARY | 2025-08-13 12:42 | XMS_ITS | Encounter Summary ---
Author Organization [employer] Address [address] [place] [address] 7t [place] [address] Care Team Providers Care Research Management Associate Name Role Phone Patsy Patel MD Primary Care Provider [phone] Tre Goodrich PharmD Unavailable [phone] John Mcclain OD Unavailable Reason for Visit * Reason Comments Med Refill Encounter Details Date Type Department Care Team (Late Contact Info) Description 07/19/2023 Refill [facility] [address] [place] [address] Patsy Patel MD 230 [place], [place] [phone] Social History Tobacco Use Types Packs/Day Years [...] Info) Description 09/03/2025 2:30 PM EST Telemedicine [facility] [address] [place], [place] [phone] Tre Goodrich, PharmD [address] [place] [address] documented as of this encounter Visit Diagnoses Not on filedocumented in this encounter Additional Health Concerns Assessment Noted Time PHQ-9 Depression Total Score: 10 023 1:33 PM EST documented as of this encounter Care Teams Research Management Associate Relationship Specialty Start Date End Date Patsy Patel MD [address] [place] [address] PCP - General Family Medicine 10/16/18 Tre Goodrich, PharmD [address] [place] [address] Pharmacist Internal Medicine 12/25/23 John Mcclain OD [facility] [address] [place] [address] Optometry 11/14/24 documented as of this encounter
--- OUTSIDE RECORDS SUMMARY | 2025-08-13 12:42 | XMS_ITS | Encounter Summary ---
Author Organization [employer] Address [address] [place] [address] 7t [place] [address] Care Team Providers Care Eligibility Supervisor Name Role Phone Patsy Patel MD Primary Care Provider [phone] Tre Goodrich PharmD Unavailable [phone] John Mcclain OD Unavailable Reason for Referral * Consultation (Urgent) - Closed Specialty Diagnoses / Procedures Referred By Contac t Referred To Contact Orthopaedic Surgery Diagnoses Ankle mass, left Patsy Patel MD 230 [place] [address] Phone: tel: fax: [facility] [address] [place] [address] [place] [address] Phone: tel: fax: Referral ID Status Reason Start Date Expiration Date V isits Requested Visits Authorized [id number] Closed Specialty Services Required 01/01/2024 12/31/2024 1 1 Scheduling Instructions Therapist Speech recommends [facility]. Encounter Details Date Type Department Care Team (Late st Contact Info) Description 01/01/2024 Orders Only [facility] 230 [place], [place] [phone] Patsy Patel MD 230 [place], [place] [phone] Ankle mass, left (Primary Dx) Social History [...] Info) Description 09/03/2025 2:30 PM EST Telemedicine [facility] [address] [place] [address] Tre Goodrich, PharmD 230 [place] [address] Scheduled Referrals Name Type Priority Associated Diagnoses [...] documented as of this encounter Care Teams Eligibility Supervisor Relationship Specialty Start Date End Date Patsy Patel MD 230 [place] [address] PCP - General Family Medicine 10/16/18 Tre Goodrich, PharmD [address] [place] [address] Pharmacist Internal Medicine 12/25/23 John Mcclain OD [facility] [address] [place] [address] Optometry 11/14/24 documented as of this encounter
--- OUTSIDE RECORDS SUMMARY | 2025-08-13 12:42 | XMS_ITS | Encounter Summary ---
Author Organization [employer] Address 75 [facility] 7t h Floor [place] [id number] Care Team Providers Care Picture Enlarger Name Role Phone Patsy Patel MD Primary Care Provider [phone] Tre Goodrich PharmD Unavailable [phone] John Mcclain OD Unavailable Reason for Visit * Reason Onset Date Comments Referral 12/29/2023 Encounter Details Date Type Department Care Team ([facility] st Contact Info) Description 12/29/2023 Telephone [facility] 230 [place], [place] [phone] Patsy Patel MD 230 [place], [place] [phone] Referral Social History Tobacco Use Types Packs/Day [...] to orthopaedic surgery that was placed 12/31. [facility] was told they need derm's note and that she brought it in and gave to medical records a while ago. [facility] medical records told her they [...] swelling or discharge. Saw a surgeon at [facility] who states the pt needs to see a immigration specialist. Scheduled for an ultrasound at [facility] on Monday. Advised I would notify Dr. Patel to see if an appt will be necessary.Pt stated understanding. * Telephone Encounter - Ana Lilia Del Rio - 12/29/2023 3:27 PM EDT Tc from pt requesting a referral for orthopedics surgeons to treat a lump on left ankle. [facility] [place] documented in this encounter Plan of Treatment Upcoming Encounters Date Type Department Care Team (Late st Contact Info) Description 09/03/2025 2:30 PM EST Telemedicine [facility] 230 [place] [address] Tre Goodrich, Evelina 230 [place] [address] documented as of this encounter Goals Goal [...] documented as of this encounter Care Teams Picture Enlarger Relationship Specialty Start Date End Date Patsy Patel MD 230 [place] [address] PCP - General Family Medicine 10/16/18 Tre Goodrich, PharmD [address] [place] [address] Pharmacist Internal Medicine 12/25/23 John Mcclain OD [facility] [address] [place] [address] Optometry 11/14/24 documented as of this encounter
--- OUTSIDE RECORDS SUMMARY | 2025-08-13 12:42 | XMS_ITS | Encounter Summary ---
Author Organization [employer] Address [address] [facility] 7t [place] [address] Care Team Providers Care Pyrotechnic Assembler Name Role Phone Patsy Patel MD Primary Care Provider [phone] Tre Goodrich PharmD Unavailable [phone] John Mcclain OD Unavailable Encounter Details Date Type Department Care Team (Late st Contact Info) Description 06/27/2024 Orders Only [facility] MED[facility]INE 230 [place], [place] [phone] Patsy Patel MD 230 [place], [place] [phone] Social History Tobacco Use Types Packs/Day Years [...] Info) Description 09/03/2025 2:30 PM EST Telemedicine [facility] MED[facility]INE 230 [place] [address] Tre Goodrich, PharmD 230 [place] [address] documented as of this encounter Goals Goal Patient Goal Type Associated Problems Recent Progress Patient-Stated? Author Blood Pressure < 140/90 Blood Pressure 136/88( 025 11:22 AM EDT) No Tre Goodrich, PharmNikhil documented as of this encounter Visit Diagnoses Not on filedocumented in this encounter Additional Health Concerns Assessment Noted Time PHQ-9 Depression Total Score: 023 1:33 PM EST documented as of this encounter Care Teams Pyrotechnic Assembler Relationship Specialty Start Date End Date Patsy Patel MD [address] [place] [phone] PCP - General Family Medicine 10/16/18 Tre Goodrich, PharmD [address] [place] [address] Pharmacist Internal Medicine 12/25/23 John Mcclain OD [facility] [address] [place] [address] Optometry 11/14/24 documented as of this encounter
--- OUTSIDE RECORDS SUMMARY | 2025-08-13 12:42 | XMS_ITS | Encounter Summary ---
Author Organization [employer] Address [address] [facility] 7t [place] [address] Care Team Providers Care Supervisor [place] Name Role Phone Patsy Patel MD Primary Care Provider [phone] Tre Goodrich PharmD Unavailable [phone] John Mcclain OD Unavailable Encounter Details Date Type Department Care Team ([facility] st Contact Info) Description 08/08/2025 Orders Only [facility] MED[facility]INE 230 [place], [place] [phone] Patsy Patel MD 230 [place], [place] [phone] Nausea (Primary Dx) Social History Tobacco Use Types [...] as of this encounter Progress Notes * Patsy Patel MD - 08/08/2025 1:43 PM EDT Ondansetron sent documented in this encounter Plan of Treatment Upcoming Encounters Date Type Department Care Team (Late st Contact Info) Description 09/03/2025 2:30 PM EST Telemedicine [facility]ICINE [address] [place] [address] Tre Goodrich PharmD 230 [place] [address] documented as of this encounter Goals Goal Patient Goal Type Associated Problems Recent Progress Patient-Stated? Author Blood Pressure < 140/90 Blood Pressure 136/88( 025 11:22 AM EDT) No Tre Goodrich PharmD documented as of this encounter Visit Diagnoses Diagnosis Nausea- Primary Nausea alone documented in this encounter Additional Health Concerns Assessment Noted Time PHQ-9 Depression Total Score: 2 01/08/20 25 3:33 PM EDT documented as of this encounter Care Teams Supervisor [place] Relationship Specialty Start Date End Date Patsy Patel MD 230 [place] [address] PCP - General Family Medicine 10/16/18 Tre Goodrich, Evelina [address] [place] [address] Pharmacist Internal Medicine 12/25/23 John Mcclain OD [facility] [address] [place] [address] Optometry 11/14/24 documented as of this encounter
--- OUTSIDE RECORDS SUMMARY | 2025-08-13 12:42 | XMS_ITS | Clinical Summary ---
Author Organization [facility] Address [address] [place] [address] Phone Care Team Providers Care Principal Software Architect Name Role Phone Patsy Patel MD Primary Care Provider [phone] Allergies Active Allergy Reactions Criticality Noted Date Comments Isaiah Inhibitors 12/08/2021 Diltiazem Hcl 12/08/2021 Medications aspirin 81 MG EC tablet Take 81 mg by mouth daily. Active calcium carbonate/vitam in D3 (CALCIUM 600 + D,3, ORAL) Take 1 capsule by mouth daily. Active omega 0-ael-gkf-fish oil 1,000 mg (120 mg-180 mg) Cap [...] in a warm pool such as at [facility] in [place], [place]. Assessment & Plan (04/09/2024 9:15 PM [...] today and prior to next visit-orders in [facility]. Call if problems or questions. Assessment & [...] today and prior to next visit-orders in [facility]. Call if problems or questions. Assessment & [...] and prior to next visit- orders in [facility].. Assessment & Plan (02/13/2023 10:32 AM EDT): [...] recent eye exam by Dr. Mcclain in [place] within 2 weeks- next scheduled for 6 [...] recent eye exam by Dr. Mcclain in [place] within 2 weeks- next scheduled for 6 [...] particularly during spring and summer months. See flour mixer helper as scheduled every 6 months. Avoid concomitant use of QT interval elongating meds such as some SSRIs Assessment & Plan (04/08/2024 11:39 AM EDT): Take daily as prescribed. Use daily sun protection all year round, particularly during spring and summer months. See flour mixer helper as scheduled every 6 months. Avoid concomitant use of QT interval elongating meds such as some SSRIs Assessment & Plan (10/04/2023 11:29 AM EST): Take daily as prescribed. Use daily sun protection all year round, particularly during spring and summer months. See flour mixer helper as scheduled every 6 months. Avoid concomitant use of QT interval elongating meds such as some SSRIs Assessment & Plan (01/19/2023 4:30 PM EDT): Take daily as prescribed. Use daily sun protection all year round, particularly during spring and summer months. See flour mixer helper as scheduled every 6 months. Avoid concomitant use of QT interval elongating meds such as some SSRIs Assessment & Plan (05/26/2022 2:23 PM EDT): Take daily as prescribed. Use daily sun protection all year round, particularly during spring and summer months. See flour mixer helper as scheduled every 6 months. Avoid concomitant use of QT interval elongating meds such as some SSRIs Assessment & Plan (02/24/2022 12:47 AM EDT): Take daily as prescribed. Use daily sun protection all year round, particularly during spring and summer months. See flour mixer helper as scheduled every 6 months. Avoid [...] EST) SODIUM 137 133 - 146 mmol/L [facility] POTASSIUM 4.5 3.3 - 5.1 mmol/L [facility] Comment:Specimen slightly he molyzed, result may be falsely elevated. CHLORIDE 101 96 - 108 mmol/L [facility] CO2 23 21 - 35 mmol/L [facility] BUN 16 6 - 19 mg/dL [facility] CREATININE 0.80 0.5 - 1.5 mg/dL [facility] GLUCOSE 100(H) 70 - 99 mg/dL [facility] ALBUMIN 4.2 3.9 - 4.8 g/dL [facility] TOTAL PROTEIN 7.7 6.5 - 8.0 g/dL [facility] CALCIUM 9.8 8.4 - 10.3 mg/dL [facility] ALKALINE PHOSPHATASE 64 39 - 117 U/L [facility] TOTAL BILIRUBIN 0.5 0.0 - 1.2 mg/dL [facility] AST 27 0 - 37 U/L [facility] ALT 19 0 - 40 U/L [facility] GLOBULIN 3.5 1 - 4.8 g/dL [facility] EGFR 79 >59 mL/min/1.7 3m2 [facility] Comment:Estimated glomerular filtration rate calculated using the CKD-EPI refit equation. ANION GAP 18 10 - 20 mmol/L [facility] Blood 11/01/2024 1:37 PM EST 11/01/2024 1:40 PM EST Carlotta Yeboah MD LAB BLOOD ORDERABLES Fin al Result Performing Organization Address City/State/[facility] Co de Phone Number [address] [address] * DEXA SCAN (06/14/2023 8:22 AM EDT) Historical Provider HEALTH MAINTENANCE Final Result * MAMMOGRAPHY FOR RESULT ENTRY ONLY (06/14/2023 8:22 AM EDT) Historical Provider HEALTH MAINTENANCE Final Result from Last 3 Months or Most Recently Relevant to Health Maintenance Insurance MEDICARE PART A & B HEALTH MEDICARE PART A & B HEALTH MEDICARE PART A & [facility] [place] [id number] MEDICARE PART [place] [address] [facility] [phone] MEDICARE PART A & [place] [facility] [place] [address] Care Teams Principal Software Architect Relationship Specialty Start Date End Date Patsy Patel MD [address] [place] [address] PCP - General Family Medicine 08/04/21 Additional Source Comments The information contained in this document represents components of the legal health record. It is not the complete legal health record.[facility]
--- OUTSIDE RECORDS SUMMARY | 2025-08-13 12:42 | XMS_ITS | Clinical Summary ---
Author Organization [employer] Address [address] [facility] [address] [place] [address] Care Team Providers Care Director Of Billing Name Role Phone Patsy Berg MD Primary Care Provider [phone] Tre Goodrich PharmD Unavailable [phone] John Mcclain OD Unavailable Allergies Active Allergy [...] tablet by mouth in the morning. Active Aledo-3 Fatty Acids (Fish Oil) 1000 MG capsule [...] at bedtime. 6 mL 1 4 Active metoprolol succinate XL (Toprol-XL) 50 MG 24 hr tabletIndication s:Primary hypertension TAKE 1 AND 1/2 TABLETS BY MOUTH ONCE DAILY 45 tablet 5 5 Active atorvastatin (Lipitor) 20 MG tablet TAKE 1 TABLET BY MOUTH DAILY AT BEDTIME 90 tablet 1 5 Active naloxone (Narcan) 4 mg/0.1 mL [...] ONCE DAILY 30 tablet 5 5 Active ondansetron (Zofran) 4 MG tabletIndication s:Nausea Take 1 tablet every 8 hours as needed for nausea. May take additional 1 tablet if still having nausea. Maximum daily dose = 6 tabs. 30 tablet 5 Active Active Problems Problem Noted Date Diagnosed Date Positive colorectal cancer screening using Colog uard test 05/20/2025 Assessment & Plan (08/04/2025 6:36 AM EDT): - appointment in September 2025 Alcohol intake above recommended sensible limits 04/26/2025 Overweight 06/20/2024 Onychomycosis 06/20/2024 Assessment & Plan (06/20/2024 11:03 AM EDT): - continue ciclopirox Severe dental caries 02/16/2024 Non-restorable tooth 02/16/2024 Generalized gingival recession 01/23/2024 Missing teeth, acquired 01/23/2024 Class 1 obesity 12/25/2023 Assessment & Plan (08/04/2025 6:30 AM EDT): - patient is sensitive about her weight - continue working on lifestyle modification Long-term use of hydroxychloroquine 10/22/2023 Assessment & [...] with neurogenic claudication 05/13/2023 Assessment & Plan (08/04/2025 6:39 AM EDT): - s/p left L2-3 decompression surgery on 02/22/[address] Robert - currently following with [facility] structural steel painter - most recent MRI on 01/23/2025 showed advanced but largely stable spondylosis with surgical intervention. - Patient had tried physical therapy several times and acupuncture - Patient tried gabapentin which she disliked it side effect, euphoric/hallucinating affect - She has tried tramadol which was marginally effective - She has tried oxycodone which she discontinued due to its unpleasant, sedating effect - She was referred to chronic pain group, but she is not attending because she stopped opioid - plan for spinal cord stimulator Assessment & Plan (04/26/2025 4:49 PM EDT): [...] - evaluate with MRI and refer to activity specialist at [facility] Assessment & Plan (10/22/2023 11:13 AM EST): [...] weeks per her report. Assessment & Plan (08/04/2025 6:39 AM EDT): - s/p left L2-3 decompression surgery on 02/22/[address] Robert - currently following with pain management and activity specialist - Status post trial of MBB with marginal relief February 2025 - Plan for stimulator - She has tried acupuncture, Physical therapy, gabapentin, NSAIDS, acetaminophen, and tramadol Assessment & Plan (04/15/2025 12:18 PM EDT): - s/p left L2-3 decompression surgery on 02/22/[address] Robert - currently following with pain management and activity specialist - Status post trial of MBB [...] low back pain 10/26/2022 Assessment & Plan (08/04/2025 6:37 AM EDT): - s/p left L2-3 decompression [...] to take due to CKD and HTN. She had unpleasant reaction with oxycodone. 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 -Continue PT. Assessment & Plan (04/26/2025 [...] -Agreed to order MRI and refer to activity specialist. -Continue PT. Stage 3 chronic kidney disease (CMS/HCC) 023 Assessment & Plan (08/04/2025 6:35 AM EDT): -Followed by charge manager, last seen in Jun 2025 -Optimize BP control -Avoid nephrotoxic drugs -Periodic lab to monitor renal function Assessment & Plan (01/11/2025 6:44 AM EDT): -Followed by charge manager, last seen in Jun 2024 -Optimize BP control -Avoid nephrotoxic drugs -Periodic lab to monitor renal function Assessment & Plan (10/22/2023 11:13 AM EST): -Followed by charge manager, last seen in Jun 2023 -Optimize BP control -Avoid nephrotoxic drugs -Periodic lab to monitor renal function Assessment & Plan (05/13/2023 6:27 AM EDT): -Followed by charge manager -Optimize BP control -Avoid nephrotoxic drugs -Periodic lab to monitor renal function Assessment & Plan (10/25/2022 5:59 AM EST): -Followed by charge manager -Optimize BP control -Avoid nephrotoxic drugs [...] Plan (01/11/2025 6:46 AM EDT): -seen by [facility] orthopedist -PT with iontophoresis for trochanteric bursitis -Tried tramadol, dosage was ineffective -discouraged use of NSAIDs and HUNT-2 inhibitor due to CKD -Tried gabapentin to 300 mg tid, patient weaned herself off. -Tried lidocaine topical; first cream then patch if cream not effective Assessment & Plan (10/25/2022 6:06 AM EST): -seen by [facility] orthopedist -PT with iontophoresis for trochanteric bursitis -Tried tramadol, dosage was ineffective -discouraged use of NSAIDs and HUNT-2 inhibitor due to CKD -Tried gabapentin to 300 mg tid, patient weaned herself off. -Tried lidocaine topical; first cream then patch if cream not effective Chronic anemia 07/21/2015 Assessment & Plan (08/04/2025 6:36 AM EDT): - both iron and B12 deficiency - iron deficiency has resolved - continue B12 supplementation - positive cologuard - upcoming appointment for colonoscopy Assessment & Plan (06/20/2024 10:27 AM EDT): [...] supplementation Primary hypertension 07/21/2015 Assessment & Plan (08/04/2025 6:28 AM EDT): -Goal BP < 130/80 per ACC/AHA guideline -BP not at goal, questionable medication adherence -Co-managed with charge manager and pharmacist - EKG 12/24/19 - [...] Amlodipine was increased to 5 mg by charge manager, but pt self- discontinued due to ankle swelling. Restarted at low dose and kept at current dose -previously on Olmesartan-hctz 40-25 mg daily, Brand Benicar-hctz was more effective than the generic, per pt. -Benicar-HCTZ PA was denied. - Metoprolol was increased from 25 mg to 50 mg daily by charge manager. -Losartan was changed to telmesartan in December 2023 since it is longer-acting. - Pt has been consuming a few glasses of wine every night. Discussed about reducing consumption. Assessment & Plan (04/26/2025 4:44 PM EDT): -Goal BP < 130/80 per ACC/AHA guideline -BP not at goal, questionable medication adherence -Co-managed with charge manager and pharmacist - EKG 12/24/19 - [...] Amlodipine was increased to 5 mg by charge manager, but pt self- discontinued due to ankle swelling. Restarted at low dose and kept at current dose -previously on Olmesartan-hctz 40-25 mg daily, Brand Benicar-hctz was more effective than the generic, per pt. -Benicar-HCTZ PA was denied. - Metoprolol was increased from 25 mg to 50 mg daily by charge manager. -Losartan was changed to telmesartan in December 2023 since it is longer-acting. - Pt has been consuming a few glasses of wine every night. Discussed about reducing consumption. -Follow- up in 3 months. Assessment & Plan (01/11/2025 6:43 AM EDT): -Goal BP <140/90 per JNC-8, and < 130/80 per ACC/AHA guideline -BP not at goal, questionable medication adherence -Co-managed with charge manager and pharmacist - EKG 12/24/19 - [...] Amlodipine was increased to 5 mg by charge manager, but pt self- discontinued due to ankle swelling. Restarted at low dose and kept at current dose -previously on Olmesartan-hctz 40-25 mg daily, Brand Benicar-hctz was more effective than the generic, per pt. -Benicar-HCTZ PA was denied. - Metoprolol was increased from 25 mg to 50 mg daily by charge manager. -Losartan was changed to telmesartan in December 2023 since it is longer-acting. -Follow- up in 3 months. - Ordered labs on 01/07/25 Assessment & Plan (06/21/2024 11:24 AM EDT): -Goal BP <140/90 per JNC-8, and < 130/80 per ACC/AHA guideline -BP not at goal, questionable medication adherence -Co-managed with charge manager and pharmacist - EKG 12/24/19 - [...] Amlodipine was increased to 5 mg by charge manager, but pt self- discontinued due to ankle swelling. -previously on Olmesartan-hctz 40-25 mg daily, Brand Benicar-hctz was more effective than the generic, per pt. Metoprolol was increased from 25 mg to 50 mg daily by charge manager. -Benicar-HCTZ PA was denied. -Losartan was changed to telmesartan in December 2023 since it is longer-acting. -Follow- up in 3 months. Assessment & Plan (10/22/2023 11:09 AM EST): -Goal BP <140/90 per JNC-8, and < 130/80 per ACC/AHA guideline -BP not at goal, questionable medication adherence -Co-managed with charge manager - EKG 12/24/19 - NSR, no [...] Amlodipine was increased to 5 mg by charge manager, but pt self- discontinued due to ankle swelling. -previously on Olmesartan-hctz 40-25 mg daily, Brand Benicar-hctz was more effective than the generic, per pt. Metoprolol was increased from 25 mg to 50 mg daily by charge manager. -Benicar-HCTZ PA was denied. We will check if we can try to decrease pill-burden again. -Follow- up in 3 months. Assessment & Plan (05/13/2023 6:26 AM EDT): -Goal BP <140/90 per JNC-8, and < 130/80 per ACC/AHA guideline -BP not at goal, questionable medication adherence -Co-managed with charge manager - EKG 12/24/19 - NSR, no [...] Amlodipine was increased to 5 mg by charge manager, but pt self- discontinued due to ankle swelling. -previously on Olmesartan-hctz 40-25 mg daily, Brand Benicar-hctz was more effective than the generic, per pt. Metoprolol was increased from 25 mg to 50 mg daily by charge manager. -Benicar-HCTZ PA was denied. We will check if we can try to decrease pill-burden again. -Follow- up in 3 months. Assessment & Plan (10/26/2022 4:43 PM EST): -Goal BP <140/90 per JNC-8, and < 130/80 per ACC/AHA guideline -BP not at goal, pt does not want to adjust medication at this time. -Co-managed with charge manager - EKG 12/24/19 - NSR, no [...] 25 mg to 50 mg daily by charge manager. -Benicar-HCTZ PA was denied. -She does [...] recent eye exam by Dr. Mcclain in [place] within 2 weeks- next scheduled for 6 months. Encouraged to continue carefully Plaquenil with daily sun protection particularly during summer and spring months. In the past labs from November 2019 reassuring-new set requested today. Assessment & Plan (08/04/2025 6:32 AM EDT): -Current Community Health Nurse Staff Dr. Martin / SAL[facility] / RENÉ -Current medication: Hydroxychloroquine 200 mg daily -Continue current treatment plan per her current agents' records clerk. -Needs eye exam for long-term use of Plaquenil -Refer to new agents' records clerk Assessment & Plan (04/15/2025 10:04 AM EDT): -Current Community Health Nurse Staff Dr. Martin last visit on 03/21/24 -Current medication: Hydroxychloroquine 200 mg daily -Continue current treatment plan per her current agents' records clerk. -Needs eye exam for long-term use of Plaquenil, last eye exam in Jun 2023 Assessment & Plan (01/07/2025 9:58 AM EDT): -Current Community Health Nurse Staff Dr. Martin last visit on 03/21/24 -Current medication: Hydroxychloroquine 200 mg daily -Continue current treatment plan per her current agents' records clerk. -Needs eye exam for long-term use of Plaquenil, last eye exam in Jun 2023 Assessment & Plan (06/20/2024 10:26 AM EDT): -Current Community Health Nurse Staff Dr. Martin last visit on 03/21/24 -Current medication: Hydroxychloroquine 200 mg daily -Continue current treatment plan per her current agents' records clerk. -Needs eye exam for long-term use of Plaquenil, last eye exam in Jun 2023 Assessment & Plan (10/22/2023 11:18 AM EST): -Current Community Health Nurse Staff Dr. Martin last visit on 10/04/23 -Current medication: Hydroxychloroquine 200 mg daily -Continue current treatment plan per her current agents' records clerk. -Needs eye exam for long-term use of Plaquenil, last eye exam in Jun 2023 Assessment & Plan (05/13/2023 6:30 AM EDT): -Current Community Health Nurse Staff Dr. Martin last visit in January 2023 -Current medication: Hydroxychloroquine 200 mg daily -Continue current treatment plan per her current agents' records clerk. -Needs eye exam for long-term use of Plaquenil, last eye exam within last 1 year per pt's report Assessment & Plan (10/25/2022 6:02 AM EST): -Current Community Health Nurse Staff Dr. Martin last note on May 2022 -Current medication: Hydroxychloroquine 200 mg daily -Continue current treatment plan per her current agents' records clerk. -Needs eye exam for long-term use of Plaquenil, last eye exam in 09/2020 per pt's report Dyslipidemia 08/27/2012 Assessment & Plan (08/04/2025 6:29 AM EDT): Last lipid profile: 01/17/25 TRIG 96; CHOL 225; LDL 105; HDL 101 Current medication: atorvastatin 20 mg at bedtime Continue current treatment plan, recommended high-intensity statin therapy. Currently on moderate-intensity statin therapy due to her joint problem Continue working on lifestyle modifications Assessment & Plan (04/26/2025 4:45 PM EDT): [...] Encounters Date Type Department Care Team Description 08/08/2025 Orders Only [facility] [address] [place] [phone] Patsy Berg MD Nausea (Primary Dx) 08/07/2025 Telephone [facility] [address] [place] [phone] Patsy Berg MD Nurse Triage; Medication Question 08/06/2025 Orders Only GENERIC EXTERNAL DATA DEPARTMENT Provider, Generic External Data 07/22/2025 11:15 AM EDT Office Visit [facility] [address] [place] [phone] Patsy Berg MD Primary hypertension (Primary Dx); Encounter for immunization; Dyslipidemia; Class 1 obesity; Stage 3a chronic kidney disease (CMS/HCC) (HCC); Lumbar radiculopathy; Spinal stenosis of lumbar region with neurogenic claudication; Chronic low back pain with left-sided sciatica, unspecified back pain laterality; Discoid lupus; Positive colorectal cancer screening using Cologuard test; Chronic anemia 07/22/2025 Travel 07/21/2025 Travel 07/21/2025 Telephone [facility] [address] [place] [phone] Patsy Berg MD chart prep 07/16/[address] [address] Patsy Berg MD 07/02/2025 2:30 PM EDT Telemedicine [address] [address] Tre Goodrich, PharmD Primary hypertension (Primary Dx) 06/30/2025 Orders Only GENERIC EXTERNAL DATA DEPARTMENT Provider, Generic External Data 06/27/2025 Orders Only [facility] [address] [place] [phone] Patsy Berg MD 06/25/2025 Travel 06/13/2025 Telephone [facility] [address] [place] [address] Elif Barrera RN 06/12/[address] [address] Patsy Berg MD Appointment Request 06/12/2025 Orders Only [facility] [address] [place] [phone] Patsy Berg MD 06/11/2025 Telephone [facility] [address] [place] [address] Elif Barrera, MICHAEL 06/11/2025 Orders Only GENERIC EXTERNAL DATA DEPARTMENT Provider, Generic External Data 06/05/2025 Telephone [facility] [address] [place] [address] Elif Barrera RN 06/03/2025 Telephone [facility] [address] [place] [address] [place] [address] Patsy Berg MD clearence 06/03/2025 Travel 05/20/2025 Orders Only [facility] [address] [place] [address] Patsy Berg MD Positive colorectal cancer screening using Cologuard test (Primary Dx) 05/20/2025 Results Follow-Up [facility] [address] [facility] [place] [address] Patsy Berg MD Cologuard colon cancer screening 05/19/2025 Travel from Last 3 Months Immunizations Immunization Administration Dates Next Due Influenza High-dose Quadriva lent Preservative Free 07/07/2022,08/10/2021,08/12/2020 Influenza injectable quadriv alent preservative free 10/18/2023 Influenza, High Dose Seasona l, Preservative Free 07/22/2025 Influenza, IIV3, injectable 07/28/2010 Influenza, Split (incl. arleth fied surface antigen) 08/15/2013,08/27/2012 Influenza, seasonal, injecta ble, preservative free 01/17/2025 Pfizer Covid-19 Vaccine 12+ 07/22/2025,,10/18/2023 Pfizer Covid-19 Vaccine 12+ madelaine-sucrose ([place] Cap) [...] Sign Reading Time Taken Comments Blood Pressure 136/88 07/22/2025 11:22 AM EDT Pulse 79 07/22/2025 11:22 AM EDT Temperature 36 C (96.8 F) 07/22/2025 11:22 AM EDT Respiratory Rate 16 07/22/2025 11:22 AM EDT Oxygen Saturation 97% 07/22/2025 11:22 AM EDT Inhaled Oxygen Concentration - - Weight - - Height 162.6 cm (5' 4 ) 04/26/2021 12:07 AM EDT Body Mass Index - - Plan of Treatment Upcoming Encounters Date Type Department Care Team (Late st Contact Info) Description 09/03/2025 2:30 PM EST Telemedicine [facility] [address] [facility] [place] [address] Tre Goodrich, PharmD [address] [place] [address] Health Maintenance Due Date Last Done Comments [...] 01/07/2026 01/07/2025 Depression Screening 01/07/2026 01/07/2025, 01/08/20 FOBT 05/12/2026 05/12/2025 Tobacco Screening 08/04/2026 08/04/2025 Dental X-Ray: Full Mouth 08/15/2026 023, 01/04/2017, [...] or older Completed 01/15/2024 COVID-19 Vaccine Completed 07/22/2025, , 10/18/2023, Additional history exists Influenza Vaccine Completed 07/22/2025, , 10/18/2023, Additional history exists HIB Vaccines Aged Out [...] 11:22 AM EDT) No Tre Goodrich PharmD Procedures Procedure Name Priority Date/Time Associated Diagnosis Comments FL GUIDANCE IN OR Routine 08/06/2025 12: 43 PM EDT MRSA NASAL SCREEN Routine 08/06/2025 10: 47 AM EDT URINE PROTEIN, TOTAL, RANDOM (W/O CREATININE) Routine [...] Recently Relevant to Health Maintenance Results * FL Guidance in OR (08/06/2025 12:43 PM EDT) Only the most recent of2 resultswithin the time period is included. Anatomical Region Laterality Modality X-Ray Angiograph y 08/06/2025 12:4 3 PM EDT Narrative 08/06/2025 2:51 PM EDT [address] [address] Fluoroscopy Report Signed Patient: Sariah Fleming MR#: [id number] [birth year] : 1955 Acct:[id number] Age/Sex: 70 / F ADM Date: 08/06/25 Loc: HO.SSS Attending Dr: Giovanny Alanis MD Ordering Physician: Giovanny Alanis MD Date of Service: 08/06/25 Procedure(s): FL guidance in OR Accession Number(s): [id number] cc: Giovanny Alanis MD; Patsy Berg MD Reason for Exam: SPINAL CORD STIM IMPLANT EXAMINATION: FLUOROSCOPY GUIDANCE FOR NEEDLE PLACEMENT CLINICAL INFORMATION: SPINAL CORD STIM IMPLANT COMPARISON: Previous fluoroscopy exam May 2025 TECHNIQUE: Fluoroscopic guidance provided for spinal stimulator placement. 4 submitted images. Fluoroscopy time 6 minutes 30.4 seconds. DAP 19 g/sq cm FINDINGS: Images demonstrate spinal stimulator with 2 leads in the spinal canal terminating at the T7-8 disc space level. FL/FL guidance in OR IMPRESSION: Fluoroscopy guidance for spinal stimulator placement.. Electronically signed by: Taylor Owusu MD 08/06/2025 02:48 PM EDT RP Dictated By: Taylor Owusu MD Signed By: <Electronically signed by Taylor Owusu MD in OV> 08/06/25 1448 DD/ 1243 TD/TT: 08/06/25 1420 Gis Programmer: MARIIA Procedure Note Donotuseinterpreter, Image - 08/06/2025 [place] [id number] Fluoroscopy Report Signed Patient: Hui Fleming#: [id number] 09 : 1955cct:[id number] Age/Sex: 70 / FADM Date: 08/06/25 Loc: .[facility] Attending Dr: Giovanny Alanis MD Ordering Physician: Giovanny Alanis MD Date of Service: 08/06/25 Procedure(s): FL guidance in OR Accession Number(s): [id number] cc: Giovanny Alanis MD; Patsy Berg MD Reason for Exam: SPINAL CORD STIM IMPLANT EXAMINATION: FLUOROSCOPY GUIDANCE FOR NEEDLE PLACEMENT CLINICAL INFORMATION: SPINAL CORD STIM IMPLANT COMPARISON: Previous fluoroscopy exam May 2025 TECHNIQUE: Fluoroscopic guidance provided for spinal stimulator placement. 4 submitted images. Fluoroscopy time 6 minutes 30.4 seconds. DAP 19 g/sq cm FINDINGS: Images demonstrate spinal stimulator with 2 leads in the spinal canal terminating at the T7-8 disc space level. FL/FL guidance in OR IMPRESSION: Fluoroscopy guidance for spinal stimulator placement.. Electronically signed by: Taylor Owusu MD 08/06/2025 02:48 PM EDT RP Dictated By: Taylor Owusu MD Signed By: <Electronically signed by Taylor Owusu MD in OV> 08/06/25 1448 DD/ 1243 TD/TT: 08/06/25 1420 Gis Programmer: MARIIA [facility] External Provider IMG IR PROCEDURES Final Result * MRSA Nasal Screen (08/06/2025 10:47 AM EDT) Only the most recent of2 resultswithin the time period is included. MRSA Nasal PCR NEGATIVE Negative [facility] SA Nasal PCR NEGATIVE Negative [facility] MRSA Interpretation SEE NOTE [facility] Comment:MRSA target DNA not detected; SA target DNA not detected.A MRSA NEGATIVE, SA NEGATIVE test result does not precludeMRSA or SA nasal colonization. 08/06/2025 10:4 7 AM EDT 08/06/2025 10:51 AM EDT Generic External Data Provider LAB MICROBIOLOGY - GENERAL ORDERABLES Final Result Performing Organization Address [facility] Co de Phone Number [facility] [address] [place] [phone] * Urine Protein, Total, Random without Creatinine (06/30/2025 12:20 PM EDT) Protein, Total, Random Urine 9 <12 mg/dL [facility] 06/30/2025 12:2 0 PM EDT 06/30/2025 1:34 PM EDT Generic External Data Provider LAB URINE ORDERAB LES Final Result Performing Organization Address [facility] Co de Phone Number [facility] [address] [place] [phone] * Creatinine, Random Urine (06/30/2025 12:20 PM EDT) Creatinine, Urine 61.69 mg/dL [facility] 06/30/2025 12:2 0 PM EDT 06/30/2025 1:11 PM EDT us Generic External Data Provider LAB URINE ORDERAB LES Final Result Performing Organization Address [facility]/ZIP Co de Phone Number [facility] [address] [place] [phone] * (ABNORMAL) Urinalysis Complete (06/30/2025 12:20 PM EDT) Color Urine Yellow [facility] Appearance Urine Clear [facility] PH 6.0 5.0 - 9.0 [facility] Glucose Urine UA Negative Negative mg/dL [facility] Urine Blood Trace(A) Negative [facility] Specific [place] - Urine 1.010 1.005 - 1.025 [facility] Urine Protein Negative Neg-Trace mg/dL [facility] Urine Ketones Negative Negative mg/dL [facility] Nitrite Urine Negative Negative [facility] Leukocyte Esterase Urine Trace(A) Negative [facility] RBC Urine 0-2 0 - 2 /HPF [facility] Urine WBC 0-5 0 - 5 /HPF [facility] Urine Squamous Epithelial Cell 0-2 0 - 2 /HPF [facility] Urine Bacteria None Seen None Seen [facility] Hyaline Casts, Urine 0-2 0 - 2 /LPF [facility] 06/30/2025 12:2 0 PM EDT 06/30/2025 1:11 PM EDT us Generic External Data Provider LAB URINE ORDERAB LES Final Result Performing Organization Address City/[facility]/ZIP Co de Phone Number [facility] [address] [place] [phone] * Basic Metabolic Panel (06/27/2025 2:48 PM EDT) Only the most recent of2 resultswithin the time period is included. [facility] Sodium 137 135 - 145 mmol/L [facility] Potassium 4.4 3.3 - 5.1 mmol/L [facility] Chloride 104 96 - 108 mmol/L [facility] Carbon Dioxide 22 22 - 29 mmol/L [facility] Anion Gap 15 12 - 20 [facility] Urea Nitrogen (BUN) 10 9 - 16 mg/dL [facility] Creatinine, Serum 0.72 0.5 - 1.4 mg/dL [facility] Estimated Glomerular Filt Rate >60 [facility] Comment:Chronic Kidney Disea se: Estimated GFR < 60 mL/min/[id number] Kidney Disease: Estimated GFR < 15 mL/min/1.73m2 Glucose 106 60 - 115 mg/dL [facility] Calcium 9.3 8.4 - 10.2 mg/dL [facility] 06/27/2025 2:48 PM EDT 06/27/2025 4:01 PM EDT us Generic External Data Provider LAB BLOOD ORDERAB LES Final Result [facility] [address] [place] [address] [phone] * (ABNORMAL) Cologuard?? colon cancer screening (05/12/2025 10:45 AM EDT) [facility] Cologuard Result Positive( A) Negative 05/17/2025 12:32 PM EDT [employer] (CLIA #:[id number]) Comment: The Cologuard Plus (TM) test was performed on this specimen. POSITIVE TEST RESULT. A positive (abnormal) Cologuard Plus result means the patient has a dbsxen-nmsy-agxdiku chance of having colorectal cancer (CRC) or [...] a 91% specificity (Cologuard Plus Clinician Brochure. [employer]. [place] Visit [email or web address] for more test information, references, warnings, and precautions. Stool specimen (specimen) 05/12/2025 10:45 AM EDT 05/13/2025 12:45 PM EDT us Patsy Berg MD LAB MOLECULAR DIAGNOSTICS ORDERA BLES Final Result [employer] (CLIA #:[id number]) [address] [address], * (ABNORMAL) Lipid Panel with Reflex to Direct LDL (01/17/2025 3:05 PM EDT) Triglycerides 96 <150 mg/dL [facility] Comment:Desirable Triglyceri de: less than 150 mg/dLBorderline High Triglyceride 150-199 mg/dLHigh Triglyceride: 200-499 mg/dLVery High Triglyceride: greater than or equal to 5OO mg/dL Cholesterol 225(H) <200 mg/dL [facility] Comment:Desirable Cholestero l: less than 200 mg/dLBorderline High Cholesterol: 200-239 mg/dLHigh Cholesterol: greater than 239 mg/dL LDL Cholesterol Calculated 105(H) <100 mg/dL [facility] Comment:Desirable LDL: less than 100 mg/dLNear Optimal/Above Optimal LDL: 110- 129 mg/dLBorderline High LDL: 130-159 mg/dLHigh LDL: 160-189 mg/dLVery High LDL: greater than or equal to 190 mg/dL HDL Cholesterol 101 >40 mg/dL [facility] Comment:Desirable HDL: great er than 40 mg/dL Note: This HDL assay may give artificially low results in patients with liver disease. Blood 01/17/2025 3:05 PM EDT 01/17/2025 4:14 PM EDT us Patsy Berg MD LAB BLOOD ORDERABLES Final Resul t [facility] [address] [place] [phone] * BI Mammogram Screening Tomosynthesis Bilateral (06/14/2023 11:10 AM EDT) Anatomical Region Laterality Modality Breast Bilateral Mammography 06/14/2023 11:1 0 AM EDT Narrative 06/28/2023 8:16 AM EDT [facility] [address] [place] [address] Mammography Report Signed Patient: Sariah Fleming MR#: [id number] 09 : 1955 Acct:[id number] Age/Sex: 68 / F ADM Date: 06/14/23 Loc: [facility] Attending Dr: Patsy Berg MD Ordering Physician: Patsy Berg MD Results: 1Negative Date of Service: 06/14/23 Follow Up: 1 Year From Orig ina Mammogram Procedure(s): MM tomosynthesis screening BI Accession Number(s): [id number] cc: Patsy Berg MD EXAMINATION: MM SCREENING [...] in OV> 06/28/23 0812 DD/ 1110 TD/TT: Gis Programmer: Procedure Note Donotuseinterpreter, Image - 06/29/2023 [place] [facility] [address] [place] [address] Mammography Report Signed Patient: Sariah FlemingMR#: [id number] 09 : 1955cct:[id number] Age/Sex: 68 / FADM Date: 06/14/23 Loc: [facility] Attending Dr: Patsy Berg MD Ordering Physician: Patsy Berg MDResults: 1Negative Date of Service: 06/14/23Follow Up: 1 Year From Orig inal Mammogram Procedure(s): MM tomosynthesis screening BI Accession Number(s): [id number] cc: Patsy Berg MD EXAMINATION: MM SCREENING [...] in OV> 06/28/23 0812 DD/ 1110 TD/TT: Gis Programmer: Patsy Berg MD IM BI PROCEDURES Edited Result - Final * HEPATITIS C ANTIBODY RFLX (12/10/2019 9:10 AM EST) HEPATITIS C ANTIBODY NONREACTIVE NONREACTIVE [facility] Comment: Antibodies to HCV not detected; does not exclude early acute HCV infection. 12/10/2019 9:1 0 AM EST Patsy Berg MD HISTORICAL/NON ORDERABLE LABS Fi nal Result [facility] [address] from Last 3 Months or Most Recently Relevant to Health Maintenance Insurance MEDICARE [place] AD[place] Care Teams Director Of Billing Relationship Specialty Start Date End Date Patsy Berg MD [address] [place] [phone] PCP - General Family Medicine 10/16/18 Tre Goodrich, MaudeD [address] [place] [phone] Pharmacist Internal Medicine 12/25/23 John Mcclain OD [facility] [address] [place] [address] Optometry 11/14/24
--- OUTSIDE RECORDS SUMMARY | 2025-08-13 12:42 | XMS_ITS | Encounter Summary ---
Author Organization [employer] Address [address] [place] [address] [address] [place] [address] Care Team Providers Care Director Audience Marketing Name Role Phone Patsy Patel MD Primary Care Provider [phone] Tre Goodrich PharmD Unavailable [phone] John Mcclain OD Unavailable Reason for Referral * Consultation (Routine) - Closed Specialty Diagnoses / Procedures Referred By Contac t Referred To Contact General Surgery Diagnoses Positive colorectal cancer screening using Cologuard test Patsy Patel MD [address] [place] [phone] Phone: tel: fax: Moreno Donahue MD [address] [place] [address] [address] [place] [address] Phone: tel: Referral ID Status Reason Start Date Expiration Date V isits Requested Visits Authorized [id number] Closed Specialty Services Required 05/20/2025 05/20/2026 1 1 Encounter Details Date Type Department Care Team (Late st Contact Info) Description 05/20/2025 Orders Only [facility] [address] [place] [address] Patsy Patel MD [address] [place], [place] [phone] Positive colorectal cancer screening using Cologuard test [...] Info) Description 09/03/2025 2:30 PM EST Telemedicine [facility] [address] [place] [address] Tre Goodrich, PharmD [address] [place] [address] Scheduled Referrals Name Type Priority Associated Diagnoses [...] documented as of this encounter Care Teams Director Audience Marketing Relationship Specialty Start Date End Date Patsy Patel MD [address] [place] [address] PCP - General Family Medicine 10/16/18 Tre Goodrich, PharmD [address] [place] [phone] Pharmacist Internal Medicine 12/25/23 John Mcclain OD [facility] [address] [place] [address] Optometry 11/14/24 documented as of this encounter
== END 2025-08-13 11:34 | disposition home or self-care (01) ==
PROVIDERS: PCP Family Medicine; Visit Provider Internal Medicine
DX: M96.1 Postlaminectomy syndrome, not elsewhere classified (principal)
CPT/HCPCS: 99024

== ENCOUNTER → 2025-08-13 10:15 | Outpatient (BNVA) | payer MEDICARE, MEDICAID, SELFPAY | PROVIDERS: PCP Family Medicine; Visit Provider Internal Medicine | DX: M96.1 Postlaminectomy syndrome, not elsewhere classified (principal); M54.9 Dorsalgia, unspecified; Z98.890 Other specified postprocedural states; Z79.82 Long term (current) use of aspirin; I10 Essential (primary) hypertension; Z87.891 Personal history of nicotine dependence | CPT/HCPCS: 99212 ==

== ENCOUNTER 2025-08-20 10:18 | Outpatient (AMB) | payer MEDICARE, MEDICAID, SELFPAY ==
--- NOTE | 2025-08-20 10:20 | A.OFFVIS_ITS ---
Vital Signs 08/20/25 10:21 Height 5 ft 4 in BP 190/91 H Blood Pressure Location Rt brachial Position Sitting Respiration 16 Pulse 80 Pulse Source Pulse Oximeter Pulse Oximetry (%) 94 Oxygen Delivery Method Room Air Comment Patient refuse to weight Intake Visit Reasons: S/p Rule Sci SCS Implant 08/06/25 (2nd Visit) Social Service Assistant Required: No Accompanied by: Self / Same As Patient Allergies ibuprofen Allergy (Severe, Verified 08/20/25 10:20) Affects the Kidneys ANDRADE Inhibitors Allergy (Unknown, Verified 08/20/25 10:20) Unknown diltiazem Allergy (Unknown, Verified 08/20/25 10:20) Unknown hydralazine Allergy (Unknown, Verified 08/20/25 10:20) Unknown HPI Comments Details: Sariah is very pleasant 70 years old female who presents in my office 2 weeks after implantation of [place] spinal cord stimulator by Dr. Alanis. The patient is doing very well. Despite the minor dislodgement of 1 of the electrodes she reports excellent pain relief from the spinal cord stimulator. She reports improved mobility and improved activities of daily living. The dressing was removed today Steri-Strips are competent they were not removed. A new dressing was applied. Hygiene limitations were explained. Abdominal binder was explained. No new appointment is necessary at this time. The patient will see Dr. Alanis as needed. History of Present Illness The patient is a 70-year-old female presenting for follow-up after a lumbar spinal cord stimulator trial. She reports experiencing chronic pain, which has been partially alleviated by the trial, providing approximately 60% relief. The pain previously caused significant discomfort upon standing from a seated position, but this has improved since the trial. The patient inquired about the long-term efficacy of the stimulator, learning that while initial relief is common, the effectiveness may decrease over time. She expressed interest in proceeding with the permanent implant despite understanding these potential limitations. Additionally, the patient has a history of a colon polyp and is overdue for a co lonoscopy screening, which she plans to address soon. She has previously undergone a Cologuard test, which returned negative results. Pain Description - Onset and Timing: Chronic pain with significant improvement post-stimulator trial - Quality and Character: Pain causing cringing upon standing, now reduced - Primary Location: Lumbar region - Exacerbating Factors: Standing from a seated position - Relieving Factors: Lumbar spinal cord stimulator trial Physical Exam - Leads removed with tip intact. 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 Cyst of kidney, acquired Arthropathy of left hip Anemia Discoid lupus erythematosus Surgical History H/O bilateral cataract extraction (~2018) Hx of decompressive lumbar laminectomy (~02/2023) Social History Are you a primary career technical education instructor to a significant other at home: No Do you presently have visiting nurse or other home services: No Alcohol intake: current Alcohol intake frequency: 0-2 drinks per day Alcohol type: wine Patient Tobacco Use Status: Former Tobacco user Tobacco use type: Cigarette Second Hand Smoke Exposure: No Substance Use Type: Marijuana 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: rt handed/[employer] Review of Systems Const All systems reviewed & are unremarkable except as noted in HPI and below Physical Exam Vital Signs: Last Vital Signs Pulse 80 08/20/25 10:21 Resp 16 08/20/25 10:21 BP 190/91 H 08/20/25 10:21 Pulse Ox 94 08/20/25 10:21 Oxygen Delivery Method Room Air 08/20/25 10:21 General: Appears afebrile. Alert and oriented. Mood and affect appropriate. Follows and participates in conversation appropriately. Respiratory effort is unlabored. No cough. Able to transition from sit to stand with the use of cane for transfers and ambulation. Ambulates with normal heel strike and toe off on right, increased back pain with standing/walking on left heel. General: Yes no CVA tenderness Back/Spine/Pelvis Other: Limited lumbar ROM due to pain. Antalgic, slow gait with limping, uses cane with ambulation. Demonstrates 5/5 right and 4/5 left strength of quadriceps bilaterally as well as flexion/dorsiflexion of bilateral feet against resistance. 2+ pedal pulses bilaterally. Straight leg rise with dorsiflexion positive on the left. Diminished patellar and achilles reflexes bilaterally. Facet loading test positive bilaterally. Hemanth sign, Jaxon?s, Gaenslen, Pelvic compression and Stinchfield tests are positive on the left. No groin pain with I/E hip rotations. Valsalva maneuver is positive. Back: no CVA tenderness Cervical Spine: cervical ROM normal, No cervical muscular tenderness and No Cervical spine tenderness Thoracic/Lumbar Spine: thoracic and lumbar spine normal to inspection, Thoracic/lumbar spine scar(s), Lasegue's sign positive on the left and localized, pain with thoraco-lumbar ROM, paraspinal muscle tenderness, thoraco- lumbar ROM limited, No thoracic spinal tenderness and lumbar spinal tenderness (L4-S1) Pelvis: buttock tenderness on the left Sacroiliac joints: on the right nontender and on the left tender to palpation Extrem General: Yes capillary refill normal, Yes no clubbing, cyanosis or edema and Yes no calf tenderness Assessment & Plan Assessment & Plan (1) Postlaminectomy syndrome: Code(s): M96.1 - Postlaminectomy syndrome, not elsewhere classified Category: Medical Plan Patient is doing very well after the implantation of the spinal cord stimulator Rule scientific. She reports very good pain relief see discussion as above. Dressing was changed today. Hygiene limitations were explained today. No new appointment. Next appointment is as needed. Coding Level of Care Code Est Pt Level 3 (59450) Diagnoses Postlaminectomy syndrome M96.1
[2025-08-20 10:21] VITALS: BP 190/91; PULSE 80; RESP 16; O2SAT 94
--- OUTSIDE RECORDS SUMMARY | 2025-08-20 11:56 | XMS_ITS | Clinical Summary ---
Author Organization [facility] Address [address] [place] [address] [place] [address] Phone Care Team Providers Care Business Reporting Developer Name Role Phone Patsy Patel MD Primary Care Provider [phone] Allergies Active Allergy Reactions Criticality Noted Date Comments Isaiah Inhibitors 12/08/2021 Diltiazem 12/08/2021 Hydralazine 07/19/2021 Medications aspirin EC 81 MG EC tablet Take 81 mg by mouth 1 (one) time each day Active Calcium Carb-Cholecalci ferol (CALCIUM 500+D3 PO) Take by mouth Activ e zinc gluconate 50 MG tablet Take by mouth 1 (one) time each day Active Winthrop-3 Fatty Acids (Fish Oil) 1000 MG capsule [...] -Agreed to order MRI and refer to corrections specialist. -Continue PT. Hematuria 10/25/2022 07/13/2023 Overview (07/13/2023): Last Assessment & Plan: -microscopic, evaluated by urologist Stage 3 chronic kidney disease 10/25/2022 0 07/13/2023 Overview (07/13/2023): Last Assessment & Plan: -Followed by tuck pointer -Optimize BP control -Avoid nephrotoxic drugs -Periodic [...] particularly during spring and summer months. See medical equipment repair technician as scheduled every 6 months. Avoid concomitant use of QT interval elongating meds such as some SSRIs Generalized osteoarthritis 02/23/2022 Overview (07/13/2023): Last Assessment & Plan: Joint [...] adjust medication at this time. -Co-managed with tuck pointer - EKG 12/24/19 - NSR, no acute [...] 25 mg to 50 mg daily by tuck pointer. -Benicar-HCTZ PA was denied. -She does not want to adjust any medication at this time. --Follow- up in 3 months. Disorder of hip joint 07/21/2015 07/13/2023 Overview (07/13/2023): Last Assessment & Plan: -seen by [facility] orthopedist -PT with iontophoresis [...] recent eye exam by Dr. Mcclain in [place] within 2 weeks- next scheduled for 6 [...] recent eye exam by Dr. Mcclain in [place] within 2 weeks- next scheduled for 6 months. Encouraged to continue carefully Plaquenil with daily sun protection particularly during summer and spring months. In the past labs from November 2019 reassuring-new set requested today. 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 -Needs eye exam for long-term use of Plaquenil, last eye exam in 09/2020 per pt's report Tubular adenomatous polyp of colon 08/27/2012 Overview (07/13/2023): Last Assessment & Plan: -Last [...] [place] Care Teams Business Reporting Developer Relationship Specialty Start Date End Date Patsy Patel MD PCP - General Family Medicine 07/08/21
--- OUTSIDE RECORDS SUMMARY | 2025-08-20 11:56 | XMS_ITS | Clinical Summary ---
Author Organization [facility] Address [address] [place] [phone] Phone Care Team Providers Care Otr Refrigerated Cdl Truck Driver Name Role Phone Patsy Patel MD Primary Care Provider [phone] Allergies Active Allergy Reactions Criticality Noted Date Comments Isaiah Inhibitors 12/08/2021 Diltiazem Hcl 12/08/2021 Medications aspirin 81 MG EC tablet Take 81 mg by mouth daily. Active calcium carbonate/vitam in D3 (CALCIUM 600 + D,3, ORAL) Take 1 capsule by mouth daily. Active omega 1-xev-lfi-fish oil 1,000 mg (120 mg-180 mg) Cap [...] in a warm pool such as at [facility] in [place], [place]. Assessment & Plan (04/09/2024 9:15 PM [...] today and prior to next visit-orders in [facility]. Call if problems or questions. Assessment & [...] today and prior to next visit-orders in [facility]. Call if problems or questions. Assessment & [...] and prior to next visit- orders in [facility].. Assessment & Plan (02/13/2023 10:32 AM EDT): [...] recent eye exam by Dr. Mcclain in [place] within 2 weeks- next scheduled for 6 [...] recent eye exam by Dr. Mcclain in [place] within 2 weeks- next scheduled for 6 [...] particularly during spring and summer months. See handicapper harness racing as scheduled every 6 months. Avoid concomitant use of QT interval elongating meds such as some SSRIs Assessment & Plan (04/08/2024 11:39 AM EDT): Take daily as prescribed. Use daily sun protection all year round, particularly during spring and summer months. See handicapper harness racing as scheduled every 6 months. Avoid concomitant use of QT interval elongating meds such as some SSRIs Assessment & Plan (10/04/2023 11:29 AM EST): Take daily as prescribed. Use daily sun protection all year round, particularly during spring and summer months. See handicapper harness racing as scheduled every 6 months. Avoid concomitant use of QT interval elongating meds such as some SSRIs Assessment & Plan (01/19/2023 4:30 PM EDT): Take daily as prescribed. Use daily sun protection all year round, particularly during spring and summer months. See handicapper harness racing as scheduled every 6 months. Avoid concomitant use of QT interval elongating meds such as some SSRIs Assessment & Plan (05/26/2022 2:23 PM EDT): Take daily as prescribed. Use daily sun protection all year round, particularly during spring and summer months. See handicapper harness racing as scheduled every 6 months. Avoid concomitant use of QT interval elongating meds such as some SSRIs Assessment & Plan (02/24/2022 12:47 AM EDT): Take daily as prescribed. Use daily sun protection all year round, particularly during spring and summer months. See handicapper harness racing as scheduled every 6 months. Avoid concomitant [...] Date/Time Associated Diagnosis Comments COMPREHENSIVE METABOLIC PANEL (CMP) Routine 11/01/2024 1:37 PM EST Discoid lupus Long-term use of Plaquenil HM MAMMOGRAPHY Routine 06/14/2023 8:22 AM EDT DEXA SCAN Routine 06/14/2023 8:22 AM EDT from Last 3 Months or Most Recently Relevant to Health Maintenance Results * (ABNORMAL) Comprehensive metabolic panel (11/01/2024 1:37 PM EST) SODIUM 137 133 - 146 mmol/L [facility] POTASSIUM 4.5 3.3 - 5.1 mmol/L [facility] Comment:Specimen slightly he molyzed, result may be falsely elevated. CHLORIDE 101 96 - 108 mmol/L [facility] CO2 23 21 - 35 mmol/L [facility] BUN 16 6 - 19 mg/dL [facility] CREATININE 0.80 0.5 - 1.5 mg/dL [facility] GLUCOSE 100(H) 70 - 99 mg/dL [facility] ALBUMIN 4.2 3.9 - 4.8 g/dL [facility] TOTAL PROTEIN 7.7 6.5 - 8.0 g/dL [facility] CALCIUM 9.8 8.4 - 10.3 mg/dL [facility] ALKALINE PHOSPHATASE 64 39 - 117 U/L [facility] TOTAL BILIRUBIN 0.5 0.0 - 1.2 mg/dL [facility] AST 27 0 - 37 U/L [facility] ALT 19 0 - 40 U/L [facility] GLOBULIN 3.5 1 - 4.8 g/dL [facility] EGFR 79 >59 mL/min/1.7 3m2 [facility] Comment:Estimated glomerular filtration rate calculated using the CKD-EPI refit equation. ANION GAP 18 10 - 20 mmol/L [facility] Blood 11/01/2024 1:37 PM EST 11/01/2024 1:40 PM EST Carlotta Yeboah MD LAB BLOOD BKR ORDERABLES Final Result Performing Organization Address City/State/[facility] Co de Phone Number [facility] [address] [place] [address] * DEXA SCAN (06/14/2023 8:22 AM EDT) Historical Provider HEALTH MAINTENANCE Final Result * MAMMOGRAPHY FOR RESULT ENTRY ONLY (06/14/2023 8:22 AM EDT) Historical Provider HEALTH MAINTENANCE Final Result from Last 3 Months or Most Recently Relevant to Health Maintenance Insurance MEDICARE PART A & B HEALTH MEDICARE PART A & B MEDICARE PART A & B Member Subscriber Plan / Payer (Ef fective 2018-Present) Name:Sariah Fleming Member ID:[id number] Relation to Subscriber:Self Name:Sariah Fleming Subscriber ID:[id number] Payer ID:[id number] Group ID:Not on file Type:Medicare Address: [facility] [employer] [address] [place] [address] [facility] Member Subscriber Plan / Payer (Ef fective 2018-Present) Name:Sariah Fleming Member ID:[id number] Relation to Subscriber:Self Name:Sariah Fleming Subscriber ID:[id number] Payer ID:[id number] Group ID:Not on file Type:Medicare Address: [facility] [employer] [address] [place] [address] [facility] Member Subscriber Plan / Payer ( fective 2018-) Name:Sariah Fleming Member ID:[id number] Relation to Subscriber:Self Name:Sariah Fleming Subscriber ID:[id number] Payer ID:[id number] Group ID:Not on file Type:Medicare Address: [facility] [address] [place] [address] MEDICARE PART A & B Member Subscriber Plan / Payer ( fective 2018-) Name:Sariah Fleming Member ID:[id number] Relation to Subscriber:Self Name:Sariah Fleming Subscriber ID:[id number] Payer ID:[id number] Group ID:Not on file Type:Medicare Address: [facility] [employer] [address] [address] [place] [address] MEDICARE PART A & B Member Subscriber Plan / Payer ( fective 2018-) Name:Sariah Fleming Member ID:[id number] Relation to Subscriber:Self Name:Sariah Fleming Subscriber ID:[id number] Payer ID:[id number] Group ID:Not on file Type:Medicare Address: [facility] [address] [place], [place] [address]HEALTH MEDICARE PART A & B Member Subscriber Plan / Payer ( fective 2018-) Name:Sariah Fleming Member ID:[id number] Relation to Subscriber:Self Name:Sariah Fleming Subscriber ID:[id number] Payer ID:[id number] Group ID:Not on file Type:Medicare Address: [facility] [address] [place], [place] [address] [address] MEDICARE PART A & B [facility] Care Teams Otr Refrigerated Cdl Truck Driver Relationship Specialty Start Date End Date Patsy Patel MD [address] [place] [phone] PCP - General Family Medicine 08/04/21 Additional Source Comments The information contained in this document represents components of the legal health record. It is not the complete legal health record.[facility]
== END 2025-08-20 10:59 | disposition home or self-care (01) ==
LOC: HO.PMC 10:19
PROVIDERS: PCP Family Medicine; Visit Provider Anesthesiology
DX: M96.1 Postlaminectomy syndrome, not elsewhere classified (principal)
CPT/HCPCS: 99213

== ENCOUNTER → 2025-08-20 10:18 | Outpatient (BNVA) | payer MEDICARE, MEDICAID, SELFPAY | PROVIDERS: PCP Family Medicine; Visit Provider Anesthesiology | DX: M96.1 Postlaminectomy syndrome, not elsewhere classified (principal) | CPT/HCPCS: 99212 ==